=== PATIENT | female | born 1980 | race Caucasian/White ===

== ENCOUNTER 2017-01-01 11:49 | Emergency (ER) | payer OTHER ==
--- NOTE | 2017-01-01 12:20 | EDDOCDS ---
Physician Documentation [facility] Name: Peyton Eubanks Age: 36 yrs Sex: Female : 1980 Arrival Date: 01/01/2017 Time: 11:49 Bed I Private MD: Winter Diaz Abdul Disposition: 01/01/17 12:13 Discharged to Home/Self Care. Impression: Acute frontal sinusitis. - Condition is Stable. - Discharge Instructions: Sinusitis, Adult. - Prescriptions for Zithromax Z- Celestino 250 mg Oral Tablet - take 1 tablet by ORAL route as directed for 5 days Day 1- take two tablets once. Day 2, 3, 4 , 5 take one tablet once daily.; 6 tablet. - Medication Reconciliation, Local Pharmacy Hours form. - Follow up: Winter Diaz; When: 1 week; Reason: Recheck today's complaints, Continuance of care. - Problem is an ongoing problem. - Symptoms are unchanged. Historical: - Allergies: no known allergies; - Home Meds: 1. Mucinex 1,200 mg oral Ta12 twice a day - PMHx: none; - PSHx: Tonsillectomy; Cholecystectomy; ; - Social history: Smoking status: Patient uses tobacco products, heavy tobacco smoker. No barriers to communication noted, The patient speaks fluent Croatian, Speaks appropriately for age. - Family history: Not pertinent. - : The pt / caregiver states he / she is not on anticoagulants. Home medication list is obtained from the patient. - Exposure Risk Screening:: None identified. 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 0 in. (152.40 cm); 11:52 Body Mass Index 43.94 (102.06 kg, 152.40 cm) elp Signatures: Balaji Eaton,RN RN Sal Reed, CASKET UPHOLSTERER CASKET UPHOLSTERER Chapito Cameron, RN RN mlb1 MTDD
--- NOTE | 2017-01-01 12:20 | EDDOCDS ---
Nurse's Notes [facility] Name: Peyton Eubanks Age: 36 yrs Sex: Female : 1980 Arrival Date: 01/01/2017 Time: 11:49 Bed I Private MD: Winter Diaz Abdul Diagnosis: Acute frontal sinusitis Presentation: 01/01 11:53 Presenting complaint: Patient states: Head pressure and post nasal drip with cough mlb1 began yesterday. Adult Sepsis Screening: The patient does not have new or worsening altered mentation. Patient's respiratory rate is less than 22. Systolic blood pressure is greater than 100. Patient has a qSOFA score of 0- Negative Sepsis Screen. Suicide/Homicide risk assessment- the patient denies having any suicidal and/or homicidal ideations and does not present with any other emotional, behavioral or mental health complaints. Status: Patient is not a human services professional or dependent. Transition of care: patient was not received from another setting of care. 11:53 Acuity: PEYTON Level 4 mlb1 11:53 Method Of Arrival: Walkin/Carried/Asstd mlb1 Triage Assessment: 11:55 General: Appears in no apparent distress, Behavior is appropriate for age, cooperative. mlb1 Pain: Location: head Pain currently is 3 out of 10 on a pain scale. Quality of pain is described as aching. Pt Declines HIV testing. Respiratory: Reports cough that is. 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 Mucinex 1,200 mg oral Ta12 twice a day - PMHx: none; - PSHx: Tonsillectomy; Cholecystectomy; ; - Social history: Smoking status: Patient uses tobacco products, heavy tobacco smoker. No barriers to communication noted, The patient speaks fluent Polish, Speaks appropriately for age. - Family history: Not pertinent. - : The pt / caregiver states he / she is not on anticoagulants. Home medication list is obtained from the patient. - Exposure Risk Screening:: None identified. Screenin:16 Screening information is obtained from the patient. Fall risk: No risks identified. jmk Assistance ADL's: requires no assistance with activities of daily living. Abuse/DV Screen: The patient / caregiver reports he/she is: not in a situation that causes fear, pain or injury. Nutritional screening: No deficits noted. Advance Directives: Currently, there is no health care proxy. There is no active DNR order. There is no living will. There is no Power of Ceramics Teacher. Advance directive information has not previously been placed in an [facility] medical record. home support is adequate. Assessment: 12:16 General: Appears skin warm and dry color satisfactory. moist pink oral mucosa. chest jmk CTA. + nasal congestion reports increased pain with palpation of facial sinuses. Vital Signs: 11:52 BP 108 / 79; Pulse 105; Resp 20; Temp 97.3; Pulse Ox 97% ; Weight 102.06 kg; Height 5 elp ft. 0 in. (152.40 cm); 11:52 Body Mass Index 43.94 (102.06 kg, 152.40 cm) [facility] Vitals: 11:52 Log In Time: January 01, 2017 at 11:50. [facility] ED Course: 11:51 Patient visited by Rere Gilbert PCA. elp 11:51 iWnter Diaz is Private Physician. elp 11:51 Patient moved to Waiting elp 11:52 Patient visited by Rere Gilbert PCA. elp 11:53 Patient visited by Chapito Donnelly, LORIE. mlb1 11:53 Patient moved to Pre RCE elp 11:54 Triage Initiated mlb1 11:56 Patient visited by Chapito Donnelly, LORIE. mlb1 12:03 [facility] ke 12:03 Patient visited by Sal Thomas FNP. ke 12:03 Patient visited by Sal Thomas FNP. ke 12:03 Patient moved to I mlb1 12:12 Winter Diaz is Referral Physician. ke 12:16 The patient / caregiver is instructed regarding the plan of care and ED course. jmk 12:16 No IV's were initiated during this patient's visit. No procedures done that require jmk assistance. Order Results: There are currently no results for this order. Outcome: 12:13 Discharge ordered by Provider. ke 12:16 Discharge Assessment: Patient awake, alert and oriented x 3. No cognitive and/or jmk functional deficits noted. Patient verbalized understanding of disposition instructions. patient administered narcotics - no. The following High Risk Discharge criteria are identified: None. Discharged to home ambulatory. Condition: good. Discharge instructions given to patient, Instructed on discharge instructions, follow up and referral plans. medication usage, Demonstrated understanding of instructions, medications, Pt was receptive of discharge instructions/ teaching. Prescriptions given X 1. No special radiology studies were completed. Property :Personal belongings accompany Pt. 12:19 Patient left the ED. luiz Signatures: Balaji EatonRN RN Sal Reed, ON AIR HOST ON AIR HOST Chapito Cameron RN RN mlb1 Rere Gilbert, DEEPTI TATUM elp MTDD
--- NOTE | 2017-01-03 13:20 | EDDOCDS ---
Nurse's Notes [facility] Name: Peyton Eubanks Age: 36 yrs Sex: Female : 1980 Arrival Date: 01/01/2017 Time: 11:49 Bed I Private MD: Winter Diaz Abdul Diagnosis: Acute frontal sinusitis Presentation: 01/01 11:53 Presenting complaint: Patient states: Head pressure and post nasal drip with cough mlb1 began yesterday. Adult Sepsis Screening: The patient does not have new or worsening altered mentation. Patient's respiratory rate is less than 22. Systolic blood pressure is greater than 100. Patient has a qSOFA score of 0- Negative Sepsis Screen. Suicide/Homicide risk assessment- the patient denies having any suicidal and/or homicidal ideations and does not present with any other emotional, behavioral or mental health complaints. Status: Patient is not a answering service telephone operator or dependent. Transition of care: patient was not received from another setting of care. 11:53 Acuity: PEYTON Level 4 mlb1 11:53 Method Of Arrival: Walkin/Carried/Asstd mlb1 Triage Assessment: 11:55 General: Appears in no apparent distress, Behavior is appropriate for age, cooperative. mlb1 Pain: Location: head Pain currently is 3 out of 10 on a pain scale. Quality of pain is described as aching. Pt Declines HIV testing. Respiratory: Reports cough that is. 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 Mucinex 1,200 mg oral Ta12 twice a day - PMHx: none; - PSHx: Tonsillectomy; Cholecystectomy; ; - Social history: Smoking status: Patient uses tobacco products, heavy tobacco smoker. No barriers to communication noted, The patient speaks fluent Polish, Speaks appropriately for age. - Family history: Not pertinent. - : The pt / caregiver states he / she is not on anticoagulants. Home medication list is obtained from the patient. - Exposure Risk Screening:: None identified. Screenin:16 Screening information is obtained from the patient. Fall risk: No risks identified. jmk Assistance ADL's: requires no assistance with activities of daily living. Abuse/DV Screen: The patient / caregiver reports he/she is: not in a situation that causes fear, pain or injury. Nutritional screening: No deficits noted. Advance Directives: Currently, there is no health care proxy. There is no active DNR order. There is no living will. There is no Power of Business Objects Analyst. Advance directive information has not previously been placed in an [facility] medical record. home support is adequate. Assessment: 12:16 General: Appears skin warm and dry color satisfactory. moist pink oral mucosa. chest jmk CTA. + nasal congestion reports increased pain with palpation of facial sinuses. Vital Signs: 11:52 BP 108 / 79; Pulse 105; Resp 20; Temp 97.3; Pulse Ox 97% ; Weight 102.06 kg; Height 5 elp ft. 0 in. (152.40 cm); 11:52 Body Mass Index 43.94 (102.06 kg, 152.40 cm) [facility] Vitals: 11:52 Log In Time: January 01, 2017 at 11:50. [facility] ED Course: 11:51 Patient visited by Rere Gilbert PCA. elp 11:51 Winter Diaz is Private Physician. elp 11:51 Patient moved to Waiting elp 11:52 Patient visited by Rere Gilbert PCA. elp 11:53 Patient visited by Chapito Donnelly, LORIE. mlb1 11:53 Patient moved to Pre RCE elp 11:54 Triage Initiated mlb1 11:56 Patient visited by Chapito Donnelly, LORIE. mlb1 12:03 [facility] ke 12:03 Patient visited by Sal Thomas FNP. ke 12:03 Patient visited by Sal Thomas FNP. ke 12:03 Patient moved to I mlb1 12:12 Winter Diaz is Referral Physician. ke 12:16 The patient / caregiver is instructed regarding the plan of care and ED course. jmk 12:16 No IV's were initiated during this patient's visit. No procedures done that require jmk assistance. 12:59 Patient name changed from Peyton\S\M\S\Raimundo\S\ to Peyton\S\Viki\S\Raimundo. EDMS 13:06 [facility] Payment Agreement was scanned into [employer] and attached to record. 01/02 18:37 T-Sheet-- Draft Copy was scanned into [employer] and attached to record. klr Order Results: There are currently no results for this order. Outcome: 01/01 12:13 Discharge ordered by Provider. gypsy 12:16 Discharge Assessment: Patient awake, alert and oriented x 3. No cognitive and/or k functional deficits noted. Patient verbalized understanding of disposition instructions. patient administered narcotics - no. The following High Risk Discharge criteria are identified: None. Discharged to home ambulatory. Condition: good. Discharge instructions given to patient, Instructed on discharge instructions, follow up and referral plans. medication usage, Demonstrated understanding of instructions, medications, Pt was receptive of discharge instructions/ teaching. Prescriptions given X 1. No special radiology studies were completed. Property :Personal belongings accompany Pt. 12:19 Patient left the ED. luiz Signatures: Dispatcher [employer] EDMS Balaji Eaton,RN RN Malou Gao, Reg Reg Sal Live, ANESTHESIOLOGIST PHYSICIAN ANESTHESIOLOGIST PHYSICIAN Chapito Cameron RN RN mlRere Celeste, DEEPTI DIRECTOR OF LEARNING elCoby Cadet Chart Complete JAMEL
--- NOTE | 2017-01-03 13:20 | EDDOCDS ---
Physician Documentation [facility] Name: Peyton Eubanks Age: 36 yrs Sex: Female : 1980 Arrival Date: 01/01/2017 Time: 11:49 Bed I Private MD: Winter Diaz Abdul Disposition: 01/01/17 12:13 Discharged to Home/Self Care. Impression: Acute frontal sinusitis. - Condition is Stable. - Discharge Instructions: Sinusitis, Adult. - Prescriptions for Zithromax Z- Celestino 250 mg Oral Tablet - take 1 tablet by ORAL route as directed for 5 days Day 1- take two tablets once. Day 2, 3, 4 , 5 take one tablet once daily.; 6 tablet. - Medication Reconciliation, Local Pharmacy Hours form. - Follow up: Winter Diaz; When: 1 week; Reason: Recheck today's complaints, Continuance of care. - Problem is an ongoing problem. - Symptoms are unchanged. Historical: - Allergies: no known allergies; - Home Meds: 1. Mucinex 1,200 mg oral Ta12 twice a day - PMHx: none; - PSHx: Tonsillectomy; Cholecystectomy; ; - Social history: Smoking status: Patient uses tobacco products, heavy tobacco smoker. No barriers to communication noted, The patient speaks fluent Khmer, Speaks appropriately for age. - Family history: Not pertinent. - : The pt / caregiver states he / she is not on anticoagulants. Home medication list is obtained from the patient. - Exposure Risk Screening:: None identified. 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 0 in. (152.40 cm); 11:52 Body Mass Index 43.94 (102.06 kg, 152.40 cm) elp MDM: 13:06 [facility] Payment Agreement was scanned into [employer] and attached to record. 01/02 18:37 T-Sheet-- Draft Copy was scanned into [employer] and attached to record. klr Signatures: Balaji Eaton,RN RN Malou Gao, Milad Briones lgl, WELFARE ELIGIBILITY INTERVIEWER WELFARE ELIGIBILITY INTERVIEWER Chapito Cameron RN RN mlb1 Coby Parra The chart was reviewed and I authenticate all verbal orders and agree with the evaluation and treatment provided.Attachments: 01/01 13:06 [facility] Payment Agreement lg 01/02 18:37 T-Sheet-- Draft Copy klr Chart Complete MTDD
--- NOTE | 2017-01-03 13:20 | EDDOCDS ---
Physician Documentation [facility] Name: Peyton Eubanks Age: 36 yrs Sex: Female : 1980 Arrival Date: 01/01/2017 Time: 11:49 Bed I Private MD: Winter Diaz Abdul Disposition: 01/01/17 12:13 Discharged to Home/Self Care. Impression: Acute frontal sinusitis. - Condition is Stable. - Discharge Instructions: Sinusitis, Adult. - Prescriptions for Zithromax Z- Celestino 250 mg Oral Tablet - take 1 tablet by ORAL route as directed for 5 days Day 1- take two tablets once. Day 2, 3, 4 , 5 take one tablet once daily.; 6 tablet. - Medication Reconciliation, Local Pharmacy Hours form. - Follow up: Winter Diaz; When: 1 week; Reason: Recheck today's complaints, Continuance of care. - Problem is an ongoing problem. - Symptoms are unchanged. Historical: - Allergies: no known allergies; - Home Meds: 1. Mucinex 1,200 mg oral Ta12 twice a day - PMHx: none; - PSHx: Tonsillectomy; Cholecystectomy; ; - Social history: Smoking status: Patient uses tobacco products, heavy tobacco smoker. No barriers to communication noted, The patient speaks fluent Spanish, Speaks appropriately for age. - Family history: Not pertinent. - : The pt / caregiver states he / she is not on anticoagulants. Home medication list is obtained from the patient. - Exposure Risk Screening:: None identified. 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 0 in. (152.40 cm); 11:52 Body Mass Index 43.94 (102.06 kg, 152.40 cm) elp MDM: 13:06 [facility] Payment Agreement was scanned into [employer] and attached to record. 01/02 18:37 T-Sheet-- Draft Copy was scanned into [employer] and attached to record. klr Signatures: Balaji Eaton,RN RN Malou Gao, Milad Briones lgl, NURSING UNIT COORDINATOR NURSING UNIT COORDINATOR Chapito Cameron RN RN mlb1 Coby Parra The chart was reviewed and I authenticate all verbal orders and agree with the evaluation and treatment provided.Attachments: 01/01 13:06 [facility] Payment Agreement lg 01/02 18:37 T-Sheet-- Draft Copy klr Chart Complete MTDD
== END 2017-01-01 12:19 | disposition home or self-care (01) ==
LOC: M ED 11:49
DX: J01.90 Acute sinusitis, unspecified (principal); F17.210 Nicotine dependence, cigarettes, uncomplicated

== ENCOUNTER 2017-03-26 08:59 | Emergency (ER) | payer OTHER ==
[~2017-03-26] VITALS: Ht 147.3 cm; Wt 95.3 kg
[2017-03-26 08:59] VITALS: BP 135/88
[2017-03-26] MEDS ORDERED: OCUF0.3D OS (10:27)
== END 2017-03-26 10:54 | disposition home or self-care (01) ==
LOC: M ED 10:31
DX: H10.32 Unspecified acute conjunctivitis, left eye (principal); F17.200 Nicotine dependence, unspecified, uncomplicated

== ENCOUNTER 2017-11-24 08:10 | Emergency (ER) | payer OTHER | END 2017-11-24 09:34 | disposition home or self-care (01) | LOC: M ED 08:10 | DX: J04.0 Acute laryngitis (principal); B34.9 Viral infection, unspecified; F17.210 Nicotine dependence, cigarettes, uncomplicated; Z98.890 Other specified postprocedural states | CPT/HCPCS: 87880 ==

== ENCOUNTER 2018-06-12 09:59 | Emergency (ER) | payer OTHER ==
[2018-06-12 12:15] LABS: BASO # 0.1 10^3/uL (0.0-0.2); BASO % 0.6 % (0.0-1.0); HEMATOCRIT 46.4 % (36.0-47.0); HEMOGLOBIN 15.2 g/dl (12.0-15.5); IMMATURE GRANULOCYTE % 0.4 % (0-3.0); LYMPH # 2.4 10^3/uL (1.5-4.5); LYMPH % 22.3 % (24.0-44.0); MEAN CORPUSCULAR HGB CONC 32.8 g/dl (32.0-36.5); MEAN CORPUSCULAR VOLUME 88.5 fl (80.0-96.0); MONO # 0.6 10^3/uL (0.0-0.8); MONO % 5.4 % (0.0-5.0); NEUTROPHILS # 7.7 10^3/uL (1.8-7.7); NEUTROPHILS % 71.3 % (36.0-66.0); PLATELET COUNT, AUTOMATED 309 10^3/uL (150-450); RED BLOOD COUNT 5.24 10^6/uL (4.00-5.40); RED CELL DISTRIBUTION WIDTH 13.8 % (11.5-14.5); WHITE BLOOD COUNT 10.8 10^3/uL (4.0-10.0)
[2018-06-12 12:28] LABS: APPEARANCE, URINE CLOUDY (CLEAR); BACTERIA, URINE AUTO 3+ (NEGATIVE); BILIRUBIN, URINE AUTO NEGATIVE (NEGATIVE); BLOOD, URINE BLOOD 3+ (NEGATIVE); COLOR, URINE RED (YELLOW); GLUCOSE, URINE (UA) AUTO NEGATIVE (NEGATIVE); KETONE, URINE AUTO NEGATIVE (NEGATIVE); LEUKOCYTE ESTERASE, URINE AUTO NEGATIVE (NEGATIVE); MUCUS, URINE SMALL (NEGATIVE); NITRITE, URINE AUTO NEGATIVE (NEGATIVE); PROTEIN, URINE AUTO 2+ mg/dL (NEGATIVE); RBC, URINE AUTO TNTC /HPF (0-3); SPECIFIC GRAVITY URINE AUTO 1.021 (1.002-1.035); SQUAMOUS EPITHELIAL CELL UR AU 2 /HPF (0-6); UROBILINOGEN, URINE AUTO 0.2 mg/dL (0.0-2.0); WBC, URINE AUTO 54 /HPF (0-3)
[2018-06-12 12:42] LABS: ANION GAP 7 MEQ/L (8-16); BLOOD UREA NITROGEN 10 MG/DL (7-18); CALCIUM LEVEL 8.6 MG/DL (8.5-10.1); CARBON DIOXIDE LEVEL 28 MEQ/L (21-32); CHLORIDE LEVEL 106 MEQ/L (98-107); CPK CREATINE PHOSPHOKINASE 111 U/L (26-192); CREATININE FOR GFR 0.85 MG/DL (0.55-1.30); GLOMERULAR FILTRATION RATE > 60.0 (>60); GLUCOSE, FASTING 86 MG/DL (70-100); POTASSIUM SERUM 4.2 MEQ/L (3.5-5.1); SODIUM LEVEL 141 MEQ/L (136-145); TROPONIN I < 0.02 NG/ML (< 0.10)
[2018-06-12 12:48] LABS: CK-MB VALUE MASS < 1.0 NG/ML (<3.6); HCG, SERUM QUANTITATIVE < 1.0 MIU/ML
[2018-06-12 14:25] LABS: BEDSIDE GLUCOSE 82 MG/DL (70-105)
== END 2018-06-12 13:29 | disposition home or self-care (01) ==
LOC: M ED 09:59
DX: N39.0 Urinary tract infection, site not specified (principal); I49.9 Cardiac arrhythmia, unspecified; F17.200 Nicotine dependence, unspecified, uncomplicated
CPT/HCPCS: 93005

== ENCOUNTER 2021-04-22 12:43 | Inpatient (IN) | payer OTHER ==
[~2021-04-22] VITALS: Ht 152.4 cm; Wt 119.1 kg
[~2021-04-22 12:43] MED LIST: MACR100C43 PO; OCUF0.25 OS
[2021-04-22] MEDS ORDERED: LIDOCAINE 1% MDV 20ML VIAL SC ONE (15:05)
[2021-04-22] MEDS ORDERED: PERCOCET 5MG/325MG TAB PO ONE (15:20)
[2021-04-22 15:27] LABS: BASO # 0.1 10^3/uL (0.0-0.2); BASO % 0.4 % (0.0-1.0); EOS # 0.1 10^3/uL (0.0-0.5); EOS % 0.3 % (0.0-3.0); HEMATOCRIT 37.1 % (36.0-47.0); HEMOGLOBIN 11.4 g/dl (12.0-15.5); LYMPH # 2.1 10^3/uL (1.5-5.0); MEAN CORPUSCULAR HEMOGLOBIN 25.6 pg (27.0-33.0); MEAN CORPUSCULAR HGB CONC 30.7 g/dl (32.0-36.5); MEAN CORPUSCULAR VOLUME 83.4 fl (80.0-96.0); MONO % 5.1 % (2.0-8.0); NEUTROPHILS # 15.7 10^3/uL (1.5-8.5); NEUTROPHILS % 82.3 % (36.0-66.0); PLATELET COUNT, AUTOMATED 488 10^3/uL (150-450); RED BLOOD COUNT 4.45 10^6/uL (4.00-5.40); WHITE BLOOD COUNT 19.1 10^3/uL (4.0-10.0)
[2021-04-22] MEDS ORDERED: VANCOMYCIN HCL 2,000 MG in IV FLUID PLACE HOLDER 1 EA IV ONE (15:30)
[2021-04-22] MEDS ORDERED: VANCOMYCIN HCL 1,000 MG, VIAL MATE ADAPTER 1 EACH in NS 250 ML IV ONE ×2 (15:35→16:45)
[2021-04-22] MEDS ORDERED: NS 1,000 ML IV ONE (15:40)
[2021-04-22 15:46] LABS: BLOOD UREA NITROGEN 11 MG/DL (7-18); CALCIUM LEVEL 8.9 MG/DL (8.5-10.1); CARBON DIOXIDE LEVEL 26 MEQ/L (21-32); CHLORIDE LEVEL 104 MEQ/L (98-107); CREATININE FOR GFR 0.83 MG/DL (0.55-1.30); GLOMERULAR FILTRATION RATE > 60.0 (>58); GLUCOSE, FASTING 110 MG/DL (70-100); POTASSIUM SERUM 4.1 MEQ/L (3.5-5.1); SODIUM LEVEL 139 MEQ/L (136-145)
[2021-04-22] MEDS ORDERED: ISOVUE-370 76% 100ML VIAL As Ordered ONE (16:27)
--- NOTE | 2021-04-22 17:10 | REP ---
INDICATION: severe abscesses in rectal area. COMPARISON: None. TECHNIQUE: Helical scanning was acquired and 4 mm axial images are re-formatted. Coronal and sagittal MPR images were generated and reviewed. The contrast enhancement dose is 100 mL of intravenous Isovue 370. Patient was scanned in the prone position due to her inability to lay supine. FINDINGS: Preliminary digital housing management officer radiograph demonstrates an unremarkable bowel gas pattern. There are surgical clips in the right upper quadrant consistent with cholecystectomy and there are tubal ligation clamps visible bilaterally in the pelvis. The lung bases appear clear on axial CT images. The liver and the spleen are normal in size homogeneous in texture. Cholecystectomy clips are seen. No abnormality is noted in the pancreas. The left adrenal gland is enlarged. There is a low-density area along the inferior margin the adrenal gland most likely an adrenal adenoma. This measures 2.2 x 1.9 x 3.6 cm in greatest diameter. The kidneys enhance symmetrically and are morphologically intact. Small and large intestinal bowel loops are normal in the abdomen and pelvis. No retroperitoneal mass or adenopathy is observed. A no abdominal wall defect is seen. No uterine or urinary bladder abnormality is seen. Tubal ligation clamps are noted bilaterally adjacent to the ovaries. However, there is a lobulated mixed density well-defined mass lesion in the cul-de-sac. This contains macroscopic areas of fat, soft tissue density, and curvilinear peripheral calcification. Its appearance suggests a ovarian dermoid although normal ovaries are seen more anteriorly in the pelvis. It measures 6.4 cm craniocaudal by 7.3 cm right to left by 4.7 cm anterior to posterior. There is diffuse induration and inflammatory thickening in the perirectal area the perineum, bilaterally. On the right posterior to the anus, there is a 3.3 cm low-density area with incompletely defined brand which may be a developing perianal abscess. No other fluid collection is appreciated. IMPRESSION: 1. Bilateral perianal and perineal inflammatory changes. Ill-defined poorly marginated 3.3 cm low-density area in the right perianal region may be developing abscess. 2. 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 It contains fat calcium and soft tissue components. It is posterior to the uterus in the cul-de-sac. It measures 7.3 cm in greatest diameter. 3. Status post cholecystectomy and tubal ligation. Prone scanning due to patient discomfort lying supine. 4. There is a 3.6 cm low-density nodule in the left adrenal gland which is nonspecific. This may be a benign adenoma. MRI scanning of the adrenals with pre and postcontrast imaging suggested for further evaluation <Electronically signed by Errol Valdes > 04/22/21 1332
[2021-04-22] MEDS ORDERED: MIDAZOLAM INJ 2MG/2ML VIAL (J2250 PER 1MG) As Ordered ONE (18:14)
[2021-04-22] MEDS ORDERED: propofoL 200 MG/20 ML VIAL As Ordered ONE (18:15)
[2021-04-22] MEDS ORDERED: fentaNYL 100 MCG/2 ML INJECTION (J3010) As Ordered ONE ×2 (18:15→19:36)
[2021-04-22] MEDS ORDERED: dexameTHASONE 4 MG/ML 1ML VIAL (J1100 PER 1MG) As Ordered ONE (18:15)
[2021-04-22] MEDS ORDERED: LIDOCAINE 2% 100MG/5ML SDV (FOR ANES.) As Ordered ONE (18:15)
[2021-04-22] MEDS ORDERED: ONDANSETRON 4MG/2ML VIAL As Ordered ONE (18:15)
[2021-04-22] MEDS ORDERED: ACETAMINOPHEN TAB 650MG DOSE (2X325MG) PO PRN (18:30)
--- NOTE | 2021-04-22 18:45 | HPEPDOC ---
[facility] Medical History & Physical Date of Admission Apr 22, 2021 Date of Service: Apr 22, 2021 Attending Physician: MAXWELL BOTELLO DO History and Physical CHIEF COMPLAINT: Perirectal abscesses HISTORY OF PRESENT ILLNESS: And patient reports that she has had perirectal pain for the past few weeks, however it is now come to the point where it has become severely painful. Apparently she did discover a boil a few days ago, popped it, and has been draining ever since, she has tried to keep the area clean, but it just hasn't been getting any better. It is for this reason that she came to the emergency department for further evaluation. She does not have a PCP, and apparently she has not seen a doctor for at least the past 13 years or so since her . CODE STATUS: Full code PAST MEDICAL HISTORY: None PAST SURGICAL HISTORY: Tonsillectomy Cholecystectomy Tubal ligation SOCIAL HISTORY: Smokes approximately one half pack per day. Does not drink alcohol. Does not use any illicit drugs or marijuana. She apparently did try an edible cannabis last week for pain relief, but that is it. FAMILY HISTORY: Mother had "stage IV terminal cancer" but she does not know the type/etiology, but apparently this was not the cause of her , she had a major stroke. Otherwise her mother also had coronary artery disease and hypertension. She does not know her father's medical history is he is estranged REVIEW OF SYSTEMS: Constitutional: Patient denies fevers, chills, night sweats, recent weight gain/loss. HEENT: Patient denies blurred or double vision, transient visual disturbances, postnasal drip, epistaxis, sore throat, difficulty chewing or swallowing food. Cardiovascular: Patient denies chest discomfort/pain, palpitations, exertional dyspnea, orthopnea, edema of the extremities, claudication. Respiratory: Patient denies dyspnea, wheezing, cough, hemoptysis, sputum production. Gastrointestinal: Patient denies nausea, vomiting, abdominal pain, melena, hem atochezia, hematemesis, jaundice. She has rectal pain, and she has intermittent constipation, which when she treats will occasionally spur diarrhea. PHYSICAL EXAMINATION: General: Awake, alert, oriented 3. She is in no acute distress at this time. HEENT: Head normocephalic atraumatic, conjunctiva are pink, sclera are nonicteric, buccal mucosa is pink and moist with no lesions in the oropharynx. Hearing is grossly intact to conversation. Respiratory: Clear to auscultation bilaterally with no wheezes, rales, or rhonchi. Cardiovascular: Regular rate and rhythm, with no rubs, gallops, or murmur. Abdomen: She is lying prone therefore examination the abdomen cannot be performed. Examination of the perianal area does reveal a large amount of drainage, one of the larger abscesses was already lanced by the ED provider Extremities: 2+ pulses in the radial and dorsalis pedis bilaterally. No evidence of clubbing or cyanosis. IMAGING: CT abdomen and pelvis with IV contrast only IMPRESSION: 1. Bilateral perianal and perineal inflammatory changes. Ill-defined poorly marginated 3.3 cm low-density area in the right perianal region may be developing abscess. 2. 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 It contains fat calcium and soft tissue components. It is posterior to the uterus in the cul-de-sac. It measures 7.3 cm in greatest diameter. 3. Status post cholecystectomy and tubal ligation. Prone scanning due to patient discomfort lying supine. 4. There is a 3.6 cm low-density nodule in the left adrenal gland which is nonspecific. This may be a benign adenoma. 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. Dr. Burleson, General Surgeon has already been contacted by the ED provider, and they're trying to get her scheduled for an OR time either tonight or tomorrow. She is already NPO. Will continue with IV vancomycin for empiric antibiotic, wound and blood cultures have already been obtained in the ED Vital Signs Vital Signs Date Time Temp Pulse Resp B/P (MAP) Pulse Ox O2 Delivery O2 Flow Rate FiO2 04/22/21 18:42 04/22/21 17:06 99.0 98 18 96 Room Air Laboratory Data Labs 24H Laboratory Tests 2 04/22/21 15:02: Immature Granulocyte % (Auto) 0.9, Neutrophils (%) (Auto) 82.3H, Lymphocytes (%) (Auto) 11.0L, Monocytes (%) (Auto) 5.1, Eosinophils (%) (Auto) 0.3, Basophils (%) (Auto) 0.4, Neutrophils # (Auto) 15.7H, Lymphocytes # (Auto) 2.1, Monocytes # (Auto) 1.0H, Eosinophils # (Auto) 0.1, Basophils # (Auto) 0.1, Nucleated Red Blood Cells % (auto) 0.0, Anion Gap 9, Glomerular Filtration Rate > 60.0, Calcium Level 8.9, C-Reactive Protein, Quantitative 10.80H 04/22/21 15:44: Erythrocyte Sedimentation Rate 81H, Lactic Acid Level 1.0, Coronavirus (COVID- 19)(PCR) NEGATIVE CBC/BMP Laboratory Tests 04/22/21 15:02 Microbiology Microbiology 04/22/21 Blood Culture, Received Pending 04/22/21 Gram Stain, Received Pending 04/22/21 Wound Culture, Received Pending Home Medications No Active Prescriptions or Reported Meds Allergies Coded Allergies: No Known Allergies (Unverified , 04/22/21) A-FIB/CHADSVASC A-FIB History Current/History of A-Fib/PAF?: No MAXWELL BOTELLO DO Apr 22, 2021 18:44
[2021-04-22] MEDS ORDERED: BUPIVACAINE HCL 0.25% 30ML VIAL As Ordered ONE (19:25)
[2021-04-22] MEDS ORDERED: ONDANSETRON 4MG/2ML VIAL IV PRN ×2 (19:30→20:20)
[2021-04-22] MEDS ORDERED: HYDROMORPHONE HCL 0.5 MG/ 0.5 ML SYRINGE (J1170 PER 1) IV PRN (19:30)
[2021-04-22] MEDS ORDERED: LR 1,000 ML IV SCH (19:30)
[2021-04-22] MEDS ORDERED: oxyCODONE 5MG TAB PO PRN (19:30)
[2021-04-22] MEDS ORDERED: fentaNYL 100 MCG/2 ML INJECTION (J3010) IV PRN (19:30)
[2021-04-22] MEDS ORDERED: ACETAMINOPHEN 1000MG 100ML IV BTL (OFIRMEV) (J0131 PER 10MG) As Ordered ONE (19:49)
[2021-04-22 20:50] VITALS: BP 135/72
[2021-04-22] MEDS ORDERED: ENOXAPARIN 40MG/0.4ML SYRINGE (J1650 PER 10MG) SC SCH (21:00)
[2021-04-22 21:20] VITALS: BP 114/56
[2021-04-22] MEDS: SENOKOT S TAB PO SCH (21:24)
[2021-04-22] MEDS: KETOROLAC 30 MG/ML 1ML VIAL IV PRN (21:25)
[2021-04-22 22:15] VITALS: BP 112/58
[2021-04-22 23:20] VITALS: BP 112/59
[2021-04-22] MEDS: VANCOMYCIN HCL 1,000 MG, VIAL MATE ADAPTER 1 EACH in NS 250 ML IV SCH (23:54)
[2021-04-23 00:20] VITALS: BP 108/74
[2021-04-23] MEDS: KETOROLAC 30 MG/ML 1ML VIAL IV PRN ×2 (00:50→12:35)
[2021-04-23 01:22] VITALS: BP 109/70
[2021-04-23] MEDS: NORCO, ANEXSIA 5/325MG TABLET (HYDROcodone/ACETAMINOPHEN) PO PRN ×2 (02:36→08:45)
[2021-04-23 06:00] VITALS: BP 113/65
[2021-04-23 08:13] LABS: HEMATOCRIT 31.1 % (36.0-47.0); HEMOGLOBIN 9.5 g/dl (12.0-15.5); MEAN CORPUSCULAR HEMOGLOBIN 25.4 pg (27.0-33.0); MEAN CORPUSCULAR HGB CONC 30.5 g/dl (32.0-36.5); MEAN CORPUSCULAR VOLUME 83.2 fl (80.0-96.0); PLATELET COUNT, AUTOMATED 460 10^3/uL (150-450); RED BLOOD COUNT 3.74 10^6/uL (4.00-5.40); WHITE BLOOD COUNT 19.3 10^3/uL (4.0-10.0)
--- NOTE | 2021-04-23 08:22 | IPNPDOC ---
Text Note Date of Service The patient was seen on 04/23/21. NOTE No acute events overnight. She still feels better than when she came into the hospital. The pain is still present, but she is able to sit down. We had a long discussion this am about the mass. She did not remember anything that I discussed with her last night after surgery. I explained to her again that she has genital warts along with a large pelvic mass that is likely a V ulvar cancer. I also mentioned to her that I had Dr. Lord take a look while she was in the operating room to give me her opinion as well. VSSAF NAD labs - below A) 40y/o female with an infected pelvic mass that is likely a vulvar cancer. P) reg diet abx recommend looking into transfer to [facility] legal [facility] onc[facility] for further treatment. Grant Burleson DO VS,Sandor, I+O VS, Sandor, I+O Laboratory Tests 04/22/21 15:02 04/23/21 06:41 Vital Signs Date Time Temp Pulse Resp B/P (MAP) Pulse Ox O2 Delivery O2 Flow Rate FiO2 04/23/21 06:00 98.1 63 16 113/65 (81) 96 Room Air I&O- Last 24 Hours up to 6 AM 04/23/21 06:00 Intake Total 2410 ml Output Total 5 ml Balance 2405 ml MAXWELL BURLESON DO Apr 23, 2021 08:22
[2021-04-23 08:34] LABS: BLOOD UREA NITROGEN 11 MG/DL (7-18); CALCIUM LEVEL 8.5 MG/DL (8.5-10.1); CARBON DIOXIDE LEVEL 24 MEQ/L (21-32); CHLORIDE LEVEL 105 MEQ/L (98-107); CREATININE FOR GFR 0.78 MG/DL (0.55-1.30); GLOMERULAR FILTRATION RATE > 60.0 (>58); GLUCOSE, FASTING 122 MG/DL (70-100); POTASSIUM SERUM 4.4 MEQ/L (3.5-5.1); SODIUM LEVEL 137 MEQ/L (136-145)
[2021-04-23] MEDS: SENOKOT S TAB PO SCH (08:44)
[2021-04-23] MEDS: VANCOMYCIN HCL 1,000 MG, VIAL MATE ADAPTER 1 EACH in NS 250 ML IV SCH (08:44)
[2021-04-23] MEDS ORDERED: PANTOPRAZOLE 40MG TAB (PROTONIX) PO SCH (09:00)
--- NOTE | 2021-04-23 09:18 | CR ---
CONSULTATION DATE: 04/22/2021 CHIEF COMPLAINT: Perineal abscess. HISTORY OF PRESENT ILLNESS: The patient complains of perineal pain for the past three weeks. She has had intermittent infections with drainage in the area that have went away on their own, however this one she has had for about two weeks and it is not getting any better. She is having significant pains with any bowel movements as well. She finally came to the hospital for evaluation after the pain was not improving. In the Emergency Room she was diagnosed with a perineal abscess and perirectal abscess. One of the spots was drained and cultured, however due to the large area and severe pain, ended up getting a CT scan to make sure there was no necrotizing fasciitis. CT scan did show possible mass in the cul-de-sac concerning for questionable dermoid tumor, also showed some perineal inflammatory changes and questionable abscess I decided to take her to the Operating Room for better visualization and drainage of the area. PAST MEDICAL HISTORY: Negative. PAST SURGICAL HISTORY: Tonsillectomy, cholecystectomy, and tubal ligation. SOCIAL HISTORY: Smokes a half a pack a day, denies drug or alcohol usage. FAMILY HISTORY: Noncontributory. REVIEW OF SYSTEMS: Pertinent positives and negatives as stated in the HPI. ALLERGIES: None. HOME MEDICATIONS: None. PHYSICAL EXAMINATION: GENERAL: Patient is alert and oriented x3, in no acute distress. VITAL SIGNS: Temperature is 96.2, pulse is 144, respirations 18, blood pressure 135/86, pulse oximetry 96% on room air. HEENT: Pupils equally round and reactive to light and accommodation. HEART: S1 and S2, regular rate and rhythm. LUNGS: Clear to auscultation bilaterally. ABDOMEN: Soft, nontender and nondistended. EXTREMITIES: No cyanosis, clubbing or edema. PERINEAL EXAM: Deferred until the Operating Room due to severe pain at this time. LABORATORY DATA: White count 19.1, hemoglobin 11.4, platelets 488,000. Potassium 4.1, creatinine 0.83. C-reactive protein 10.8. 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 There is a 3.6 cm low density nodule in the left adrenal gland which is nonspecific. ASSESSMENT AND PLAN: Patient is a 40-year-old female with a perineal infection. Recommendation is to take her to the Operating Room for debridement. Risks and benefits of the procedure not limited to but including bleeding, infection, damage to surrounding structures, and need for further surgery, discussed in detail with the patient, informed consent was obtained. The procedure was planned. Postoperatively, she will kept in the hospital for a couple of days until her labs are improved and she should be able to be discharged home. ADDENDUM: Postoperatively, patient did have what appeared to be an infected pelvic mass as opposed to just simple abscess. She does have extensive genital warts around the perineal area. She was unaware of those when I spoke with her afterwards, she thought they were just skin tags like she has on the rest of her body. I explained to her that these were genital warts and that on the left side it appears that it has turned into a large mass, that mass is likely what has grown into her pelvis and this large necrotic mass is the cause of her infection. I am concerned also about possible rectocutaneous fistula due to this mass and that being the source of the infection. I explained all of this to her in detail, will explain it to her again in the morning when she is more alert and we will see how she does overnight with further recommendation to follow.
[2021-04-23] MEDS ORDERED: PROHANCE 279.3MG/ML 5ML VIAL As Ordered ONE (10:05)
[2021-04-23] MEDS ORDERED: PROHANCE 279.3MG/ML 15ML VIAL As Ordered ONE (10:05)
--- NOTE | 2021-04-23 11:36 | REP ---
INDICATION: Adrenal mass. MRI Adrenals with pre . COMPARISON: CT 04/22/2021. TECHNIQUE: Multiple sequences obtained in the axial coronal planes prior to and following the intravenous administration of 20 cc ProHance. FINDINGS: The patient has had a prior cholecystectomy. There is not significant intrahepatic or extrahepatic biliary dilatation. The visualized liver demonstrates no gross abnormality. Spleen and pancreas also appear unremarkable. A left adrenal nodule is again seen. It measures approximately 3.7 x 2.9 cm. It is somewhat heterogeneous in signal. There is not significant drop in signal on the out of phase imaging and diagnosis of adrenal adenoma cannot be definitely made. The kidneys are unremarkable. No adenopathy or free fluid is seen in the visualized abdomen. IMPRESSION: Left adrenal nodule 3.7 x 2.9 cm. There is not a significant drop in signal on out of phase imaging and therefore a definitive diagnosis of adrenal adenoma cannot be made. It is felt this most likely represents a lipid poor adrenal adenoma. Further evaluation may be made with dedicated CT of the adrenals with and without contrast, with postcontrast imaging obtained in the portal phase and 15 minutes post contrast injection, to evaluate adrenal washout. <Electronically signed by Adonis Lopez > 04/23/21 1547
[2021-04-23 11:46] VITALS: BP 121/53
[2021-04-23] MEDS ORDERED: NORCO, ANEXSIA 5/325MG TABLET (HYDROcodone/ACETAMINOPHEN) PO PRN ×2 (12:40)
--- NOTE | 2021-04-23 13:45 | DS.PDOC ---
Discharge Summary General Date of Admission Apr 22, 2021 at 18:27 Date of Discharge 04/23/2021 Discharge Summary PRIMARY CARE PHYSICIAN: She does not have a primary care physician ATTENDING AT TIME OF DISCHARGE: Dr. Maxwell Botello, DO DISCHARGE DIAGNOS(E)S: -Large infected pelvic mass suspected to be vulvar cancer -Incidental finding of left adrenal nodule, most likely represents a lipid poor adrenal adenoma (further evaluation may be made with dedicated CT of the adrenals with and without contrast with postcontrast imaging obtained in the portal phase and 15 minutes post contrast injection to evaluate adrenal washout) -Suspicion for rectocutaneous fistula -Leukocytosis -Normocytic anemia -Elevated platelet count -Elevated ESR and CRP HPI & HOSPITAL COURSE: The patient had been suffering from perirectal pain for the past 2-3 weeks, apparently a few days ago she discovered a boil in the perirectal area, popped in, and it has been draining ever since. She presented to the emergency room because of the pain and continuous drainage. CT scan in the emergency department showed what appeared to be perirectal abscess with incidental dermoid tumor in the pelvic cul-de-sac, as well as an incidental finding of a left adrenal mass. She was started on IV vancomycin as empiric anabiotic therapy given that she did have an elevated white count (19.1). Highest recorded temperature was 99.0 while inpatient in our facility. Vital signs have remained good, she is certainly not septic. She was brought to the OR, and instead of a perirectal abscess, and appears that she has a very large pelvic mass, suspected to be vulvar cancer that is likely extending through the entire area of the perineum, and may actually be part of what was previously presumed to be the dermoid tumor. A biopsy was obtained in the OR, and best attempt was made to flush/clean out the area, but there is suspicion for rectocutaneous fistula therefore nothing else was done. Since we do not have a gynecology/oncology service at our hospital she will be transferred to [facility] for further evaluation and management. Accepting physician is Dr. Yany Veras MD. PHYSICAL EXAMINATION ON DISCHARGE: GENERAL: Awake, alert, oriented 3. She is certainly anxious about the news given to her, but she has not in any acute distress, and is currently stable. CARDIOVASCULAR EXAMINATION: Regular rate and rhythm, with no rubs, gallops, or m urmur. RESPIRATORY EXAMINATION: Clear to auscultation bilaterally with no wheezes, rales, or rhonchi. ABDOMINAL EXAMINATION: Soft, nontender. Bowel sounds present. EXTREMITIES: No clubbing or edema noted. 2+ pulses in the radial bilaterally. DISPOSITION: Transfer to [facility] in [place], [place] DISCHARGE INSTRUCTIONS: Follow-up with Dr. Veras upon arrival to [facility]. Vital Signs/I&Os Vital Signs Date Time Temp Pulse Resp B/P (MAP) Pulse Ox O2 Delivery O2 Flow Rate FiO2 04/23/21 11:46 98.0 74 16 121/53 (75) 97 Room Air I&O- Last 24 Hours up to 6 AM0 04/23/21 06:00 Intake Total 2410 ml Output Total 5 ml Balance 2405 ml Laboratory Data Labs 24H Laboratory Tests 2 04/22/21 15:02: Immature Granulocyte % (Auto) 0.9, Neutrophils (%) (Auto) 82.3H, Lymphocytes (%) (Auto) 11.0L, Monocytes (%) (Auto) 5.1, Eosinophils (%) (Auto) 0.3, Basophils (%) (Auto) 0.4, Neutrophils # (Auto) 15.7H, Lymphocytes # (Auto) 2.1, Monocytes # (Auto) 1.0H, Eosinophils # (Auto) 0.1, Basophils # (Auto) 0.1, Nucleated Red Blood Cells % (auto) 0.0, Anion Gap 9, Glomerular Filtration Rate > 60.0, Calcium Level 8.9, C-Reactive Protein, Quantitative 10.80H 04/22/21 15:44: Erythrocyte Sedimentation Rate 81H, Lactic Acid Level 1.0, Coronavirus (COVID- 19)(PCR) NEGATIVE 04/23/21 06:41: Nucleated Red Blood Cells % (auto) 0.0, Anion Gap 8, Glomerular Filtration Rate > 60.0, Calcium Level 8.5 CBC/BMP Laboratory Tests 04/22/21 15:02 04/23/21 06:41 Microbiology Microbiology 04/22/21 Blood Culture, Received Pending 04/22/21 Blood Culture, Received Pending 04/22/21 Gram Stain - Final, Resulted 04/22/21 Wound Culture - Preliminary, Resulted Streptococcus Group G Discharge Medications No Active Prescriptions or Reported Meds Allergies Coded Allergies: No Known Allergies (Unverified , 04/22/21) MAXWELL BOTELLO 14, 2021 13:45
[2021-04-23 14:00] VITALS: BP 111/52
--- NOTE | 2021-04-23 14:49 | RO ---
OPERATIVE NOTE DATE OF OPERATION: 04/22/2021 PREOPERATIVE DIAGNOSIS: Perineal abscess POSTOPERATIVE DIAGNOSIS: Infected and necrotic perineal mass. PROCEDURE: Incision and drainage of a perineal abscess as well as drainage of portion of this infected mass, rectal examination under anesthesia and biopsy of the perineal mass. SURGEON: Adonis Burleson DO AIR BRUSH DECORATOR: None. ANESTHESIA: General. SPECIMENS: Mass biopsy. ESTIMATED BLOOD LOSS: 5 mL COMPLICATIONS: None. ANESTHESIA: General. INDICATIONS FOR PROCEDURE: The patient is a 40-year-old female who presents with a three week history of a perineal abscess that keeps returning. She claims to have had difficulty with abscesses for a while in that area that just keep coming back. She presented to the emergency room with infection. Recommendation is to take her to the operating room for drainage due to severe pain and CT finding suspicious for large abscess in the area. Risks and benefits of the procedure are not limited to but include bleeding, infection, damage to surrounding structures, need for further surgery were discussed in detail to the patient. Informed consent was obtained and procedure is planned. DESCRIPTION OF PROCEDURE: The patient was brought back to operating room 3. After sufficient sedation, she was placed up in lithotomy position. Next, a timeout was done to confirm proper patient and proper procedure. Following that, on the left anterior buttock, there was an abscess with purulent fluid draining from it. I opened that incision by about a cm, irrigated it out and then used some cautery to control bleeding. There were multiple warts around the labia on both sides. On the left side of the labia extending down around the rectal area was this large necrotic mass invading the entire area, very hard. On rectal exam, I was able to feel the mass internally. With pressure anteriorly, purulent fluid did drain out from the middle of it. I did irrigate that out as best I could. There is a high concern for a rectocutaneous fistula in that area. A couple biopsies were taken of the mass itself and sent to pathology. The rest of the area was then irrigated out really well, covered with 4x4s and mesh panties, thus ending procedure. The patient tolerated the procedure well and was sent to recovery room in stable condition.
[2021-04-23 16:07] VITALS: BP 102/52
[2021-04-23] MEDS ORDERED: VANCOMYCIN HCL 1,000 MG, VIAL MATE ADAPTER 1 EACH in NS 250 ML IV SCH (19:00)
== END 2021-04-23 16:22 | disposition short-term general hospital (02) | DRG 364 ==
LOC: M ED 12:43 → M ED INP 18:27 → M MSPAV 20:53
PROVIDERS: ADMIT Neuromusculoskeletal Medicine & OMM; ATTEND Neuromusculoskeletal Medicine & OMM
PROC: 0W9N0ZZ Drainage of Female Perineum, Open Approach (ICD-10-PCS; 2021-04-22)
PROC: 0WBN0ZX Excision of Female Perineum, Open Approach, Diagnostic (ICD-10-PCS; principal; 2021-04-22 17:39)
DX: L02.215 Cutaneous abscess of perineum (principal); C76.3 Malignant neoplasm of pelvis; D36.7 Benign neoplasm of other specified sites; K60.4 Rectal fistula; D35.02 Benign neoplasm of left adrenal gland; F17.200 Nicotine dependence, unspecified, uncomplicated; Z90.49 Acquired absence of other specified parts of digestive tract; Z20.822 Contact with and (suspected) exposure to COVID-19

== ENCOUNTER 2021-05-03 07:02 | Emergency (ER) | payer OTHER ==
[~2021-05-03] VITALS: Ht 152.4 cm; Wt 114.2 kg
[2021-05-03] MEDS ORDERED: BACTDSTA (07:10)
[2021-05-03] MEDS ORDERED: SM P325T2 (07:10)
[2021-05-03] MEDS ORDERED: NS 1,000 ML IV SCH (07:45)
[2021-05-03] MEDS ORDERED: ONDANSETRON 4MG/2ML VIAL IV ONE (07:45)
[2021-05-03 08:40] LABS: BASO # 0.1 10^3/uL (0.0-0.2); BASO % 0.5 % (0.0-1.0); HEMOGLOBIN 11.5 g/dl (12.0-15.5); LYMPH # 2.1 10^3/uL (1.5-5.0); LYMPH % 9.6 % (24.0-44.0); MEAN CORPUSCULAR HEMOGLOBIN 25.5 pg (27.0-33.0); MEAN CORPUSCULAR HGB CONC 31.1 g/dl (32.0-36.5); MONO % 4.5 % (2.0-8.0); NEUTROPHILS # 18.3 10^3/uL (1.5-8.5); NEUTROPHILS % 83.2 % (36.0-66.0); PLATELET COUNT, AUTOMATED 535 10^3/uL (150-450); RED BLOOD COUNT 4.51 10^6/uL (4.00-5.40)
[2021-05-03] MEDS ORDERED: FREEMIS42 TOP (08:53)
[2021-05-03] MEDS: MORPHINE 4 MG/ML 1ML VIAL/SYRINGE (J2270) IV PRN ×2 (09:02→12:56)
[2021-05-03] MEDS ORDERED: PIPERACILLIN/TAZOBACTAM SOD 3.375 GM in D5W MINI-BAG PLUS 50 ML IV ONE (09:15)
[2021-05-03 10:05] LABS: RSV AMPLIFICATION NEGATIVE (NEGATIVE)
[2021-05-03 10:43] LABS: CREATININE FOR GFR 1.12 MG/DL (0.55-1.30); GLOMERULAR FILTRATION RATE 56.8 (>58); POTASSIUM SERUM 4.1 MEQ/L (3.5-5.1)
[2021-05-03 12:56] VITALS: BP 125/57
== END 2021-05-03 13:01 | disposition short-term general hospital (02) ==
LOC: M ED 07:02
DX: L02.215 Cutaneous abscess of perineum (principal); D07.1 Carcinoma in situ of vulva
CPT/HCPCS: 36415; 80048; 85025; 87631; 96365; 96375; 96376; 99284; J2270; J2405; J2543

== ENCOUNTER → 2021-05-21 | Outpatient (CLI) | payer OTHER ==
[~2021-05-21] MED LIST changes: +BACTDSTA; +CIPR250T3 PO; +CIPR750T2 PO; +CLIN150C17 PO; +FENT1DIS14 TOP; +FLUC100T3 PO; +FREEMIS42 TOP; +GABA-282 PO; +LEVO500T4 PO; +LIDO3CRE14 TOP; +LIDO5OIN19 EXT; +METR-265 PO; +METR0.7533 TOP; +MICO14CR TOP; +MORP-69 PO; +ONDA-83 PO; +OXYC-1 PO; +OXYC-141 PO; +OXYC-403 PO; +OXYC-517 PO; +OXYC10TA12 PO; +SERT-141 PO; +SERT25TA21 PO; +SLOWTAB2 PO; +SM P325T2 PO; +TRIA1CR80 TOP; +ZOFR4TAB16 PO; +[UNRECOGNIZED DRUG - CODE] EXT
== END ==
LOC: M ONCR 10:41
PROVIDERS: ATTEND General Practice
DX: C51.9 Malignant neoplasm of vulva, unspecified (principal); F17.210 Nicotine dependence, cigarettes, uncomplicated; Z80.0 Family history of malignant neoplasm of digestive organs; Z92.21 Personal history of antineoplastic chemotherapy; Z98.61 Coronary angioplasty status

== ENCOUNTER → 2021-06-06 | Outpatient (CLI) | payer OTHER ==
[~2021-06-06] MED LIST changes: +HYDROmorphone HCL 2MG/ML 1ML VIAL As Ordered ONE; +LIDOCAINE 1% MDV 20ML VIAL As Ordered ONE; +MIDAZOLAM INJ 2MG/2ML VIAL (J2250 PER 1MG) As Ordered ONE; +NS 1,000 ML IV SCH; +OXYC-1; +OXYC-517; +ceFAZolin 2 GM/D5W 50 ML IV BAG (J0690 PER 500MG) As Ordered ONE; +ceFAZolin SOD 2 GM in IV 1 EA IV ONE; +diphenhydrAMINE 50MG/ML VIAL (J1200) As Ordered ONE; +fentaNYL 100 MCG/2 ML INJECTION As Ordered ONE
[2021-06-06 16:44] VITALS: BP 123/65
== END ==
LOC: M IRPRO 12:55
PROVIDERS: ATTEND Radiology Diagnostic Radiology
DX: C51.9 Malignant neoplasm of vulva, unspecified (principal)
CPT/HCPCS: 36561; 99152; 99153; C1769; C1788; C1894; J0690; J1170; J1200; J1642; J1644; J2250; J3010

== ENCOUNTER 2021-06-08 08:26 | Outpatient (RCR) | payer OTHER ==
--- NOTE | 2021-05-21 13:31 | RADONC.CN ---
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 She is seen today to facilitate continuation of her chemoradiation which was started at [facility]. Diagnosis/Treatment History Oncologic History Presented in April 2021 with a perineal mass and pain. She was assessed at [facility] and thought to have a perineal abscess she underwent EUA/I&D and biopsy on 04/23/21 which showed SCC. She had suspicion for rectocutaneous fistula. She was transferred to [place] and sent home from there on antibiotics. She then develop ed increasing pain in the rectum and presented to the [facility] ED on 05/03/21 and this time was transferred to [facility]. She was evaluated by radiation oncology and gynecologic oncology there. On MRI her mass was ~9.5 cm AP with abutment of the anal sphincter and extension to the left inferior pubic ramus. There were BL inguinal nodes and questionable external iliac nodes on the left. Started chemoradiation on 05/08/21 and received a total of 8 fractions of treatment last on 05/18/21. Along with this she received 2 doses of weekly cisplatin 05/08/21 and 05/15/21. Relevant imaging: MR Pelvis 04/26/21 FINDINGS: Uterus: Anteverted. scar noted. Endometrium unremarkable. Cervix unremarkable. Ovaries: Mixed signal intensity mass centered in the cul-de-sac, measuring approximately 8 x 5.1 x 6.1 cm. There are foci of fat within, also demonstrated on recent CT. This mass contacts the posterior aspect of the right ovary, though did appear separate from the right ovary on prior CT. The ovaries otherwise have an unremarkable appearance with small follicles noted. Susceptibility artifact in both adnexa related to tubal ligation clips. Bladder: Indwelling Mckenna catheter with associated intraluminal gas. Peritoneum: Trace free fluid. Lymph Nodes: Bilateral inguinal adenopathy. On the right, largest lymph node measures 1.3 cm short axis. On the left, largest lymph node measures 1.2 cm short axis. Additionally enlarged bilateral external iliac lymph nodes up to 1.5 cm. Subcentimeter presacral and internal iliac lymph nodes are nonspecific. Visualized Bowel: Grossly normal. Vessels: Normal. Bones: No suspicious lesions. Other Findings: Vulvar mass in the midline measures approximately 9.3 x 4.2 x 6.5 cm. The mass is likely bilateral, but there is a greater left-sided component. It extends superiorly on the left in close proximity to the left inferior pubic ramus, but without definite evidence of invasion. The mass abuts the anterior anal sphincter. IMPRESSION: 1. Vulvar mass, centered in midline, measuring approximately 9.3 x 4.2 x 6.5 cm. Mass contacts the anal sphincter and extends in close proximity to the left inferior pubic ramus without bony invasion. 2. Bilateral inguinal and external iliac adenopathy, concerning for jeanna metastases. 3. Fat-containing 8 cm mass centered in the cul-de-sac. This mass has imaging features suggesting a dermoid cyst. It contacts the right ovary and may be right ovarian in origin, however on prior CT, it appeared separate from the ovary. Its origin is not entirely certain. Otherwise unremarkable uterus and ovaries. 4. Trace pelvic free fluid. CT Thorax with Contrast Result Date: 05/03/2021 PROCEDURE INFORMATION: Exam: CT Chest With Contrast; Diagnostic Exam date and time: 05/03/21 10:32 PM Age: 40 years old Clinical indication: Shortness of breath; Additional info: Vulvar cancer - evaluate for adenopathy TECHNIQUE: Imaging protocol: Diagnostic computed tomography of the chest with contrast. Radiation optimization: All CT scans at this facility use at least one of these dose optimization techniques: automated exposure control; mA and/or kV adjustment per patient size (includes targeted exams where dose is matched to clinical indication); or iterative reconstruction. Contrast material: OMNI 300; Contrast volume: 100 ml; Contrast route: INTRAVENOUS (IV); COMPARISON: No relevant prior studies available. FINDINGS: Lungs: Unremarkable. No consolidation. No masses. Pleural spaces: Unremarkable. No pneumothorax. No pleural effusion. Heart: Unremarkable. No cardiomegaly. No pericardial effusion. Aorta: Unremarkable. No aortic aneurysm. Lymph nodes: Unremarkable. No enlarged lymph nodes. Gallbladder and bile ducts: Cholecystectomy. Adrenal glands: 3.6 x 2.9 cm left adrenal adenoma. Bones/joints: Unremarkable. No acute fracture. Soft tissues: Unremarkable. IMPRESSION: 1. 3.6 x 2.9 cm left adrenal adenoma. 2. Cholecystectomy. THIS DOCUMENT HAS BEEN ELECTRONICALLY SIGNED BY YASMIN COSTELLO MD Interval History Peyton reports pain with showering and ambulation. She is wearing an ABD pad over the draining perineal wound. Overall she says that there has been less drainage in recent days. She has no bleeding IL, or in her urine. No pain with elimination. Walking extended periods and repositioning when she lays down hurts her. She is taking 5 mg oxycodone for pain with good effect. Has had no fevers or chills since completing antibiotics. Appetite good and weight stable. Past Medical History: Obesity Past Surgical History: Tubal ligation C section Cholecystectomy Tonsillectomy Family History: Father-lung cancer Mother-cancer Social History: Current 1/2 ppd smoker ~ 20 pack year smoking history Allergies / Meds Allergies: Coded Allergies: No Known Allergies (Unverified , 04/22/21) Home Meds Active Scripts Oxycodone HCl (Oxycodone HCl) 5 Mg Tablet, 5 MG PO Q4HP PRN for pain MDD 6 Tablet(s) for 14 Days, #90 TAB Prov:LAST JUNIOR MD 05/21/21 Reported Medications Sulfamethoxazole/Trimethoprim (Sulfamethoxazole-Tmp Ds Tablet) 1 Each Tablet 05/03/21 Acetaminophen (Pain Reliever) 325 Mg Tablet 05/03/21 Review of Systems Constitutional: Reports: Fatigue; Denies: Chills, Fever, Weight Loss Eyes: Denies: Pain HEENT: Denies: Head Aches Skin: Reports: Lesions Pulmonary: Denies: Dyspnea Cardiovascular: Denies: Chest Pain Gastrointestinal: Denies: Abdominal Pain, Diarrhea, Hematochezia Genitourinary: Denies: Dysuria, Hematuria Musculoskeletal: Denies: Neck pain, Back pain Neurological: Denies: Weakness, Numbness Psych: Reports: Mood Normal General Exam: Positive: Alert, Cooperative, No Acute Distress Eye Exam: Positive: PERRLA, EOMI ENT EXAM: Positive: Atraumatic Neck Exam: Positive: Supple Chest Exam: Positive: Clear to auscultation Heart Exam: Positive: Rate Normal Female Exam: Positive: Lesions (The vulva, perineauma and anus are indurated and red. There is an area of drainage, no purulence present posterior to the vaginal forchette) Extremity Exam: Negative: Edema Skin Exam: Positive: Nl turgor and temperature Neuro Exam: Positive: Normal Gait, Normal Speech, Cranial Nerves 3-12 NL Psych Exam: Positive: Mental status NL Diagnostic and Laboratory Diagnostic Review Radiologic images, relevant labs and pathology reports were personally reviewed and discussed with Ms. Eubanks. Assessment and Plan Impression Ms. 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 She is seen today to facilitate continuation of her chemoradiation which was started at [facility]. Stage Vulvar SCC [id number] Stage JUAN C Performance Status ECOG 1 Plan We had an extensive discussion with Ms. Eubanks regarding the diagnosis at hand and available therapeutic options. She has a large perineal mass. Her pain is well-controlled with 5 mg oxycodone, so I will continue this prescription for her. 14 days supply will be sent. She is largely functional at this juncture and engaging in good self-care. I discussed continuing with the plan developed at [facility] for definitive treatment with chemoradiation. I have communicated extensively with Dr. Georges, who has provided me with the dosimetry from her tomotherapy plan. The first phase of treatment will be to 45 Gy in 25 fractions, picking up with fraction 08/04, which will be followed by a boost phase which I will accelerate slightly to make up for the lapse in treatment, I will give an additional 2.5 Gy x 8 fractions (total dose 65 Gy in 33 fractions) to the primary lesion with margin, and 1.8 x 8 fractions (total dose 59.4 Gy in 33 fractions) to the lymph nodes with margin. The nodes are not particularly large and they have no radiographic or clinical evidence of NATALYA or other concerning features. Treatment will be with VMAT in this instance and I anticipate we will be able to closely match the quality of the tomotherapy dose distributions. I will not use an external bolus as on exam Peyton has a large degree of auto-bolus of the area of interest. I discussed that she should anticipate a severe skin reaction to develop over the course of this treatment which may necessitate admission here for pain control or cytopenias. She is aware of this as her [facility] team had discussed this with her. We discussed transferring her weekly chemotherapy to our center as well. I will facilitate urgent referral and anticipate that we can continue her chemotherapy here with next week's dose. In the meantime her radiation will resume on 05/24/21. She stated that she would attempt to have her chemotherapy at [facility] for this week. We discussed the logistics of receiving radiation therapy in detail including the need for a 1-time planning session. This will occur today. After discussing the risks, benefits and alternatives to radiation therapy, Ms. Eubanks was amenable to pursuing radiotherapy. All questions were answered to the patient's satisfaction. We instructed the patient that if there were any questions,concerns or changes in clinical status in the interim to contact us. Recommendations Simulation today Continuing chemoradiation plan from [facility] as discussed above Urgent chemotherapy referral here Oxycodone 5 mg q4h PRN 14 days, 90 tab sent Billing Statement Total time of [46] minutes was spent preparing for the visit [3], obtaining HPI [4], examining the patient [2], reviewing diagnostic tests [4], discussing management options [13], coordinating care [10], and writing this note [10]. LAST JUNIOR MD May 21, 2021 13:14
[~2021-06-08 08:26] MED LIST changes: -CIPR250T3 PO; -CIPR750T2 PO; -CLIN150C17 PO; +FLUC100T PO; -FLUC100T3 PO; -GABA-282 PO; -HYDROmorphone HCL 2MG/ML 1ML VIAL As Ordered ONE; -LEVO500T4 PO; -LIDO5OIN19 EXT; -LIDOCAINE 1% MDV 20ML VIAL As Ordered ONE; -METR-265 PO; -METR0.7533 TOP; -MIDAZOLAM INJ 2MG/2ML VIAL (J2250 PER 1MG) As Ordered ONE; -MORP-69 PO; -NS 1,000 ML IV SCH; -ONDA-83 PO; -OXYC-1; -OXYC-1 PO; -OXYC-517; -OXYC10TA12 PO; -SERT-141 PO; -SERT25TA21 PO; +SM P325T2; -SM P325T2 PO; -[UNRECOGNIZED DRUG - CODE] EXT; -ceFAZolin 2 GM/D5W 50 ML IV BAG (J0690 PER 500MG) As Ordered ONE; -ceFAZolin SOD 2 GM in IV 1 EA IV ONE; -diphenhydrAMINE 50MG/ML VIAL (J1200) As Ordered ONE; -fentaNYL 100 MCG/2 ML INJECTION As Ordered ONE
== END 2021-06-09 ==
LOC: M ONCR 08:26
PROVIDERS: ATTEND General Practice
DX: C51.8 Malignant neoplasm of overlapping sites of vulva (principal); F17.200 Nicotine dependence, unspecified, uncomplicated
CPT/HCPCS: 77300; 77301; 77334; 77336; 77338; 77386; 77470; G0463

== ENCOUNTER → 2021-06-26 | Outpatient (POV) | payer OTHER ==
[~2021-06-26] VITALS: Ht 152.4 cm; Wt 113.1 kg
[2021-06-26 11:05] VITALS: BP 122/88
--- NOTE | 2021-06-28 09:07 | IRPN ---
[facility] IR Progress Note IR Progress Note DATE: Jun 26, 2021 FOLLOW-UP: Patient is status post port placement. Patient states she is doing well, no pain, discharge at site fevers or chills. Port is currently accessed and will remain accessed until Friday. ON EXAMINATION: Port site is currently in accessed status with dressings on top. No tenderness at site. IMPRESSION: Doing well status post port placement. No further follow-up scheduled unless initiated by patient and/or referring provider. Thank you for this referral Allergies Coded Allergies: No Known Allergies (Unverified , 04/22/21) VS,Fishbone, I+O VS, Fishbone, I+O Vital Signs Date Time Temp Pulse Resp B/P (MAP) Pulse Ox O2 Delivery O2 Flow Rate FiO2 06/26/21 11:05 98.0 93 20 122/88 (99) 98 Room Air JEANNE PAUL MD Jun 28, 2021 09:07
== END ==
LOC: M IRPOV 10:52
PROVIDERS: ATTEND Radiology Diagnostic Radiology
DX: Z45.2 Encounter for adjustment and management of vascular access device (principal)

== ENCOUNTER 2021-06-27 10:24 | Outpatient (RCR) | payer OTHER ==
[2021-07-04] MEDS ORDERED: FENT1DIS14 TOP (15:08)
[2021-07-19] MEDS ORDERED: FENT1DIS14 TOP (17:43)
[2021-07-19] MEDS ORDERED: OXYC-517 PO (17:43)
[2021-08-09] MEDS ORDERED: SERT25TA21 PO (08:34)
[2021-08-22] MEDS ORDERED: OXYC-517 PO (15:45)
[2021-09-21] MEDS ORDERED: OXYC-1 PO (12:11)
[2021-09-21] MEDS ORDERED: GABA-282 PO (12:11)
[2021-10-01] MEDS ORDERED: CLIN150C17 PO (11:32)
[2021-10-09] MEDS ORDERED: LEVO500T4 PO (13:59)
[2021-11-06] MEDS ORDERED: CIPR750T2 PO (11:46)
[2021-11-06] MEDS ORDERED: METR-265 PO (11:46)
[2021-11-20] MEDS ORDERED: OXYC10TA12 PO (09:23)
== END 2021-07-10 ==
LOC: M ONCR 10:24
PROVIDERS: ATTEND General Practice
DX: C51.8 Malignant neoplasm of overlapping sites of vulva (principal)
CPT/HCPCS: 77300; 77336; 77338; 77386; G0463

== ENCOUNTER → 2021-07-04 | Outpatient (CLI) | payer OTHER ==
--- NOTE | 2021-07-04 15:23 | RADENCPD ---
Date/Time of Encounter Date of Encounter: Jul 04, 2021 Time of Encounter: 15:08 Encounter Peyton came in for a skin check, 1 week post-RT. She has manageable pain on the fentanyl patch, she has used less than the allotted oxycodone for breakthrough this week. Yesterday pain was 8/10 at times, today much more manageable. She is doing domeboro soaks, which have been helpful and soothing. She saw Dr. Veras who set her up for an exam in 1 month, I think this is reasonable. On exam (anterior) she has re-epithelialization evident in areas of moist desquamation, the groins continue to slough, there is no evidence of infection or yeast. The vulva is to tender to examine. There are sloughing condyloma on the anterior superior vulva. Assessment: Healing CTCAE grade 3 radiation dermatitis Plan: Continue domeboro soaks, lidocaine cream PRN, current pain regimen. Fentanyl patch refill. No evidence for benefit of silvadene in moist RT dermati tis, therefore advised her to abstain as there is no evidence of infection and re-epithelialization is happening with current conservative management. Increase fluid/protein intake. Follow up in 1 week LAST JUNIOR MD Jul 04, 2021 15:22
== END ==
LOC: M ONCR 14:14
PROVIDERS: ATTEND General Practice
DX: C51.8 Malignant neoplasm of overlapping sites of vulva (principal); L59.8 Other specified disorders of the skin and subcutaneous tissue related to radiation

== ENCOUNTER → 2021-07-12 | Outpatient (CLI) | payer OTHER ==
--- NOTE | 2021-07-12 16:24 | RADENCPD ---
Date/Time of Encounter Date of Encounter: Jul 12, 2021 Time of Encounter: 16:22 Encounter Peyton came in for a skin check today. She has noted decreased pain, using the oxycodone less. Still using the fentanyl patch with good effect. Has developed more pruritis and sloughing of skin. On exam she has active re-epithelialization in the vulvar skin folds and groins. Still with diffuse mucositis in the distal vagina. Assessment: Improving radiation dermatitis. Continue current management. Due for internal exam on 07/31/21 @ [facility] Will continue weekly skin checks for now LAST JUNIOR MD Jul 12, 2021 16:24
== END ==
LOC: M ONCR 15:25
PROVIDERS: ATTEND General Practice
DX: C51.8 Malignant neoplasm of overlapping sites of vulva (principal); L59.8 Other specified disorders of the skin and subcutaneous tissue related to radiation

== ENCOUNTER → 2021-07-19 | Outpatient (CLI) | payer OTHER ==
--- NOTE | 2021-07-19 16:15 | RADENCPD ---
Date/Time of Encounter Date of Encounter: Jul 19, 2021 Time of Encounter: 16:07 Encounter Peyton came in for a skin check today she reports itching increased. Less pain. Using less oxycodone. On exam there is reepithelializing skin the in BL groins gluteal crease and around the mons pubis. Of note many of the condyloma on the anterior mons have shed. She is too tender for a more comprehensive pelvis exam. Assessment: Improving CTCAE grade 3 radiation dermatitis. Plan: Continue domeboro soaks Continue fentanyl patch Benadryl for itching d/c topical steroid f/u 1 week LAST JUNIOR MD Jul 19, 2021 16:15
== END ==
LOC: M ONCR 15:15
PROVIDERS: ATTEND General Practice
DX: L59.8 Other specified disorders of the skin and subcutaneous tissue related to radiation (principal); C51.8 Malignant neoplasm of overlapping sites of vulva; Z92.3 Personal history of irradiation

== ENCOUNTER → 2021-07-26 | Outpatient (CLI) | payer OTHER ==
--- NOTE | 2021-07-26 16:31 | RADENCPD ---
Date/Time of Encounter Date of Encounter: Jul 26, 2021 Time of Encounter: 16:27 Encounter Peyton came in for her weekly skin check. She complains of sciatica pain in the left leg, keeps her up at night. Oxy not helpful. Hasn't worn fentanyl patch for the last 2 days. On exam, there is still moist desquamation in the left groin, small patch. She is able to tolerate an external pelvic exam today. The inner labia are still denuded with significant mucositis, there is a small tumor deposit midline, sloughing, ~1cm. She is healing. Will wean off narcotics. D/c fentanyl. Continue oxy 5 mg QID PRN. Add ibuprofen 600 mg QID (should help with sciatica pain too). LAST JUNIOR MD Jul 26, 2021 16:31
== END ==
LOC: M ONCR 15:15
PROVIDERS: ATTEND General Practice
DX: C51.8 Malignant neoplasm of overlapping sites of vulva (principal); L59.8 Other specified disorders of the skin and subcutaneous tissue related to radiation; Z92.3 Personal history of irradiation

== ENCOUNTER → 2021-08-02 | Outpatient (CLI) | payer OTHER ==
--- NOTE | 2021-08-02 16:04 | RADENCPD ---
Date/Time of Encounter Date of Encounter: Aug 02, 2021 Time of Encounter: 15:47 Encounter Peyton came in for her weekly skin check. She is taking 20 mg oxycodone 3-4 times daily. Tolerating wean from fentanyl. Still having the left leg radicular pain which is not helped by the oxycodone, also not helped greatly by NSAIDs. She saw Dr. Veras on 07/31/21 who was concerned about the appearance of lesion on the right superior labia majora. On exam today she has further healing and reepithelialization of the skin in the groins and vulva. There is ongoing turnover of the epithelium. The dominant lesion in the right mid labia majora has regressed again compared to last week. The lesion of concern in the right superior labia majora is soft, insensate, mobile. I discussed that it is too soon to perform PET-CT as interpretation would be fraught due to the persistent inflammation. I do not believe that there is any evidence of progressive disease based on the serial exams I have been performing weekly. This does not imply that all of her disease will respond completely to treatment, but overall this is too early to tell. As she is only 1 month removed from chemoradiation, I have no objection to obtaining a pelvic MRI, which at least could reassure us that the bulkier primary lesions are regressing and that the nodes are as well. It may also resolve the source of her left leg pain, which would be helpful in its own right. I will order this study and talk to Dr. Veras tomorrow. I will see Peyton back in 1 week. I think if there is any question of persistent or refractory disease imposed by the MRI, that a biopsy would resolve the issue. I have no objection to additional systemic therapy for this disease at it is aggressive and I believe she is well enough to tolerate additional treatment even now. LAST JUNIOR MD Aug 02, 2021 16:04
== END ==
LOC: M ONCR 15:13
PROVIDERS: ATTEND General Practice
DX: C51.8 Malignant neoplasm of overlapping sites of vulva (principal); M79.605 Pain in left leg; L57.8 Other skin changes due to chronic exposure to nonionizing radiation

== ENCOUNTER → 2021-08-15 | Outpatient (CLI) | payer OTHER ==
[~2021-08-15] MED LIST changes: +PROHANCE 279.3MG/ML 15ML VIAL ONE; +SERT25TA21 PO
--- NOTE | 2021-08-15 16:26 | REP ---
INDICATION: VULVAR CA. 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 The prior examination showed 1. 9.3 x 4.2 x 6.5 cm sized vulvar mass extending to the ankle sphincter with associated pelvic adenopathy 2. 8 cm size cul-de-sac mass suspicious for a dermoid TECHNIQUE: Pre and post contrast 3T MRI of the pelvis was performed utilizing various sequences. Gadolinium utilized: 11 cc of ProHance FINDINGS: The bulk of the perineal mass seen on the prior MRI is no longer evident. There is a slight degree of thickened enhancing tissue in the vulvar region and labia. Tumor bulk which was previously seen in that region and abutting the anus is no longer evident. In addition, the adenopathy in the inguinal region seen on the prior exam has decreased. The largest node on the right which previously measured 2 x 1.3 cm today measures 1.4 x 0.8 cm and the largest node on the left which previously measured 1.9 x 1.5 cm today measures 1.5 by 0.9 cm. Pelvic sidewall adenopathy seen on the prior examination has also decreased. The large central posterior mixed signal mass containing a high degree of adipose tissue is unchanged. Once again, the marrow signal seen throughout the imaged osseous structures is within normal limits. IMPRESSION: 1. There has been significant improvement in the previously described perineal mass both vulvar and labial as described above. I have not been given history of surgical excision of this region only history of acquisition of biopsy sites. Has this patient receive radiation therapy? I have not been given that history either. 2. Improved adenopathy as described above. 3. 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 <Electronically signed by Kashmir Xavier > 08/15/21 [id number]
== END ==
LOC: M PLAIMG 09:59
PROVIDERS: ATTEND General Practice
DX: C51.8 Malignant neoplasm of overlapping sites of vulva (principal)
CPT/HCPCS: 72197; A9576

== ENCOUNTER → 2021-08-22 | Outpatient (CLI) | payer OTHER ==
[~2021-08-22] MED LIST changes: -PROHANCE 279.3MG/ML 15ML VIAL ONE
--- NOTE | 2021-08-22 15:45 | RADENCPD ---
Date/Time of Encounter Date of Encounter: Aug 22, 2021 Time of Encounter: 15:41 Encounter Review results of MRI pelvis which show considerable improvement compared to pre-treatment study from April 2021. She has on exam ongoing ulceration of the left inferomedial vulva with yellow fibrinous exudate consistent with necrotic sloughing tumor. She has a few scattered condyloma remaining, most have sloughed. Overall based on her improved MRI I am comfortable waiting the remaining month until PET-CT before proceeding with any additional therapies or diagnostics. I will refill Peyton's pain medication and see her again in 2 weeks time. In the meantime encouraged good moist wound care and hygiene. LAST JUNIOR MD Aug 22, 2021 15:45
== END ==
LOC: M ONCR 14:26
PROVIDERS: ATTEND General Practice
DX: C51.8 Malignant neoplasm of overlapping sites of vulva (principal); Z92.3 Personal history of irradiation

== ENCOUNTER → 2021-09-07 | Outpatient (CLI) | payer OTHER ==
--- NOTE | 2021-09-07 12:36 | REP ---
INDICATION: VULVAR CA. COMPARISON: 08/15/2021. TECHNIQUE: Multiple sequences obtained in the axial, coronal and sagittal planes prior to and following the intravenous administration of 10 cc ProHance. FINDINGS: The ill-defined soft tissue enhancement in the region of the perineum, in the region of the vulva and labia, is unchanged. No significantly enlarged pelvic lymph nodes are seen. In the right external iliac region there is a 9 mm lymph node. In the left external iliac region there is a 1 cm lymph node. Smaller subcentimeter inguinal lymph nodes are seen bilaterally. The previously noted mass in the cul-de-sac posterior to the uterus is unchanged, likely a dermoid. There is new mild presacral edema and fluid. No bone lesion is seen. IMPRESSION: There is new mild presacral edema and fluid. The MRI is otherwise unchanged since prior study of 08/15/2021. <Electronically signed by Adonis Lopez > 09/07/21 [id number]
== END ==
LOC: M PLARAD 09:37
PROVIDERS: ATTEND General Practice
DX: C51.8 Malignant neoplasm of overlapping sites of vulva (principal); R18.8 Other ascites

== ENCOUNTER → 2021-09-07 | Outpatient (CLI) | payer OTHER ==
--- NOTE | 2021-09-07 14:28 | REP ---
INDICATION: HIPS PAIN. COMPARISON: None TECHNIQUE: Two views bilateral FINDINGS: The joint spaces are symmetric and well maintained. There is no acute fracture, dislocation, or subluxation. The femoral heads are spherical in shape and symmetric in appearance. There is no evidence of buttressing. IMPRESSION: Within normal limits bilaterally. <Electronically signed by Kashmir Xavier > 09/07/21 [id number]
== END ==
LOC: M PLAIMG 11:38
PROVIDERS: ATTEND Internal Medicine
DX: M25.551 Pain in right hip (principal); M25.552 Pain in left hip

== ENCOUNTER → 2021-09-11 | Outpatient (CLI) | payer OTHER ==
[~2021-09-11] MED LIST changes: +GABA-282 PO; +OXYC-1 PO
--- NOTE | 2021-09-11 08:15 | RADENCPD ---
Date/Time of Encounter Date of Encounter: Sep 11, 2021 Time of Encounter: 08:08 Encounter Peyton came in for a follow up this AM. She has a palpable lesion in the right anterior vulva which is new, and was not well-resolved on recent repeat MRI pelvis. On exam it is ~2cm in the anterior labia majora firm but mobile. 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 The utility of PET-CT in this setting is to determine the presence or absence of viable tumor, and assess for the extent of salvage surgery required if it is the case there is viable tumor. Biopsy of these numerous lesions would be impractical at this time in light of her ongoing healing issues, the number of potential sites of residual disease and her own reticence to undergo a surgical procedure which may not be necessary (in the event PET-CT was negative). No single study other than PET-CT, will resolve these numerous questions. Therefore I have ordered a PET-CT for the coming weeks. LAST JUNIOR MD Sep 11, 2021 08:15
== END ==
LOC: M ONCR 10:09
PROVIDERS: ATTEND General Practice
DX: C51.8 Malignant neoplasm of overlapping sites of vulva (principal); Z92.3 Personal history of irradiation

== ENCOUNTER → 2021-10-01 | Outpatient (CLI) | payer OTHER ==
[~2021-10-01] MED LIST changes: +CLIN150C17 PO
--- NOTE | 2021-10-01 11:29 | RADENCPD ---
Date/Time of Encounter Date of Encounter: Oct 01, 2021 Time of Encounter: 11:05 Encounter Peyton complains of increased pain and purulent discharge from the left labial wound. T 99F today. No chills, objective fevers or nausea. Pain is increased, using, oxycodone 15 mg with good effect. Discussed that biopsies from EUA were negative, therefore PET-CT on 10/08/21 will be the final arbiter for chemoradiation effect. On exam her left labial ulcer is expressing purulent discharge, the wound is foul smelling, smells anaeorbic, exam is limited by her pain. Swab of the wound bed obtained and will be sent for culture. Will start empiric antibiotics clindamycin x 7 days. Will see her on 10/09/21 or sooner if she fails to improve. Will follow up wound culture. LAST JUNIOR MD Oct 01, 2021 11:29
== END ==
LOC: M ONCR 10:07
PROVIDERS: ATTEND General Practice
DX: C51.8 Malignant neoplasm of overlapping sites of vulva (principal); Z92.3 Personal history of irradiation; Z92.21 Personal history of antineoplastic chemotherapy
CPT/HCPCS: 87070; 87102; 87205; G0463

== ENCOUNTER → 2021-10-08 | Outpatient (CLI) | payer OTHER ==
[~2021-10-08] MED LIST changes: +CIPR250T3 PO; +CIPR750T2 PO; -FLUC100T PO; +FLUC100T3 PO; +LEVO500T4 PO; +LIDO5OIN19 EXT; +METR-265 PO; +METR0.7533 TOP; +MORP-69 PO; +ONDA-83 PO; +OXYC-1; +OXYC-517; +OXYC10TA12 PO; +SERT-141 PO; -SM P325T2; +SM P325T2 PO; +[UNRECOGNIZED DRUG - CODE] EXT
== END ==
LOC: M PLARAD 08:23
PROVIDERS: ATTEND General Practice
DX: C51.8 Malignant neoplasm of overlapping sites of vulva (principal); Z92.3 Personal history of irradiation; Z92.21 Personal history of antineoplastic chemotherapy
CPT/HCPCS: 78815; A9552

== ENCOUNTER → 2021-10-24 | Outpatient (CLI) | payer OTHER ==
[~2021-10-24] MED LIST changes: +FLUC100T PO; -FLUC100T3 PO; -OXYC-1; -OXYC-517; -SERT-141 PO; -[UNRECOGNIZED DRUG - CODE] EXT
== END ==
LOC: M ONCR 10:00
PROVIDERS: ATTEND General Practice
DX: C51.8 Malignant neoplasm of overlapping sites of vulva (principal); Z79.891 Long term (current) use of opiate analgesic

== ENCOUNTER → 2021-11-20 | Outpatient (CLI) | payer OTHER ==
[~2021-11-20] MED LIST changes: -CIPR250T3 PO; -LIDO5OIN19 EXT; -METR0.7533 TOP; -MORP-69 PO; -ONDA-83 PO; +SM P325T2; -SM P325T2 PO
== END ==
LOC: M ONCR 08:49
PROVIDERS: ATTEND General Practice
DX: C51.8 Malignant neoplasm of overlapping sites of vulva (principal); S31.40XD Unspecified open wound of vagina and vulva, subsequent encounter; Z20.822 Contact with and (suspected) exposure to COVID-19

== ENCOUNTER 2021-11-29 06:57 | Inpatient (IN) | payer OTHER ==
[~2021-11-29] VITALS: Ht 152.4 cm; Wt 102.5 kg
[~2021-11-29 06:57] MED LIST changes: -SM P325T2; +SM P325T2 PO
[2021-11-29] MEDS ORDERED: MORP-69 PO (07:15)
[2021-11-29] MEDS ORDERED: NS 1,000 ML IV ONE (08:10)
[2021-11-29 08:44] LABS: BASO % 0.2 % (0.0-1.0); HEMOGLOBIN 9.6 g/dl (12.0-15.5); LYMPH # 0.3 10^3/uL (1.5-5.0); LYMPH % 5.3 % (24.0-44.0); MEAN CORPUSCULAR VOLUME 80.7 fl (80.0-96.0); MONO # 0.4 10^3/uL (0.0-0.8); MONO % 7.2 % (2.0-8.0); NEUTROPHILS # 4.6 10^3/uL (1.5-8.5); NEUTROPHILS % 86.5 % (36.0-66.0); PLATELET COUNT, AUTOMATED 372 10^3/uL (150-450); RED BLOOD COUNT 3.84 10^6/uL (4.00-5.40); WHITE BLOOD COUNT 5.3 10^3/uL (4.0-10.0)
[2021-11-29 09:13] LABS: ALBUMIN 2.8 GM/DL (3.2-5.2); BILIRUBIN,DIRECT 0.1 MG/DL (0.0-0.2); BILIRUBIN,TOTAL 0.4 MG/DL (0.2-1.0); CALCIUM LEVEL 8.3 MG/DL (8.5-10.1); CREATININE FOR GFR 1.5 MG/DL (0.55-1.30); GLOMERULAR FILTRATION RATE 40.3 (>58); POTASSIUM SERUM 3.4 MEQ/L (3.5-5.1); TOTAL PROTEIN 6.9 GM/DL (6.4-8.2)
[2021-11-29] MEDS ORDERED: GABA-282 PO (10:21)
[2021-11-29] MEDS ORDERED: HOME MED LIST COMPLETE! XX SCH (10:25)
[2021-11-29] MEDS ORDERED: MAALOX 30 ML SUSP *UDC PO PRN (11:25)
[2021-11-29] MEDS ORDERED: MOM 30ML SUSPENSION UDC PO PRN (11:25)
[2021-11-29] MEDS ORDERED: ACETAMINOPHEN TAB 650MG DOSE (2X325MG) PO PRN (11:25)
[2021-11-29] MEDS ORDERED: oxyCODONE 5MG TAB PO PRN (11:25)
[2021-11-29] MEDS: cefTRIAXone SOD 1 GM in D5W MINI-BAG PLUS 50 ML IV SCH (13:00)
[2021-11-29] MEDS: MORPHINE 2 MG/ML 1ML VIAL (J2270) IV PRN ×2 (13:04→19:21)
[2021-11-29 13:54] VITALS: BP 108/54
[2021-11-29] MEDS: ONDANSETRON 4MG/2ML VIAL IV SCH ×2 (18:19→23:59)
[2021-11-29] MEDS ORDERED: POTASSIUM CHLORIDE 10MEQ SR TABLET PO ONE (19:30)
[2021-11-29 22:00] VITALS: BP 104/51
[2021-11-30] MEDS: MORPHINE 2 MG/ML 1ML VIAL (J2270) IV PRN ×6 (00:01→23:17)
[2021-11-30] MEDS: HEPARIN SOD (PORCINE) 5000UNITS/ML 1ML VIAL/SYRINGE SC SCH ×3 (00:02→21:00)
[2021-11-30] MEDS: KCL 10MEQ/100ML SWI (KRUN) 10 MEQ in IV 1 EA IV SCH ×6 (00:35→15:20)
[2021-11-30] MEDS: SODIUM CHLORIDE 0.9% INJ 10 ML SYR IV PRN ×2 (03:06→07:15)
[2021-11-30] MEDS ORDERED: ONDANSETRON 4MG/2ML VIAL IV ONE (03:10)
[2021-11-30 05:31] VITALS: BP 103/53
[2021-11-30] MEDS: ONDANSETRON 4MG/2ML VIAL IV SCH ×4 (06:58→23:16)
[2021-11-30 08:19] LABS: BASO % 0.2 % (0.0-1.0); HEMATOCRIT 28.7 % (36.0-47.0); HEMOGLOBIN 8.6 g/dl (12.0-15.5); LYMPH # 0.4 10^3/uL (1.5-5.0); LYMPH % 9.3 % (24.0-44.0); MEAN CORPUSCULAR HEMOGLOBIN 24.7 pg (27.0-33.0); MEAN CORPUSCULAR VOLUME 82.5 fl (80.0-96.0); MONO # 0.3 10^3/uL (0.0-0.8); MONO % 7.4 % (2.0-8.0); NEUTROPHILS # 3.3 10^3/uL (1.5-8.5); NEUTROPHILS % 81.9 % (36.0-66.0); PLATELET COUNT, AUTOMATED 374 10^3/uL (150-450); RED BLOOD COUNT 3.48 10^6/uL (4.00-5.40); WHITE BLOOD COUNT 4.1 10^3/uL (4.0-10.0)
[2021-11-30 08:35] LABS: ALBUMIN 2.6 GM/DL (3.2-5.2); BILIRUBIN,TOTAL 0.2 MG/DL (0.2-1.0); CALCIUM LEVEL 8.1 MG/DL (8.5-10.1); CREATININE FOR GFR 1.43 MG/DL (0.55-1.30); GLOMERULAR FILTRATION RATE 42.6 (>58); POTASSIUM SERUM 2.9 MEQ/L (3.5-5.1)
[2021-11-30] MEDS ORDERED: POTASSIUM CHLORIDE INJ 20 MEQ in NS 1,000 ML IV SCH (08:40)
[2021-11-30] MEDS ORDERED: POTASSIUM CHLORIDE 10MEQ SR TABLET PO ONE (09:30)
[2021-11-30] MEDS: NS 1,000 ML IV SCH ×3 (10:18→23:16)
[2021-11-30] MEDS ORDERED: DEXTROSE 50% 50 ML SYRINGE IV PRN (12:55)
[2021-11-30] MEDS ORDERED: GLUCAGON INJ 1MG VIAL SC PRN (12:55)
[2021-11-30] MEDS ORDERED: GLUCOSE 4GM CHEW TABLET PO PRN (12:55)
[2021-11-30 14:00] VITALS: BP 97/49
[2021-11-30] MEDS: cefTRIAXone SOD 1 GM in D5W MINI-BAG PLUS 50 ML IV SCH (14:20)
[2021-11-30] MEDS ORDERED: LIDOCAINE 4% TOPICAL SOLN 50 ML BTL TOP PRN (15:50)
[2021-11-30] MEDS ORDERED: HumaLOG INSULIN (NovoLOG) PER UNIT SC SCH ×2 (17:30→21:00)
[2021-11-30 19:08] LABS: CREATININE FOR GFR 1.41 MG/DL (0.55-1.30); GLOMERULAR FILTRATION RATE 43.3 (>58); POTASSIUM SERUM 3.5 MEQ/L (3.5-5.1)
[2021-11-30] MEDS ORDERED: LIDOCAINE 5% OINT 30GM TUBE TOP PRN (20:56)
[2021-11-30 22:00] VITALS: BP 100/51
[2021-12-01] MEDS: MORPHINE 2 MG/ML 1ML VIAL (J2270) IV PRN ×5 (02:52→22:20)
[2021-12-01 04:00] VITALS: BP 109/52
[2021-12-01] MEDS: ONDANSETRON 4MG/2ML VIAL IV SCH ×4 (06:36→23:20)
[2021-12-01 07:47] LABS: BASO % 0.3 % (0.0-1.0); HEMATOCRIT 27.8 % (36.0-47.0); HEMOGLOBIN 8.3 g/dl (12.0-15.5); LYMPH # 0.3 10^3/uL (1.5-5.0); LYMPH % 9.2 % (24.0-44.0); MEAN CORPUSCULAR HEMOGLOBIN 24.8 pg (27.0-33.0); MEAN CORPUSCULAR HGB CONC 29.9 g/dl (32.0-36.5); MONO # 0.3 10^3/uL (0.0-0.8); MONO % 7.4 % (2.0-8.0); NEUTROPHILS # 2.8 10^3/uL (1.5-8.5); NEUTROPHILS % 81.4 % (36.0-66.0); PLATELET COUNT, AUTOMATED 346 10^3/uL (150-450); RED BLOOD COUNT 3.35 10^6/uL (4.00-5.40); WHITE BLOOD COUNT 3.5 10^3/uL (4.0-10.0)
[2021-12-01] MEDS: HEPARIN SOD (PORCINE) 5000UNITS/ML 1ML VIAL/SYRINGE SC SCH ×2 (07:48→19:15)
[2021-12-01] MEDS: NS 1,000 ML IV SCH (07:49)
[2021-12-01 07:59] LABS: CALCIUM LEVEL 7.6 MG/DL (8.5-10.1); CREATININE FOR GFR 1.43 MG/DL (0.55-1.30); GLOMERULAR FILTRATION RATE 42.6 (>58); MAGNESIUM LEVEL 1.7 MG/DL (1.8-2.4); POTASSIUM SERUM 3.4 MEQ/L (3.5-5.1)
[2021-12-01] MEDS: KCL 10MEQ/100ML SWI (KRUN) 10 MEQ in IV 1 EA IV SCH ×4 (08:52→12:00)
[2021-12-01] MEDS: cefTRIAXone SOD 1 GM in D5W MINI-BAG PLUS 50 ML IV SCH (13:15)
[2021-12-01] MEDS: MAG SULF 1GM/100ML (MAG RUN) 1 GM in IV 1 EA IV SCH ×2 (14:44→15:47)
[2021-12-01 14:49] VITALS: BP 100/49
[2021-12-01] MEDS ORDERED: LORazepam 2 MG/ML VIAL IV STA (16:46)
[2021-12-01] MEDS ORDERED: HALOPERIDOL 5MG/ML VIAL (J1630 PER 1) IV ONE (17:00)
[2021-12-01 18:07] LABS: CALCIUM LEVEL 7.5 MG/DL (8.5-10.1); CREATININE FOR GFR 1.43 MG/DL (0.55-1.30); GLOMERULAR FILTRATION RATE 42.6 (>58); MAGNESIUM LEVEL 2.6 MG/DL (1.8-2.4); PERCENT SATURATION 10.1 % (13.2-45.0); POTASSIUM SERUM 3.8 MEQ/L (3.5-5.1)
[2021-12-01 21:28] VITALS: BP 97/53
[2021-12-02] MEDS: MORPHINE 2 MG/ML 1ML VIAL (J2270) IV PRN ×2 (02:59→06:36)
[2021-12-02 03:24] LABS: BASO % 0.3 % (0.0-1.0); HEMATOCRIT 26.9 % (36.0-47.0); LYMPH # 0.3 10^3/uL (1.5-5.0); LYMPH % 9.4 % (24.0-44.0); MEAN CORPUSCULAR HEMOGLOBIN 24.6 pg (27.0-33.0); MEAN CORPUSCULAR HGB CONC 29.7 g/dl (32.0-36.5); MEAN CORPUSCULAR VOLUME 82.8 fl (80.0-96.0); MONO # 0.2 10^3/uL (0.0-0.8); MONO % 7.8 % (2.0-8.0); NEUTROPHILS # 2.5 10^3/uL (1.5-8.5); NEUTROPHILS % 81.2 % (36.0-66.0); PLATELET COUNT, AUTOMATED 322 10^3/uL (150-450); RED BLOOD COUNT 3.25 10^6/uL (4.00-5.40); WHITE BLOOD COUNT 3.1 10^3/uL (4.0-10.0)
[2021-12-02 03:40] LABS: CALCIUM LEVEL 7.4 MG/DL (8.5-10.1); CREATININE FOR GFR 1.45 MG/DL (0.55-1.30); MAGNESIUM LEVEL 2.3 MG/DL (1.8-2.4)
[2021-12-02 04:30] VITALS: BP 91/52
[2021-12-02] MEDS: ONDANSETRON 4MG/2ML VIAL IV SCH ×2 (06:35→12:53)
[2021-12-02] MEDS ORDERED: DARBEPOETIN 200MCG/0.4ML *NON-DIALYSIS* SYRINGE (J0881 PER 1MCG) SC SCH (09:20)
[2021-12-02] MEDS ORDERED: ONDA-83 PO (09:46)
[2021-12-02] MEDS ORDERED: LIDO5OIN19 EXT (09:46)
[2021-12-02] MEDS ORDERED: CIPR250T3 PO (09:46)
[2021-12-02] MEDS ORDERED: METR-265 PO (09:46)
[2021-12-02] MEDS ORDERED: MORPHINE 15 MG SA TAB PO ONE (10:25)
[2021-12-03 10:56] LABS: FOLATE 12.1 NG/ML (>5.4)
[2021-12-03] MEDS ORDERED: METR0.7533 TOP (15:11)
== END 2021-12-02 13:20 | disposition home or self-care (01) | DRG 720 ==
LOC: M ED 06:57 → M ED INP 11:23 → M 4MAIN 13:30
PROVIDERS: ADMIT Family Medicine; ATTEND Family Medicine
DX: A41.9 Sepsis, unspecified organism (principal); U07.1 COVID-19; N17.9 Acute kidney failure, unspecified; E83.42 Hypomagnesemia; C51.9 Malignant neoplasm of vulva, unspecified; D63.1 Anemia in chronic kidney disease; N18.30 Chronic kidney disease, stage 3 unspecified; Z92.3 Personal history of irradiation; Z92.21 Personal history of antineoplastic chemotherapy; E87.6 Hypokalemia; C51.8 Malignant neoplasm of overlapping sites of vulva; Z79.899 Other long term (current) drug therapy; Z88.8 Allergy status to other drugs, medicaments and biological substances

== ENCOUNTER → 2022-01-01 | Outpatient (CLI) | payer OTHER ==
[~2022-01-01] MED LIST changes: +CIPR250T3 PO; -FLUC100T PO; +FLUC100T3 PO; +LIDO5OIN19 EXT; +METR0.7533 TOP; +MORP-69 PO; +ONDA-83 PO; +OXYC-1; +OXYC-517; +SERT-141 PO; +[UNRECOGNIZED DRUG - CODE] EXT
== END ==
LOC: M ONCR 15:20
PROVIDERS: ATTEND General Practice
DX: C51.8 Malignant neoplasm of overlapping sites of vulva (principal); A63.0 Anogenital (venereal) warts; N90.89 Other specified noninflammatory disorders of vulva and perineum; Z87.891 Personal history of nicotine dependence; Z88.8 Allergy status to other drugs, medicaments and biological substances; Z92.21 Personal history of antineoplastic chemotherapy; Z92.3 Personal history of irradiation

== ENCOUNTER → 2022-01-15 | Outpatient (CLI) | payer OTHER ==
[~2022-01-15] VITALS: Ht 152.4 cm; Wt 105.2 kg
[~2022-01-15] MED LIST changes: +LIDO2SOL17 TOP; +LIDOCAINE VISCOUS 2% SOLN 15ML UDC XX ONE
== END ==
LOC: M ONCR 14:43
PROVIDERS: ATTEND General Practice
DX: C51.8 Malignant neoplasm of overlapping sites of vulva (principal)

== ENCOUNTER → 2022-01-18 | Outpatient (CLI) | payer OTHER | LOC: M ONCR 14:49 | PROVIDERS: ATTEND General Practice | DX: C51.8 Malignant neoplasm of overlapping sites of vulva (principal) ==

== ENCOUNTER → 2022-01-21 | Outpatient (CLI) | payer OTHER ==
[~2022-01-21] MED LIST changes: -LIDOCAINE VISCOUS 2% SOLN 15ML UDC XX ONE
== END ==
LOC: M PLARAD 11:51
PROVIDERS: ATTEND Obstetrics & Gynecology Gynecologic Oncology
DX: C51.9 Malignant neoplasm of vulva, unspecified (principal); L59.8 Other specified disorders of the skin and subcutaneous tissue related to radiation; Y84.2 Radiological procedure and radiotherapy as the cause of abnormal reaction of the patient, or of later complication, without mention of misadventure at the time of the procedure; R59.0 Localized enlarged lymph nodes
CPT/HCPCS: 78815; A9552

== ENCOUNTER → 2022-01-22 | Outpatient (CLI) | payer OTHER ==
[~2022-01-22] MED LIST changes: +DOCU100C16 PO; -OXYC-1; -OXYC-517; +VITA500T9 PO
== END ==
LOC: M ONCR 14:48
PROVIDERS: ATTEND General Practice
DX: C51.8 Malignant neoplasm of overlapping sites of vulva (principal)

== ENCOUNTER 2022-01-25 06:39 | Inpatient (IN) | payer OTHER ==
[~2022-01-25] VITALS: Ht 152.4 cm; Wt 99.6 kg
[~2022-01-25 06:39] MED LIST changes: -DOCU100C16 PO; -VITA500T9 PO
[2022-01-25] MEDS ORDERED: ONDANSETRON 4MG/2ML VIAL IV ONE (07:35)
[2022-01-25] MEDS ORDERED: NS 1,000 ML IV ONE (07:35)
[2022-01-25 08:08] LABS: HEMATOCRIT 33.4 % (36.0-47.0); HEMOGLOBIN 10.7 g/dl (12.0-15.5); MEAN CORPUSCULAR HEMOGLOBIN 25.6 pg (27.0-33.0); MEAN CORPUSCULAR VOLUME 79.9 fl (80.0-96.0); PLATELET COUNT, AUTOMATED 316 10^3/uL (150-450); RED BLOOD COUNT 4.18 10^6/uL (4.00-5.40); WHITE BLOOD COUNT 2.2 10^3/uL (4.0-10.0)
[2022-01-25] MEDS ORDERED: MORPHINE 4 MG/ML 1ML VIAL/SYRINGE (J2270) IV PRN (08:20)
[2022-01-25 08:31] LABS: ALBUMIN 3.8 GM/DL (3.2-5.2); BILIRUBIN,DIRECT 0.2 MG/DL (0.0-0.2); BILIRUBIN,TOTAL 0.6 MG/DL (0.2-1.0); CALCIUM LEVEL 9.6 MG/DL (8.5-10.1); CK-MB VALUE MASS < 1.0 NG/ML (<3.6); CPK CREATINE PHOSPHOKINASE 36 U/L (26-192); CREATININE FOR GFR 1.55 MG/DL (0.55-1.30); GLOMERULAR FILTRATION RATE 38.8 (>58); MB/CK RELATIVE INDEX 2.78 (< OR =4); POTASSIUM SERUM 3.9 MEQ/L (3.5-5.1); TOTAL PROTEIN 8.1 GM/DL (6.4-8.2)
[2022-01-25 09:03] LABS: ANISOCYTOSIS 1+; EOSINOPHILS 1 % (0-3); LYMPHOCYTES 7 % (16-44); MONOCYTES 3 % (0-5); NEUTROPHILS 89 % (28-66); PLATELET ESTIMATE NORMAL (NORMAL)
[2022-01-25] MEDS ORDERED: ISOVUE-370 76% 100ML VIAL As Ordered ONE (09:06)
[2022-01-25 09:27] LABS: RSV AMPLIFICATION NEGATIVE (NEGATIVE)
[2022-01-25] MEDS ORDERED: DOCU100C16 PO (09:30)
[2022-01-25] MEDS ORDERED: VITA500T9 PO (10:34)
[2022-01-25] MEDS ORDERED: HOME MED LIST COMPLETE! XX SCH (10:40)
[2022-01-25 14:50] VITALS: BP 137/80
[2022-01-25] MEDS ORDERED: oxyCODONE 5MG TAB PO PRN (16:55)
[2022-01-25] MEDS ORDERED: LIDOCAINE VISCOUS 2% SOLN 15ML UDC TOP PRN (16:55)
[2022-01-25] MEDS ORDERED: LIDOCAINE 4% CREAM 5GM (LMX4) TOP PRN (17:50)
[2022-01-25] MEDS: oxyCODONE 5MG TAB PO PRN (19:32)
[2022-01-25] MEDS: ONDANSETRON 4MG/2ML VIAL IV PRN (20:23)
[2022-01-25] MEDS: SODIUM CHLORIDE 0.9% INJ 10 ML SYR IV PRN (20:24)
[2022-01-25] MEDS: ASCORBIC ACID 500 MG TAB PO SCH (21:00)
[2022-01-25] MEDS: GABAPENTIN 300 MG CAP PO SCH (21:00)
[2022-01-25 22:00] VITALS: BP 158/98
[2022-01-25] MEDS ORDERED: LOPERAMIDE 2 MG CAPLET PO ONE (22:30)
[2022-01-25] MEDS: SERTRALINE HCL 50 MG TAB PO SCH (22:36)
[2022-01-25] MEDS: MORPHINE 15 MG SA TAB PO SCH (22:38)
[2022-01-26] MEDS: ONDANSETRON 4MG/2ML VIAL IV PRN ×2 (01:10→08:36)
[2022-01-26] MEDS: SODIUM CHLORIDE 0.9% INJ 10 ML SYR IV PRN ×3 (01:11→06:09)
[2022-01-26] MEDS: PROMETHAZINE INJ 25 MG/ML VIAL (J2550) IV PRN ×2 (02:30→13:09)
[2022-01-26] MEDS: RAMELTEON 8 MG TAB (ROZEREM) PO PRN ×3 (02:31→22:11)
[2022-01-26] MEDS ORDERED: LORazepam 2 MG/ML VIAL IV ONE (05:20)
[2022-01-26 06:00] VITALS: BP 140/67
[2022-01-26 06:57] LABS: HEMATOCRIT 28.2 % (36.0-47.0); HEMOGLOBIN 9.1 g/dl (12.0-15.5); LYMPH # 0.3 10^3/uL (1.5-5.0); LYMPH % 18.1 % (24.0-44.0); MEAN CORPUSCULAR HGB CONC 32.3 g/dl (32.0-36.5); MEAN CORPUSCULAR VOLUME 80.6 fl (80.0-96.0); MONO # 0.1 10^3/uL (0.0-0.8); NEUTROPHILS % 73.2 % (36.0-66.0); PLATELET COUNT, AUTOMATED 238 10^3/uL (150-450); WHITE BLOOD COUNT 1.4 10^3/uL (4.0-10.0)
[2022-01-26 07:26] LABS: ALBUMIN 3.4 GM/DL (3.2-5.2); BILIRUBIN,TOTAL 0.3 MG/DL (0.2-1.0); CALCIUM LEVEL 8.5 MG/DL (8.5-10.1); CREATININE FOR GFR 1.44 MG/DL (0.55-1.30); GLOMERULAR FILTRATION RATE 42.3 (>58); MAGNESIUM LEVEL 1.8 MG/DL (1.8-2.4); POTASSIUM SERUM 3.1 MEQ/L (3.5-5.1)
[2022-01-26] MEDS: SODIUM CHLORIDE 0.9% INJ 10 ML SYR IV SCH (09:00)
[2022-01-26] MEDS ORDERED: POTASSIUM CHLORIDE 10MEQ SR TABLET PO ONE (09:00)
[2022-01-26] MEDS: GABAPENTIN 300 MG CAP PO SCH ×3 (09:00→22:04)
[2022-01-26] MEDS: ASCORBIC ACID 500 MG TAB PO SCH ×2 (09:00→21:00)
[2022-01-26] MEDS: MORPHINE 15 MG SA TAB PO SCH ×2 (09:00→22:04)
[2022-01-26] MEDS ORDERED: POTASSIUM CHLORIDE INJ 40 MEQ in NS 0.45% 1,000 ML IV SCH (09:50)
[2022-01-26] MEDS ORDERED: LORazepam 2 MG/ML VIAL IV PRN (11:40)
[2022-01-26] MEDS: POTASSIUM CHLORIDE INJ 40 MEQ in NS 0.45% 1,000 ML IV SCH ×2 (13:13→23:34)
[2022-01-26 14:00] VITALS: BP 120/72
[2022-01-26] MEDS: oxyCODONE 5MG TAB PO PRN (14:33)
[2022-01-26] MEDS: FILGRASTIM 480 MCG/0.8 ML SYRINGE **SC ADMINISTRATION ONLY SC SCH (17:01)
[2022-01-26 22:00] VITALS: BP 121/73
[2022-01-26] MEDS: SERTRALINE HCL 50 MG TAB PO SCH (22:03)
[2022-01-27] MEDS: LOPERAMIDE 2 MG CAPLET PO PRN ×2 (03:10→20:46)
[2022-01-27 05:58] LABS: CREATININE FOR GFR 1.25 MG/DL (0.55-1.30); GLOMERULAR FILTRATION RATE 49.8 (>58); POTASSIUM SERUM 3.9 MEQ/L (3.5-5.1)
[2022-01-27 06:00] VITALS: BP 120/61
[2022-01-27] MEDS: POTASSIUM CHLORIDE INJ 40 MEQ in NS 0.45% 1,000 ML IV SCH (08:59)
[2022-01-27] MEDS: GABAPENTIN 300 MG CAP PO SCH ×3 (09:00→20:48)
[2022-01-27] MEDS: SODIUM CHLORIDE 0.9% INJ 10 ML SYR IV SCH (09:00)
[2022-01-27] MEDS: ASCORBIC ACID 500 MG TAB PO SCH ×2 (09:00→20:48)
[2022-01-27] MEDS: MORPHINE 15 MG SA TAB PO SCH ×2 (09:00→20:48)
[2022-01-27] MEDS ORDERED: LOMOTIL 2.5MG/0.025MG TABLET PO PRN (12:35)
[2022-01-27 14:00] VITALS: BP 118/65
[2022-01-27] MEDS: FILGRASTIM 480 MCG/0.8 ML SYRINGE **SC ADMINISTRATION ONLY SC SCH (14:14)
[2022-01-27 14:59] LABS: HEMATOCRIT 28.6 % (36.0-47.0); HEMOGLOBIN 8.8 g/dl (12.0-15.5); MEAN CORPUSCULAR HEMOGLOBIN 25.7 pg (27.0-33.0); MEAN CORPUSCULAR HGB CONC 30.8 g/dl (32.0-36.5); MEAN CORPUSCULAR VOLUME 83.6 fl (80.0-96.0); PLATELET COUNT, AUTOMATED 212 10^3/uL (150-450); RED BLOOD COUNT 3.42 10^6/uL (4.00-5.40)
[2022-01-27 15:25] LABS: ANISOCYTOSIS 1+; BASOPHILS 1 % (0-1); EOSINOPHILS 5 % (0-3); LYMPHOCYTES 46 % (16-44); MONOCYTES 7 % (0-5); NEUTROPHILS 39 % (28-66)
[2022-01-27 15:26] LABS: HYPOCHROMASIA 1+; PLATELET ESTIMATE NORMAL (NORMAL)
[2022-01-27] MEDS: SERTRALINE HCL 50 MG TAB PO SCH (20:46)
[2022-01-27 22:00] VITALS: BP 145/74
[2022-01-28 05:59] LABS: CALCIUM LEVEL 7.6 MG/DL (8.5-10.1); CREATININE FOR GFR 1.13 MG/DL (0.55-1.30); GLOMERULAR FILTRATION RATE 55.9 (>58); MAGNESIUM LEVEL 1.4 MG/DL (1.8-2.4); POTASSIUM SERUM 3.6 MEQ/L (3.5-5.1)
[2022-01-28 06:00] VITALS: BP 122/76
[2022-01-28 06:02] LABS: BASO % 1.1 % (0.0-1.0); HEMATOCRIT 27.4 % (36.0-47.0); HEMOGLOBIN 8.5 g/dl (12.0-15.5); LYMPH # 0.3 10^3/uL (1.5-5.0); LYMPH % 33.3 % (24.0-44.0); MEAN CORPUSCULAR HEMOGLOBIN 26.1 pg (27.0-33.0); MONO # 0.3 10^3/uL (0.0-0.8); MONO % 28.9 % (2.0-8.0); NEUTROPHILS % 35.6 % (36.0-66.0); PLATELET COUNT, AUTOMATED 176 10^3/uL (150-450); RED BLOOD COUNT 3.26 10^6/uL (4.00-5.40)
[2022-01-28 06:08] LABS: NEUTROPHILS # 0.3 10^3/uL (1.5-8.5); WHITE BLOOD COUNT 0.9 10^3/uL (4.0-10.0)
[2022-01-28] MEDS: oxyCODONE 5MG TAB PO PRN (06:50)
[2022-01-28] MEDS: ASCORBIC ACID 500 MG TAB PO SCH ×3 (09:00→21:00)
[2022-01-28] MEDS: GABAPENTIN 300 MG CAP PO SCH ×3 (09:14→21:07)
[2022-01-28] MEDS: MAG SULF 1GM/100ML (MAG RUN) 1 GM in IV 1 EA IV SCH ×2 (09:14→11:39)
[2022-01-28] MEDS: SODIUM CHLORIDE 0.9% INJ 10 ML SYR IV SCH (09:15)
[2022-01-28] MEDS: MORPHINE 15 MG SA TAB PO SCH ×2 (09:16→21:09)
[2022-01-28] MEDS: FILGRASTIM 480 MCG/0.8 ML SYRINGE **SC ADMINISTRATION ONLY SC SCH (10:37)
[2022-01-28] MEDS: cefTRIAXone SOD 1 GM in D5W MINI-BAG PLUS 50 ML IV SCH (10:38)
[2022-01-28] MEDS: LOPERAMIDE 2 MG CAPLET PO PRN (11:39)
[2022-01-28 14:00] VITALS: BP 124/76
[2022-01-28 19:06] VITALS: BP 126/87
[2022-01-28] MEDS: SERTRALINE HCL 50 MG TAB PO SCH (21:09)
[2022-01-28] MEDS: RAMELTEON 8 MG TAB (ROZEREM) PO PRN (22:19)
[2022-01-29 06:00] VITALS: BP 116/55
[2022-01-29 06:12] LABS: HEMATOCRIT 27.9 % (36.0-47.0); HEMOGLOBIN 8.6 g/dl (12.0-15.5); MEAN CORPUSCULAR HEMOGLOBIN 25.9 pg (27.0-33.0); MEAN CORPUSCULAR HGB CONC 30.8 g/dl (32.0-36.5); PLATELET COUNT, AUTOMATED 175 10^3/uL (150-450); RED BLOOD COUNT 3.32 10^6/uL (4.00-5.40); WHITE BLOOD COUNT 5.4 10^3/uL (4.0-10.0)
[2022-01-29 07:07] LABS: CALCIUM LEVEL 7.7 MG/DL (8.5-10.1); CREATININE FOR GFR 1.26 MG/DL (0.55-1.30); GLOMERULAR FILTRATION RATE 49.3 (>58); MAGNESIUM LEVEL 1.6 MG/DL (1.8-2.4); POTASSIUM SERUM 3.3 MEQ/L (3.5-5.1)
[2022-01-29 08:04] LABS: ATYPICAL LYMPH 3 % (0-5); BASOPHILS 1 % (0-1); EOSINOPHILS 9 % (0-3); LYMPHOCYTES 14 % (16-44); METAMYELOCYTES 2 % (0-0); MONOCYTES 14 % (0-5); MYELOCYTES 5 % (0-0); NEUTROPHILS 31 % (28-66)
[2022-01-29 08:05] LABS: DOHLE BODIES 1+
[2022-01-29] MEDS ORDERED: POTASSIUM CHLORIDE 10MEQ SR TABLET PO ONE (08:05)
[2022-01-29 08:06] LABS: OVALOCYTES 1+; PLATELET ESTIMATE NORMAL (NORMAL); TEAR DROP CELLS 1+
[2022-01-29 08:07] LABS: MICROCYTOSIS 1+
[2022-01-29] MEDS: ASCORBIC ACID 500 MG TAB PO SCH (09:00)
[2022-01-29] MEDS: cefTRIAXone SOD 1 GM in D5W MINI-BAG PLUS 50 ML IV SCH (10:45)
[2022-01-29] MEDS: GABAPENTIN 300 MG CAP PO SCH (10:45)
[2022-01-29] MEDS: MORPHINE 15 MG SA TAB PO SCH (10:48)
[2022-01-29] MEDS: MAG SULF 1GM/100ML (MAG RUN) 1 GM in IV 1 EA IV SCH ×2 (11:46→12:50)
[2022-01-29] MEDS ORDERED: CEFD300CAP PO (12:43)
[2022-01-29] MEDS: KCL 10MEQ/100ML SWI (KRUN) 10 MEQ in IV 1 EA IV SCH ×2 (13:58→15:09)
[2022-01-29 14:00] VITALS: BP 112/56
[2022-01-29] MEDS: SODIUM CHLORIDE 0.9% INJ 10 ML SYR IV SCH (16:15)
[2022-01-29] MEDS ORDERED: CEFDINIR 300 MG CAP (OMNICEF) PO SCH (21:00)
== END 2022-01-29 16:48 | disposition home or self-care (01) | DRG 469 ==
LOC: M ED 06:39 → M ED INP 12:09 → ENRESERV 13:35 → M MSPAV 14:45
PROVIDERS: ADMIT Family Medicine; ATTEND Internal Medicine Nephrology
DX: N17.9 Acute kidney failure, unspecified (principal); E83.42 Hypomagnesemia; E87.6 Hypokalemia; D70.1 Agranulocytosis secondary to cancer chemotherapy; D64.81 Anemia due to antineoplastic chemotherapy; N39.0 Urinary tract infection, site not specified; G62.0 Drug-induced polyneuropathy; F41.9 Anxiety disorder, unspecified; F32.A Depression, unspecified; G25.81 Restless legs syndrome; C51.8 Malignant neoplasm of overlapping sites of vulva; T45.1X5A Adverse effect of antineoplastic and immunosuppressive drugs, initial encounter; Z90.49 Acquired absence of other specified parts of digestive tract; F17.200 Nicotine dependence, unspecified, uncomplicated; J18.9 Pneumonia, unspecified organism; R11.2 Nausea with vomiting, unspecified; B95.4 Other streptococcus as the cause of diseases classified elsewhere

== ENCOUNTER → 2022-02-01 | Outpatient (CLI) | payer OTHER ==
[~2022-02-01] MED LIST changes: +CEFD300CAP PO; +DOCU100C16 PO; +RAME8TAB2 PO; +VITA500T9 PO
== END ==
LOC: M ONCR 10:28
PROVIDERS: ATTEND General Practice
DX: C51.8 Malignant neoplasm of overlapping sites of vulva (principal)

== ENCOUNTER → 2022-03-05 | Outpatient (CLI) | payer OTHER ==
[2022-03-05 13:23] LABS: BASO % 0.7 % (0.0-1.0); EOS % 0.2 % (0.0-3.0); HEMATOCRIT 35.8 % (36.0-47.0); HEMOGLOBIN 11.2 g/dl (12.0-15.5); LYMPH # 0.6 10^3/uL (1.5-5.0); LYMPH % 9.8 % (24.0-44.0); MEAN CORPUSCULAR HEMOGLOBIN 27.5 pg (27.0-33.0); MEAN CORPUSCULAR HGB CONC 31.3 g/dl (32.0-36.5); MONO # 0.6 10^3/uL (0.0-0.8); MONO % 8.9 % (2.0-8.0); NEUTROPHILS # 4.9 10^3/uL (1.5-8.5); NEUTROPHILS % 80.1 % (36.0-66.0); PLATELET COUNT, AUTOMATED 374 10^3/uL (150-450); RED BLOOD COUNT 4.07 10^6/uL (4.00-5.40); WHITE BLOOD COUNT 6.2 10^3/uL (4.0-10.0)
[2022-03-05] MEDS: SODIUM CHLORIDE 0.9% INJ 10 ML SYR IV PRN (13:36)
[2022-03-05 13:47] LABS: ALBUMIN 3.3 GM/DL (3.2-5.2); BILIRUBIN,TOTAL 0.2 MG/DL (0.2-1.0); CALCIUM LEVEL 9.6 MG/DL (8.5-10.1); CREATININE FOR GFR 1.26 MG/DL (0.55-1.30); GLOMERULAR FILTRATION RATE 49.3 (>58); POTASSIUM SERUM 3.9 MEQ/L (3.5-5.1); TOTAL PROTEIN 7.9 GM/DL (6.4-8.2)
== END ==
LOC: M ONCR 12:33
PROVIDERS: ATTEND General Practice
DX: C51.8 Malignant neoplasm of overlapping sites of vulva (principal); K62.7 Radiation proctitis; K62.5 Hemorrhage of anus and rectum
CPT/HCPCS: 36591; 80053; 85025; G0463; J1642

== ENCOUNTER → 2022-03-15 | Outpatient (CLI) | payer OTHER ==
[~2022-03-15] MED LIST changes: +BACT800T5 PO
[2022-03-15 11:21] LABS: BASO % 0.3 % (0.0-1.0); EOS # 0.3 10^3/uL (0.0-0.5); EOS % 3.3 % (0.0-3.0); HEMATOCRIT 34.2 % (36.0-47.0); LYMPH # 0.5 10^3/uL (1.5-5.0); LYMPH % 6.9 % (24.0-44.0); MEAN CORPUSCULAR HEMOGLOBIN 27.6 pg (27.0-33.0); MEAN CORPUSCULAR HGB CONC 32.2 g/dl (32.0-36.5); MEAN CORPUSCULAR VOLUME 85.7 fl (80.0-96.0); MONO # 0.5 10^3/uL (0.0-0.8); MONO % 6.5 % (2.0-8.0); NEUTROPHILS # 6.2 10^3/uL (1.5-8.5); NEUTROPHILS % 82.7 % (36.0-66.0); PLATELET COUNT, AUTOMATED 303 10^3/uL (150-450); RED BLOOD COUNT 3.99 10^6/uL (4.00-5.40); WHITE BLOOD COUNT 7.5 10^3/uL (4.0-10.0)
[2022-03-15 11:54] LABS: FERRITIN 145 NG/ML (8-252); IRON (FE) 44 UG/DL (50-170)
[2022-03-15 11:59] LABS: BILIRUBIN,TOTAL 0.3 MG/DL (0.2-1.0); CALCIUM LEVEL 9.7 MG/DL (8.5-10.1); CREATININE FOR GFR 1.31 MG/DL (0.55-1.30); GLOMERULAR FILTRATION RATE 47.2 (>58); POTASSIUM SERUM 3.9 MEQ/L (3.5-5.1); TOTAL PROTEIN 7.8 GM/DL (6.4-8.2)
== END ==
LOC: M ONCR 10:01
PROVIDERS: ATTEND General Practice
DX: C51.8 Malignant neoplasm of overlapping sites of vulva (principal); K62.5 Hemorrhage of anus and rectum; R10.9 Unspecified abdominal pain; D64.9 Anemia, unspecified
CPT/HCPCS: 36591; 80053; 82728; 83540; 85025; 86850; 86900; 86901; G0463

== ENCOUNTER → 2022-03-19 | Outpatient (CLI) | payer OTHER | LOC: M ONCR 15:06 | PROVIDERS: ATTEND General Practice | DX: C51.8 Malignant neoplasm of overlapping sites of vulva (principal); K62.7 Radiation proctitis ==

== ENCOUNTER → 2022-03-19 | Outpatient (CLI) | payer OTHER ==
[~2022-03-19] MED LIST changes: +SODIUM CHLORIDE 0.9% INJ 10 ML SYR IV PRN
[2022-03-19 15:17] LABS: BASO % 0.5 % (0.0-1.0); EOS # 0.3 10^3/uL (0.0-0.5); EOS % 4.1 % (0.0-3.0); HEMATOCRIT 31.7 % (36.0-47.0); HEMOGLOBIN 9.9 g/dl (12.0-15.5); LYMPH # 0.6 10^3/uL (1.5-5.0); LYMPH % 10.3 % (24.0-44.0); MEAN CORPUSCULAR HEMOGLOBIN 27.3 pg (27.0-33.0); MEAN CORPUSCULAR HGB CONC 31.2 g/dl (32.0-36.5); MEAN CORPUSCULAR VOLUME 87.6 fl (80.0-96.0); MONO # 0.5 10^3/uL (0.0-0.8); MONO % 8.2 % (2.0-8.0); NEUTROPHILS # 4.7 10^3/uL (1.5-8.5); NEUTROPHILS % 76.6 % (36.0-66.0); PLATELET COUNT, AUTOMATED 316 10^3/uL (150-450); RED BLOOD COUNT 3.62 10^6/uL (4.00-5.40); WHITE BLOOD COUNT 6.1 10^3/uL (4.0-10.0)
[2022-03-19 15:51] LABS: ALBUMIN 2.9 GM/DL (3.2-5.2); BILIRUBIN,TOTAL 0.2 MG/DL (0.2-1.0); CALCIUM LEVEL 8.6 MG/DL (8.5-10.1); CREATININE FOR GFR 1.4 MG/DL (0.55-1.30); GLOMERULAR FILTRATION RATE 43.7 (>58); POTASSIUM SERUM 3.4 MEQ/L (3.5-5.1); TOTAL PROTEIN 7.4 GM/DL (6.4-8.2)
== END ==
LOC: M ONCR 14:33
PROVIDERS: ATTEND General Practice
DX: C51.8 Malignant neoplasm of overlapping sites of vulva (principal)
CPT/HCPCS: 36591; 80053; 85025; G0463; J1642

== ENCOUNTER → 2022-04-12 | Outpatient (CLI) | payer OTHER ==
[~2022-04-12] MED LIST changes: -SODIUM CHLORIDE 0.9% INJ 10 ML SYR IV PRN
== END ==
LOC: M ONCR 14:29
PROVIDERS: ATTEND General Practice
DX: Z08 Encounter for follow-up examination after completed treatment for malignant neoplasm (principal); Z88.6 Allergy status to analgesic agent; G89.3 Neoplasm related pain (acute) (chronic)

== ENCOUNTER 2022-04-25 12:17 | Inpatient (IN) | payer OTHER ==
[~2022-04-25] VITALS: Ht 144.8 cm; Wt 103.6 kg
[~2022-04-25 12:17] MED LIST changes: -CEPH500C PO; -DIPH25CA32 PO; -ONDA-84 PO; -PROC10TA5 PO; -ROZE8TAB16 PO
[2022-04-25] MEDS ORDERED: ACETAMINOPHEN 325 MG TAB PO ONE (12:55)
[2022-04-25 13:22] LABS: BASO % 0.2 % (0.0-1.0); HEMOGLOBIN 7.4 g/dl (12.0-15.5); LYMPH # 0.4 10^3/uL (1.5-5.0); LYMPH % 3.5 % (24.0-44.0); MEAN CORPUSCULAR HEMOGLOBIN 26.4 pg (27.0-33.0); MEAN CORPUSCULAR HGB CONC 30.8 g/dl (32.0-36.5); MEAN CORPUSCULAR VOLUME 85.7 fl (80.0-96.0); MONO # 0.6 10^3/uL (0.0-0.8); MONO % 4.6 % (2.0-8.0); NEUTROPHILS # 10.8 10^3/uL (1.5-8.5); NEUTROPHILS % 91.2 % (36.0-66.0); PLATELET COUNT, AUTOMATED 343 10^3/uL (150-450); WHITE BLOOD COUNT 11.9 10^3/uL (4.0-10.0)
[2022-04-25 13:48] LABS: ALBUMIN 2.5 GM/DL (3.2-5.2); ALT/SGPT 8 U/L (12-78); BILIRUBIN,DIRECT < 0.1 MG/DL (0.0-0.2); BILIRUBIN,TOTAL 0.2 MG/DL (0.2-1.0); BLOOD UREA NITROGEN 15 MG/DL (7-18); CALCIUM LEVEL 7.9 MG/DL (8.5-10.1); CARBON DIOXIDE LEVEL 26 MEQ/L (21-32); CHLORIDE LEVEL 103 MEQ/L (98-107); CREATININE FOR GFR 1.49 MG/DL (0.55-1.30); GLOMERULAR FILTRATION RATE 40.7 (>58); GLUCOSE, FASTING 104 MG/DL (70-100); LIPASE 60 U/L (73-393); POTASSIUM SERUM 3.9 MEQ/L (3.5-5.1); SODIUM LEVEL 136 MEQ/L (136-145); TOTAL PROTEIN 6.3 GM/DL (6.4-8.2)
[2022-04-25] MEDS ORDERED: ISOVUE-370 76% 100ML VIAL As Ordered ONE (14:18)
[2022-04-25] MEDS ORDERED: cefTRIAXone SOD 2 GM in D5W MINI-BAG PLUS 50 ML IV ONE (16:30)
[2022-04-25] MEDS ORDERED: NS 1,000 ML IV ONE (16:35)
[2022-04-25] MEDS ORDERED: PROC10TA5 PO (17:06)
[2022-04-25] MEDS ORDERED: DIPH25CA32 PO (17:06)
[2022-04-25] MEDS ORDERED: ROZE8TAB16 PO (17:06)
[2022-04-25] MEDS ORDERED: ONDA-84 PO (17:06)
[2022-04-25] MEDS ORDERED: HOME MED LIST COMPLETE! XX SCH (17:10)
[2022-04-25] MEDS ORDERED: VANCOMYCIN HCL 1,000 MG, VIAL MATE ADAPTER 1 EACH in NS 250 ML IV SCH (17:20)
[2022-04-25] MEDS ORDERED: LR 1,000 ML IV ONE (18:00)
[2022-04-25] MEDS ORDERED: PROCHLORPERAZINE 5MG TAB PO PRN (18:10)
[2022-04-25] MEDS ORDERED: ONDANSETRON 4MG TAB PO PRN (18:10)
[2022-04-25] MEDS ORDERED: ACETAMINOPHEN TAB 650MG DOSE (2X325MG) PO PRN (18:10)
[2022-04-25] MEDS ORDERED: MIRALAX *UNIT DOSE* 17GM PACKET PO PRN (18:45)
[2022-04-25] MEDS ORDERED: NALOXONE INJ 0.4MG/1ML VIAL (J2310 PER 1MG) IV PRN (18:50)
[2022-04-25] MEDS: LACTOBACILLUS ACIDOPHILUS CAP (BACID) PO SCH (19:47)
[2022-04-25 20:07] LABS: INR 1.02; PROTHROMBIN TIME 13.8 SECONDS (12.7-14.5)
[2022-04-25 20:31] VITALS: BP 104/52
[2022-04-25] MEDS ORDERED: PIPERACILLIN/TAZOBACTAM SOD 3.375 GM in D5W MINI-BAG PLUS 50 ML IV SCH (21:00)
[2022-04-25] MEDS ORDERED: DOCUSATE SODIUM 100MG CAPSULE PO SCH (21:00)
[2022-04-25] MEDS: FERROUS SULFATE 325MG TAB PO SCH (21:00)
[2022-04-25] MEDS ORDERED: SODIUM CHLORIDE 0.9% INJ 10 ML SYR IV PRN (21:05)
[2022-04-25] MEDS: NS 1,000 ML IV SCH (21:16)
[2022-04-25] MEDS: MORPHINE 4 MG/ML 1ML VIAL/SYRINGE IV PRN (21:16)
[2022-04-25] MEDS: ONDANSETRON 4MG/2ML VIAL IV SCH (21:46)
[2022-04-25] MEDS: RAMELTEON 8 MG TAB (ROZEREM) PO SCH (21:47)
[2022-04-25] MEDS: DOCUSATE SODIUM 100MG CAPSULE PO SCH (21:47)
[2022-04-25] MEDS: diphenhydrAMINE 25MG CAP PO SCH (21:47)
[2022-04-25] MEDS: SENNA 8.6 MG TAB (SENOKOT) PO SCH (21:47)
[2022-04-25] MEDS: SERTRALINE HCL 50 MG TAB PO SCH (21:47)
[2022-04-25] MEDS: GABAPENTIN 300 MG CAP PO SCH (21:48)
[2022-04-25] MEDS ORDERED: VANCOMYCIN HCL 1,000 MG, VIAL MATE ADAPTER 1 EACH in NS 250 ML IV ONE ×2 (22:00→23:00)
[2022-04-25 22:02] VITALS: BP 99/55
[2022-04-25 22:17] VITALS: BP 102/56
[2022-04-25 23:07] VITALS: BP 113/68
[2022-04-26] VITALS (12 sets, daily range): BP systolic 104–120; BP diastolic 47–66
[2022-04-26] MEDS: ONDANSETRON 4MG/2ML VIAL IV SCH ×6 (00:30→20:20)
[2022-04-26] MEDS: NS 1,000 ML IV SCH ×3 (01:20→17:48)
[2022-04-26] MEDS ORDERED: VANCOMYCIN HCL 1,000 MG, VIAL MATE ADAPTER 1 EACH in NS 250 ML IV ONE ×2 (05:00→06:00)
[2022-04-26] MEDS: PIPERACILLIN/TAZOBACTAM SOD 3.375 GM in D5W MINI-BAG PLUS 50 ML IV SCH ×3 (07:34→18:15)
[2022-04-26] MEDS: LACTOBACILLUS ACIDOPHILUS CAP (BACID) PO SCH ×2 (08:55→16:26)
[2022-04-26] MEDS: GABAPENTIN 300 MG CAP PO SCH ×3 (08:55→20:21)
[2022-04-26] MEDS: DOCUSATE SODIUM 100MG CAPSULE PO SCH ×2 (08:55→20:20)
[2022-04-26] MEDS: MORPHINE 4 MG/ML 1ML VIAL/SYRINGE IV PRN (08:55)
[2022-04-26] MEDS: SODIUM CHLORIDE 0.9% INJ 10 ML SYR IV SCH ×2 (08:56→12:01)
[2022-04-26] MEDS: FERROUS SULFATE 325MG TAB PO SCH ×2 (08:56→20:21)
[2022-04-26] MEDS ORDERED: ENOXAPARIN 40MG/0.4ML SYRINGE (J1650 PER 10MG) SC SCH (09:00)
[2022-04-26 13:33] LABS: HEMATOCRIT 28.2 % (36.0-47.0); MEAN CORPUSCULAR HEMOGLOBIN 26.9 pg (27.0-33.0); MEAN CORPUSCULAR HGB CONC 31.9 g/dl (32.0-36.5); MEAN CORPUSCULAR VOLUME 84.2 fl (80.0-96.0); PLATELET COUNT, AUTOMATED 304 10^3/uL (150-450); RED BLOOD COUNT 3.35 10^6/uL (4.00-5.40); WHITE BLOOD COUNT 6.8 10^3/uL (4.0-10.0)
[2022-04-26 13:56] LABS: ALBUMIN 2.2 GM/DL (3.2-5.2); BILIRUBIN,TOTAL 0.3 MG/DL (0.2-1.0); CALCIUM LEVEL 8.2 MG/DL (8.5-10.1); CREATININE FOR GFR 1.55 MG/DL (0.55-1.30); GLOMERULAR FILTRATION RATE 38.8 (>58); POTASSIUM SERUM 3.9 MEQ/L (3.5-5.1); TOTAL PROTEIN 6.4 GM/DL (6.4-8.2)
[2022-04-26] MEDS: oxyCODONE 5MG TAB PO PRN (16:27)
[2022-04-26] MEDS: VANCOMYCIN HCL 1,000 MG, VIAL MATE ADAPTER 1 EACH in NS 250 ML IV SCH (16:28)
[2022-04-26 18:03] LABS: C REACTIVE PROTEIN QUANTITATIV 11.7 MG/DL (0.00-0.30)
[2022-04-26 19:07] LABS: ERYTHROCYTE SEDIMENTATION RATE 106 mm/hr (0-20)
[2022-04-26] MEDS: SERTRALINE HCL 50 MG TAB PO SCH (20:20)
[2022-04-26] MEDS: RAMELTEON 8 MG TAB (ROZEREM) PO SCH (20:20)
[2022-04-26] MEDS: diphenhydrAMINE 25MG CAP PO SCH (20:20)
[2022-04-26] MEDS: SENNA 8.6 MG TAB (SENOKOT) PO SCH (20:21)
[2022-04-27] MEDS: PIPERACILLIN/TAZOBACTAM SOD 3.375 GM in D5W MINI-BAG PLUS 50 ML IV SCH (00:30)
[2022-04-27] MEDS: ONDANSETRON 4MG/2ML VIAL IV SCH ×6 (00:30→21:35)
[2022-04-27] MEDS ORDERED: ALTEPLASE 2MG/2ML VIAL XX ONE (05:00)
[2022-04-27] MEDS: VANCOMYCIN HCL 1,000 MG, VIAL MATE ADAPTER 1 EACH in NS 250 ML IV SCH (05:34)
[2022-04-27 06:00] VITALS: BP 100/55
[2022-04-27] MEDS: LACTOBACILLUS ACIDOPHILUS CAP (BACID) PO SCH ×2 (08:00→17:23)
[2022-04-27] MEDS: FERROUS SULFATE 325MG TAB PO SCH ×2 (09:00→21:00)
[2022-04-27] MEDS: GABAPENTIN 300 MG CAP PO SCH ×3 (09:33→21:36)
[2022-04-27] MEDS: DOCUSATE SODIUM 100MG CAPSULE PO SCH ×2 (09:33→21:35)
[2022-04-27] MEDS: oxyCODONE 5MG TAB PO PRN (09:42)
[2022-04-27] MEDS: ceFAZolin SOD 1 GM in D5W MINI-BAG PLUS 50 ML IV SCH ×2 (09:43→16:08)
[2022-04-27] MEDS: NS 1,000 ML IV SCH (13:57)
[2022-04-27 15:34] VITALS: BP 112/62
[2022-04-27 19:29] LABS: HEMATOCRIT 28.5 % (36.0-47.0); HEMOGLOBIN 8.6 g/dl (12.0-15.5); MEAN CORPUSCULAR HEMOGLOBIN 26.6 pg (27.0-33.0); MEAN CORPUSCULAR HGB CONC 30.2 g/dl (32.0-36.5); MEAN CORPUSCULAR VOLUME 88.2 fl (80.0-96.0); PLATELET COUNT, AUTOMATED 297 10^3/uL (150-450); RED BLOOD COUNT 3.23 10^6/uL (4.00-5.40); WHITE BLOOD COUNT 5.9 10^3/uL (4.0-10.0)
[2022-04-27 19:40] LABS: ALBUMIN 2.1 GM/DL (3.2-5.2); BILIRUBIN,TOTAL 0.2 MG/DL (0.2-1.0); CALCIUM LEVEL 8.1 MG/DL (8.5-10.1); CREATININE FOR GFR 1.64 MG/DL (0.55-1.30); GLOMERULAR FILTRATION RATE 36.4 (>58); POTASSIUM SERUM 4.5 MEQ/L (3.5-5.1); TOTAL PROTEIN 5.8 GM/DL (6.4-8.2)
[2022-04-27 20:48] VITALS: BP 100/51
[2022-04-27] MEDS ORDERED: diphenhydrAMINE 50MG/ML VIAL (J1200) IV ONE (21:00)
[2022-04-27] MEDS: SENNA 8.6 MG TAB (SENOKOT) PO SCH (21:35)
[2022-04-27] MEDS: RAMELTEON 8 MG TAB (ROZEREM) PO SCH (21:36)
[2022-04-27] MEDS: SERTRALINE HCL 50 MG TAB PO SCH (21:36)
[2022-04-27] MEDS: SODIUM CHLORIDE 0.9% INJ 10 ML SYR IV PRN (21:37)
[2022-04-28] MEDS: ONDANSETRON 4MG/2ML VIAL IV SCH ×6 (00:34→20:41)
[2022-04-28] MEDS: ceFAZolin SOD 1 GM in D5W MINI-BAG PLUS 50 ML IV SCH ×3 (00:35→16:17)
[2022-04-28 06:00] VITALS: BP 98/52
[2022-04-28 06:31] LABS: HEMATOCRIT 29.2 % (36.0-47.0); HEMOGLOBIN 8.9 g/dl (12.0-15.5); MEAN CORPUSCULAR HEMOGLOBIN 26.5 pg (27.0-33.0); MEAN CORPUSCULAR HGB CONC 30.5 g/dl (32.0-36.5); MEAN CORPUSCULAR VOLUME 86.9 fl (80.0-96.0); PLATELET COUNT, AUTOMATED 325 10^3/uL (150-450); RED BLOOD COUNT 3.36 10^6/uL (4.00-5.40); WHITE BLOOD COUNT 5.8 10^3/uL (4.0-10.0)
[2022-04-28 06:54] LABS: ALBUMIN 2.1 GM/DL (3.2-5.2); BILIRUBIN,TOTAL 0.2 MG/DL (0.2-1.0); C REACTIVE PROTEIN QUANTITATIV 5.71 MG/DL (0.00-0.30); CALCIUM LEVEL 8.3 MG/DL (8.5-10.1); CREATININE FOR GFR 1.54 MG/DL (0.55-1.30); GLOMERULAR FILTRATION RATE 39.1 (>58); POTASSIUM SERUM 4.2 MEQ/L (3.5-5.1); TOTAL PROTEIN 5.9 GM/DL (6.4-8.2)
[2022-04-28 07:02] LABS: ERYTHROCYTE SEDIMENTATION RATE 106 mm/hr (0-20)
[2022-04-28] MEDS: GABAPENTIN 300 MG CAP PO SCH ×3 (08:04→20:42)
[2022-04-28] MEDS: LACTOBACILLUS ACIDOPHILUS CAP (BACID) PO SCH ×2 (08:04→19:33)
[2022-04-28] MEDS: DOCUSATE SODIUM 100MG CAPSULE PO SCH ×2 (08:04→20:42)
[2022-04-28] MEDS: FERROUS SULFATE 325MG TAB PO SCH ×2 (08:05→20:43)
[2022-04-28] MEDS: SODIUM CHLORIDE 0.9% INJ 10 ML SYR IV SCH (08:05)
[2022-04-28] MEDS: SODIUM CHLORIDE 0.9% INJ 10 ML SYR IV PRN ×2 (12:46→20:43)
[2022-04-28 14:00] VITALS: BP 99/49
[2022-04-28] MEDS: MORPHINE 4 MG/ML 1ML VIAL/SYRINGE IV PRN (16:18)
[2022-04-28] MEDS: diphenhydrAMINE 25MG CAP PO SCH (20:42)
[2022-04-28] MEDS: SERTRALINE HCL 50 MG TAB PO SCH (20:42)
[2022-04-28] MEDS: SENNA 8.6 MG TAB (SENOKOT) PO SCH (20:42)
[2022-04-28] MEDS: RAMELTEON 8 MG TAB (ROZEREM) PO SCH (20:43)
[2022-04-28 22:00] VITALS: BP 116/58
[2022-04-29] MEDS: ceFAZolin SOD 1 GM in D5W MINI-BAG PLUS 50 ML IV SCH ×3 (00:40→17:11)
[2022-04-29] MEDS: ONDANSETRON 4MG/2ML VIAL IV SCH ×6 (00:40→22:28)
[2022-04-29] MEDS: MORPHINE 4 MG/ML 1ML VIAL/SYRINGE IV PRN ×4 (00:51→18:01)
[2022-04-29] MEDS: SODIUM CHLORIDE 0.9% INJ 10 ML SYR IV PRN ×5 (05:37→22:35)
[2022-04-29 05:38] VITALS: BP 98/52
[2022-04-29 06:25] LABS: HEMATOCRIT 29.6 % (36.0-47.0); HEMOGLOBIN 8.8 g/dl (12.0-15.5); MEAN CORPUSCULAR HEMOGLOBIN 26.8 pg (27.0-33.0); MEAN CORPUSCULAR HGB CONC 29.7 g/dl (32.0-36.5); MEAN CORPUSCULAR VOLUME 90.2 fl (80.0-96.0); PLATELET COUNT, AUTOMATED 324 10^3/uL (150-450); RED BLOOD COUNT 3.28 10^6/uL (4.00-5.40); WHITE BLOOD COUNT 4.6 10^3/uL (4.0-10.0)
[2022-04-29 06:53] LABS: ALBUMIN 2.3 GM/DL (3.2-5.2); ALT/SGPT 6 U/L (12-78); BILIRUBIN,TOTAL < 0.1 MG/DL (0.2-1.0); BLOOD UREA NITROGEN 22 MG/DL (7-18); CALCIUM LEVEL 7.9 MG/DL (8.5-10.1); CARBON DIOXIDE LEVEL 25 MEQ/L (21-32); CHLORIDE LEVEL 112 MEQ/L (98-107); CREATININE FOR GFR 1.56 MG/DL (0.55-1.30); GLOMERULAR FILTRATION RATE 38.6 (>58); GLUCOSE, FASTING 166 MG/DL (70-100); POTASSIUM SERUM 3.6 MEQ/L (3.5-5.1); SODIUM LEVEL 144 MEQ/L (136-145); TOTAL PROTEIN 5.9 GM/DL (6.4-8.2)
[2022-04-29] MEDS: SODIUM CHLORIDE 0.9% INJ 10 ML SYR IV SCH (09:02)
[2022-04-29] MEDS: GABAPENTIN 300 MG CAP PO SCH ×3 (09:03→22:26)
[2022-04-29] MEDS: LACTOBACILLUS ACIDOPHILUS CAP (BACID) PO SCH ×2 (09:03→17:12)
[2022-04-29] MEDS: DOCUSATE SODIUM 100MG CAPSULE PO SCH ×2 (09:03→22:26)
[2022-04-29] MEDS: FERROUS SULFATE 325MG TAB PO SCH ×2 (09:04→21:00)
[2022-04-29] MEDS: RAMELTEON 8 MG TAB (ROZEREM) PO SCH (21:00)
[2022-04-29 22:00] VITALS: BP 100/48
[2022-04-29] MEDS: SENNA 8.6 MG TAB (SENOKOT) PO SCH (22:25)
[2022-04-29] MEDS: diphenhydrAMINE 25MG CAP PO SCH (22:25)
[2022-04-29] MEDS: SERTRALINE HCL 50 MG TAB PO SCH (22:26)
[2022-04-29] MEDS: oxyCODONE 5MG TAB PO PRN (22:27)
[2022-04-30] MEDS: ceFAZolin SOD 1 GM in D5W MINI-BAG PLUS 50 ML IV SCH ×2 (00:51→08:40)
[2022-04-30] MEDS: ONDANSETRON 4MG/2ML VIAL IV SCH ×3 (00:58→08:40)
[2022-04-30 05:58] LABS: HEMATOCRIT 29.5 % (36.0-47.0); HEMOGLOBIN 8.7 g/dl (12.0-15.5); MEAN CORPUSCULAR HEMOGLOBIN 26.4 pg (27.0-33.0); MEAN CORPUSCULAR HGB CONC 29.5 g/dl (32.0-36.5); MEAN CORPUSCULAR VOLUME 89.7 fl (80.0-96.0); PLATELET COUNT, AUTOMATED 340 10^3/uL (150-450); RED BLOOD COUNT 3.29 10^6/uL (4.00-5.40)
[2022-04-30 06:00] VITALS: BP 106/60
[2022-04-30 06:34] LABS: ALBUMIN 2.2 GM/DL (3.2-5.2); ALT/SGPT 7 U/L (12-78); BILIRUBIN,TOTAL < 0.1 MG/DL (0.2-1.0); BLOOD UREA NITROGEN 24 MG/DL (7-18); CALCIUM LEVEL 8.5 MG/DL (8.5-10.1); CARBON DIOXIDE LEVEL 24 MEQ/L (21-32); CHLORIDE LEVEL 109 MEQ/L (98-107); CREATININE FOR GFR 1.64 MG/DL (0.55-1.30); GLOMERULAR FILTRATION RATE 36.4 (>58); GLUCOSE, FASTING 132 MG/DL (70-100); POTASSIUM SERUM 3.6 MEQ/L (3.5-5.1); SODIUM LEVEL 142 MEQ/L (136-145); TOTAL PROTEIN 6.6 GM/DL (6.4-8.2)
[2022-04-30] MEDS: LACTOBACILLUS ACIDOPHILUS CAP (BACID) PO SCH (08:08)
[2022-04-30] MEDS: DOCUSATE SODIUM 100MG CAPSULE PO SCH (08:08)
[2022-04-30] MEDS: FERROUS SULFATE 325MG TAB PO SCH (08:08)
[2022-04-30] MEDS: GABAPENTIN 300 MG CAP PO SCH (08:08)
[2022-04-30] MEDS: oxyCODONE 5MG TAB PO PRN (08:11)
[2022-04-30] MEDS ORDERED: CEPH500C PO (08:35)
[2022-04-30] MEDS: SODIUM CHLORIDE 0.9% INJ 10 ML SYR IV SCH (08:40)
== END 2022-04-30 10:51 | disposition home or self-care (01) | DRG 720 ==
LOC: M ED 12:17 → M ED INP 17:19 → M MSPAV 20:31
PROVIDERS: ADMIT Internal Medicine; ATTEND Family Medicine
DX: A41.9 Sepsis, unspecified organism (principal); D84.9 Immunodeficiency, unspecified; L03.314 Cellulitis of groin; G62.9 Polyneuropathy, unspecified; L03.317 Cellulitis of buttock; C51.9 Malignant neoplasm of vulva, unspecified; N39.0 Urinary tract infection, site not specified; F32.A Depression, unspecified; N18.30 Chronic kidney disease, stage 3 unspecified; D50.0 Iron deficiency anemia secondary to blood loss (chronic); K62.7 Radiation proctitis; N76.2 Acute vulvitis; G47.00 Insomnia, unspecified; N76.6 Ulceration of vulva; Z92.21 Personal history of antineoplastic chemotherapy; Z92.3 Personal history of irradiation; B95.5 Unspecified streptococcus as the cause of diseases classified elsewhere

== ENCOUNTER → 2022-04-25 | Outpatient (CLI) | payer OTHER ==
[~2022-04-25] MED LIST changes: +CEPH500C PO; +DIPH25CA32 PO; +ONDA-84 PO; +PROC10TA5 PO; +ROZE8TAB16 PO
== END ==
LOC: M ONCR 11:39
PROVIDERS: ATTEND General Practice
DX: R50.9 Fever, unspecified (principal); C51.9 Malignant neoplasm of vulva, unspecified; R10.2 Pelvic and perineal pain; L59.8 Other specified disorders of the skin and subcutaneous tissue related to radiation; R00.0 Tachycardia, unspecified

== ENCOUNTER → 2022-06-13 | Outpatient (CLI) | payer OTHER ==
[~2022-06-13] MED LIST changes: +CEPH500C PO; +COLA100C5 PO; +DIPH25CA32 PO; +LEVO1TAB39 PO; -LEVO500T4 PO; +ONDA-84 PO; +PROC10TA5 PO; +ROZE8TAB16 PO; +SENN-80 PO
== END ==
LOC: M ONCR 14:36
PROVIDERS: ATTEND General Practice
DX: Z08 Encounter for follow-up examination after completed treatment for malignant neoplasm (principal); Z85.44 Personal history of malignant neoplasm of other female genital organs; K62.7 Radiation proctitis; S31.40XA Unspecified open wound of vagina and vulva, initial encounter; R11.0 Nausea; Z87.891 Personal history of nicotine dependence; Z92.21 Personal history of antineoplastic chemotherapy; Z92.3 Personal history of irradiation; Z88.5 Allergy status to narcotic agent; Z79.899 Other long term (current) drug therapy; Z87.898 Personal history of other specified conditions

== ENCOUNTER → 2022-06-25 | Outpatient (CLI) | payer OTHER ==
[2022-06-25 11:48] LABS: BASO % 0.3 % (0.0-1.0); EOS % 0.1 % (0.0-3.0); HEMATOCRIT 35.1 % (36.0-47.0); HEMOGLOBIN 10.3 g/dl (12.0-15.5); LYMPH # 0.8 10^3/uL (1.5-5.0); LYMPH % 10.5 % (24.0-44.0); MEAN CORPUSCULAR HEMOGLOBIN 25.2 pg (27.0-33.0); MEAN CORPUSCULAR HGB CONC 29.3 g/dl (32.0-36.5); MEAN CORPUSCULAR VOLUME 85.8 fl (80.0-96.0); MONO # 0.4 10^3/uL (0.0-0.8); MONO % 5.9 % (2.0-8.0); NEUTROPHILS # 6.2 10^3/uL (1.5-8.5); NEUTROPHILS % 82.9 % (36.0-66.0); PLATELET COUNT, AUTOMATED 360 10^3/uL (150-450); RED BLOOD COUNT 4.09 10^6/uL (4.00-5.40); WHITE BLOOD COUNT 7.5 10^3/uL (4.0-10.0)
[2022-06-25 12:27] LABS: ALBUMIN 3.4 GM/DL (3.2-5.2); BILIRUBIN,TOTAL 0.3 MG/DL (0.2-1.0); CALCIUM LEVEL 9.4 MG/DL (8.5-10.1); CREATININE FOR GFR 1.6 MG/DL (0.55-1.30); GLOMERULAR FILTRATION RATE 37.5 (>58); POTASSIUM SERUM 4.3 MEQ/L (3.5-5.1); TOTAL PROTEIN 7.9 GM/DL (6.4-8.2)
== END ==
LOC: M ONCR 09:18
PROVIDERS: ATTEND General Practice
DX: C51.8 Malignant neoplasm of overlapping sites of vulva (principal); K62.7 Radiation proctitis; Z92.89 Personal history of other medical treatment
CPT/HCPCS: 80053; 85025; G0463

== ENCOUNTER → 2022-06-28 | Outpatient (CLI) | payer OTHER | LOC: M RAD 15:01 | PROVIDERS: ATTEND General Practice | DX: C51.8 Malignant neoplasm of overlapping sites of vulva (principal); R91.8 Other nonspecific abnormal finding of lung field; E27.8 Other specified disorders of adrenal gland ==

== ENCOUNTER → 2022-06-28 | Outpatient (CLI) | payer OTHER | LOC: M PLARAD 12:53 | PROVIDERS: ATTEND General Practice | DX: C51.8 Malignant neoplasm of overlapping sites of vulva (principal); R93.7 Abnormal findings on diagnostic imaging of other parts of musculoskeletal system ==

== ENCOUNTER → 2022-07-12 | Outpatient (CLI) | payer OTHER | LOC: M ONCR 14:35 | PROVIDERS: ATTEND General Practice | DX: C51.8 Malignant neoplasm of overlapping sites of vulva (principal); L59.8 Other specified disorders of the skin and subcutaneous tissue related to radiation; F41.0 Panic disorder [episodic paroxysmal anxiety]; Z92.21 Personal history of antineoplastic chemotherapy; Z92.3 Personal history of irradiation; Z88.8 Allergy status to other drugs, medicaments and biological substances; Z79.891 Long term (current) use of opiate analgesic; Z79.899 Other long term (current) drug therapy; Z87.891 Personal history of nicotine dependence ==

== ENCOUNTER → 2022-08-02 | Outpatient (CLI) | payer OTHER ==
[~2022-08-02] MED LIST changes: +CLOT1CRE56 TOP; +DOXY100T PO; +MESA50SU PR; +QUET1TAB17 PO
== END ==
LOC: M ONCR 14:30
PROVIDERS: ATTEND General Practice
DX: C51.8 Malignant neoplasm of overlapping sites of vulva (principal); K62.7 Radiation proctitis; S31.4 Open wound of vagina and vulva; N18.9 Chronic kidney disease, unspecified; Z79.891 Long term (current) use of opiate analgesic; Z79.899 Other long term (current) drug therapy; Z87.891 Personal history of nicotine dependence; Z88.5 Allergy status to narcotic agent; Z92.21 Personal history of antineoplastic chemotherapy; Z92.3 Personal history of irradiation

== ENCOUNTER 2022-08-20 02:00 | Emergency (ER) | payer OTHER ==
[~2022-08-20] VITALS: Ht 144.8 cm; Wt 100.0 kg
[~2022-08-20 02:00] MED LIST changes: +QUET50TA4 PO
[2022-08-20] MEDS ORDERED: MM S100C PO (02:17)
[2022-08-20 03:33] LABS: BASO # 0.1 10^3/uL (0.0-0.2); BASO % 0.6 % (0.0-1.0); HEMATOCRIT 40.2 % (36.0-47.0); HEMOGLOBIN 12.6 g/dl (12.0-15.5); LYMPH # 1.2 10^3/uL (1.5-5.0); LYMPH % 14.5 % (24.0-44.0); MEAN CORPUSCULAR HEMOGLOBIN 26.2 pg (27.0-33.0); MEAN CORPUSCULAR HGB CONC 31.3 g/dl (32.0-36.5); MEAN CORPUSCULAR VOLUME 83.6 fl (80.0-96.0); MONO # 0.5 10^3/uL (0.0-0.8); MONO % 5.6 % (2.0-8.0); NEUTROPHILS # 6.3 10^3/uL (1.5-8.5); NEUTROPHILS % 78.9 % (36.0-66.0); PLATELET COUNT, AUTOMATED 349 10^3/uL (150-450); RED BLOOD COUNT 4.81 10^6/uL (4.00-5.40)
[2022-08-20 03:58] LABS: ALBUMIN 3.6 GM/DL (3.2-5.2); ALT/SGPT 14 U/L (12-78); BILIRUBIN,DIRECT < 0.1 MG/DL (0.0-0.2); BILIRUBIN,TOTAL 0.2 MG/DL (0.2-1.0); BLOOD UREA NITROGEN 49 MG/DL (7-18); CALCIUM LEVEL 8.9 MG/DL (8.5-10.1); CARBON DIOXIDE LEVEL 28 MEQ/L (21-32); CHLORIDE LEVEL 105 MEQ/L (98-107); GLOMERULAR FILTRATION RATE 28.9 (>58); GLUCOSE, FASTING 99 MG/DL (70-100); LIPASE 221 U/L (73-393); POTASSIUM SERUM 4.3 MEQ/L (3.5-5.1); SODIUM LEVEL 137 MEQ/L (136-145); TOTAL PROTEIN 8.4 GM/DL (6.4-8.2)
[2022-08-20] MEDS ORDERED: NS 1,000 ML IV ONE (07:05)
[2022-08-20] MEDS ORDERED: SODIUM CHLORIDE 0.9% INJ 10 ML SYR IV PRN (07:30)
[2022-08-20] MEDS ORDERED: oxyCODONE 15 MG CR TAB PO ONE (08:20)
[2022-08-20] MEDS ORDERED: VITMTA PO (08:22)
[2022-08-20] MEDS ORDERED: SENN-80 PO (08:22)
[2022-08-20] MEDS ORDERED: SERT50TA29 PO (08:22)
[2022-08-20] MEDS ORDERED: QUET50TA4 PO (08:22)
[2022-08-20] MEDS ORDERED: CLOT1CRE27 TOP (08:22)
[2022-08-20] MEDS ORDERED: HOME MED LIST COMPLETE! XX SCH (08:25)
[2022-08-20] MEDS ORDERED: oxyCODONE 5MG TAB PO ONE (08:30)
[2022-08-20 12:12] LABS: CALCIUM LEVEL 8.5 MG/DL (8.5-10.1); CREATININE FOR GFR 1.63 MG/DL (0.55-1.30); GLOMERULAR FILTRATION RATE 36.7 (>58); POTASSIUM SERUM 4.2 MEQ/L (3.5-5.1)
[2022-08-20] MEDS ORDERED: GABA-1171 PO (12:49)
[2022-08-20 13:09] VITALS: BP 153/73
== END 2022-08-20 13:11 | disposition home or self-care (01) ==
LOC: M ED 02:00
DX: N17.9 Acute kidney failure, unspecified (principal); E86.0 Dehydration; F41.9 Anxiety disorder, unspecified; F32.9 Major depressive disorder, single episode, unspecified; F43.10 Post-traumatic stress disorder, unspecified; Z87.891 Personal history of nicotine dependence; R93.422 Abnormal radiologic findings on diagnostic imaging of left kidney; R93.41 Abnormal radiologic findings on diagnostic imaging of renal pelvis, ureter, or bladder; Z90.49 Acquired absence of other specified parts of digestive tract; Z79.899 Other long term (current) drug therapy; Z88.8 Allergy status to other drugs, medicaments and biological substances
CPT/HCPCS: 74176; 80048; 80076; 81002; 83690; 85025; 86850; 86900; 86901; 96360; 96361; 99284; J1642

== ENCOUNTER 2022-09-09 12:34 | Emergency (ER) | payer OTHER ==
[~2022-09-09] VITALS: Ht 144.8 cm; Wt 108.5 kg
[~2022-09-09 12:34] MED LIST changes: +AMOX875T2 PO; +CLOT1CRE27 TOP; +GABA-1171 PO; +METR0.7526 TOP; -METR0.7533 TOP; +MM S100C PO; +SERT50TA29 PO; +VITMTA PO
[2022-09-09 18:27] LABS: BASO % 0.4 % (0.0-1.0); HEMATOCRIT 36.2 % (36.0-47.0); HEMOGLOBIN 10.7 g/dl (12.0-15.5); LYMPH % 14.3 % (24.0-44.0); MEAN CORPUSCULAR HEMOGLOBIN 24.8 pg (27.0-33.0); MEAN CORPUSCULAR HGB CONC 29.6 g/dl (32.0-36.5); MONO # 0.4 10^3/uL (0.0-0.8); MONO % 5.3 % (2.0-8.0); NEUTROPHILS # 5.5 10^3/uL (1.5-8.5); NEUTROPHILS % 79.3 % (36.0-66.0); PLATELET COUNT, AUTOMATED 428 10^3/uL (150-450); RED BLOOD COUNT 4.31 10^6/uL (4.00-5.40); WHITE BLOOD COUNT 6.9 10^3/uL (4.0-10.0)
[2022-09-09 19:14] LABS: ALBUMIN 3.1 GM/DL (3.2-5.2); ALT/SGPT 14 U/L (12-78); BILIRUBIN,DIRECT < 0.1 MG/DL (0.0-0.2); BILIRUBIN,TOTAL 0.2 MG/DL (0.2-1.0); FREE THYROXINE INDEX 4.1 % (1.3-4.8); LIPASE 99 U/L (73-393); T UPTAKE 33 % (30-39); THYROID STIMULATING HORMONE 0.238 uIU/ML (0.358-3.740); THYROXINE (T4) 12.3 UG/DL (4.5-12.0); TOTAL PROTEIN 7.6 GM/DL (6.4-8.2)
[2022-09-09] MEDS ORDERED: QUEtiapine FUMARATE 50MG TAB PO ONE (19:50)
[2022-09-09] MEDS ORDERED: ONDANSETRON 4MG 2ML VIAL IV ONE (19:50)
[2022-09-09] MEDS ORDERED: NS 1,000 ML IV ONE (19:50)
[2022-09-09 20:07] LABS: RSV AMPLIFICATION NEGATIVE (NEGATIVE)
[2022-09-09] MEDS ORDERED: PROM25TA12 PO (21:35)
[2022-09-09] MEDS ORDERED: oxyCODONE 5MG TAB PO ONE (21:40)
[2022-09-09 21:51] VITALS: BP 128/76
[2022-09-10] MEDS ORDERED: OXYC-1 PO ×2 (09:43→16:06)
[2022-09-10] MEDS ORDERED: QUET50TA4 PO (09:43)
[2022-09-13] MEDS ORDERED: QUET100T2 PO (15:08)
[2022-09-13] MEDS ORDERED: OXYC15TA66 PO ×2 (15:09→15:15)
[2022-09-13] MEDS ORDERED: OXYC-1 PO (15:10)
== END 2022-09-09 22:10 | disposition home or self-care (01) ==
LOC: M ED 12:34
DX: R11.0 Nausea (principal); R53.83 Other fatigue; R42 Dizziness and giddiness; C51.9 Malignant neoplasm of vulva, unspecified; Z88.1 Allergy status to other antibiotic agents; Z88.8 Allergy status to other drugs, medicaments and biological substances; Z79.899 Other long term (current) drug therapy
CPT/HCPCS: 80047; 80076; 81002; 83690; 84436; 84443; 84479; 85025; 87631; 96361; 96374; 99284; J2405

== ENCOUNTER → 2022-09-13 | Outpatient (CLI) | payer OTHER ==
[~2022-09-13] MED LIST changes: +OXYC15TA66 PO; +PROM25TA12 PO; +QUET100T2 PO
== END ==
LOC: M ONCR 14:24
PROVIDERS: ATTEND General Practice
DX: C51.8 Malignant neoplasm of overlapping sites of vulva (principal); F17.210 Nicotine dependence, cigarettes, uncomplicated; F41.0 Panic disorder [episodic paroxysmal anxiety]; R10.2 Pelvic and perineal pain; R53.83 Other fatigue; R51.9 Headache, unspecified; Z92.3 Personal history of irradiation; Z88.5 Allergy status to narcotic agent; Z79.891 Long term (current) use of opiate analgesic; Z79.2 Long term (current) use of antibiotics; Z79.899 Other long term (current) drug therapy; Z92.21 Personal history of antineoplastic chemotherapy

== ENCOUNTER 2022-09-16 01:11 | Inpatient (IN) | payer OTHER ==
[~2022-09-16] VITALS: Ht 144.8 cm; Wt 109.0 kg
[2022-09-16] MEDS ORDERED: NS 1,000 ML IV SCH (02:55)
[2022-09-16] MEDS ORDERED: MORPHINE 4 MG/ML 1ML VIAL/SYRINGE IV ONE ×2 (02:55→03:25)
[2022-09-16] MEDS ORDERED: ONDANSETRON 4MG 2ML VIAL IV ONE ×2 (03:25→08:25)
[2022-09-16 03:51] LABS: BASO % 0.2 % (0.0-1.0); HEMATOCRIT 33.9 % (36.0-47.0); HEMOGLOBIN 10.8 g/dl (12.0-15.5); LYMPH # 0.6 10^3/uL (1.5-5.0); MEAN CORPUSCULAR HEMOGLOBIN 25.7 pg (27.0-33.0); MEAN CORPUSCULAR HGB CONC 31.9 g/dl (32.0-36.5); MEAN CORPUSCULAR VOLUME 80.7 fl (80.0-96.0); MONO # 0.6 10^3/uL (0.0-0.8); MONO % 4.8 % (2.0-8.0); NEUTROPHILS # 11.2 10^3/uL (1.5-8.5); NEUTROPHILS % 89.5 % (36.0-66.0); PLATELET COUNT, AUTOMATED 366 10^3/uL (150-450); WHITE BLOOD COUNT 12.5 10^3/uL (4.0-10.0)
[2022-09-16 04:01] LABS: INR 0.98; PROTHROMBIN TIME 13.2 SECONDS (12.5-14.5)
[2022-09-16 04:03] LABS: PARTIAL THROMBOPLASTIN TIME 31.3 SECONDS (24.8-34.2)
[2022-09-16 04:30] LABS: ALT/SGPT 11 U/L (12-78); AMYLASE 49 U/L (25-115); BILIRUBIN,DIRECT < 0.1 MG/DL (0.0-0.2); BILIRUBIN,TOTAL 0.3 MG/DL (0.2-1.0); BLOOD UREA NITROGEN 32 MG/DL (7-18); C REACTIVE PROTEIN QUANTITATIV 6.33 MG/DL (0.00-0.30); CALCIUM LEVEL 8.9 MG/DL (8.5-10.1); CARBON DIOXIDE LEVEL 24 MEQ/L (21-32); CHLORIDE LEVEL 105 MEQ/L (98-107); CREATININE FOR GFR 1.68 MG/DL (0.55-1.30); GLOMERULAR FILTRATION RATE 35.2 (>58); GLUCOSE, FASTING 120 MG/DL (70-100); POTASSIUM SERUM 4.5 MEQ/L (3.5-5.1); SODIUM LEVEL 136 MEQ/L (136-145); TOTAL PROTEIN 7.1 GM/DL (6.4-8.2)
[2022-09-16 04:33] LABS: APPEARANCE, URINE MANUAL CLEAR (CLEAR); COLOR, URINE MANUAL YELLOW (YELLOW)
[2022-09-16 04:34] LABS: BILIRUBIN, URINE MANUAL NEGATIVE (NEGATIVE); BLOOD URINE MANUAL NEGATIVE (NEGATIVE); GLUCOSE, URINE (UA) MANUAL NEGATIVE (NEGATIVE); KETONE, URINE MANUAL NEGATIVE (NEGATIVE); NITRITE, URINE MANUAL NEGATIVE (NEGATIVE); PROTEIN, URINE MANUAL NEGATIVE (NEGATIVE); SPECIFIC GRAVITY,URINE MANUAL 1.015 (1.002-1.035); UROBILINOGEN, URINE MANUAL NORMAL (NORMAL)
[2022-09-16 04:35] LABS: LEUKOCYTE ESTERASE, URINE MAN NEGATIVE (NEGATIVE)
[2022-09-16 04:40] LABS: CK-MB VALUE MASS < 1.0 NG/ML (<3.6); CPK CREATINE PHOSPHOKINASE 47 U/L (26-192); MB/CK RELATIVE INDEX 2.13 (< OR =4)
[2022-09-16] MEDS ORDERED: diazePAM 10MG/2ML SYRINGE (J3360 PER 5MG) IV ONE (05:05)
[2022-09-16] MEDS ORDERED: NS 1,000 ML IV ONE ×2 (05:05)
[2022-09-16] MEDS: MORPHINE 4 MG/ML 1ML VIAL/SYRINGE IV PRN ×4 (08:21→18:40)
[2022-09-16 08:24] LABS: RSV AMPLIFICATION NEGATIVE (NEGATIVE)
[2022-09-16] MEDS ORDERED: VANCOMYCIN HCL 1,500 MG in NS 250 ML IV ONE (08:25)
[2022-09-16] MEDS ORDERED: VANCOMYCIN HCL 1,000 MG, VIAL MATE ADAPTER 1 EACH in NS 250 ML IV ONE ×2 (10:00→11:00)
[2022-09-16] MEDS: HYDROMORPHONE HCL 0.5 MG/ 0.5 ML SYRINGE (J1170 PER 1) IV PRN ×4 (11:39→23:31)
[2022-09-16] MEDS ORDERED: diazePAM 10MG/2ML SYRINGE (J3360 PER 5MG) IV STA (13:49)
[2022-09-16] MEDS ORDERED: methylPREDNISolone 40MG 1ML VIAL IV ONE (17:55)
[2022-09-16] MEDS ORDERED: oxyCODONE 5MG TAB PO PRN ×2 (17:55→18:35)
[2022-09-16] MEDS ORDERED: tiZANidine 4 MG TAB PO ONE (17:55)
[2022-09-16] MEDS ORDERED: ONDANSETRON 4MG 2ML VIAL IV PRN (18:35)
[2022-09-16] MEDS ORDERED: GABAPENTIN 300 MG CAP PO ONE (18:35)
[2022-09-16 19:00] VITALS: BP 110/62
[2022-09-16 19:51] VITALS: BP 119/64
[2022-09-16 20:03] VITALS: BP 123/66
[2022-09-16] MEDS ORDERED: OXYC-403 PO (20:16)
[2022-09-16] MEDS ORDERED: OXYC-1 PO (20:16)
[2022-09-16] MEDS ORDERED: PROM25TA12 PO (20:16)
[2022-09-16] MEDS ORDERED: QUET100T2 PO (20:16)
[2022-09-16] MEDS ORDERED: GABA-282 PO (20:16)
[2022-09-16] MEDS ORDERED: HOME MED LIST COMPLETE! XX SCH (20:20)
[2022-09-16] MEDS ORDERED: tiZANidine 4 MG TAB PO SCH (21:00)
[2022-09-16] MEDS: HEPARIN SOD (PORCINE) 5000UNITS/ML 1ML VIAL/SYRINGE SC SCH (21:00)
[2022-09-16] MEDS ORDERED: oxyCODONE 20 MG CR TAB PO SCH (21:00)
[2022-09-16] MEDS: oxyCODONE 15 MG CR TAB PO SCH (21:36)
[2022-09-16] MEDS: GABAPENTIN 300 MG CAP PO SCH (21:36)
[2022-09-16] MEDS: VANCOMYCIN HCL 1,000 MG, VIAL MATE ADAPTER 1 EACH in NS 250 ML IV SCH (21:51)
[2022-09-16] MEDS: tiZANidine 4 MG TAB PO SCH (21:54)
[2022-09-16 22:03] VITALS: BP 123/66
[2022-09-16] MEDS: SODIUM CHLORIDE 0.9% INJ 10 ML SYR IV PRN (23:32)
[2022-09-17] MEDS ORDERED: UNRESOLVED CLARIFICATION ENTRY XX SCH (00:01)
[2022-09-17] MEDS: HYDROMORPHONE HCL 0.5 MG/ 0.5 ML SYRINGE (J1170 PER 1) IV PRN ×3 (04:02→22:12)
[2022-09-17] MEDS: SODIUM CHLORIDE 0.9% INJ 10 ML SYR IV PRN ×2 (04:03→08:33)
[2022-09-17] MEDS: CALCIUM CARBONATE 500 MG CHEW U/D PO PRN ×3 (04:03→23:42)
[2022-09-17] MEDS: tiZANidine 4 MG TAB PO SCH ×2 (05:54→16:37)
[2022-09-17] MEDS: VANCOMYCIN HCL 1,000 MG, VIAL MATE ADAPTER 1 EACH in NS 250 ML IV SCH (05:55)
[2022-09-17] MEDS ORDERED: methylPREDNISolone 40MG 1ML VIAL IV SCH (06:00)
[2022-09-17 06:25] VITALS: BP 131/81
[2022-09-17 07:40] LABS: BASO % 0.1 % (0.0-1.0); HEMATOCRIT 32.3 % (36.0-47.0); HEMOGLOBIN 9.6 g/dl (12.0-15.5); LYMPH # 0.4 10^3/uL (1.5-5.0); LYMPH % 2.7 % (24.0-44.0); MEAN CORPUSCULAR HGB CONC 29.7 g/dl (32.0-36.5); MEAN CORPUSCULAR VOLUME 84.1 fl (80.0-96.0); MONO # 0.4 10^3/uL (0.0-0.8); MONO % 2.8 % (2.0-8.0); NEUTROPHILS # 13.1 10^3/uL (1.5-8.5); NEUTROPHILS % 93.8 % (36.0-66.0); PLATELET COUNT, AUTOMATED 339 10^3/uL (150-450); RED BLOOD COUNT 3.84 10^6/uL (4.00-5.40)
[2022-09-17] MEDS ORDERED: cefTRIAXone SOD 2 GM in D5W MINI-BAG PLUS 50 ML IV SCH (08:00)
[2022-09-17 08:28] LABS: CALCIUM LEVEL 8.8 MG/DL (8.5-10.1); CREATININE FOR GFR 2.29 MG/DL (0.55-1.30); GLOMERULAR FILTRATION RATE 24.6 (>58); POTASSIUM SERUM 4.6 MEQ/L (3.5-5.1)
[2022-09-17] MEDS: GABAPENTIN 300 MG CAP PO SCH (08:31)
[2022-09-17] MEDS: oxyCODONE 15 MG CR TAB PO SCH ×2 (08:32→20:18)
[2022-09-17] MEDS: SODIUM CHLORIDE 0.9% INJ 10 ML SYR IV SCH (08:35)
[2022-09-17] MEDS: HEPARIN SOD (PORCINE) 5000UNITS/ML 1ML VIAL/SYRINGE SC SCH ×2 (08:35→21:00)
[2022-09-17] MEDS: cefTRIAXone SOD 2 GM in D5W MINI-BAG PLUS 50 ML IV SCH (08:48)
[2022-09-17] MEDS: MIRALAX *UNIT DOSE* 17GM PACKET PO SCH (09:00)
[2022-09-17] MEDS: NS 1,000 ML IV SCH ×2 (10:15→23:42)
[2022-09-17] MEDS: DOCUSATE SODIUM 100MG CAPSULE PO SCH ×2 (10:15→20:17)
[2022-09-17 14:49] VITALS: BP 127/66
[2022-09-17] MEDS ORDERED: oxyCODONE 5MG TAB PO PRN (18:25)
[2022-09-17] MEDS: SERTRALINE HCL 50 MG TAB PO SCH (20:17)
[2022-09-17] MEDS: QUEtiapine FUMARATE 100 MG TAB PO SCH (20:18)
[2022-09-17] MEDS ORDERED: tiZANidine 4 MG TAB PO ONE (22:10)
[2022-09-17 22:17] VITALS: BP 111/49
[2022-09-18 06:00] VITALS: BP 109/54
[2022-09-18 06:30] LABS: BASO % 0.1 % (0.0-1.0); HEMOGLOBIN 8.8 g/dl (12.0-15.5); LYMPH # 0.7 10^3/uL (1.5-5.0); LYMPH % 4.4 % (24.0-44.0); MEAN CORPUSCULAR HEMOGLOBIN 25.1 pg (27.0-33.0); MEAN CORPUSCULAR HGB CONC 29.3 g/dl (32.0-36.5); MEAN CORPUSCULAR VOLUME 85.7 fl (80.0-96.0); MONO % 6.3 % (2.0-8.0); NEUTROPHILS # 14.1 10^3/uL (1.5-8.5); NEUTROPHILS % 88.3 % (36.0-66.0); PLATELET COUNT, AUTOMATED 338 10^3/uL (150-450)
[2022-09-18 07:03] LABS: C REACTIVE PROTEIN QUANTITATIV 9.68 MG/DL (0.00-0.30); CALCIUM LEVEL 8.2 MG/DL (8.5-10.1); CREATININE FOR GFR 1.74 MG/DL (0.55-1.30); GLOMERULAR FILTRATION RATE 33.8 (>58); POTASSIUM SERUM 4.1 MEQ/L (3.5-5.1); VANCOMYCIN RANDOM 19.5 UG/ML
[2022-09-18 07:56] LABS: ERYTHROCYTE SEDIMENTATION RATE 107 mm/hr (0-20)
[2022-09-18] MEDS: SODIUM CHLORIDE 0.9% INJ 10 ML SYR IV SCH (09:00)
[2022-09-18] MEDS: MIRALAX *UNIT DOSE* 17GM PACKET PO SCH (09:00)
[2022-09-18] MEDS: HEPARIN SOD (PORCINE) 5000UNITS/ML 1ML VIAL/SYRINGE SC SCH (09:00)
[2022-09-18] MEDS: cefTRIAXone SOD 2 GM in D5W MINI-BAG PLUS 50 ML IV SCH (09:31)
[2022-09-18] MEDS: NS 1,000 ML IV SCH ×2 (09:31→21:50)
[2022-09-18] MEDS: oxyCODONE 15 MG CR TAB PO SCH ×2 (09:32→21:50)
[2022-09-18] MEDS: DOCUSATE SODIUM 100MG CAPSULE PO SCH ×2 (09:32→21:50)
[2022-09-18] MEDS: VANCOMYCIN HCL 750 MG, VIAL MATE ADAPTER 1 EACH in D5W 250 ML IV SCH (10:10)
[2022-09-18] MEDS: tiZANidine 4 MG TAB PO PRN ×2 (10:52→19:33)
[2022-09-18] MEDS: VANCOMYCIN HCL 500 MG in D5W MINI-BAG PLUS 100 ML IV SCH (12:02)
[2022-09-18] MEDS: HYDROMORPHONE HCL 0.5 MG/ 0.5 ML SYRINGE (J1170 PER 1) IV PRN ×4 (12:07→23:22)
[2022-09-18 14:00] VITALS: BP 117/54
[2022-09-18] MEDS: CLOTRIMAZOLE 1% VAG CR 45 GM PV SCH ×2 (21:00→21:51)
[2022-09-18] MEDS: SERTRALINE HCL 50 MG TAB PO SCH (21:50)
[2022-09-18] MEDS: QUEtiapine FUMARATE 100 MG TAB PO SCH (21:51)
[2022-09-18 22:00] VITALS: BP 124/67
[2022-09-19] MEDS: HYDROMORPHONE HCL 0.5 MG/ 0.5 ML SYRINGE (J1170 PER 1) IV PRN (03:03)
[2022-09-19] MEDS: tiZANidine 4 MG TAB PO PRN ×3 (03:35→20:55)
[2022-09-19 06:00] VITALS: BP 111/54
[2022-09-19 07:22] VITALS: BP 112/57
[2022-09-19] MEDS: MIRALAX *UNIT DOSE* 17GM PACKET PO SCH (09:00)
[2022-09-19] MEDS: cefTRIAXone SOD 2 GM in D5W MINI-BAG PLUS 50 ML IV SCH (09:03)
[2022-09-19 09:26] LABS: BASO % 0.4 % (0.0-1.0); HEMATOCRIT 32.7 % (36.0-47.0); HEMOGLOBIN 9.5 g/dl (12.0-15.5); LYMPH # 0.8 10^3/uL (1.5-5.0); LYMPH % 10.3 % (24.0-44.0); MEAN CORPUSCULAR HEMOGLOBIN 25.1 pg (27.0-33.0); MEAN CORPUSCULAR HGB CONC 29.1 g/dl (32.0-36.5); MEAN CORPUSCULAR VOLUME 86.5 fl (80.0-96.0); MONO # 0.7 10^3/uL (0.0-0.8); NEUTROPHILS # 5.9 10^3/uL (1.5-8.5); NEUTROPHILS % 79.5 % (36.0-66.0); PLATELET COUNT, AUTOMATED 306 10^3/uL (150-450); RED BLOOD COUNT 3.78 10^6/uL (4.00-5.40); WHITE BLOOD COUNT 7.5 10^3/uL (4.0-10.0)
[2022-09-19] MEDS: DOCUSATE SODIUM 100MG CAPSULE PO SCH ×2 (09:36→20:47)
[2022-09-19] MEDS: FERROUS SULFATE 325MG TAB PO SCH (09:39)
[2022-09-19] MEDS: oxyCODONE 15 MG CR TAB PO SCH ×2 (09:39→20:48)
[2022-09-19 10:05] LABS: C REACTIVE PROTEIN QUANTITATIV 6.34 MG/DL (0.00-0.30); CALCIUM LEVEL 8.1 MG/DL (8.5-10.1); CREATININE FOR GFR 1.69 MG/DL (0.55-1.30); POTASSIUM SERUM 4.3 MEQ/L (3.5-5.1); VANCOMYCIN LEVEL TROUGH 18.9 UG/ML (10.0-20.0)
[2022-09-19] MEDS: FLUCONAZOLE 50MG TABLET PO SCH (10:15)
[2022-09-19] MEDS: VANCOMYCIN HCL 750 MG, VIAL MATE ADAPTER 1 EACH in D5W 250 ML IV SCH (10:15)
[2022-09-19] MEDS: SODIUM CHLORIDE 0.9% INJ 10 ML SYR IV SCH (10:16)
[2022-09-19 10:33] LABS: ERYTHROCYTE SEDIMENTATION RATE 102 mm/hr (0-20)
[2022-09-19] MEDS: VANCOMYCIN HCL 500 MG in D5W MINI-BAG PLUS 100 ML IV SCH (11:16)
[2022-09-19 12:58] VITALS: BP 133/67
[2022-09-19] MEDS: oxyCODONE 5MG TAB PO PRN ×2 (15:56→21:59)
[2022-09-19 20:30] VITALS: BP 130/64
[2022-09-19] MEDS: SERTRALINE HCL 50 MG TAB PO SCH (20:47)
[2022-09-19] MEDS: QUEtiapine FUMARATE 100 MG TAB PO SCH (20:48)
[2022-09-19] MEDS: diphenhydrAMINE 50MG/ML VIAL IV PRN (21:47)
[2022-09-19] MEDS: SODIUM CHLORIDE 0.9% INJ 10 ML SYR IV PRN (21:48)
[2022-09-20] VITALS (7 sets, daily range): BP systolic 110–131; BP diastolic 51–67
[2022-09-20] MEDS: oxyCODONE 5MG TAB PO PRN ×2 (04:33→19:30)
[2022-09-20 08:07] LABS: BASO % 0.4 % (0.0-1.0); HEMATOCRIT 29.2 % (36.0-47.0); HEMOGLOBIN 8.7 g/dl (12.0-15.5); LYMPH # 0.6 10^3/uL (1.5-5.0); LYMPH % 9.2 % (24.0-44.0); MEAN CORPUSCULAR HEMOGLOBIN 24.9 pg (27.0-33.0); MEAN CORPUSCULAR HGB CONC 29.8 g/dl (32.0-36.5); MEAN CORPUSCULAR VOLUME 83.4 fl (80.0-96.0); MONO # 0.6 10^3/uL (0.0-0.8); MONO % 8.5 % (2.0-8.0); NEUTROPHILS # 5.6 10^3/uL (1.5-8.5); NEUTROPHILS % 81.2 % (36.0-66.0); PLATELET COUNT, AUTOMATED 307 10^3/uL (150-450); WHITE BLOOD COUNT 6.9 10^3/uL (4.0-10.0)
[2022-09-20 08:41] LABS: C REACTIVE PROTEIN QUANTITATIV 9.09 MG/DL (0.00-0.30); CALCIUM LEVEL 8.2 MG/DL (8.5-10.1); CREATININE FOR GFR 1.93 MG/DL (0.55-1.30); POTASSIUM SERUM 4.3 MEQ/L (3.5-5.1); VANCOMYCIN LEVEL TROUGH 22.8 UG/ML (10.0-20.0)
[2022-09-20] MEDS: cefTRIAXone SOD 2 GM in D5W MINI-BAG PLUS 50 ML IV SCH (08:56)
[2022-09-20] MEDS: DOCUSATE SODIUM 100MG CAPSULE PO SCH ×2 (08:57→21:45)
[2022-09-20] MEDS: FERROUS SULFATE 325MG TAB PO SCH (08:57)
[2022-09-20] MEDS: MIRALAX *UNIT DOSE* 17GM PACKET PO SCH (08:57)
[2022-09-20] MEDS: oxyCODONE 15 MG CR TAB PO SCH ×2 (08:57→21:45)
[2022-09-20] MEDS: SODIUM CHLORIDE 0.9% INJ 10 ML SYR IV SCH (08:58)
[2022-09-20 09:13] LABS: ERYTHROCYTE SEDIMENTATION RATE 109 mm/hr (0-20)
[2022-09-20] MEDS: diphenhydrAMINE 50MG/ML VIAL IV PRN (09:13)
[2022-09-20] MEDS: VANCOMYCIN HCL 1,000 MG, VIAL MATE ADAPTER 1 EACH in D5W 250 ML IV SCH (12:14)
[2022-09-20] MEDS: HYDROMORPHONE HCL 0.5 MG/ 0.5 ML SYRINGE (J1170 PER 1) IV PRN ×2 (12:16→15:21)
[2022-09-20] MEDS: NS 1,000 ML IV SCH (12:17)
[2022-09-20] MEDS ORDERED: ISOVUE-300 61% 50ML VIAL As Ordered ONE (17:52)
[2022-09-20] MEDS ORDERED: fentaNYL 100 MCG/2 ML INJECTION As Ordered ONE (18:17)
[2022-09-20] MEDS ORDERED: propofoL 200 MG/20 ML VIAL As Ordered ONE (18:17)
[2022-09-20] MEDS ORDERED: MIDAZOLAM INJ 2MG/2ML VIAL (J2250 PER 1MG) As Ordered ONE (18:17)
[2022-09-20] MEDS ORDERED: LIDOCAINE 2% 100MG/5ML SDV (FOR ANES.) As Ordered ONE (18:17)
[2022-09-20 18:40] LABS: CREATININE,RANDOM URINE 66.7 MG/DL
[2022-09-20] MEDS ORDERED: TRANEXAMIC ACID 100 MG/ML 10ML VIAL As Ordered ONE ×2 (18:40→19:00)
[2022-09-20] MEDS ORDERED: VANCOMYCIN 1000MG/20ML VIAL As Ordered ONE (18:40)
[2022-09-20] MEDS ORDERED: ceFAZolin 1GM VIAL (J0690 PER 500MG) As Ordered ONE (19:01)
[2022-09-20] MEDS ORDERED: ONDANSETRON 4MG 2ML VIAL IV PRN (19:20)
[2022-09-20] MEDS ORDERED: MORPHINE 2 MG/ML 1ML VIAL IV PRN (19:20)
[2022-09-20] MEDS ORDERED: oxyCODONE 5MG TAB PO PRN (19:20)
[2022-09-20] MEDS ORDERED: LR 1,000 ML IV SCH (19:20)
[2022-09-20] MEDS: fentaNYL 100 MCG/2 ML INJECTION IV PRN ×4 (19:31→20:04)
[2022-09-20] MEDS: SERTRALINE HCL 50 MG TAB PO SCH (21:45)
[2022-09-20] MEDS: QUEtiapine FUMARATE 100 MG TAB PO SCH (21:45)
[2022-09-20] MEDS: tiZANidine 4 MG TAB PO PRN (21:46)
[2022-09-21 02:00] VITALS: BP 114/60
[2022-09-21] MEDS: HYDROMORPHONE HCL 0.5 MG/ 0.5 ML SYRINGE (J1170 PER 1) IV PRN ×5 (03:24→18:16)
[2022-09-21] MEDS: NS 1,000 ML IV SCH ×2 (03:24→16:47)
[2022-09-21 05:57] VITALS: BP 115/56
[2022-09-21 07:57] LABS: BASO % 0.4 % (0.0-1.0); HEMATOCRIT 28.9 % (36.0-47.0); HEMOGLOBIN 8.4 g/dl (12.0-15.5); LYMPH # 0.6 10^3/uL (1.5-5.0); LYMPH % 10.2 % (24.0-44.0); MEAN CORPUSCULAR HEMOGLOBIN 24.6 pg (27.0-33.0); MEAN CORPUSCULAR HGB CONC 29.1 g/dl (32.0-36.5); MEAN CORPUSCULAR VOLUME 84.8 fl (80.0-96.0); MONO # 0.4 10^3/uL (0.0-0.8); MONO % 7.2 % (2.0-8.0); NEUTROPHILS # 4.6 10^3/uL (1.5-8.5); NEUTROPHILS % 81.1 % (36.0-66.0); PLATELET COUNT, AUTOMATED 299 10^3/uL (150-450); RED BLOOD COUNT 3.41 10^6/uL (4.00-5.40); WHITE BLOOD COUNT 5.7 10^3/uL (4.0-10.0)
[2022-09-21] MEDS: FERROUS SULFATE 325MG TAB PO SCH (08:33)
[2022-09-21] MEDS: DOCUSATE SODIUM 100MG CAPSULE PO SCH ×2 (08:33→20:40)
[2022-09-21] MEDS: oxyCODONE 15 MG CR TAB PO SCH ×2 (08:33→20:41)
[2022-09-21] MEDS: MIRALAX *UNIT DOSE* 17GM PACKET PO SCH (08:35)
[2022-09-21 08:37] LABS: CALCIUM LEVEL 7.7 MG/DL (8.5-10.1); CREATININE FOR GFR 1.69 MG/DL (0.55-1.30); POTASSIUM SERUM 4.3 MEQ/L (3.5-5.1)
[2022-09-21] MEDS: cefTRIAXone SOD 2 GM in D5W MINI-BAG PLUS 50 ML IV SCH (08:52)
[2022-09-21] MEDS: SODIUM CHLORIDE 0.9% INJ 10 ML SYR IV SCH (08:53)
[2022-09-21 09:13] LABS: C REACTIVE PROTEIN QUANTITATIV 12.8 MG/DL (0.00-0.30)
[2022-09-21 10:00] VITALS: BP 112/57
[2022-09-21] MEDS: VANCOMYCIN HCL 1,000 MG, VIAL MATE ADAPTER 1 EACH in D5W 250 ML IV SCH (12:19)
[2022-09-21 14:00] VITALS: BP 113/57
[2022-09-21] MEDS: QUEtiapine FUMARATE 100 MG TAB PO SCH (20:39)
[2022-09-21] MEDS: SERTRALINE HCL 50 MG TAB PO SCH (20:40)
[2022-09-21] MEDS: tiZANidine 4 MG TAB PO PRN (20:40)
[2022-09-21] MEDS: diphenhydrAMINE 50MG/ML VIAL IV PRN (20:46)
[2022-09-21 20:58] VITALS: BP 112/57
[2022-09-22] MEDS: NS 1,000 ML IV SCH ×2 (04:51→21:37)
[2022-09-22] MEDS: HYDROMORPHONE HCL 0.5 MG/ 0.5 ML SYRINGE (J1170 PER 1) IV PRN ×2 (04:52→12:02)
[2022-09-22 06:37] VITALS: BP 110/57
[2022-09-22 08:29] LABS: BASO % 0.4 % (0.0-1.0); HEMATOCRIT 30.4 % (36.0-47.0); HEMOGLOBIN 8.9 g/dl (12.0-15.5); LYMPH # 0.6 10^3/uL (1.5-5.0); LYMPH % 7.9 % (24.0-44.0); MEAN CORPUSCULAR HEMOGLOBIN 24.8 pg (27.0-33.0); MEAN CORPUSCULAR HGB CONC 29.3 g/dl (32.0-36.5); MEAN CORPUSCULAR VOLUME 84.7 fl (80.0-96.0); MONO # 0.6 10^3/uL (0.0-0.8); MONO % 7.8 % (2.0-8.0); NEUTROPHILS # 6.3 10^3/uL (1.5-8.5); PLATELET COUNT, AUTOMATED 314 10^3/uL (150-450); RED BLOOD COUNT 3.59 10^6/uL (4.00-5.40); WHITE BLOOD COUNT 7.6 10^3/uL (4.0-10.0)
[2022-09-22] MEDS: DOCUSATE SODIUM 100MG CAPSULE PO SCH ×2 (08:50→21:34)
[2022-09-22] MEDS: FERROUS SULFATE 325MG TAB PO SCH (08:50)
[2022-09-22] MEDS: FLUCONAZOLE 50MG TABLET PO SCH (08:51)
[2022-09-22] MEDS: oxyCODONE 15 MG CR TAB PO SCH ×2 (08:51→21:35)
[2022-09-22] MEDS: cefTRIAXone SOD 2 GM in D5W MINI-BAG PLUS 50 ML IV SCH (08:51)
[2022-09-22] MEDS: MIRALAX *UNIT DOSE* 17GM PACKET PO SCH ×2 (08:52→21:00)
[2022-09-22] MEDS: SODIUM CHLORIDE 0.9% INJ 10 ML SYR IV SCH (08:52)
[2022-09-22 09:23] LABS: C REACTIVE PROTEIN QUANTITATIV 11.4 MG/DL (0.00-0.30); CALCIUM LEVEL 8.2 MG/DL (8.5-10.1); CREATININE FOR GFR 2.02 MG/DL (0.55-1.30); GLOMERULAR FILTRATION RATE 28.5 (>58); POTASSIUM SERUM 4.5 MEQ/L (3.5-5.1)
[2022-09-22] MEDS ORDERED: VANCOMYCIN HCL 750 MG, VIAL MATE ADAPTER 1 EACH in D5W 250 ML IV SCH (12:00)
[2022-09-22] MEDS ORDERED: HYDROMORPHONE HCL 0.5 MG/ 0.5 ML SYRINGE (J1170 PER 1) IV PRN (12:25)
[2022-09-22] MEDS: oxyCODONE 5MG TAB PO PRN ×2 (13:30→18:19)
[2022-09-22 14:00] VITALS: BP 116/56
[2022-09-22] MEDS: tiZANidine 4 MG TAB PO PRN ×2 (18:19→21:34)
[2022-09-22 20:00] VITALS: BP 163/94
[2022-09-22] MEDS: SERTRALINE HCL 50 MG TAB PO SCH (21:34)
[2022-09-22] MEDS: QUEtiapine FUMARATE 100 MG TAB PO SCH (21:34)
[2022-09-22] MEDS: diphenhydrAMINE 50MG/ML VIAL IV PRN (21:34)
[2022-09-23 05:23] VITALS: BP 132/75
[2022-09-23 06:08] LABS: BASO % 0.5 % (0.0-1.0); HEMATOCRIT 28.6 % (36.0-47.0); HEMOGLOBIN 8.5 g/dl (12.0-15.5); LYMPH # 0.8 10^3/uL (1.5-5.0); LYMPH % 12.3 % (24.0-44.0); MEAN CORPUSCULAR HEMOGLOBIN 25.1 pg (27.0-33.0); MEAN CORPUSCULAR HGB CONC 29.7 g/dl (32.0-36.5); MEAN CORPUSCULAR VOLUME 84.4 fl (80.0-96.0); MONO # 0.5 10^3/uL (0.0-0.8); MONO % 7.8 % (2.0-8.0); NEUTROPHILS # 4.8 10^3/uL (1.5-8.5); NEUTROPHILS % 77.5 % (36.0-66.0); PLATELET COUNT, AUTOMATED 314 10^3/uL (150-450); RED BLOOD COUNT 3.39 10^6/uL (4.00-5.40); WHITE BLOOD COUNT 6.2 10^3/uL (4.0-10.0)
[2022-09-23 06:39] LABS: C REACTIVE PROTEIN QUANTITATIV 11.8 MG/DL (0.00-0.30); CALCIUM LEVEL 7.8 MG/DL (8.5-10.1); CREATININE FOR GFR 1.61 MG/DL (0.55-1.30); POTASSIUM SERUM 4.4 MEQ/L (3.5-5.1)
[2022-09-23] MEDS: FERROUS SULFATE 325MG TAB PO SCH (08:08)
[2022-09-23] MEDS: MIRALAX *UNIT DOSE* 17GM PACKET PO SCH ×2 (08:08→20:26)
[2022-09-23] MEDS: DOCUSATE SODIUM 100MG CAPSULE PO SCH ×2 (08:08→20:23)
[2022-09-23] MEDS: SODIUM CHLORIDE 0.9% INJ 10 ML SYR IV SCH (08:09)
[2022-09-23] MEDS: cefTRIAXone SOD 2 GM in D5W MINI-BAG PLUS 50 ML IV SCH (08:09)
[2022-09-23] MEDS: oxyCODONE 15 MG CR TAB PO SCH ×2 (08:12→20:24)
[2022-09-23] MEDS: SODIUM CHLORIDE 0.9% INJ 10 ML SYR IV PRN ×2 (12:50→16:06)
[2022-09-23] MEDS: oxyCODONE 5MG TAB PO PRN ×2 (12:56→17:05)
[2022-09-23 14:00] VITALS: BP 121/53
[2022-09-23] MEDS: diphenhydrAMINE 50MG/ML VIAL IV PRN (20:23)
[2022-09-23] MEDS: SERTRALINE HCL 50 MG TAB PO SCH (20:25)
[2022-09-23] MEDS: QUEtiapine FUMARATE 100 MG TAB PO SCH (20:25)
[2022-09-23] MEDS: tiZANidine 4 MG TAB PO PRN (20:25)
[2022-09-23] MEDS: HEPARIN SOD (PORCINE) 5000UNITS/ML 1ML VIAL/SYRINGE SQ SCH (20:26)
[2022-09-23] MEDS: predniSONE 20 MG TAB PO SCH (21:32)
[2022-09-23 21:43] VITALS: BP 119/52
[2022-09-24 05:22] VITALS: BP 122/73
[2022-09-24 07:31] LABS: BASO % 0.2 % (0.0-1.0); HEMOGLOBIN 8.2 g/dl (12.0-15.5); LYMPH # 0.4 10^3/uL (1.5-5.0); MEAN CORPUSCULAR HEMOGLOBIN 24.6 pg (27.0-33.0); MEAN CORPUSCULAR HGB CONC 29.3 g/dl (32.0-36.5); MEAN CORPUSCULAR VOLUME 84.1 fl (80.0-96.0); MONO # 0.3 10^3/uL (0.0-0.8); MONO % 3.3 % (2.0-8.0); NEUTROPHILS # 7.8 10^3/uL (1.5-8.5); NEUTROPHILS % 90.5 % (36.0-66.0); PLATELET COUNT, AUTOMATED 322 10^3/uL (150-450); RED BLOOD COUNT 3.33 10^6/uL (4.00-5.40); WHITE BLOOD COUNT 8.6 10^3/uL (4.0-10.0)
[2022-09-24 08:03] LABS: C REACTIVE PROTEIN QUANTITATIV 12.2 MG/DL (0.00-0.30); CALCIUM LEVEL 8.5 MG/DL (8.5-10.1); CREATININE FOR GFR 1.72 MG/DL (0.55-1.30); GLOMERULAR FILTRATION RATE 34.3 (>58); POTASSIUM SERUM 4.8 MEQ/L (3.5-5.1)
[2022-09-24] MEDS: DOCUSATE SODIUM 100MG CAPSULE PO SCH ×2 (08:59→20:27)
[2022-09-24] MEDS: tiZANidine 4 MG TAB PO PRN ×2 (08:59→20:27)
[2022-09-24] MEDS: FERROUS SULFATE 325MG TAB PO SCH (08:59)
[2022-09-24] MEDS: predniSONE 20 MG TAB PO SCH ×2 (08:59→20:27)
[2022-09-24] MEDS: HEPARIN SOD (PORCINE) 5000UNITS/ML 1ML VIAL/SYRINGE SQ SCH (09:00)
[2022-09-24] MEDS: MIRALAX *UNIT DOSE* 17GM PACKET PO SCH ×2 (09:00→20:30)
[2022-09-24] MEDS: PROCTOFOAM-HC 1% FOAM 10 GM CAN PR SCH (09:00)
[2022-09-24] MEDS: oxyCODONE 15 MG CR TAB PO SCH ×2 (09:00→20:28)
[2022-09-24] MEDS: cefTRIAXone SOD 2 GM in D5W MINI-BAG PLUS 50 ML IV SCH (09:00)
[2022-09-24] MEDS: SODIUM CHLORIDE 0.9% INJ 10 ML SYR IV SCH (09:01)
[2022-09-24] MEDS: diphenhydrAMINE 50MG/ML VIAL IV PRN ×2 (10:11→20:28)
[2022-09-24 14:15] VITALS: BP 125/64
[2022-09-24 20:00] VITALS: BP 112/58
[2022-09-24] MEDS: QUEtiapine FUMARATE 100 MG TAB PO SCH (20:27)
[2022-09-24] MEDS: SERTRALINE HCL 50 MG TAB PO SCH (20:27)
[2022-09-24] MEDS ORDERED: MESALAMINE 1,000 MG SUPP PR SCH (21:00)
[2022-09-25 05:02] VITALS: BP 113/67
[2022-09-25 06:08] LABS: BASO % 0.2 % (0.0-1.0); HEMATOCRIT 28.6 % (36.0-47.0); HEMOGLOBIN 8.4 g/dl (12.0-15.5); LYMPH # 0.6 10^3/uL (1.5-5.0); LYMPH % 5.7 % (24.0-44.0); MEAN CORPUSCULAR HEMOGLOBIN 24.7 pg (27.0-33.0); MEAN CORPUSCULAR HGB CONC 29.4 g/dl (32.0-36.5); MEAN CORPUSCULAR VOLUME 84.1 fl (80.0-96.0); MONO # 0.6 10^3/uL (0.0-0.8); MONO % 5.8 % (2.0-8.0); NEUTROPHILS # 8.5 10^3/uL (1.5-8.5); NEUTROPHILS % 87.1 % (36.0-66.0); PLATELET COUNT, AUTOMATED 373 10^3/uL (150-450); WHITE BLOOD COUNT 9.8 10^3/uL (4.0-10.0)
[2022-09-25 06:38] LABS: C REACTIVE PROTEIN QUANTITATIV 6.5 MG/DL (<1.0); CALCIUM LEVEL 8.2 MG/DL (8.5-10.1); CREATININE FOR GFR 1.58 MG/DL (0.55-1.30); GLOMERULAR FILTRATION RATE 37.8 (>58); POTASSIUM SERUM 4.8 MMOL/L (3.5-5.1)
[2022-09-25] MEDS: MIRALAX *UNIT DOSE* 17GM PACKET PO SCH (09:00)
[2022-09-25] MEDS: PROCTOFOAM-HC 1% FOAM 10 GM CAN PR SCH (09:00)
[2022-09-25] MEDS: DOCUSATE SODIUM 100MG CAPSULE PO SCH (09:11)
[2022-09-25] MEDS: FLUCONAZOLE 50MG TABLET PO SCH (09:12)
[2022-09-25] MEDS: FERROUS SULFATE 325MG TAB PO SCH (09:12)
[2022-09-25] MEDS: predniSONE 20 MG TAB PO SCH (09:12)
[2022-09-25] MEDS: oxyCODONE 15 MG CR TAB PO SCH (09:12)
[2022-09-25] MEDS: SODIUM CHLORIDE 0.9% INJ 10 ML SYR IV SCH (09:13)
[2022-09-25] MEDS ORDERED: DIPH25CA32 PO (10:17)
[2022-09-25] MEDS ORDERED: MESA50SU PR (10:17)
[2022-09-25] MEDS ORDERED: PRED20TA PO (10:17)
[2022-09-25] MEDS ORDERED: FERR1TAB8 PO (10:17)
[2022-09-25] MEDS ORDERED: OXYC-404 PO (10:17)
[2022-09-25] MEDS ORDERED: HYDR26CR PR (10:17)
[2022-09-25] MEDS ORDERED: MIRA1POW3 PO (10:17)
[2022-09-25] MEDS ORDERED: TIZA2CAP PO (10:17)
[2022-09-25] MEDS ORDERED: GABA-282 PO (10:17)
== END 2022-09-25 15:05 | disposition home or self-care (01) | DRG 48 ==
LOC: EDBD 01:11 → M ED 01:11 → M ED INP 17:54 → M MS5PR 18:50
PROVIDERS: ADMIT Internal Medicine Nephrology; ATTEND Internal Medicine
PROC: 0S993ZZ Drainage of Right Hip Joint, Percutaneous Approach (ICD-10-PCS; principal; 2022-09-20 16:00)
DX: G62.9 Polyneuropathy, unspecified (principal); K76.0 Fatty (change of) liver, not elsewhere classified; M25.551 Pain in right hip; E66.01 Morbid (severe) obesity due to excess calories; F32.A Depression, unspecified; C51.9 Malignant neoplasm of vulva, unspecified; B37.31 Acute candidiasis of vulva and vagina; N18.31 Chronic kidney disease, stage 3a; K62.7 Radiation proctitis; Z92.21 Personal history of antineoplastic chemotherapy; Z92.3 Personal history of irradiation; Z79.899 Other long term (current) drug therapy; Z88.0 Allergy status to penicillin; Z88.8 Allergy status to other drugs, medicaments and biological substances; G89.3 Neoplasm related pain (acute) (chronic); F41.9 Anxiety disorder, unspecified

== ENCOUNTER → 2022-10-18 | Outpatient (CLI) | payer OTHER ==
[~2022-10-18] MED LIST changes: +FERR1TAB8 PO; +HYDR26CR PR; +MIRA1POW3 PO; +OXYC-404 PO; +PRED20TA PO; +TIZA2CAP PO
== END ==
LOC: M ONCR 15:04
PROVIDERS: ATTEND General Practice
DX: C51.8 Malignant neoplasm of overlapping sites of vulva (principal); K62.7 Radiation proctitis; M25.551 Pain in right hip; Y84.2 Radiological procedure and radiotherapy as the cause of abnormal reaction of the patient, or of later complication, without mention of misadventure at the time of the procedure; Z79.891 Long term (current) use of opiate analgesic; Z79.899 Other long term (current) drug therapy; Z82.61 Family history of arthritis; Z87.891 Personal history of nicotine dependence; Z88.0 Allergy status to penicillin; Z88.1 Allergy status to other antibiotic agents; Z88.5 Allergy status to narcotic agent; Z92.21 Personal history of antineoplastic chemotherapy; Z92.3 Personal history of irradiation

== ENCOUNTER → 2022-11-25 | Outpatient (CLI) | payer OTHER ==
[~2022-11-25] MED LIST changes: +CARA1TAB6 PO; +DIPH-435 PO; -DIPH25CA32 PO; +PANT40TA29 PO; +PRED10TA2 PO
== END ==
LOC: M PLARAD 07:37
PROVIDERS: ATTEND General Practice
DX: C51.8 Malignant neoplasm of overlapping sites of vulva (principal)
CPT/HCPCS: 78815; A9552

== ENCOUNTER → 2022-11-26 | Outpatient (CLI) | payer OTHER | LOC: M ONCR 15:07 | PROVIDERS: ATTEND General Practice | DX: C51.8 Malignant neoplasm of overlapping sites of vulva (principal); E24.2 Drug-induced Cushing's syndrome; R52 Pain, unspecified; Z79.52 Long term (current) use of systemic steroids; Z79.891 Long term (current) use of opiate analgesic; Z79.899 Other long term (current) drug therapy; Z88.0 Allergy status to penicillin; Z88.8 Allergy status to other drugs, medicaments and biological substances; Z92.21 Personal history of antineoplastic chemotherapy; Z92.3 Personal history of irradiation ==

== ENCOUNTER 2022-12-11 07:21 | Emergency (ER) | payer OTHER ==
[~2022-12-11] VITALS: Ht 142.2 cm; Wt 128.0 kg
[~2022-12-11 07:21] MED LIST changes: +LIDO15SO4 TOP; -LIDO2SOL17 TOP
[2022-12-11 08:07] LABS: BASO % 0.4 % (0.0-1.0); EOS % 0.1 % (0.0-3.0); HEMOGLOBIN 11.9 g/dl (12.0-15.5); LYMPH % 9.6 % (24.0-44.0); MEAN CORPUSCULAR HEMOGLOBIN 25.8 pg (27.0-33.0); MEAN CORPUSCULAR HGB CONC 29.8 g/dl (32.0-36.5); MEAN CORPUSCULAR VOLUME 86.6 fl (80.0-96.0); MONO # 0.5 10^3/uL (0.0-0.8); MONO % 4.7 % (2.0-8.0); NEUTROPHILS # 8.6 10^3/uL (1.5-8.5); NEUTROPHILS % 83.9 % (36.0-66.0); PLATELET COUNT, AUTOMATED 277 10^3/uL (150-450); RED BLOOD COUNT 4.62 10^6/uL (4.00-5.40); WHITE BLOOD COUNT 10.3 10^3/uL (4.0-10.0)
[2022-12-11 08:15] LABS: INR 0.82; PROTHROMBIN TIME 11.5 SECONDS (12.5-14.5)
[2022-12-11 08:16] LABS: PARTIAL THROMBOPLASTIN TIME 27.1 SECONDS (24.8-34.2)
[2022-12-11 08:21] LABS: LIPASE 54 U/L (12-53)
[2022-12-11 08:23] LABS: ALBUMIN 3.5 G/DL (3.2-5.2); ALKALINE PHOSPHATASE 147 U/L (46-116); ALT/SGPT 19 U/L (7.0-40); AST/SGOT 17 U/L (<34); BILIRUBIN,DIRECT < 0.1 MG/DL (<0.4); BILIRUBIN,TOTAL < 0.2 MG/DL (0.3-1.2); BLOOD UREA NITROGEN 26 MG/DL (9-23); CALCIUM LEVEL 8.5 MG/DL (8.5-10.1); CARBON DIOXIDE LEVEL 25 MMOL/L (20-31); CHLORIDE LEVEL 107 MMOL/L (98-107); CREATININE FOR GFR 1.25 MG/DL (0.55-1.30); GLOMERULAR FILTRATION RATE 49.6 (>58); GLUCOSE, FASTING 144 MG/DL (60-100); POTASSIUM SERUM 4.1 MMOL/L (3.5-5.1); SODIUM LEVEL 142 MMOL/L (136-145); TOTAL PROTEIN 7.1 G/DL (5.7-8.2)
[2022-12-11] MEDS ORDERED: SODIUM CHLORIDE 0.9% INJ 10 ML SYR IV PRN (11:45)
[2022-12-11] MEDS ORDERED: NS 1,000 ML IV ONE (11:45)
[2022-12-11 14:21] VITALS: BP 137/72
== END 2022-12-11 14:23 | disposition home or self-care (01) ==
LOC: M ED 07:21
DX: K92.1 Melena (principal); Z88.1 Allergy status to other antibiotic agents; Z88.5 Allergy status to narcotic agent; F17.200 Nicotine dependence, unspecified, uncomplicated; Z79.899 Other long term (current) drug therapy

== ENCOUNTER 2022-12-27 07:21 | Emergency (ER) | payer OTHER ==
[~2022-12-27] VITALS: Ht 144.8 cm; Wt 128.0 kg
[~2022-12-27 07:21] MED LIST changes: +LEVO1TAB38 PO; +OXYC30TA72 PO
[2022-12-27] MEDS ORDERED: LIDO2SO (07:36)
[2022-12-27] MEDS ORDERED: CYCL-707 (07:36)
[2022-12-27] MEDS ORDERED: ONDA-84 (07:36)
[2022-12-27 07:58] VITALS: BP 132/74
[2022-12-27] MEDS ORDERED: NS 1,000 ML IV ONE (08:25)
[2022-12-27] MEDS ORDERED: FAMOTIDINE 20MG/2ML VIAL IVP ONE (08:25)
[2022-12-27 09:21] LABS: BASO # 0.1 10^3/uL (0.0-0.2); BASO % 0.6 % (0.0-1.0); HEMATOCRIT 38.9 % (36.0-47.0); HEMOGLOBIN 11.6 g/dl (12.0-15.5); LYMPH # 0.8 10^3/uL (1.5-5.0); MEAN CORPUSCULAR HEMOGLOBIN 25.6 pg (27.0-33.0); MEAN CORPUSCULAR HGB CONC 29.8 g/dl (32.0-36.5); MEAN CORPUSCULAR VOLUME 85.9 fl (80.0-96.0); MONO # 0.5 10^3/uL (0.0-0.8); MONO % 6.3 % (2.0-8.0); NEUTROPHILS # 6.8 10^3/uL (1.5-8.5); NEUTROPHILS % 82.3 % (36.0-66.0); PLATELET COUNT, AUTOMATED 317 10^3/uL (150-450); RED BLOOD COUNT 4.53 10^6/uL (4.00-5.40); WHITE BLOOD COUNT 8.3 10^3/uL (4.0-10.0)
[2022-12-27 09:46] LABS: LIPASE 30 U/L (12-53)
[2022-12-27 09:53] LABS: ALBUMIN 2.9 G/DL (3.2-5.2); ALKALINE PHOSPHATASE 113 U/L (46-116); ALT/SGPT 20 U/L (7.0-40); AST/SGOT 23 U/L (<34); BILIRUBIN,DIRECT < 0.1 MG/DL (<0.4); BILIRUBIN,TOTAL 0.2 MG/DL (0.3-1.2); BLOOD UREA NITROGEN 18 MG/DL (9-23); CALCIUM LEVEL 8.5 MG/DL (8.5-10.1); CARBON DIOXIDE LEVEL 29 MMOL/L (20-31); CHLORIDE LEVEL 105 MMOL/L (98-107); CREATININE FOR GFR 1.49 MG/DL (0.55-1.30); FREE T4 1.06 NG/DL (0.89-1.76); GLOMERULAR FILTRATION RATE 40.5 (>58); GLUCOSE, FASTING 139 MG/DL (60-100); POTASSIUM SERUM 4.1 MMOL/L (3.5-5.1); SODIUM LEVEL 139 MMOL/L (136-145); THYROID STIMULATING HORMONE 1.931 uIU/ML (0.55-4.78); TOTAL PROTEIN 6.6 G/DL (5.7-8.2)
[2022-12-27] MEDS ORDERED: ISOVUE-370 76% 100ML VIAL As Ordered ONE (10:06)
[2022-12-27] MEDS ORDERED: NYSTOI TOP (13:10)
[2022-12-30] MEDS ORDERED: FURO20TA2 PO (13:14)
== END 2022-12-27 13:42 | disposition home or self-care (01) ==
LOC: M ED 07:21
DX: N39.0 Urinary tract infection, site not specified (principal); B37.0 Candidal stomatitis; E27.8 Other specified disorders of adrenal gland; N85.8 Other specified noninflammatory disorders of uterus; Z79.899 Other long term (current) drug therapy; Z88.0 Allergy status to penicillin; Z88.5 Allergy status to narcotic agent
CPT/HCPCS: 74177; 76856; 80047; 80048; 80076; 81001; 83690; 83880; 84439; 84443; 85025; 87086; 93005; 96374; 99284; S0028

== ENCOUNTER → 2023-01-22 | Outpatient (CLI) | payer OTHER ==
[~2023-01-22] VITALS: Ht 144.8 cm; Wt 137.7 kg
[~2023-01-22] MED LIST changes: +CYCL-707 PO; +FAMO20TA PO; +FURO20TA2 PO; +HYDR-4468 PO; +LIDO2SOL9 TOP; +NEUR300C PO; +NYSTOI TOP; -OXYC-403 PO; -OXYC-404 PO; +OXYC-673 PO; +OXYC20TA64 PO; +SENN-83 PO; +SERT25TA85 PO; +SUCR1TAB56 PO
[2023-01-22 10:39] VITALS: BP 139/90
== END ==
LOC: M PAL 10:30
PROVIDERS: ATTEND Nurse Practitioner Adult Health
DX: C51.9 Malignant neoplasm of vulva, unspecified (principal); Z51.5 Encounter for palliative care; Z92.21 Personal history of antineoplastic chemotherapy; N90.89 Other specified noninflammatory disorders of vulva and perineum; Z92.3 Personal history of irradiation; N18.30 Chronic kidney disease, stage 3 unspecified; F32.A Depression, unspecified; F41.9 Anxiety disorder, unspecified; G89.3 Neoplasm related pain (acute) (chronic); E66.01 Morbid (severe) obesity due to excess calories; G62.9 Polyneuropathy, unspecified; K76.0 Fatty (change of) liver, not elsewhere classified; Z90.49 Acquired absence of other specified parts of digestive tract; Z80.9 Family history of malignant neoplasm, unspecified; Z79.891 Long term (current) use of opiate analgesic; Z79.899 Other long term (current) drug therapy; E27.40 Unspecified adrenocortical insufficiency; G47.30 Sleep apnea, unspecified; F43.10 Post-traumatic stress disorder, unspecified; M25.50 Pain in unspecified joint; R10.13 Epigastric pain; Z88.1 Allergy status to other antibiotic agents; Z88.8 Allergy status to other drugs, medicaments and biological substances

== ENCOUNTER → 2023-02-21 | Outpatient (CLI) | payer OTHER ==
[~2023-02-21] MED LIST changes: +LIDO15SO TOP; -LIDO15SO4 TOP; +LIDO2SOBTL TOP; -LIDO2SOL9 TOP; +SENN-186 PO; -SENN-80 PO
[2023-02-21 19:06] LABS: CREATININE,RANDOM URINE 21.4 MG/DL
[2023-02-21 19:49] LABS: PROTEIN, URINE AUTO NEGATIVE (NEGATIVE)
== END ==
LOC: M PLALAB 15:05
PROVIDERS: ATTEND Family Medicine
DX: N18.31 Chronic kidney disease, stage 3a (principal)

== ENCOUNTER → 2023-04-01 | Outpatient (CLI) | payer OTHER ==
[~2023-04-01] VITALS: Ht 142.2 cm; Wt 135.4 kg
[~2023-04-01] MED LIST changes: +INSUHUMDS SC; +LANTINJ4 SC; +NYST100085 TOP; -NYSTOI TOP; +SEMA0.257 SQ; +ZOLO100T PO
[2023-04-01 13:41] VITALS: BP 132/90
== END ==
LOC: M PAL 13:16
PROVIDERS: ATTEND Nurse Practitioner Adult Health
DX: C51.9 Malignant neoplasm of vulva, unspecified (principal); E27.40 Unspecified adrenocortical insufficiency; Z51.5 Encounter for palliative care; Z79.899 Other long term (current) drug therapy; G47.30 Sleep apnea, unspecified; Z99.81 Dependence on supplemental oxygen; G89.3 Neoplasm related pain (acute) (chronic); Z79.891 Long term (current) use of opiate analgesic; F31.9 Bipolar disorder, unspecified; F43.10 Post-traumatic stress disorder, unspecified; F41.9 Anxiety disorder, unspecified; R31.9 Hematuria, unspecified; M25.50 Pain in unspecified joint; R10.13 Epigastric pain; Z92.21 Personal history of antineoplastic chemotherapy; Z92.3 Personal history of irradiation; E11.9 Type 2 diabetes mellitus without complications; Z79.4 Long term (current) use of insulin; Z88.5 Allergy status to narcotic agent; Z88.0 Allergy status to penicillin; Z88.8 Allergy status to other drugs, medicaments and biological substances; R60.1 Generalized edema; Z87.11 Personal history of peptic ulcer disease; Z90.49 Acquired absence of other specified parts of digestive tract; Z98.51 Tubal ligation status; Z80.9 Family history of malignant neoplasm, unspecified; Z87.891 Personal history of nicotine dependence

== ENCOUNTER → 2023-04-21 | Outpatient (REF) | payer OTHER | LOC: M SFHCPLAZ 19:21 | PROVIDERS: ATTEND Family Medicine | DX: Z53.9 Procedure and treatment not carried out, unspecified reason (principal) ==

== ENCOUNTER 2023-06-03 15:17 | Inpatient (IN) | payer OTHER ==
[2023-06-03] VITALS (8 sets, daily range): BP systolic 88–136; BP diastolic 52–74; TEMP 97.9–98.5; O2SAT 94–100
[~2023-06-03] VITALS: Ht 144.8 cm; Wt 139.1 kg
[~2023-06-03 15:17] MED LIST changes: -FAMO1TAB11 PO; -NYST10OI TOP; -OXYC40TA40 PO; -TORS20TA2 PO
[2023-06-03] MEDS ORDERED: OXYC-1 PO (15:48)
[2023-06-03] MEDS ORDERED: OXYC40TA40 PO (15:51)
[2023-06-03 17:54] LABS: BASO # 0.1 10^3/uL (0.0-0.2); BASO % 0.5 % (0.0-1.0); EOS # 0.1 10^3/uL (0.0-0.5); EOS % 0.9 % (0.0-3.0); LYMPH % 9.9 % (24.0-44.0); MEAN CORPUSCULAR HEMOGLOBIN 22.6 pg (27.0-33.0); MEAN CORPUSCULAR HGB CONC 27.9 g/dl (32.0-36.5); MONO # 0.5 10^3/uL (0.0-0.8); MONO % 5.3 % (2.0-8.0); NEUTROPHILS # 7.8 10^3/uL (1.5-8.5); NEUTROPHILS % 81.2 % (36.0-66.0); PLATELET COUNT, AUTOMATED 342 10^3/uL (150-450); RED BLOOD COUNT 2.79 10^6/uL (4.00-5.40); WHITE BLOOD COUNT 9.6 10^3/uL (4.0-10.0)
[2023-06-03 17:57] LABS: HEMATOCRIT 22.6 % (36.0-47.0); HEMOGLOBIN 6.3 g/dl (12.0-15.5)
[2023-06-03 18:05] LABS: INR 0.93; PROTHROMBIN TIME 12.7 SECONDS (12.5-14.5)
[2023-06-03 18:06] LABS: PARTIAL THROMBOPLASTIN TIME 26.6 SECONDS (24.8-34.2)
[2023-06-03 18:15] LABS: CK-MB VALUE MASS 1.5 NG/ML (<3.6)
[2023-06-03 18:18] LABS: CPK CREATINE PHOSPHOKINASE 93 U/L (34-145); MB/CK RELATIVE INDEX 1.61 (< OR =4)
[2023-06-03 18:19] LABS: ALBUMIN 2.8 G/DL (3.2-5.2); ALKALINE PHOSPHATASE 106 U/L (46-116); ALT/SGPT 17 U/L (7.0-40); AST/SGOT 20 U/L (<34); BILIRUBIN,DIRECT < 0.1 MG/DL (<0.4); BILIRUBIN,TOTAL 0.2 MG/DL (0.3-1.2); BLOOD UREA NITROGEN 15 MG/DL (9-23); CARBON DIOXIDE LEVEL 27 MMOL/L (20-31); CHLORIDE LEVEL 106 MMOL/L (98-107); CREATININE FOR GFR 1.55 MG/DL (0.55-1.30); GLOMERULAR FILTRATION RATE 38.7 (>58); GLUCOSE, FASTING 82 MG/DL (60-100); SODIUM LEVEL 141 MMOL/L (136-145); THYROID STIMULATING HORMONE 0.819 uIU/ML (0.55-4.78); TOTAL PROTEIN 6.3 G/DL (5.7-8.2)
[2023-06-03 18:21] LABS: FREE T4 0.92 NG/DL (0.89-1.76)
[2023-06-03 20:18] LABS: RSV AMPLIFICATION NEGATIVE (NEGATIVE)
[2023-06-03] MEDS ORDERED: FUROSEMIDE 100MG/10ML VIAL IV ONE (20:40)
[2023-06-03] MEDS: LEVEMIR (INSULIN DETEMIR) 1 UNITS/0.01ML SC SCH (21:00)
[2023-06-03] MEDS: QUEtiapine FUMARATE 100 MG TAB PO SCH (21:00)
[2023-06-03] MEDS ORDERED: ALBUTEROL SULFATE 2.5MG/0.5ML INH NEB SOLN NEB PRN (21:10)
[2023-06-03] MEDS ORDERED: CYCL-707 PO (23:01)
[2023-06-03] MEDS ORDERED: FAMO1TAB11 PO (23:07)
[2023-06-03] MEDS ORDERED: DOCU100C16 PO (23:07)
[2023-06-03] MEDS ORDERED: NYST10OI TOP (23:07)
[2023-06-03] MEDS ORDERED: TORS20TA2 PO (23:10)
[2023-06-03] MEDS ORDERED: SERT50TA29 PO (23:11)
[2023-06-03] MEDS ORDERED: HOME MED LIST COMPLETE! XX SCH (23:15)
[2023-06-03] MEDS ORDERED: GLUCAGON INJ 1MG VIAL SC PRN (23:45)
[2023-06-03] MEDS ORDERED: GLUCOSE 4GM CHEW TABLET PO PRN (23:45)
[2023-06-03] MEDS ORDERED: DEXTROSE 50% 50ML SYRINGE IV PRN (23:45)
[2023-06-04] MEDS: HYDROCORTISONE 10 MG TAB PO SCH ×3 (00:06→22:56)
[2023-06-04] MEDS: GABAPENTIN 300 MG CAP PO SCH ×4 (00:06→22:56)
[2023-06-04 00:33] VITALS: BP 104/54; TEMP 97.9; O2SAT 100
[2023-06-04] MEDS: oxyCODONE 20MG CR TAB PO SCH ×3 (01:11→22:57)
[2023-06-04] MEDS: SERTRALINE 100 MG TAB PO SCH ×2 (01:11→22:58)
[2023-06-04 01:36] VITALS: BP 110/60; TEMP 98; O2SAT 98
[2023-06-04] MEDS: FUROSEMIDE 40MG/4ML VIAL IV SCH ×2 (04:00→10:00)
[2023-06-04 06:29] LABS: BASO % 0.5 % (0.0-1.0); HEMATOCRIT 23.5 % (36.0-47.0); LYMPH # 0.6 10^3/uL (1.5-5.0); LYMPH % 7.8 % (24.0-44.0); MEAN CORPUSCULAR HEMOGLOBIN 24.2 pg (27.0-33.0); MEAN CORPUSCULAR HGB CONC 29.8 g/dl (32.0-36.5); MEAN CORPUSCULAR VOLUME 81.3 fl (80.0-96.0); MONO # 0.6 10^3/uL (0.0-0.8); MONO % 7.3 % (2.0-8.0); NEUTROPHILS # 6.5 10^3/uL (1.5-8.5); NEUTROPHILS % 81.9 % (36.0-66.0); PLATELET COUNT, AUTOMATED 277 10^3/uL (150-450); RED BLOOD COUNT 2.89 10^6/uL (4.00-5.40)
[2023-06-04 06:41] LABS: CALCIUM LEVEL 8.1 MG/DL (8.5-10.1); CREATININE FOR GFR 1.6 MG/DL (0.55-1.30); GLOMERULAR FILTRATION RATE 37.3 (>58)
[2023-06-04] MEDS ORDERED: SODIUM CHLORIDE 0.9% INJ 10 ML SYR IV PRN (07:05)
[2023-06-04] MEDS: INSULIN LISPRO (NovoLOG) PER UNIT SC SCH ×3 (07:30→16:47)
[2023-06-04] MEDS ORDERED: NS 1,000 ML IV SCH (07:35)
[2023-06-04] MEDS: DOCUSATE SODIUM 100MG CAPSULE PO SCH (08:36)
[2023-06-04] MEDS: PANTOPRAZOLE 40MG TAB (PROTONIX) PO SCH (08:36)
[2023-06-04] MEDS: FAMOTIDINE 20 MG TAB PO SCH ×2 (08:37→22:56)
[2023-06-04] MEDS: SODIUM CHLORIDE 0.9% INJ 10 ML SYR IV SCH (08:40)
[2023-06-04] MEDS: NYSTATIN 100,000 UNITS/GM TOPICAL PWD 15GM TOP SCH ×2 (08:40→22:58)
[2023-06-04 12:17] LABS: HEMATOCRIT 24.1 % (36.0-47.0)
[2023-06-04 14:30] VITALS: BP 127/79; TEMP 97; O2SAT 99
[2023-06-04] MEDS: FUROSEMIDE 100MG/10ML VIAL IV SCH ×2 (15:41→22:56)
[2023-06-04] MEDS ORDERED: fentaNYL 100 MCG/2 ML INJECTION As Ordered ONE ×2 (20:56→21:34)
[2023-06-04] MEDS ORDERED: MIDAZOLAM INJ 2MG/2ML VIAL As Ordered ONE (20:56)
[2023-06-04] MEDS ORDERED: METOCLOPRAMIDE INJ 10MG/2ML VIAL As Ordered ONE (20:56)
[2023-06-04] MEDS ORDERED: propofoL 200 MG/20 ML VIAL As Ordered ONE (20:56)
[2023-06-04] MEDS ORDERED: ROCURONIUM BROMIDE 50MG/5ML VIAL As Ordered ONE ×2 (20:56→21:07)
[2023-06-04] MEDS ORDERED: SUGAMMADEX SODIUM 500 MG/5 ML VIAL (BRIDION) As Ordered ONE (20:56)
[2023-06-04] MEDS ORDERED: LIDOCAINE 2% 100MG/5ML SDV (FOR ANES.) As Ordered ONE (20:56)
[2023-06-04] MEDS ORDERED: ONDANSETRON 4MG 2ML VIAL As Ordered ONE (20:56)
[2023-06-04] MEDS ORDERED: SUCCINYLCHOLINE 100MG/5ML SYRINGE As Ordered ONE (20:57)
[2023-06-04] MEDS ORDERED: ceFAZolin 1GM VIAL As Ordered ONE (20:59)
[2023-06-04] MEDS ORDERED: ceFAZolin 2 GM/D5W 50 ML IV BAG As Ordered ONE (21:00)
[2023-06-04 22:48] VITALS: BP 159/88; TEMP 98.1; O2SAT 91
[2023-06-04] MEDS: QUEtiapine FUMARATE 100 MG TAB PO SCH (22:56)
[2023-06-04] MEDS: oxyCODONE 5MG TAB PO PRN (22:58)
[2023-06-04] MEDS: LEVEMIR (INSULIN DETEMIR) 1 UNITS/0.01ML SC SCH (23:17)
[2023-06-04 23:20] VITALS: BP 159/88; TEMP 97.5; O2SAT 98
[2023-06-05] VITALS (8 sets, daily range): BP systolic 112–131; BP diastolic 65–80; TEMP 97–97.9; O2SAT 95–99
[2023-06-05 05:49] LABS: BASO # 0.1 10^3/uL (0.0-0.2); BASO % 0.4 % (0.0-1.0); HEMATOCRIT 26.1 % (36.0-47.0); HEMOGLOBIN 7.8 g/dl (12.0-15.5); LYMPH # 0.5 10^3/uL (1.5-5.0); MEAN CORPUSCULAR HEMOGLOBIN 24.2 pg (27.0-33.0); MEAN CORPUSCULAR HGB CONC 29.9 g/dl (32.0-36.5); MEAN CORPUSCULAR VOLUME 81.1 fl (80.0-96.0); MONO # 0.4 10^3/uL (0.0-0.8); MONO % 3.5 % (2.0-8.0); NEUTROPHILS # 10.8 10^3/uL (1.5-8.5); NEUTROPHILS % 90.8 % (36.0-66.0); PLATELET COUNT, AUTOMATED 316 10^3/uL (150-450); RED BLOOD COUNT 3.22 10^6/uL (4.00-5.40); WHITE BLOOD COUNT 11.9 10^3/uL (4.0-10.0)
[2023-06-05 06:16] LABS: CALCIUM LEVEL 8.1 MG/DL (8.5-10.1); CREATININE FOR GFR 1.84 MG/DL (0.55-1.30); GLOMERULAR FILTRATION RATE 31.7 (>58); POTASSIUM SERUM 4.7 MMOL/L (3.5-5.1)
[2023-06-05] MEDS: INSULIN LISPRO (NovoLOG) PER UNIT SC SCH ×3 (08:35→19:13)
[2023-06-05] MEDS: FUROSEMIDE 100MG/10ML VIAL IV SCH ×3 (08:36→21:29)
[2023-06-05] MEDS: FAMOTIDINE 20 MG TAB PO SCH ×2 (08:36→21:29)
[2023-06-05] MEDS: DOCUSATE SODIUM 100MG CAPSULE PO SCH (08:36)
[2023-06-05] MEDS: GABAPENTIN 300 MG CAP PO SCH ×3 (08:37→21:28)
[2023-06-05] MEDS: PANTOPRAZOLE 40MG TAB (PROTONIX) PO SCH (08:37)
[2023-06-05] MEDS: HYDROCORTISONE 10 MG TAB PO SCH ×2 (08:37→21:28)
[2023-06-05] MEDS: oxyCODONE 20MG CR TAB PO SCH ×2 (08:38→21:28)
[2023-06-05] MEDS: SODIUM CHLORIDE 0.9% INJ 10 ML SYR IV SCH (09:18)
[2023-06-05] MEDS ORDERED: ACETAMINOPHEN TAB 650MG DOSE (2X325MG) PO PRN (11:50)
[2023-06-05] MEDS: NYSTATIN 100,000 UNITS/GM TOPICAL PWD 15GM TOP SCH ×2 (12:31→21:30)
[2023-06-05] MEDS: LIDOCAINE 5% OINT 30GM TUBE TOP SCH (15:10)
[2023-06-05] MEDS: oxyCODONE 5MG TAB PO PRN (15:11)
[2023-06-05] MEDS: SERTRALINE 100 MG TAB PO SCH (21:29)
[2023-06-05] MEDS: LEVEMIR (INSULIN DETEMIR) 1 UNITS/0.01ML SC SCH (21:29)
[2023-06-05] MEDS: QUEtiapine FUMARATE 100 MG TAB PO SCH (21:29)
[2023-06-05] MEDS: diphenhydrAMINE 50MG/ML VIAL IV PRN (21:30)
[2023-06-06] VITALS (7 sets, daily range): BP systolic 109–129; BP diastolic 64–92; TEMP 97.3–98.1; O2SAT 90–99
[2023-06-06 05:53] LABS: BASO % 0.4 % (0.0-1.0); HEMATOCRIT 23.9 % (36.0-47.0); HEMOGLOBIN 7.1 g/dl (12.0-15.5); LYMPH # 0.9 10^3/uL (1.5-5.0); LYMPH % 10.8 % (24.0-44.0); MEAN CORPUSCULAR HEMOGLOBIN 23.5 pg (27.0-33.0); MEAN CORPUSCULAR HGB CONC 29.7 g/dl (32.0-36.5); MEAN CORPUSCULAR VOLUME 79.1 fl (80.0-96.0); MONO # 0.6 10^3/uL (0.0-0.8); MONO % 7.2 % (2.0-8.0); NEUTROPHILS # 6.5 10^3/uL (1.5-8.5); NEUTROPHILS % 80.4 % (36.0-66.0); PLATELET COUNT, AUTOMATED 301 10^3/uL (150-450); RED BLOOD COUNT 3.02 10^6/uL (4.00-5.40); WHITE BLOOD COUNT 8.1 10^3/uL (4.0-10.0)
[2023-06-06 06:17] LABS: CREATININE FOR GFR 2.14 MG/DL (0.55-1.30); GLOMERULAR FILTRATION RATE 26.7 (>58); POTASSIUM SERUM 3.1 MMOL/L (3.5-5.1)
[2023-06-06 08:35] LABS: PERCENT SATURATION 4.9 % (13.2-45.0)
[2023-06-06 08:37] LABS: FERRITIN 21.6 NG/ML (7.3-270.7); FOLATE 12.9 NG/ML (>5.4)
[2023-06-06] MEDS ORDERED: POTASSIUM CHLORIDE 10MEQ SR TABLET PO ONE (09:00)
[2023-06-06] MEDS: GABAPENTIN 300 MG CAP PO SCH ×3 (09:15→21:17)
[2023-06-06] MEDS: FAMOTIDINE 20 MG TAB PO SCH (09:16)
[2023-06-06] MEDS: PANTOPRAZOLE 40MG TAB (PROTONIX) PO SCH (09:16)
[2023-06-06] MEDS: INSULIN LISPRO (NovoLOG) PER UNIT SC SCH ×3 (09:18→17:10)
[2023-06-06] MEDS: LIDOCAINE 5% OINT 30GM TUBE TOP SCH (09:19)
[2023-06-06] MEDS: NYSTATIN 100,000 UNITS/GM TOPICAL PWD 15GM TOP SCH ×2 (09:20→21:18)
[2023-06-06] MEDS: HYDROCORTISONE 10 MG TAB PO SCH ×2 (09:20→21:17)
[2023-06-06] MEDS: oxyCODONE 20MG CR TAB PO SCH ×2 (09:23→21:17)
[2023-06-06] MEDS: DOCUSATE SODIUM 100MG CAPSULE PO SCH (09:23)
[2023-06-06] MEDS: FUROSEMIDE 100MG/10ML VIAL IV SCH (09:24)
[2023-06-06] MEDS: SODIUM CHLORIDE 0.9% INJ 10 ML SYR IV SCH (09:25)
[2023-06-06] MEDS: FERROUS SULFATE 325MG TAB PO SCH (12:49)
[2023-06-06] MEDS ORDERED: ONDANSETRON 4MG TAB PO PRN (18:05)
[2023-06-06] MEDS: SERTRALINE 100 MG TAB PO SCH (21:16)
[2023-06-06] MEDS: QUEtiapine FUMARATE 100 MG TAB PO SCH (21:16)
[2023-06-06] MEDS: CYCLOBENZAPRINE 10MG TABLET PO SCH (21:16)
[2023-06-06] MEDS: LEVEMIR (INSULIN DETEMIR) 1 UNITS/0.01ML SC SCH (21:16)
[2023-06-07 06:00] VITALS: BP 117/80; TEMP 98.4; O2SAT 97
[2023-06-07 06:43] LABS: BASO % 0.4 % (0.0-1.0); HEMATOCRIT 28.3 % (36.0-47.0); HEMOGLOBIN 8.4 g/dl (12.0-15.5); LYMPH # 0.7 10^3/uL (1.5-5.0); MEAN CORPUSCULAR HEMOGLOBIN 24.6 pg (27.0-33.0); MEAN CORPUSCULAR HGB CONC 29.7 g/dl (32.0-36.5); MONO # 0.6 10^3/uL (0.0-0.8); MONO % 6.9 % (2.0-8.0); NEUTROPHILS # 6.7 10^3/uL (1.5-8.5); NEUTROPHILS % 82.5 % (36.0-66.0); PLATELET COUNT, AUTOMATED 279 10^3/uL (150-450); RED BLOOD COUNT 3.41 10^6/uL (4.00-5.40); WHITE BLOOD COUNT 8.2 10^3/uL (4.0-10.0)
[2023-06-07 07:12] LABS: CALCIUM LEVEL 7.5 MG/DL (8.5-10.1); CREATININE FOR GFR 1.93 MG/DL (0.55-1.30); POTASSIUM SERUM 3.3 MMOL/L (3.5-5.1)
[2023-06-07] MEDS ORDERED: POTASSIUM CHLORIDE 10MEQ SR TABLET PO ONE (07:25)
[2023-06-07] MEDS: HYDROCORTISONE 10 MG TAB PO SCH ×2 (08:51→20:42)
[2023-06-07] MEDS: INSULIN LISPRO (NovoLOG) PER UNIT SC SCH ×3 (08:51→17:11)
[2023-06-07] MEDS: GABAPENTIN 300 MG CAP PO SCH ×3 (08:52→20:40)
[2023-06-07] MEDS: DOCUSATE SODIUM 100MG CAPSULE PO SCH (08:52)
[2023-06-07] MEDS: FERROUS SULFATE 325MG TAB PO SCH (08:53)
[2023-06-07] MEDS: CYCLOBENZAPRINE 10MG TABLET PO SCH ×2 (08:53→20:40)
[2023-06-07] MEDS: FAMOTIDINE 20 MG TAB PO SCH (08:55)
[2023-06-07] MEDS: PANTOPRAZOLE 40MG TAB (PROTONIX) PO SCH (08:57)
[2023-06-07] MEDS: oxyCODONE 20MG CR TAB PO SCH ×2 (08:59→20:42)
[2023-06-07] MEDS: NYSTATIN 100,000 UNITS/GM TOPICAL PWD 15GM TOP SCH ×2 (09:05→20:43)
[2023-06-07] MEDS: LIDOCAINE 5% OINT 30GM TUBE TOP SCH (09:06)
[2023-06-07] MEDS: SODIUM CHLORIDE 0.9% INJ 10 ML SYR IV SCH (09:10)
[2023-06-07] MEDS: oxyCODONE 5MG TAB PO PRN (12:11)
[2023-06-07 14:00] VITALS: BP 114/75; TEMP 98.2; O2SAT 98
[2023-06-07] MEDS ORDERED: LIDOCAINE 5% OINT 30GM TUBE TOP PRN (18:05)
[2023-06-07] MEDS: diphenhydrAMINE 50MG/ML VIAL IV PRN (20:39)
[2023-06-07] MEDS: LEVEMIR (INSULIN DETEMIR) 1 UNITS/0.01ML SC SCH (20:40)
[2023-06-07] MEDS: SERTRALINE 100 MG TAB PO SCH (20:40)
[2023-06-07] MEDS: QUEtiapine FUMARATE 100 MG TAB PO SCH (20:42)
[2023-06-07 21:28] VITALS: BP 112/75; TEMP 97.7; O2SAT 97
[2023-06-08 05:51] VITALS: BP 118/77; TEMP 97.2; O2SAT 97
[2023-06-08 06:36] LABS: BASO % 0.4 % (0.0-1.0); EOS # 0.1 10^3/uL (0.0-0.5); EOS % 1.3 % (0.0-3.0); HEMATOCRIT 27.1 % (36.0-47.0); HEMOGLOBIN 8.1 g/dl (12.0-15.5); LYMPH # 0.9 10^3/uL (1.5-5.0); LYMPH % 10.2 % (24.0-44.0); MEAN CORPUSCULAR HEMOGLOBIN 24.9 pg (27.0-33.0); MEAN CORPUSCULAR HGB CONC 29.9 g/dl (32.0-36.5); MEAN CORPUSCULAR VOLUME 83.4 fl (80.0-96.0); MONO # 0.7 10^3/uL (0.0-0.8); MONO % 7.5 % (2.0-8.0); NEUTROPHILS # 7.1 10^3/uL (1.5-8.5); NEUTROPHILS % 79.5 % (36.0-66.0); PLATELET COUNT, AUTOMATED 262 10^3/uL (150-450); RED BLOOD COUNT 3.25 10^6/uL (4.00-5.40); WHITE BLOOD COUNT 8.9 10^3/uL (4.0-10.0)
[2023-06-08 06:58] LABS: CALCIUM LEVEL 7.7 MG/DL (8.5-10.1); CREATININE FOR GFR 1.68 MG/DL (0.55-1.30); GLOMERULAR FILTRATION RATE 35.2 (>58); MAGNESIUM LEVEL 1.8 MG/DL (1.8-2.4); POTASSIUM SERUM 3.5 MMOL/L (3.5-5.1)
[2023-06-08] MEDS: FERROUS SULFATE 325MG TAB PO SCH (08:45)
[2023-06-08] MEDS: INSULIN LISPRO (NovoLOG) PER UNIT SC SCH ×3 (08:45→18:42)
[2023-06-08] MEDS: PANTOPRAZOLE 40MG TAB (PROTONIX) PO SCH (08:45)
[2023-06-08] MEDS: HYDROCORTISONE 10 MG TAB PO SCH ×2 (08:45→20:33)
[2023-06-08] MEDS: DOCUSATE SODIUM 100MG CAPSULE PO SCH (08:45)
[2023-06-08] MEDS: FAMOTIDINE 20 MG TAB PO SCH (08:46)
[2023-06-08] MEDS: POTASSIUM CHLORIDE 10MEQ SR TABLET PO SCH (08:46)
[2023-06-08] MEDS: CYCLOBENZAPRINE 10MG TABLET PO SCH ×2 (08:46→20:34)
[2023-06-08] MEDS: GABAPENTIN 300 MG CAP PO SCH ×3 (08:47→20:33)
[2023-06-08] MEDS: SODIUM CHLORIDE 0.9% INJ 10 ML SYR IV SCH (08:49)
[2023-06-08] MEDS: NYSTATIN 100,000 UNITS/GM TOPICAL PWD 15GM TOP SCH ×2 (08:50→20:36)
[2023-06-08] MEDS: oxyCODONE 20MG CR TAB PO SCH ×2 (08:52→20:35)
[2023-06-08] MEDS: oxyCODONE 5MG TAB PO PRN (12:36)
[2023-06-08 14:00] VITALS: BP 128/75; TEMP 97.5; O2SAT 98
[2023-06-08] MEDS ORDERED: traMADol 50 MG TAB PO ONE (15:10)
[2023-06-08] MEDS: diphenhydrAMINE 50MG/ML VIAL IV PRN (20:33)
[2023-06-08] MEDS: SERTRALINE 100 MG TAB PO SCH (20:34)
[2023-06-08] MEDS: SENOKOT S TAB PO SCH (20:34)
[2023-06-08] MEDS: QUEtiapine FUMARATE 100 MG TAB PO SCH (20:34)
[2023-06-08] MEDS: LEVEMIR (INSULIN DETEMIR) 1 UNITS/0.01ML SC SCH (20:42)
[2023-06-09 00:23] VITALS: BP 122/69; TEMP 97.3; O2SAT 97
[2023-06-09 06:07] VITALS: BP 124/76; TEMP 97.2; O2SAT 97
[2023-06-09 06:07] LABS: BASO % 0.4 % (0.0-1.0); EOS # 0.1 10^3/uL (0.0-0.5); EOS % 1.4 % (0.0-3.0); HEMATOCRIT 28.1 % (36.0-47.0); HEMOGLOBIN 8.2 g/dl (12.0-15.5); LYMPH # 0.9 10^3/uL (1.5-5.0); LYMPH % 9.6 % (24.0-44.0); MEAN CORPUSCULAR HEMOGLOBIN 24.7 pg (27.0-33.0); MEAN CORPUSCULAR HGB CONC 29.2 g/dl (32.0-36.5); MEAN CORPUSCULAR VOLUME 84.6 fl (80.0-96.0); MONO # 0.7 10^3/uL (0.0-0.8); MONO % 7.2 % (2.0-8.0); NEUTROPHILS # 7.4 10^3/uL (1.5-8.5); NEUTROPHILS % 80.2 % (36.0-66.0); PLATELET COUNT, AUTOMATED 264 10^3/uL (150-450); RED BLOOD COUNT 3.32 10^6/uL (4.00-5.40); WHITE BLOOD COUNT 9.2 10^3/uL (4.0-10.0)
[2023-06-09 06:22] LABS: CREATININE FOR GFR 1.48 MG/DL (0.55-1.30); GLOMERULAR FILTRATION RATE 40.8 (>58); POTASSIUM SERUM 3.9 MMOL/L (3.5-5.1)
[2023-06-09] MEDS: INSULIN LISPRO (NovoLOG) PER UNIT SC SCH ×2 (09:03→12:13)
[2023-06-09] MEDS: DOCUSATE SODIUM 100MG CAPSULE PO SCH (09:04)
[2023-06-09] MEDS: FAMOTIDINE 20 MG TAB PO SCH (09:04)
[2023-06-09] MEDS: oxyCODONE 20MG CR TAB PO SCH (09:05)
[2023-06-09] MEDS: HYDROCORTISONE 10 MG TAB PO SCH (09:05)
[2023-06-09] MEDS: CYCLOBENZAPRINE 10MG TABLET PO SCH (09:06)
[2023-06-09] MEDS: SENOKOT S TAB PO SCH (09:06)
[2023-06-09] MEDS: FERROUS SULFATE 325MG TAB PO SCH (09:06)
[2023-06-09] MEDS: POTASSIUM CHLORIDE 10MEQ SR TABLET PO SCH (09:06)
[2023-06-09] MEDS: GABAPENTIN 300 MG CAP PO SCH (09:06)
[2023-06-09] MEDS: SODIUM CHLORIDE 0.9% INJ 10 ML SYR IV SCH (09:07)
[2023-06-09] MEDS: PANTOPRAZOLE 40MG TAB (PROTONIX) PO SCH (09:07)
[2023-06-09] MEDS: NYSTATIN 100,000 UNITS/GM TOPICAL PWD 15GM TOP SCH (09:08)
[2023-06-09] MEDS ORDERED: FERR1TAB8 PO (13:43)
[2023-06-09 14:00] VITALS: BP 146/72; TEMP 97.3; O2SAT 97
== END 2023-06-09 16:40 | disposition short-term general hospital (02) | DRG 441 ==
LOC: M ED 15:17 → M ED INP 20:37 → M MS5PR 21:40
PROVIDERS: ADMIT Internal Medicine Nephrology; ATTEND Family Medicine
PROC: 30233N1 Transfusion of Nonautologous Red Blood Cells into Peripheral Vein, Percutaneous Approach (ICD-10-PCS; 2023-06-03)
PROC: 0T5B8ZZ Destruction of Bladder, Via Natural or Artificial Opening Endoscopic (ICD-10-PCS; 2023-06-04)
PROC: 0TTB8ZZ Resection of Bladder, Via Natural or Artificial Opening Endoscopic (ICD-10-PCS; principal; 2023-06-04 18:00)
PROC: B246ZZZ Ultrasonography of Right and Left Heart (ICD-10-PCS; 2023-06-05)
DX: N30.41 Irradiation cystitis with hematuria (principal); I50.33 Acute on chronic diastolic (congestive) heart failure; E87.3 Alkalosis; J96.11 Chronic respiratory failure with hypoxia; Z68.45 Body mass index [BMI] 70 or greater, adult; E13.22 Other specified diabetes mellitus with diabetic chronic kidney disease; E66.2 Morbid (severe) obesity with alveolar hypoventilation; E27.3 Drug-induced adrenocortical insufficiency; E88.09 Other disorders of plasma-protein metabolism, not elsewhere classified; N18.30 Chronic kidney disease, stage 3 unspecified; K76.0 Fatty (change of) liver, not elsewhere classified; F32.A Depression, unspecified; E87.6 Hypokalemia; D62 Acute posthemorrhagic anemia; E26.9 Hyperaldosteronism, unspecified; K21.9 Gastro-esophageal reflux disease without esophagitis; F43.10 Post-traumatic stress disorder, unspecified; R53.1 Weakness; R26.81 Unsteadiness on feet; Z85.44 Personal history of malignant neoplasm of other female genital organs; Z90.49 Acquired absence of other specified parts of digestive tract; Z92.3 Personal history of irradiation; Z92.21 Personal history of antineoplastic chemotherapy; Z79.4 Long term (current) use of insulin; Z79.891 Long term (current) use of opiate analgesic; Z79.899 Other long term (current) drug therapy; Z88.0 Allergy status to penicillin; Z88.8 Allergy status to other drugs, medicaments and biological substances; Z88.5 Allergy status to narcotic agent; Z87.891 Personal history of nicotine dependence

== ENCOUNTER → 2023-06-03 | Outpatient (CLI) | payer OTHER ==
[~2023-06-03] MED LIST changes: +FAMO1TAB11 PO; +NYST10OI TOP; +OXYC40TA40 PO; +TORS20TA2 PO
[2023-06-03 14:32] LABS: BASO % 0.4 % (0.0-1.0); LYMPH # 0.8 10^3/uL (1.5-5.0); LYMPH % 8.1 % (24.0-44.0); MEAN CORPUSCULAR HEMOGLOBIN 22.6 pg (27.0-33.0); MEAN CORPUSCULAR HGB CONC 28.2 g/dl (32.0-36.5); MEAN CORPUSCULAR VOLUME 80.3 fl (80.0-96.0); MONO # 0.6 10^3/uL (0.0-0.8); MONO % 5.5 % (2.0-8.0); NEUTROPHILS # 8.7 10^3/uL (1.5-8.5); NEUTROPHILS % 83.8 % (36.0-66.0); PLATELET COUNT, AUTOMATED 340 10^3/uL (150-450); RED BLOOD COUNT 2.74 10^6/uL (4.00-5.40); WHITE BLOOD COUNT 10.4 10^3/uL (4.0-10.0)
[2023-06-03 14:43] LABS: HEMOGLOBIN 6.2 g/dl (12.0-15.5)
[2023-06-03 14:52] LABS: ALBUMIN 2.8 G/DL (3.2-5.2); BILIRUBIN,TOTAL 0.2 MG/DL (0.3-1.2); CALCIUM LEVEL 7.9 MG/DL (8.5-10.1); CREATININE FOR GFR 1.58 MG/DL (0.55-1.30); GLOMERULAR FILTRATION RATE 37.8 (>58); POTASSIUM SERUM 4.3 MMOL/L (3.5-5.1); TOTAL PROTEIN 6.2 G/DL (5.7-8.2)
== END ==
LOC: M ONCR 12:51
PROVIDERS: ATTEND General Practice
DX: C51.8 Malignant neoplasm of overlapping sites of vulva (principal); E24.2 Drug-induced Cushing's syndrome; R31.0 Gross hematuria; R60.1 Generalized edema; Z71.2 Person consulting for explanation of examination or test findings; Z79.4 Long term (current) use of insulin; Z79.891 Long term (current) use of opiate analgesic; Z79.899 Other long term (current) drug therapy; Z87.891 Personal history of nicotine dependence; Z88.1 Allergy status to other antibiotic agents; Z88.5 Allergy status to narcotic agent; Z88.8 Allergy status to other drugs, medicaments and biological substances; Z92.21 Personal history of antineoplastic chemotherapy; Z92.3 Personal history of irradiation
CPT/HCPCS: 36415; 80053; 81001; 85025; 87088; G0463

== ENCOUNTER → 2023-06-03 | Outpatient (CLI) | payer OTHER ==
[~2023-06-03] VITALS: Ht 144.8 cm; Wt 150.9 kg
[2023-06-03 13:05] VITALS: BP 120/72; TEMP 97; O2SAT 99
== END ==
LOC: M PAL 13:45
PROVIDERS: ATTEND Nurse Practitioner Adult Health
DX: C51.9 Malignant neoplasm of vulva, unspecified (principal); E27.40 Unspecified adrenocortical insufficiency; Z51.5 Encounter for palliative care; Z79.899 Other long term (current) drug therapy; G47.30 Sleep apnea, unspecified; Z99.81 Dependence on supplemental oxygen; G89.3 Neoplasm related pain (acute) (chronic); Z79.891 Long term (current) use of opiate analgesic; F31.9 Bipolar disorder, unspecified; F43.10 Post-traumatic stress disorder, unspecified; F41.9 Anxiety disorder, unspecified; R31.9 Hematuria, unspecified; M25.50 Pain in unspecified joint; R10.13 Epigastric pain; Z92.21 Personal history of antineoplastic chemotherapy; Z92.3 Personal history of irradiation; E11.9 Type 2 diabetes mellitus without complications; Z79.4 Long term (current) use of insulin; Z88.0 Allergy status to penicillin; Z88.5 Allergy status to narcotic agent; Z88.1 Allergy status to other antibiotic agents; R60.1 Generalized edema; Z87.11 Personal history of peptic ulcer disease; Z90.49 Acquired absence of other specified parts of digestive tract; Z98.51 Tubal ligation status; Z80.9 Family history of malignant neoplasm, unspecified; Z87.891 Personal history of nicotine dependence

== ENCOUNTER → 2023-07-03 | Outpatient (CLI) | payer OTHER ==
[~2023-07-03] VITALS: Ht 144.8 cm; Wt 144.8 kg
[~2023-07-03] MED LIST changes: +FAMO1TAB11 PO; +GABA-282; +NYST10OI TOP; +OXYC40TA40 PO; +TORS20TA2 PO
[2023-07-03 08:04] VITALS: BP 123/70; O2SAT 99
== END ==
LOC: M PAL 07:47
PROVIDERS: ATTEND Nurse Practitioner Adult Health
DX: C51.9 Malignant neoplasm of vulva, unspecified (principal); E27.40 Unspecified adrenocortical insufficiency; Z51.5 Encounter for palliative care; G47.30 Sleep apnea, unspecified; G89.3 Neoplasm related pain (acute) (chronic); F31.9 Bipolar disorder, unspecified; F43.10 Post-traumatic stress disorder, unspecified; F41.9 Anxiety disorder, unspecified; R31.9 Hematuria, unspecified; M25.50 Pain in unspecified joint; R10.13 Epigastric pain; R60.1 Generalized edema; E11.9 Type 2 diabetes mellitus without complications; Z79.4 Long term (current) use of insulin; Z79.891 Long term (current) use of opiate analgesic; Z79.899 Other long term (current) drug therapy; Z80.9 Family history of malignant neoplasm, unspecified; Z88.0 Allergy status to penicillin; Z88.1 Allergy status to other antibiotic agents; Z88.5 Allergy status to narcotic agent; Z87.11 Personal history of peptic ulcer disease; Z87.891 Personal history of nicotine dependence; Z90.49 Acquired absence of other specified parts of digestive tract; Z92.21 Personal history of antineoplastic chemotherapy; Z92.3 Personal history of irradiation; Z93.6 Other artificial openings of urinary tract status; Z98.51 Tubal ligation status; Z99.81 Dependence on supplemental oxygen

== ENCOUNTER → 2023-07-07 | Outpatient (CLI) | payer OTHER | LOC: M PLARAD 13:12 | PROVIDERS: ATTEND Obstetrics & Gynecology Gynecologic Oncology | DX: C51.9 Malignant neoplasm of vulva, unspecified (principal); M79.89 Other specified soft tissue disorders; L59.8 Other specified disorders of the skin and subcutaneous tissue related to radiation; Z93.6 Other artificial openings of urinary tract status | CPT/HCPCS: 78815; A9552 ==

== ENCOUNTER → 2023-09-11 | Outpatient (CLI) | payer OTHER ==
[~2023-09-11] VITALS: Ht 149.9 cm; Wt 137.2 kg
[~2023-09-11] MED LIST changes: +CLIN-250 PO; +FLUC150T9 PO; -GABA-282
[2023-09-11 14:01] VITALS: BP 126/75; O2SAT 99
[2023-09-11 15:13] LABS: APPEARANCE, URINE CLOUDY (CLEAR); BACTERIA, URINE AUTO NEGATIVE (NEGATIVE); BILIRUBIN, URINE AUTO NEGATIVE (NEGATIVE); BLOOD, URINE BLOOD 3+ (NEGATIVE); COLOR, URINE AMBER (YELLOW); GLUCOSE, URINE (UA) AUTO NEGATIVE (NEGATIVE); KETONE, URINE AUTO NEGATIVE (NEGATIVE); LEUKOCYTE ESTERASE, URINE AUTO 3+ (NEGATIVE); MUCUS, URINE SMALL (NEGATIVE); NITRITE, URINE AUTO POSITIVE (NEGATIVE); PROTEIN, URINE AUTO 3+ mg/dL (NEGATIVE); RBC, URINE AUTO TNTC /HPF (0-3); SPECIFIC GRAVITY URINE AUTO 1.024 (1.002-1.035); SQUAMOUS EPITHELIAL CELL UR AU 0 /HPF (0-6); UROBILINOGEN, URINE AUTO 0.2 mg/dL (0.0-2.0); WBC, URINE AUTO TNTC /HPF (0-3)
[2023-09-11 15:41] LABS: APPEARANCE, URINE HAZY (CLEAR); BACTERIA, URINE AUTO 1+ (NEGATIVE); BILIRUBIN, URINE AUTO NEGATIVE (NEGATIVE); BLOOD, URINE BLOOD 1+ (NEGATIVE); COLOR, URINE YELLOW (YELLOW); GLUCOSE, URINE (UA) AUTO NEGATIVE (NEGATIVE); KETONE, URINE AUTO TRACE mg/dL (NEGATIVE); LEUKOCYTE ESTERASE, URINE AUTO 3+ (NEGATIVE); MUCUS, URINE SMALL (NEGATIVE); NITRITE, URINE AUTO POSITIVE (NEGATIVE); PROTEIN, URINE AUTO 2+ mg/dL (NEGATIVE); RBC, URINE AUTO 108 /HPF (0-3); SPECIFIC GRAVITY URINE AUTO 1.023 (1.002-1.035); SQUAMOUS EPITHELIAL CELL UR AU 0 /HPF (0-6); UROBILINOGEN, URINE AUTO 0.2 mg/dL (0.0-2.0); WBC, URINE AUTO 67 /HPF (0-3)
== END ==
LOC: M PAL 13:31
PROVIDERS: ATTEND Nurse Practitioner Adult Health
DX: N30.41 Irradiation cystitis with hematuria (principal); B95.4 Other streptococcus as the cause of diseases classified elsewhere; C51.9 Malignant neoplasm of vulva, unspecified; R53.83 Other fatigue; E27.40 Unspecified adrenocortical insufficiency; Z51.5 Encounter for palliative care; G47.30 Sleep apnea, unspecified; G89.3 Neoplasm related pain (acute) (chronic); F31.9 Bipolar disorder, unspecified; F32.A Depression, unspecified; F43.10 Post-traumatic stress disorder, unspecified; M25.50 Pain in unspecified joint; L03.90 Cellulitis, unspecified; B37.32 Chronic candidiasis of vulva and vagina; R10.13 Epigastric pain; R60.9 Edema, unspecified; Z79.4 Long term (current) use of insulin; Z79.891 Long term (current) use of opiate analgesic; Z79.899 Other long term (current) drug therapy; Z88.0 Allergy status to penicillin; Z88.5 Allergy status to narcotic agent; Z88.1 Allergy status to other antibiotic agents; Z92.21 Personal history of antineoplastic chemotherapy; Z92.3 Personal history of irradiation; Z98.51 Tubal ligation status; Z90.79 Acquired absence of other genital organ(s); Z87.891 Personal history of nicotine dependence; Z80.9 Family history of malignant neoplasm, unspecified

== ENCOUNTER → 2023-09-12 | Outpatient (REF) | payer OTHER ==
[~2023-09-12] MED LIST changes: -CLIN-250 PO
== END ==
LOC: M SFHCPLAZ 15:30
PROVIDERS: ATTEND Family Medicine
DX: E09.9 Drug or chemical induced diabetes mellitus without complications (principal); Z13.220 Encounter for screening for lipoid disorders; Z11.4 Encounter for screening for human immunodeficiency virus [HIV]; Z11.59 Encounter for screening for other viral diseases; F32.A Depression, unspecified; Z53.8 Procedure and treatment not carried out for other reasons

== ENCOUNTER → 2024-04-15 | Outpatient (CLI) | payer OTHER ==
[~2024-04-15] VITALS: Ht 142.2 cm; Wt 129.0 kg
[~2024-04-15] MED LIST changes: +BUSP5TA PO; +CLIN-250 PO; +DILA4TAB13 PO; +FAMO10TA50 PO; +HYDR4TAB PO; +LIDO100S29 TOP; -LIDO15SO TOP; +LIDO15SO8 TOP; -LIDO2SOBTL TOP; -MIRA1POW3 PO; +MIRA33506 PO; +NYST100084 TOP; -NYST10OI TOP; +OXYC20TA2 PO; +[UNRECOGNIZED DRUG - OTHER] XX
[2024-04-15 13:39] VITALS: BP 148/89; O2SAT 98
== END ==
LOC: M PAL 13:31
PROVIDERS: ATTEND Nurse Practitioner Adult Health
DX: G89.3 Neoplasm related pain (acute) (chronic) (principal); G89.29 Other chronic pain; C51.9 Malignant neoplasm of vulva, unspecified; N28.9 Disorder of kidney and ureter, unspecified; E27.40 Unspecified adrenocortical insufficiency; R60.1 Generalized edema; G47.30 Sleep apnea, unspecified; R53.81 Other malaise; B37.9 Candidiasis, unspecified; F31.9 Bipolar disorder, unspecified; F32.A Depression, unspecified; F43.10 Post-traumatic stress disorder, unspecified; M25.50 Pain in unspecified joint; R10.13 Epigastric pain; Z51.5 Encounter for palliative care; Z79.4 Long term (current) use of insulin; Z79.891 Long term (current) use of opiate analgesic; Z79.899 Other long term (current) drug therapy; Z87.440 Personal history of urinary (tract) infections; Z87.891 Personal history of nicotine dependence; Z88.1 Allergy status to other antibiotic agents; Z88.5 Allergy status to narcotic agent; Z88.8 Allergy status to other drugs, medicaments and biological substances; Z90.49 Acquired absence of other specified parts of digestive tract; Z90.79 Acquired absence of other genital organ(s); Z92.21 Personal history of antineoplastic chemotherapy; Z92.3 Personal history of irradiation; Z98.51 Tubal ligation status

== ENCOUNTER 2024-05-21 07:08 | Inpatient (IN) | payer OTHER ==
[~2024-05-21] VITALS: Ht 142.2 cm; Wt 131.3 kg
[2024-05-21] MEDS: ACETAMINOPHEN TAB 650MG DOSE (2X325MG) PO ONE (09:01)
[2024-05-21] MEDS: oxyCODONE 5MG TAB PO ONE (09:28)
[2024-05-21 09:57] LABS: HEMATOCRIT 25.7 % (36.0-47.0); HEMOGLOBIN 7.5 g/dl (12.0-15.5); MEAN CORPUSCULAR HEMOGLOBIN 20.1 pg (27.0-33.0); MEAN CORPUSCULAR HGB CONC 29.2 g/dl (32.0-36.5); MEAN CORPUSCULAR VOLUME 68.9 fl (80.0-96.0); PLATELET COUNT, AUTOMATED 445 10^3/uL (150-450); RED BLOOD COUNT 3.73 10^6/uL (4.00-5.40); WHITE BLOOD COUNT 29.7 10^3/uL (4.0-10.0)
[2024-05-21 10:24] LABS: ALBUMIN 2.4 G/DL (3.2-5.2); BILIRUBIN,DIRECT 0.2 MG/DL (<0.4); BILIRUBIN,TOTAL 0.4 MG/DL (0.3-1.2); CALCIUM LEVEL 7.8 MG/DL (8.5-10.1); CREATININE FOR GFR 2.06 MG/DL (0.55-1.30); GLOMERULAR FILTRATION RATE 27.7 (>58); POTASSIUM SERUM 3.8 MMOL/L (3.5-5.1); TOTAL PROTEIN 7.1 G/DL (5.7-8.2)
[2024-05-21 10:35] LABS: PROCALCITONIN 3.46 ng/ml
[2024-05-21 10:40] LABS: EOSINOPHILS 1 % (0-3); LYMPHOCYTES 5 % (16-44); MONOCYTES 2 % (0-5); NEUTROPHILS 87 % (28-66); PLATELET ESTIMATE NORMAL (NORMAL)
[2024-05-21 10:41] LABS: ANISOCYTOSIS 3+; HYPOCHROMASIA 2+; MICROCYTOSIS 3+
[2024-05-21 10:42] LABS: POLYCHROMASIA 1+
[2024-05-21 11:05] LABS: ERYTHROCYTE SEDIMENTATION RATE 123 mm/hr (0-20)
[2024-05-21] MEDS ORDERED: VANCOMYCIN HCL IV ONE (11:10)
[2024-05-21] MEDS ORDERED: FLUID PLACE HOLDER IV ONE (11:10)
[2024-05-21] MEDS ORDERED: ACETAMINOPHEN TAB 650MG DOSE (2X325MG) PO PRN (11:40)
[2024-05-21] MEDS ORDERED: GLUCOSE 4 GM CHEW PO PRN (11:45)
[2024-05-21] MEDS ORDERED: CEFEPIME HCL 2 GM in D5W MINI-BAG PLUS 50 ML IV SCH (11:45)
[2024-05-21] MEDS ORDERED: GLUCAGON INJ 1MG VIAL SC PRN (11:45)
[2024-05-21] MEDS ORDERED: CLINDAMYCIN 600 MG in IV 1 EA IV SCH (11:45)
[2024-05-21] MEDS ORDERED: DEXTROSE 50% 50ML SYRINGE IV PRN (11:45)
[2024-05-21] MEDS ORDERED: NS 1,000 ML IV SCH (11:50)
[2024-05-21] MEDS ORDERED: HYDROMORPHONE HCL 0.5 MG/ 0.5 ML SYRINGE IV PRN ×2 (11:55)
[2024-05-21] MEDS: VANCOMYCIN HCL 1,000 MG, VIAL MATE ADAPTER 1 EACH in D5W 250 ML IV ONE ×2 (12:18→13:28)
[2024-05-21] MEDS: HYDROmorphone HCL 2MG/ML 1ML VIAL IV PRN (13:23)
[2024-05-21] MEDS: HYDROCORTISONE 100MG/2ML VIAL IV SCH (13:34)
[2024-05-21] MEDS: HEPARIN SOD (PORCINE) 5000UNITS/ML 1ML VIAL/SYRINGE SQ SCH (13:34)
[2024-05-21] MEDS: INSULIN LISPRO (NovoLOG) PER UNIT SC SCH ×2 (13:45→21:00)
[2024-05-21] MEDS: LR 1,000 ML IV ONE (15:24)
[2024-05-21] MEDS ORDERED: SENN-188 PO (15:40)
[2024-05-21] MEDS ORDERED: CVS1CRE56 TOP (15:40)
[2024-05-21] MEDS ORDERED: SERT50TA29 PO (15:40)
[2024-05-21] MEDS ORDERED: OXYC20TA2 PO (15:40)
[2024-05-21] MEDS ORDERED: PANT-23 PO (15:40)
[2024-05-21] MEDS ORDERED: NYST1POW9 TOP (15:40)
[2024-05-21] MEDS ORDERED: FAMO10TA52 PO (15:40)
[2024-05-21] MEDS ORDERED: BUSP5TA PO (15:40)
[2024-05-21] MEDS ORDERED: OXYC40TA40 PO (15:40)
[2024-05-21] MEDS ORDERED: COLA100C5 PO ×2 (15:40)
[2024-05-21] MEDS ORDERED: HOME MED LIST COMPLETE! XX SCH (15:45)
[2024-05-21 15:57] VITALS: BP 121/76; TEMP 95.8; O2SAT 94
[2024-05-21] MEDS: CLINDAMYCIN 900 MG in IV 1 EA IV SCH (16:51)
[2024-05-21] MEDS: ALTEPLASE 2MG/2ML VIAL XX ONE (18:01)
[2024-05-21] MEDS: CEFEPIME HCL 2 GM in D5W MINI-BAG PLUS 50 ML IV SCH (18:02)
[2024-05-21] MEDS: KCL 20MEQ in NS 1000ML 1,000 ML IV SCH (18:07)
[2024-05-21] MEDS: NS 1,000 ML IV SCH (18:43)
[2024-05-21 19:24] LABS: CALCIUM LEVEL 7.6 MG/DL (8.5-10.1); GLOMERULAR FILTRATION RATE 28.7 (>58); POTASSIUM SERUM 4.2 MMOL/L (3.5-5.1)
[2024-05-21 19:29] VITALS: BP 121/76; TEMP 95.8; O2SAT 94
[2024-05-21] MEDS: SENNA 8.6 MG TAB (SENOKOT) PO SCH (21:00)
[2024-05-21] MEDS ORDERED: ENOXAPARIN 40MG/0.4ML SYRINGE (J1650 PER 10MG) SC SCH (21:00)
[2024-05-21] MEDS: NYSTATIN 100,000 UNITS/GM TOPICAL PWD 15GM TOP SCH (21:20)
[2024-05-21] MEDS: HYDROMORPHONE HCL 0.5 MG/ 0.5 ML SYRINGE IV PRN (21:22)
[2024-05-21] MEDS: LEVEMIR (INSULIN DETEMIR) 1 UNITS/0.01ML SC SCH (21:23)
[2024-05-21] MEDS: busPIRone 5 MG TAB PO SCH (21:24)
[2024-05-21] MEDS: GABAPENTIN 300 MG CAP PO SCH (21:24)
[2024-05-21] MEDS: QUEtiapine FUMARATE 100 MG TAB PO SCH (21:24)
[2024-05-21] MEDS: CYCLOBENZAPRINE 10MG TABLET PO SCH (21:24)
[2024-05-21] MEDS: oxyCODONE 20MG CR TAB PO SCH (21:25)
[2024-05-21] MEDS: DOCUSATE SODIUM 100MG CAPSULE PO SCH (21:25)
[2024-05-21] MEDS: PANTOPRAZOLE 40MG TAB (PROTONIX) PO SCH (21:25)
[2024-05-21 23:15] VITALS: BP 128/75; TEMP 96.2; O2SAT 100
[2024-05-22] VITALS (14 sets, daily range): BP systolic 133–157; BP diastolic 70–92; TEMP 96.2–97.5; O2SAT 91–100
[2024-05-22 07:18] LABS: HEMATOCRIT 24.1 % (36.0-47.0); MEAN CORPUSCULAR HEMOGLOBIN 19.8 pg (27.0-33.0); MEAN CORPUSCULAR HGB CONC 28.6 g/dl (32.0-36.5); MEAN CORPUSCULAR VOLUME 69.1 fl (80.0-96.0); RED BLOOD COUNT 3.49 10^6/uL (4.00-5.40)
[2024-05-22 07:23] LABS: HEMOGLOBIN 6.9 g/dl (12.0-15.5); PLATELET COUNT, AUTOMATED 486 10^3/uL (150-450); WHITE BLOOD COUNT 31.1 10^3/uL (4.0-10.0)
[2024-05-22 07:51] LABS: PROCALCITONIN 2.22 ng/ml
[2024-05-22 07:52] LABS: BILIRUBIN,TOTAL 0.4 MG/DL (0.3-1.2); CREATININE FOR GFR 1.75 MG/DL (0.55-1.30); GLOMERULAR FILTRATION RATE 33.5 (>58); MAGNESIUM LEVEL 1.9 MG/DL (1.8-2.4); POTASSIUM SERUM 4.2 MMOL/L (3.5-5.1); TOTAL PROTEIN 6.2 G/DL (5.7-8.2)
[2024-05-22] MEDS: VANCOMYCIN HCL 1,000 MG, VIAL MATE ADAPTER 1 EACH in D5W 250 ML IV SCH (09:07)
[2024-05-22] MEDS: SERTRALINE HCL 50 MG TAB PO SCH (09:12)
[2024-05-22 15:50] LABS: HEMATOCRIT 23.2 % (36.0-47.0); MEAN CORPUSCULAR HEMOGLOBIN 19.8 pg (27.0-33.0); MEAN CORPUSCULAR HGB CONC 28.4 g/dl (32.0-36.5); MEAN CORPUSCULAR VOLUME 69.7 fl (80.0-96.0); PLATELET COUNT, AUTOMATED 485 10^3/uL (150-450); RED BLOOD COUNT 3.33 10^6/uL (4.00-5.40); WHITE BLOOD COUNT 28.1 10^3/uL (4.0-10.0)
[2024-05-22 15:53] LABS: HEMOGLOBIN 6.6 g/dl (12.0-15.5)
[2024-05-22 22:42] LABS: MEAN CORPUSCULAR HEMOGLOBIN 21.8 pg (27.0-33.0); MEAN CORPUSCULAR HGB CONC 29.6 g/dl (32.0-36.5); MEAN CORPUSCULAR VOLUME 73.6 fl (80.0-96.0); PLATELET COUNT, AUTOMATED 483 10^3/uL (150-450); RED BLOOD COUNT 3.67 10^6/uL (4.00-5.40); WHITE BLOOD COUNT 28.3 10^3/uL (4.0-10.0)
[2024-05-23] VITALS (35 sets, daily range): BP systolic 123–154; BP diastolic 62–88; PULSE 77–92; TEMP 96.2–97.8; O2SAT 97–100
[2024-05-23 05:44] LABS: HEMATOCRIT 26.6 % (36.0-47.0); MEAN CORPUSCULAR HGB CONC 30.1 g/dl (32.0-36.5); MEAN CORPUSCULAR VOLUME 73.1 fl (80.0-96.0); PLATELET COUNT, AUTOMATED 483 10^3/uL (150-450); RED BLOOD COUNT 3.64 10^6/uL (4.00-5.40); WHITE BLOOD COUNT 25.6 10^3/uL (4.0-10.0)
[2024-05-23 06:17] LABS: VANCOMYCIN LEVEL TROUGH 15.4 UG/ML (10.0-20.0)
[2024-05-23 06:18] LABS: ALBUMIN 1.9 G/DL (3.2-5.2); BILIRUBIN,TOTAL 0.3 MG/DL (0.3-1.2); CREATININE FOR GFR 1.68 MG/DL (0.55-1.30); GLOMERULAR FILTRATION RATE 35.1 (>58); POTASSIUM SERUM 4.3 MMOL/L (3.5-5.1); TOTAL PROTEIN 6.2 G/DL (5.7-8.2)
[2024-05-23] MEDS: SERTRALINE HCL 50 MG TAB PO SCH (20:24)
[2024-05-24] VITALS (11 sets, daily range): BP systolic 126–137; BP diastolic 72–79; PULSE 68; TEMP 97.2–98.2; O2SAT 98–100
[2024-05-24 05:31] LABS: BASO # 0.1 10^3/uL (0.0-0.2); BASO % 0.3 % (0.0-1.0); HEMATOCRIT 27.2 % (36.0-47.0); HEMOGLOBIN 7.8 g/dl (12.0-15.5); LYMPH # 0.8 10^3/uL (1.5-5.0); LYMPH % 3.8 % (24.0-44.0); MEAN CORPUSCULAR HEMOGLOBIN 21.4 pg (27.0-33.0); MEAN CORPUSCULAR HGB CONC 28.7 g/dl (32.0-36.5); MEAN CORPUSCULAR VOLUME 74.7 fl (80.0-96.0); MONO # 0.7 10^3/uL (0.0-0.8); MONO % 3.4 % (2.0-8.0); NEUTROPHILS # 15.4 10^3/uL (1.5-8.5); NEUTROPHILS % 77.5 % (36.0-66.0); PLATELET COUNT, AUTOMATED 500 10^3/uL (150-450); RED BLOOD COUNT 3.64 10^6/uL (4.00-5.40); WHITE BLOOD COUNT 19.8 10^3/uL (4.0-10.0)
[2024-05-24 05:56] LABS: CREATININE FOR GFR 1.53 MG/DL (0.55-1.30); GLOMERULAR FILTRATION RATE 39.1 (>58); POTASSIUM SERUM 4.3 MMOL/L (3.5-5.1)
[2024-05-24] MEDS: GABAPENTIN 300 MG CAP PO SCH (15:01)
[2024-05-25] VITALS (10 sets, daily range): BP systolic 125–176; BP diastolic 55–92; TEMP 97–98; O2SAT 93–100
[2024-05-25 08:12] LABS: HEMATOCRIT 28.6 % (36.0-47.0); HEMOGLOBIN 8.2 g/dl (12.0-15.5); MEAN CORPUSCULAR HEMOGLOBIN 21.6 pg (27.0-33.0); MEAN CORPUSCULAR HGB CONC 28.7 g/dl (32.0-36.5); MEAN CORPUSCULAR VOLUME 75.5 fl (80.0-96.0); PLATELET COUNT, AUTOMATED 501 10^3/uL (150-450); RED BLOOD COUNT 3.79 10^6/uL (4.00-5.40); WHITE BLOOD COUNT 17.5 10^3/uL (4.0-10.0)
[2024-05-25 08:36] LABS: LYMPHOCYTES 3 % (16-44); MONOCYTES 4 % (0-5); MYELOCYTES 3 % (0-0); NEUTROPHILS 74 % (28-66)
[2024-05-25 08:37] LABS: ANISOCYTOSIS 4+; HYPOCHROMASIA 2+; MICROCYTOSIS 2+; PLATELET ESTIMATE INCREASED (NORMAL)
[2024-05-25 08:38] LABS: HELMET CELLS 1+; TEAR DROP CELLS 1+
[2024-05-25 08:44] LABS: CREATININE FOR GFR 1.29 MG/DL (0.55-1.30); GLOMERULAR FILTRATION RATE 47.6 (>58); POTASSIUM SERUM 4.7 MMOL/L (3.5-5.1)
[2024-05-25] MEDS ORDERED: MIDAZOLAM INJ 2MG/2ML VIAL As Ordered ONE (11:13)
[2024-05-25] MEDS ORDERED: fentaNYL 100 MCG/2 ML INJECTION As Ordered ONE (11:13)
[2024-05-25] MEDS ORDERED: ISOVUE-300 61% 100ML VIAL As Ordered ONE (11:14)
[2024-05-25] MEDS ORDERED: LIDOCAINE 1% MDV 20ML VIAL As Ordered ONE (11:14)
[2024-05-25 12:01] LABS: VANCOMYCIN LEVEL TROUGH 14.8 UG/ML (10.0-20.0)
[2024-05-25] MEDS ORDERED: ONDANSETRON 4MG 2ML VIAL As Ordered ONE (13:02)
[2024-05-25] MEDS: NS 1,000 ML IV SCH (13:35)
[2024-05-25] MEDS: DOXYCYCLINE HYCLATE 100MG TABLET PO SCH (13:48)
[2024-05-25] MEDS: CEFDINIR 300 MG CAP (OMNICEF) PO SCH (13:48)
[2024-05-25] MEDS: LIDOCAINE 2% JELLY 6ML SYRINGE TOP ONE (13:49)
[2024-05-25] MEDS: MORPHINE 4 MG/ML 1ML VIAL IV ONE (13:58)
[2024-05-25] MEDS: HYDROMORPHONE HCL 0.5 MG/ 0.5 ML SYRINGE IV ONE ×2 (14:30→18:23)
[2024-05-25] MEDS ORDERED: PROCHLORPERAZINE 5MG TAB PO PRN (19:50)
[2024-05-25] MEDS ORDERED: LIDOCAINE 4% CREAM 5GM (LMX4) TOP PRN (20:40)
[2024-05-25] MEDS: diphenhydrAMINE 25MG CAP PO PRN (21:02)
[2024-05-25] MEDS: HYDROMORPHONE HCL 0.5 MG/ 0.5 ML SYRINGE IV PRN (22:12)
[2024-05-26] VITALS (7 sets, daily range): BP systolic 124–174; BP diastolic 63–106; TEMP 96.8–98.6; O2SAT 97–100
[2024-05-26 06:30] LABS: BASO # 0.1 10^3/uL (0.0-0.2); BASO % 0.6 % (0.0-1.0); HEMATOCRIT 28.1 % (36.0-47.0); HEMOGLOBIN 7.9 g/dl (12.0-15.5); LYMPH # 0.9 10^3/uL (1.5-5.0); LYMPH % 6.4 % (24.0-44.0); MEAN CORPUSCULAR HEMOGLOBIN 21.4 pg (27.0-33.0); MEAN CORPUSCULAR HGB CONC 28.1 g/dl (32.0-36.5); MEAN CORPUSCULAR VOLUME 76.2 fl (80.0-96.0); MONO # 0.5 10^3/uL (0.0-0.8); MONO % 3.3 % (2.0-8.0); NEUTROPHILS # 10.2 10^3/uL (1.5-8.5); PLATELET COUNT, AUTOMATED 480 10^3/uL (150-450); RED BLOOD COUNT 3.69 10^6/uL (4.00-5.40); WHITE BLOOD COUNT 14.1 10^3/uL (4.0-10.0)
[2024-05-26 06:53] LABS: CALCIUM LEVEL 7.9 MG/DL (8.5-10.1); CREATININE FOR GFR 1.26 MG/DL (0.55-1.30); GLOMERULAR FILTRATION RATE 48.9 (>58); POTASSIUM SERUM 4.4 MMOL/L (3.5-5.1)
[2024-05-26] MEDS: HYDROmorphone HCL 2MG/ML 1ML VIAL IV PRN (23:23)
[2024-05-27] VITALS (10 sets, daily range): BP systolic 138–186; BP diastolic 64–96; PULSE 83; TEMP 96.8–98.2; O2SAT 98–100
[2024-05-27 06:00] LABS: BASO # 0.1 10^3/uL (0.0-0.2); BASO % 0.5 % (0.0-1.0); HEMATOCRIT 29.4 % (36.0-47.0); HEMOGLOBIN 8.3 g/dl (12.0-15.5); LYMPH % 6.6 % (24.0-44.0); MEAN CORPUSCULAR HGB CONC 28.2 g/dl (32.0-36.5); MEAN CORPUSCULAR VOLUME 77.8 fl (80.0-96.0); MONO # 0.5 10^3/uL (0.0-0.8); MONO % 3.5 % (2.0-8.0); NEUTROPHILS # 11.2 10^3/uL (1.5-8.5); NEUTROPHILS % 74.6 % (36.0-66.0); PLATELET COUNT, AUTOMATED 501 10^3/uL (150-450); RED BLOOD COUNT 3.78 10^6/uL (4.00-5.40)
[2024-05-27 06:29] LABS: CALCIUM LEVEL 8.1 MG/DL (8.5-10.1); CREATININE FOR GFR 1.22 MG/DL (0.55-1.30); GLOMERULAR FILTRATION RATE 50.7 (>58); POTASSIUM SERUM 4.6 MMOL/L (3.5-5.1)
[2024-05-27] MEDS: ONDANSETRON 4MG 2ML VIAL IV PRN (12:06)
[2024-05-27] MEDS: FUROSEMIDE 20MG/2ML VIAL IV SCH (15:55)
[2024-05-28] MEDS ORDERED: PANTOPRAZOLE 40MG TAB (PROTONIX) As Ordered ONE (10:02)
[2024-05-28] MEDS ORDERED: INSULIN LISPRO (NovoLOG) PER UNIT As Ordered ONE (10:03)
[2024-05-28] MEDS ORDERED: SENNA 8.6 MG TAB (SENOKOT) As Ordered ONE (10:06)
[2024-05-28] MEDS ORDERED: DOCUSATE SODIUM 100MG CAPSULE As Ordered ONE (10:08)
[2024-05-28] MEDS ORDERED: GABAPENTIN 300 MG CAP As Ordered ONE (10:09)
[2024-05-28] MEDS ORDERED: FUROSEMIDE 20MG/2ML VIAL As Ordered ONE (10:10)
[2024-05-28] MEDS ORDERED: DOXYCYCLINE HYCLATE 100MG TABLET As Ordered ONE (10:11)
[2024-05-28] MEDS ORDERED: oxyCODONE 20MG CR TAB As Ordered ONE (10:16)
[2024-05-28] MEDS ORDERED: CYCLOBENZAPRINE 10MG TABLET As Ordered ONE (10:17)
[2024-05-28] MEDS ORDERED: CEFDINIR 300 MG CAP (OMNICEF) As Ordered ONE (10:18)
[2024-05-28] MEDS ORDERED: busPIRone 5 MG TAB As Ordered ONE (11:11)
[2024-05-28 12:10] VITALS: BP 114/61; TEMP 97.2; O2SAT 100
[2024-05-28 14:22] LABS: CALCIUM LEVEL 7.9 MG/DL (8.5-10.1); CREATININE FOR GFR 1.29 MG/DL (0.55-1.30); GLOMERULAR FILTRATION RATE 47.6 (>58); MAGNESIUM LEVEL 1.6 MG/DL (1.8-2.4)
[2024-05-28] MEDS: MAG SULF 1GM/100ML (MAG RUN) 1 GM in IV 1 EA IV ONE (15:35)
[2024-05-28 15:55] LABS: BASO % 0.2 % (0.0-1.0); HEMATOCRIT 29.5 % (36.0-47.0); HEMOGLOBIN 8.3 g/dl (12.0-15.5); LYMPH # 1.4 10^3/uL (1.5-5.0); LYMPH % 11.3 % (24.0-44.0); MEAN CORPUSCULAR HEMOGLOBIN 21.8 pg (27.0-33.0); MEAN CORPUSCULAR HGB CONC 28.1 g/dl (32.0-36.5); MEAN CORPUSCULAR VOLUME 77.4 fl (80.0-96.0); MONO # 0.5 10^3/uL (0.0-0.8); MONO % 3.9 % (2.0-8.0); NEUTROPHILS # 9.4 10^3/uL (1.5-8.5); PLATELET COUNT, AUTOMATED 434 10^3/uL (150-450); RED BLOOD COUNT 3.81 10^6/uL (4.00-5.40); WHITE BLOOD COUNT 12.4 10^3/uL (4.0-10.0)
[2024-05-28 16:00] VITALS: BP 116/59; TEMP 97.3; O2SAT 99
[2024-05-28] MEDS: SODIUM CHLORIDE 0.9% INJ 10 ML SYR IV PRN (17:27)
[2024-05-28 19:39] VITALS: BP 123/64; TEMP 96.9; O2SAT 97
[2024-05-28 21:12] VITALS: O2SAT 100
[2024-05-28] MEDS: HYDROCORTISONE 100MG/2ML VIAL IV SCH (22:30)
[2024-05-29 00:09] VITALS: O2SAT 96
[2024-05-29 03:07] VITALS: BP 134/64; TEMP 96.8; O2SAT 100
[2024-05-29 08:00] VITALS: BP 146/75; TEMP 97.6; O2SAT 97
[2024-05-29 08:07] LABS: HEMATOCRIT 30.7 % (36.0-47.0); HEMOGLOBIN 8.8 g/dl (12.0-15.5); MEAN CORPUSCULAR HEMOGLOBIN 21.8 pg (27.0-33.0); MEAN CORPUSCULAR HGB CONC 28.7 g/dl (32.0-36.5); PLATELET COUNT, AUTOMATED 419 10^3/uL (150-450); RED BLOOD COUNT 4.04 10^6/uL (4.00-5.40); WHITE BLOOD COUNT 10.9 10^3/uL (4.0-10.0)
[2024-05-29 08:33] LABS: CALCIUM LEVEL 8.3 MG/DL (8.5-10.1); CREATININE FOR GFR 1.25 MG/DL (0.55-1.30); GLOMERULAR FILTRATION RATE 49.3 (>58); POTASSIUM SERUM 4.2 MMOL/L (3.5-5.1)
[2024-05-29 09:02] LABS: ANISOCYTOSIS 2+; EOSINOPHILS 2 % (0-3); HYPOCHROMASIA 2+; LYMPHOCYTES 17 % (16-44); MICROCYTOSIS 1+; MONOCYTES 3 % (0-5); NEUTROPHILS 77 % (28-66); PLATELET ESTIMATE NORMAL (NORMAL); POIKILOCYTOSIS 1+; POLYCHROMASIA 1+
[2024-05-29] MEDS: MAG SULF 1GM/100ML (MAG RUN) 1 GM in IV 1 EA IV SCH (10:36)
[2024-05-29] MEDS: HYDROCORTISONE 100MG/2ML VIAL IV SCH ×2 (13:22→21:58)
[2024-05-29 15:22] VITALS: BP 122/76; TEMP 97.7; O2SAT 96
[2024-05-29 19:26] VITALS: BP 131/71; TEMP 97.7; O2SAT 100
[2024-05-29] MEDS: diphenhydrAMINE 50MG/ML VIAL IV ONE (23:00)
[2024-05-29] MEDS: CETIRIZINE (ZyrTEC) 10 MG TAB PO SCH (23:30)
[2024-05-30 04:21] VITALS: BP 104/58; TEMP 97; O2SAT 100
[2024-05-30] MEDS: ALTEPLASE 2MG/2ML VIAL XX ONE (05:01)
[2024-05-30 06:23] LABS: BASO % 0.2 % (0.0-1.0); HEMOGLOBIN 8.5 g/dl (12.0-15.5); LYMPH # 1.2 10^3/uL (1.5-5.0); MEAN CORPUSCULAR HEMOGLOBIN 22.1 pg (27.0-33.0); MEAN CORPUSCULAR HGB CONC 28.3 g/dl (32.0-36.5); MEAN CORPUSCULAR VOLUME 78.1 fl (80.0-96.0); MONO # 0.5 10^3/uL (0.0-0.8); MONO % 5.1 % (2.0-8.0); NEUTROPHILS # 7.9 10^3/uL (1.5-8.5); NEUTROPHILS % 79.7 % (36.0-66.0); PLATELET COUNT, AUTOMATED 367 10^3/uL (150-450); RED BLOOD COUNT 3.84 10^6/uL (4.00-5.40); WHITE BLOOD COUNT 9.9 10^3/uL (4.0-10.0)
[2024-05-30 06:43] LABS: C REACTIVE PROTEIN QUANTITATIV 2.3 MG/DL (<1.0)
[2024-05-30 06:44] LABS: CALCIUM LEVEL 8.2 MG/DL (8.5-10.1); CREATININE FOR GFR 1.61 MG/DL (0.55-1.30); GLOMERULAR FILTRATION RATE 36.8 (>58); POTASSIUM SERUM 4.3 MMOL/L (3.5-5.1)
[2024-05-30 12:00] VITALS: BP 126/68; TEMP 97.7; O2SAT 100
[2024-05-30 19:47] VITALS: BP 124/70; TEMP 97.9; O2SAT 98
[2024-05-30] MEDS: diphenhydrAMINE 50MG/ML VIAL IV PRN (20:04)
[2024-05-30] MEDS: HYDROCORTISONE 100MG/2ML VIAL IV SCH (20:06)
[2024-05-31 03:38] VITALS: BP 119/61; TEMP 96.8; O2SAT 99
[2024-05-31 07:15] LABS: BASO % 0.3 % (0.0-1.0); HEMATOCRIT 29.4 % (36.0-47.0); HEMOGLOBIN 8.3 g/dl (12.0-15.5); LYMPH # 1.1 10^3/uL (1.5-5.0); LYMPH % 12.6 % (24.0-44.0); MEAN CORPUSCULAR HGB CONC 28.2 g/dl (32.0-36.5); MONO # 0.5 10^3/uL (0.0-0.8); MONO % 5.9 % (2.0-8.0); NEUTROPHILS % 79.7 % (36.0-66.0); PLATELET COUNT, AUTOMATED 312 10^3/uL (150-450); RED BLOOD COUNT 3.77 10^6/uL (4.00-5.40); WHITE BLOOD COUNT 8.8 10^3/uL (4.0-10.0)
[2024-05-31 07:36] LABS: CALCIUM LEVEL 8.2 MG/DL (8.5-10.1); CREATININE FOR GFR 1.55 MG/DL (0.55-1.30); GLOMERULAR FILTRATION RATE 38.5 (>58); POTASSIUM SERUM 4.7 MMOL/L (3.5-5.1)
[2024-05-31 12:00] VITALS: BP 134/70; TEMP 98.1; O2SAT 97
[2024-05-31 20:30] VITALS: BP 131/71; TEMP 97.7; O2SAT 100
[2024-06-01 04:09] VITALS: BP 114/67; TEMP 97.7; O2SAT 98
[2024-06-01 07:51] LABS: BASO % 0.3 % (0.0-1.0); HEMOGLOBIN 8.3 g/dl (12.0-15.5); LYMPH % 11.2 % (24.0-44.0); MEAN CORPUSCULAR HEMOGLOBIN 22.4 pg (27.0-33.0); MEAN CORPUSCULAR HGB CONC 28.6 g/dl (32.0-36.5); MEAN CORPUSCULAR VOLUME 78.2 fl (80.0-96.0); MONO # 0.6 10^3/uL (0.0-0.8); MONO % 6.2 % (2.0-8.0); NEUTROPHILS # 7.4 10^3/uL (1.5-8.5); NEUTROPHILS % 81.5 % (36.0-66.0); PLATELET COUNT, AUTOMATED 282 10^3/uL (150-450); RED BLOOD COUNT 3.71 10^6/uL (4.00-5.40)
[2024-06-01 08:21] LABS: CALCIUM LEVEL 8.5 MG/DL (8.5-10.1); CREATININE FOR GFR 1.38 MG/DL (0.55-1.30); POTASSIUM SERUM 4.7 MMOL/L (3.5-5.1)
[2024-06-01] MEDS: HYDROCORTISONE 100MG/2ML VIAL IV SCH (09:00)
[2024-06-01] MEDS ORDERED: SUGAMMADEX SODIUM 500 MG/5 ML VIAL (BRIDION) As Ordered ONE (09:08)
[2024-06-01] MEDS ORDERED: propofoL 200 MG/20 ML VIAL As Ordered ONE (09:08)
[2024-06-01] MEDS ORDERED: ROCURONIUM BROMIDE 50MG/5ML VIAL As Ordered ONE (09:08)
[2024-06-01 11:55] VITALS: BP 135/79; TEMP 97.9; O2SAT 97
[2024-06-01] MEDS ORDERED: OXYC40TA40 PO (15:00)
[2024-06-01 20:00] VITALS: BP 130/70; TEMP 97.3; O2SAT 97
[2024-06-02 04:19] VITALS: BP 100/60; TEMP 97.3; O2SAT 99
[2024-06-02 06:06] LABS: BASO % 0.4 % (0.0-1.0); HEMOGLOBIN 8.1 g/dl (12.0-15.5); LYMPH # 0.8 10^3/uL (1.5-5.0); LYMPH % 11.9 % (24.0-44.0); MEAN CORPUSCULAR HEMOGLOBIN 22.1 pg (27.0-33.0); MEAN CORPUSCULAR HGB CONC 27.9 g/dl (32.0-36.5); MONO # 0.6 10^3/uL (0.0-0.8); MONO % 7.9 % (2.0-8.0); NEUTROPHILS # 5.5 10^3/uL (1.5-8.5); NEUTROPHILS % 79.1 % (36.0-66.0); PLATELET COUNT, AUTOMATED 273 10^3/uL (150-450); RED BLOOD COUNT 3.67 10^6/uL (4.00-5.40)
[2024-06-02 06:33] LABS: CALCIUM LEVEL 7.8 MG/DL (8.5-10.1); CREATININE FOR GFR 1.34 MG/DL (0.55-1.30); GLOMERULAR FILTRATION RATE 45.5 (>58); POTASSIUM SERUM 4.4 MMOL/L (3.5-5.1)
[2024-06-02] MEDS: HYDROCORTISONE 10 MG TAB PO SCH ×2 (09:00→20:47)
[2024-06-02] MEDS: SUCRALFATE 1 GM TAB PO SCH (11:20)
[2024-06-02 12:00] VITALS: BP 128/78; TEMP 97.7; O2SAT 98
[2024-06-02 20:03] VITALS: BP 108/62; TEMP 97.7; O2SAT 100
[2024-06-03 04:00] VITALS: BP 110/70; TEMP 97.5; O2SAT 97
[2024-06-03] MEDS: PERCOCET 5MG/325MG TAB PO ONE (06:00)
[2024-06-03 07:09] LABS: BASO % 0.3 % (0.0-1.0); HEMATOCRIT 28.9 % (36.0-47.0); HEMOGLOBIN 7.9 g/dl (12.0-15.5); LYMPH # 0.7 10^3/uL (1.5-5.0); LYMPH % 10.9 % (24.0-44.0); MEAN CORPUSCULAR HEMOGLOBIN 22.1 pg (27.0-33.0); MEAN CORPUSCULAR HGB CONC 27.3 g/dl (32.0-36.5); MEAN CORPUSCULAR VOLUME 80.7 fl (80.0-96.0); MONO # 0.5 10^3/uL (0.0-0.8); NEUTROPHILS # 5.2 10^3/uL (1.5-8.5); NEUTROPHILS % 80.3 % (36.0-66.0); PLATELET COUNT, AUTOMATED 255 10^3/uL (150-450); RED BLOOD COUNT 3.58 10^6/uL (4.00-5.40); WHITE BLOOD COUNT 6.5 10^3/uL (4.0-10.0)
[2024-06-03 07:52] LABS: CALCIUM LEVEL 8.5 MG/DL (8.5-10.1); CREATININE FOR GFR 1.37 MG/DL (0.55-1.30); GLOMERULAR FILTRATION RATE 44.4 (>58); POTASSIUM SERUM 4.8 MMOL/L (3.5-5.1)
[2024-06-03] MEDS: FUROSEMIDE 40MG/4ML VIAL IV SCH (11:13)
[2024-06-03 12:00] VITALS: BP 119/73; TEMP 98.1; O2SAT 95
[2024-06-03 20:00] VITALS: BP 119/72; TEMP 97.7; O2SAT 96
[2024-06-04 04:00] VITALS: BP 109/61; TEMP 97.7; O2SAT 94
[2024-06-04 05:45] LABS: BASO % 0.5 % (0.0-1.0); HEMATOCRIT 26.8 % (36.0-47.0); HEMOGLOBIN 7.6 g/dl (12.0-15.5); LYMPH # 0.9 10^3/uL (1.5-5.0); LYMPH % 13.8 % (24.0-44.0); MEAN CORPUSCULAR HEMOGLOBIN 22.6 pg (27.0-33.0); MEAN CORPUSCULAR HGB CONC 28.4 g/dl (32.0-36.5); MEAN CORPUSCULAR VOLUME 79.8 fl (80.0-96.0); MONO # 0.5 10^3/uL (0.0-0.8); MONO % 8.2 % (2.0-8.0); NEUTROPHILS # 4.9 10^3/uL (1.5-8.5); PLATELET COUNT, AUTOMATED 251 10^3/uL (150-450); RED BLOOD COUNT 3.36 10^6/uL (4.00-5.40); WHITE BLOOD COUNT 6.4 10^3/uL (4.0-10.0)
[2024-06-04 06:04] LABS: CALCIUM LEVEL 7.9 MG/DL (8.5-10.1); CREATININE FOR GFR 1.83 MG/DL (0.55-1.30); GLOMERULAR FILTRATION RATE 31.8 (>58); POTASSIUM SERUM 4.6 MMOL/L (3.5-5.1)
[2024-06-04 12:00] VITALS: BP 89/65; TEMP 97.5; O2SAT 100
[2024-06-04 19:59] VITALS: BP 93/63; TEMP 97.9; O2SAT 96
[2024-06-05 04:00] VITALS: BP 98/62; TEMP 97.5; O2SAT 96
[2024-06-05 08:24] VITALS: BP 116/67
[2024-06-05 09:28] LABS: BASO % 0.5 % (0.0-1.0); HEMATOCRIT 28.3 % (36.0-47.0); LYMPH # 0.9 10^3/uL (1.5-5.0); LYMPH % 12.9 % (24.0-44.0); MEAN CORPUSCULAR HEMOGLOBIN 22.7 pg (27.0-33.0); MEAN CORPUSCULAR HGB CONC 28.3 g/dl (32.0-36.5); MEAN CORPUSCULAR VOLUME 80.4 fl (80.0-96.0); MONO # 0.5 10^3/uL (0.0-0.8); MONO % 6.9 % (2.0-8.0); NEUTROPHILS # 5.3 10^3/uL (1.5-8.5); NEUTROPHILS % 78.9 % (36.0-66.0); PLATELET COUNT, AUTOMATED 236 10^3/uL (150-450); RED BLOOD COUNT 3.52 10^6/uL (4.00-5.40); WHITE BLOOD COUNT 6.7 10^3/uL (4.0-10.0)
[2024-06-05 10:01] LABS: CALCIUM LEVEL 8.3 MG/DL (8.5-10.1); CREATININE FOR GFR 2.51 MG/DL (0.55-1.30); GLOMERULAR FILTRATION RATE 22.1 (>58); POTASSIUM SERUM 4.2 MMOL/L (3.5-5.1)
[2024-06-05 12:11] VITALS: BP 107/87; TEMP 97.9; O2SAT 99
[2024-06-05 15:59] LABS: PERCENT SATURATION 7.5 % (13.2-45.0)
[2024-06-08] MEDS ORDERED: TORS20TA2 PO (06:47)
== END 2024-06-05 18:02 | disposition home or self-care (01) | DRG 710 ==
LOC: M ED 07:08 → M ED INP 11:37 → M PCU 13:06 → M MSPAV 05-29 15:19
PROVIDERS: ADMIT Preventive Medicine Undersea and Hyperbaric Medicine; ATTEND Hospitalist
PROC: 30233N1 Transfusion of Nonautologous Red Blood Cells into Peripheral Vein, Percutaneous Approach (ICD-10-PCS; principal; 2024-05-22)
PROC: 0T9030Z Drainage of Right Kidney with Drainage Device, Percutaneous Approach (ICD-10-PCS; 2024-05-25)
PROC: 0T9130Z Drainage of Left Kidney with Drainage Device, Percutaneous Approach (ICD-10-PCS; 2024-05-27)
DX: A41.9 Sepsis, unspecified organism (principal); E11.22 Type 2 diabetes mellitus with diabetic chronic kidney disease; N17.9 Acute kidney failure, unspecified; N13.30 Unspecified hydronephrosis; L03.115 Cellulitis of right lower limb; E27.40 Unspecified adrenocortical insufficiency; N18.32 Chronic kidney disease, stage 3b; K76.0 Fatty (change of) liver, not elsewhere classified; E66.01 Morbid (severe) obesity due to excess calories; Z68.44 Body mass index [BMI] 60.0-69.9, adult; F41.9 Anxiety disorder, unspecified; F32.A Depression, unspecified; G89.29 Other chronic pain; C51.9 Malignant neoplasm of vulva, unspecified; D64.9 Anemia, unspecified; Z92.3 Personal history of irradiation; Z87.891 Personal history of nicotine dependence; Z92.21 Personal history of antineoplastic chemotherapy; Z90.49 Acquired absence of other specified parts of digestive tract; Z79.4 Long term (current) use of insulin; Z79.891 Long term (current) use of opiate analgesic; Z79.899 Other long term (current) drug therapy; Z88.1 Allergy status to other antibiotic agents; Z88.6 Allergy status to analgesic agent; Z88.8 Allergy status to other drugs, medicaments and biological substances

== ENCOUNTER → 2024-06-15 | Outpatient (REF) | payer OTHER ==
[~2024-06-15] MED LIST changes: +CVS1CRE56 TOP; +FAMO10TA52 PO; +NYST1POW9 TOP; +PANT-23 PO; +SENN-188 PO
== END ==
LOC: M SFHCPLAZ 17:07
PROVIDERS: ATTEND Family Medicine
DX: Z86.19 Personal history of other infectious and parasitic diseases (principal); Z53.9 Procedure and treatment not carried out, unspecified reason

== ENCOUNTER → 2024-06-15 | Outpatient (CLI) | payer OTHER ==
[2024-06-15 15:30] LABS: HEMATOCRIT 32.1 % (36.0-47.0); HEMOGLOBIN 8.7 g/dl (12.0-15.5); MEAN CORPUSCULAR HEMOGLOBIN 22.4 pg (27.0-33.0); MEAN CORPUSCULAR HGB CONC 27.1 g/dl (32.0-36.5); MEAN CORPUSCULAR VOLUME 82.5 fl (80.0-96.0); PLATELET COUNT, AUTOMATED 454 10^3/uL (150-450); RED BLOOD COUNT 3.89 10^6/uL (4.00-5.40)
[2024-06-15 15:44] LABS: APPEARANCE, URINE HAZY (CLEAR); BACTERIA, URINE AUTO NEGATIVE (NEGATIVE); BILIRUBIN, URINE AUTO NEGATIVE (NEGATIVE); BLOOD, URINE BLOOD 2+ (NEGATIVE); COLOR, URINE YELLOW (YELLOW); GLUCOSE, URINE (UA) AUTO NEGATIVE (NEGATIVE); KETONE, URINE AUTO NEGATIVE (NEGATIVE); LEUKOCYTE ESTERASE, URINE AUTO 1+ (NEGATIVE); MUCUS, URINE SMALL (NEGATIVE); NITRITE, URINE AUTO NEGATIVE (NEGATIVE); PROTEIN, URINE AUTO 2+ mg/dL (NEGATIVE); RBC, URINE AUTO 83 /HPF (0-3); SPECIFIC GRAVITY URINE AUTO 1.016 (1.002-1.035); SQUAMOUS EPITHELIAL CELL UR AU 0 /HPF (0-6); WBC, URINE AUTO 10 /HPF (0-3)
[2024-06-15 15:59] LABS: ALBUMIN 2.9 G/DL (3.2-5.2); ALKALINE PHOSPHATASE 117 U/L (46-116); ALT/SGPT < 9 U/L (7.0-40); AST/SGOT 10 U/L (<34); BILIRUBIN,TOTAL 0.2 MG/DL (0.3-1.2); BLOOD UREA NITROGEN 16 MG/DL (9-23); CALCIUM LEVEL 8.3 MG/DL (8.5-10.1); CARBON DIOXIDE LEVEL 28 MMOL/L (20-31); CHLORIDE LEVEL 105 MMOL/L (98-107); CREATININE FOR GFR 1.36 MG/DL (0.55-1.30); GLOMERULAR FILTRATION RATE 44.8 (>58); GLUCOSE, FASTING 115 MG/DL (60-100); POTASSIUM SERUM 4.8 MMOL/L (3.5-5.1); SODIUM LEVEL 140 MMOL/L (136-145); TOTAL PROTEIN 7.6 G/DL (5.7-8.2)
[2024-06-15 17:46] LABS: BASOPHILS 1 % (0-1); EOSINOPHILS 2 % (0-3); LYMPHOCYTES 12 % (16-44); METAMYELOCYTES 2 % (0-0); MONOCYTES 3 % (0-5); MYELOCYTES 1 % (0-0); NEUTROPHILS 78 % (28-66)
[2024-06-15 17:47] LABS: ANISOCYTOSIS 4+
[2024-06-15 17:48] LABS: HYPOCHROMASIA 1+
[2024-06-15 17:49] LABS: PLATELET ESTIMATE INCREASED (NORMAL)
[2024-06-15 17:56] LABS: POIKILOCYTOSIS 1+
== END ==
LOC: M PLALAB 11:40
DX: Z86.19 Personal history of other infectious and parasitic diseases (principal)

== ENCOUNTER → 2024-06-24 | Outpatient (CLI) | payer OTHER ==
[~2024-06-24] MED LIST changes: +DIFI200T PO; +FLUC10TA PO; +HUMA50IN4 SC; +SENN-187 PO; -SENN-83 PO; +SERT200C PO
== END ==
LOC: M PAL 12:36
PROVIDERS: ATTEND Nurse Practitioner Adult Health
DX: G89.3 Neoplasm related pain (acute) (chronic) (principal); G89.29 Other chronic pain; C51.9 Malignant neoplasm of vulva, unspecified; N28.9 Disorder of kidney and ureter, unspecified; E27.40 Unspecified adrenocortical insufficiency; R60.1 Generalized edema; G47.30 Sleep apnea, unspecified; R53.81 Other malaise; B37.9 Candidiasis, unspecified; F10.11 Alcohol abuse, in remission; F31.9 Bipolar disorder, unspecified; F32.A Depression, unspecified; F43.10 Post-traumatic stress disorder, unspecified; K30 Functional dyspepsia; M25.50 Pain in unspecified joint; M54.50 Low back pain, unspecified; M79.605 Pain in left leg; M79.604 Pain in right leg; R06.09 Other forms of dyspnea; R10.30 Lower abdominal pain, unspecified; R53.83 Other fatigue; K62.89 Other specified diseases of anus and rectum; Z51.5 Encounter for palliative care; Z79.4 Long term (current) use of insulin; Z79.891 Long term (current) use of opiate analgesic; Z79.899 Other long term (current) drug therapy; Z80.8 Family history of malignant neoplasm of other organs or systems; Z87.440 Personal history of urinary (tract) infections; Z87.891 Personal history of nicotine dependence; Z88.1 Allergy status to other antibiotic agents; Z88.5 Allergy status to narcotic agent; Z88.8 Allergy status to other drugs, medicaments and biological substances; Z90.49 Acquired absence of other specified parts of digestive tract; Z90.79 Acquired absence of other genital organ(s); Z92.21 Personal history of antineoplastic chemotherapy; Z92.3 Personal history of irradiation; Z98.51 Tubal ligation status

== ENCOUNTER 2024-07-05 10:57 | Inpatient (IN) | payer OTHER, MEDICAID ==
[~2024-07-05] VITALS: Ht 144.8 cm; Wt 122.4 kg
[~2024-07-05 10:57] MED LIST changes: -DIFI200T PO; -FLUC10TA PO; -HUMA50IN4 SC
[2024-07-05 12:30] LABS: BASO % 0.2 % (0.0-1.0); HEMATOCRIT 35.8 % (36.0-47.0); HEMOGLOBIN 10.5 g/dl (12.0-15.5); LYMPH # 0.6 10^3/uL (1.5-5.0); LYMPH % 2.6 % (24.0-44.0); MEAN CORPUSCULAR HEMOGLOBIN 22.2 pg (27.0-33.0); MEAN CORPUSCULAR HGB CONC 29.3 g/dl (32.0-36.5); MEAN CORPUSCULAR VOLUME 75.8 fl (80.0-96.0); MONO # 0.9 10^3/uL (0.0-0.8); MONO % 3.6 % (2.0-8.0); NEUTROPHILS # 21.9 10^3/uL (1.5-8.5); NEUTROPHILS % 92.2 % (36.0-66.0); PLATELET COUNT, AUTOMATED 346 10^3/uL (150-450); RED BLOOD COUNT 4.72 10^6/uL (4.00-5.40); WHITE BLOOD COUNT 23.8 10^3/uL (4.0-10.0)
[2024-07-05] MEDS ORDERED: ISOVUE-370 76% 100ML VIAL As Ordered ONE (12:46)
[2024-07-05 12:53] LABS: ALBUMIN 2.9 G/DL (3.2-5.2); BILIRUBIN,DIRECT 0.1 MG/DL (<0.4); BILIRUBIN,TOTAL 0.4 MG/DL (0.3-1.2); TOTAL PROTEIN 7.8 G/DL (5.7-8.2)
[2024-07-05] MEDS: METOCLOPRAMIDE INJ 10MG/2ML VIAL IV ONE (13:07)
[2024-07-05] MEDS: NS 1,000 ML IV ONE (13:08)
[2024-07-05] MEDS: cefTRIAXone SOD 1 GM in D5W MINI-BAG PLUS 50 ML IV ONE (14:24)
[2024-07-05] MEDS ORDERED: HUMA50IN4 SC (15:26)
[2024-07-05] MEDS ORDERED: ZOLO100T PO (15:26)
[2024-07-05] MEDS ORDERED: FAMO1TAB11 PO (15:26)
[2024-07-05] MEDS ORDERED: HOME MED LIST COMPLETE! XX SCH (15:30)
[2024-07-05] MEDS: busPIRone 5 MG TAB PO SCH (16:12)
[2024-07-05] MEDS: CYCLOBENZAPRINE 10MG TABLET PO SCH (16:12)
[2024-07-05] MEDS ORDERED: GLUCOSE 4 GM CHEW PO PRN (16:15)
[2024-07-05] MEDS ORDERED: DEXTROSE 50% 50ML SYRINGE IV PRN (16:15)
[2024-07-05] MEDS ORDERED: GLUCAGON INJ 1MG VIAL SC PRN (16:15)
[2024-07-05] MEDS: INSULIN LISPRO (NovoLOG) PER UNIT SC SCH ×2 (16:48→21:00)
[2024-07-05 16:53] LABS: CALCIUM LEVEL 8.6 MG/DL (8.5-10.1); CREATININE FOR GFR 1.3 MG/DL (0.55-1.30); GLOMERULAR FILTRATION RATE 47.2 (>58); POTASSIUM SERUM 3.6 MMOL/L (3.5-5.1)
[2024-07-05] MEDS ORDERED: VANCOMYCIN 125MG CAPSULE PO SCH (18:00)
[2024-07-05] MEDS: ONDANSETRON 4MG 2ML VIAL IV PRN (20:21)
[2024-07-05] MEDS: NS 1,000 ML IV SCH (20:58)
[2024-07-05] MEDS: ACETAMINOPHEN TAB 650MG DOSE (2X325MG) PO PRN (20:58)
[2024-07-05 22:20] VITALS: BP 145/89; TEMP 98.1; O2SAT 99
[2024-07-05] MEDS: QUEtiapine FUMARATE 100 MG TAB PO SCH (22:36)
[2024-07-05] MEDS: SERTRALINE 100 MG TAB PO SCH (22:37)
[2024-07-05] MEDS: HYDROCORTISONE 10 MG TAB PO SCH (22:38)
[2024-07-05] MEDS: FIDAXOMICIN 200 MG TAB (DIFICID) PO SCH (22:38)
[2024-07-05] MEDS: LACTIC ACID 12% LOTION 225 GM BTL EXT SCH (22:40)
[2024-07-05] MEDS: PANTOPRAZOLE 40MG VIAL IV SCH (23:10)
[2024-07-05] MEDS: HYDROMORPHONE HCL 0.5 MG/ 0.5 ML SYRINGE IV ONE (23:29)
[2024-07-06] VITALS: O2SAT 96
[2024-07-06 04:00] VITALS: BP 150/86; TEMP 97.3; O2SAT 100
[2024-07-06] MEDS: HYDROMORPHONE HCL 0.5 MG/ 0.5 ML SYRINGE IV PRN (05:30)
[2024-07-06 06:06] LABS: HEMOGLOBIN 8.7 g/dl (12.0-15.5); MEAN CORPUSCULAR HEMOGLOBIN 22.8 pg (27.0-33.0); MEAN CORPUSCULAR VOLUME 75.9 fl (80.0-96.0); PLATELET COUNT, AUTOMATED 290 10^3/uL (150-450); RED BLOOD COUNT 3.82 10^6/uL (4.00-5.40); WHITE BLOOD COUNT 15.6 10^3/uL (4.0-10.0)
[2024-07-06 06:18] LABS: ALBUMIN 2.4 G/DL (3.2-5.2); ALKALINE PHOSPHATASE 104 U/L (46-116); ALT/SGPT < 9 U/L (7.0-40); AST/SGOT < 8 U/L (<34); BILIRUBIN,TOTAL 0.3 MG/DL (0.3-1.2); BLOOD UREA NITROGEN 16 MG/DL (9-23); CALCIUM LEVEL 7.8 MG/DL (8.5-10.1); CARBON DIOXIDE LEVEL 25 MMOL/L (20-31); CHLORIDE LEVEL 109 MMOL/L (98-107); CREATININE FOR GFR 1.21 MG/DL (0.55-1.30); GLOMERULAR FILTRATION RATE 51.2 (>58); GLUCOSE, FASTING 105 MG/DL (60-100); MAGNESIUM LEVEL 2.1 MG/DL (1.8-2.4); POTASSIUM SERUM 3.4 MMOL/L (3.5-5.1); SODIUM LEVEL 139 MMOL/L (136-145); TOTAL PROTEIN 6.3 G/DL (5.7-8.2)
[2024-07-06] MEDS: NYSTATIN 100,000 UNITS/GM TOPICAL PWD 15GM TOP SCH (08:33)
[2024-07-06] MEDS: HYDROCORTISONE 10 MG TAB PO SCH (08:33)
[2024-07-06] MEDS: CLOTRIMAZOLE 1% TOPICAL CREAM 30GM TOP PRN (08:34)
[2024-07-06] MEDS: POTASSIUM CHLORIDE 10MEQ SR TABLET PO ONE (08:34)
[2024-07-06] MEDS ORDERED: NALOXONE INJ 0.4MG/1ML VIAL IV PRN (08:55)
[2024-07-06] MEDS ORDERED: PANTOPRAZOLE 40MG VIAL IV SCH (09:00)
[2024-07-06] MEDS ORDERED: PROCHLORPERAZINE 5MG TAB PO PRN (09:00)
[2024-07-06] MEDS: GABAPENTIN 300 MG CAP PO SCH (10:22)
[2024-07-06] MEDS: oxyCODONE 20MG CR TAB PO SCH (10:32)
[2024-07-06] MEDS: KCL 40MEQ in NS 1000ML 1,000 ML IV ONE (10:33)
[2024-07-06 11:45] VITALS: BP 147/86; TEMP 97.9; O2SAT 100
[2024-07-06] MEDS: HEPARIN SOD (PORCINE) 5000UNITS/ML 1ML VIAL/SYRINGE SQ SCH (14:00)
[2024-07-06] MEDS: HYDROmorphone 4MG TABLET PO PRN (14:19)
[2024-07-06 20:20] VITALS: BP 125/66; TEMP 97.7; O2SAT 99
[2024-07-06] MEDS: FAMOTIDINE 20 MG TAB PO SCH (20:31)
[2024-07-07 04:10] VITALS: BP 139/73; TEMP 97.3; O2SAT 100
[2024-07-07 05:55] LABS: BASO % 0.4 % (0.0-1.0); EOS # 0.2 10^3/uL (0.0-0.5); EOS % 1.4 % (0.0-3.0); HEMATOCRIT 30.6 % (36.0-47.0); HEMOGLOBIN 8.6 g/dl (12.0-15.5); LYMPH # 1.1 10^3/uL (1.5-5.0); LYMPH % 10.2 % (24.0-44.0); MEAN CORPUSCULAR HEMOGLOBIN 22.2 pg (27.0-33.0); MEAN CORPUSCULAR HGB CONC 28.1 g/dl (32.0-36.5); MEAN CORPUSCULAR VOLUME 79.1 fl (80.0-96.0); MONO # 0.6 10^3/uL (0.0-0.8); NEUTROPHILS # 8.6 10^3/uL (1.5-8.5); NEUTROPHILS % 80.8 % (36.0-66.0); PLATELET COUNT, AUTOMATED 296 10^3/uL (150-450); RED BLOOD COUNT 3.87 10^6/uL (4.00-5.40); WHITE BLOOD COUNT 10.7 10^3/uL (4.0-10.0)
[2024-07-07 06:21] LABS: CALCIUM LEVEL 7.7 MG/DL (8.5-10.1); CREATININE FOR GFR 1.25 MG/DL (0.55-1.30); GLOMERULAR FILTRATION RATE 49.3 (>58)
[2024-07-07] MEDS: SODIUM CHLORIDE 0.9% INJ 10 ML SYR IV SCH (09:39)
[2024-07-07 10:15] VITALS: TEMP 97; O2SAT 98
[2024-07-07 12:00] VITALS: BP 136/79; TEMP 97.5; O2SAT 96
[2024-07-07 14:30] VITALS: BP 136/80; TEMP 97; O2SAT 95
[2024-07-07] MEDS: ALTEPLASE 2MG/2ML VIAL XX ONE (15:53)
[2024-07-07 20:01] VITALS: BP 139/80; TEMP 97.7; O2SAT 96
[2024-07-07] MEDS: DIBUCAINE 1% OINTMENT 30GM TOP PRN (22:09)
[2024-07-08] MEDS: CETIRIZINE (ZyrTEC) 10 MG TAB PO SCH (01:32)
[2024-07-08] MEDS: diphenhydrAMINE 50MG/ML VIAL IV ONE (01:32)
[2024-07-08 04:23] VITALS: BP 136/81; TEMP 97.3; O2SAT 100
[2024-07-08 08:30] LABS: BASO # 0.1 10^3/uL (0.0-0.2); BASO % 0.5 % (0.0-1.0); EOS # 0.5 10^3/uL (0.0-0.5); EOS % 5.3 % (0.0-3.0); HEMATOCRIT 30.2 % (36.0-47.0); HEMOGLOBIN 8.4 g/dl (12.0-15.5); LYMPH # 1.1 10^3/uL (1.5-5.0); LYMPH % 11.1 % (24.0-44.0); MEAN CORPUSCULAR HEMOGLOBIN 22.2 pg (27.0-33.0); MEAN CORPUSCULAR HGB CONC 27.8 g/dl (32.0-36.5); MEAN CORPUSCULAR VOLUME 79.9 fl (80.0-96.0); MONO # 0.6 10^3/uL (0.0-0.8); MONO % 6.3 % (2.0-8.0); NEUTROPHILS # 7.5 10^3/uL (1.5-8.5); NEUTROPHILS % 74.3 % (36.0-66.0); PLATELET COUNT, AUTOMATED 327 10^3/uL (150-450); RED BLOOD COUNT 3.78 10^6/uL (4.00-5.40); WHITE BLOOD COUNT 10.1 10^3/uL (4.0-10.0)
[2024-07-08] MEDS ORDERED: FLUC10TA PO (08:37)
[2024-07-08 08:43] LABS: CALCIUM LEVEL 7.7 MG/DL (8.5-10.1); CREATININE FOR GFR 1.37 MG/DL (0.55-1.30); GLOMERULAR FILTRATION RATE 44.4 (>58)
[2024-07-08] MEDS ORDERED: DIFI200T PO (10:59)
[2024-07-08 12:00] VITALS: BP 114/71; TEMP 97.5; O2SAT 98
[2024-07-08 20:00] VITALS: BP 132/88; TEMP 97.5; O2SAT 99
[2024-07-08] MEDS: SODIUM CHLORIDE 0.9% INJ 10 ML SYR IV PRN (21:15)
[2024-07-08] MEDS: diphenhydrAMINE 50MG CAP PO PRN (21:52)
[2024-07-09 04:00] VITALS: BP 124/83; TEMP 97.2; O2SAT 98
[2024-07-09 06:02] LABS: HEMATOCRIT 30.9 % (36.0-47.0); HEMOGLOBIN 8.6 g/dl (12.0-15.5); MEAN CORPUSCULAR HEMOGLOBIN 22.1 pg (27.0-33.0); MEAN CORPUSCULAR HGB CONC 27.8 g/dl (32.0-36.5); MEAN CORPUSCULAR VOLUME 79.4 fl (80.0-96.0); PLATELET COUNT, AUTOMATED 295 10^3/uL (150-450); RED BLOOD COUNT 3.89 10^6/uL (4.00-5.40); WHITE BLOOD COUNT 10.6 10^3/uL (4.0-10.0)
[2024-07-09] MEDS ORDERED: COLA100C5 PO (11:55)
[2024-07-09 12:00] VITALS: BP 140/97; TEMP 97.5; O2SAT 93
== END 2024-07-09 11:54 | disposition home or self-care (01) | DRG 248 ==
LOC: M ED 10:57 → M ED INP 15:45 → M MSPAV 21:57
PROVIDERS: ADMIT Hospitalist; ATTEND Internal Medicine
DX: A04.72 Enterocolitis due to Clostridium difficile, not specified as recurrent (principal); E11.22 Type 2 diabetes mellitus with diabetic chronic kidney disease; E27.40 Unspecified adrenocortical insufficiency; Z68.44 Body mass index [BMI] 60.0-69.9, adult; C51.9 Malignant neoplasm of vulva, unspecified; D64.9 Anemia, unspecified; N18.30 Chronic kidney disease, stage 3 unspecified; E83.42 Hypomagnesemia; E66.9 Obesity, unspecified; F32.A Depression, unspecified; I89.0 Lymphedema, not elsewhere classified; G89.4 Chronic pain syndrome; Z96.0 Presence of urogenital implants; E87.6 Hypokalemia; F41.9 Anxiety disorder, unspecified; Z87.891 Personal history of nicotine dependence; Z79.891 Long term (current) use of opiate analgesic; Z79.4 Long term (current) use of insulin; Z79.899 Other long term (current) drug therapy; Z88.1 Allergy status to other antibiotic agents; Z88.8 Allergy status to other drugs, medicaments and biological substances; Z91.048 Other nonmedicinal substance allergy status; Z92.3 Personal history of irradiation; Z92.21 Personal history of antineoplastic chemotherapy

== ENCOUNTER 2024-07-09 11:48 | Outpatient (CLI) | payer OTHER ==
[~2024-07-09] VITALS: Ht 144.8 cm; Wt 122.4 kg
[~2024-07-09 11:48] MED LIST changes: +DIFI200T PO; +FLUC10TA PO; +HUMA50IN4 SC
[2024-07-09] MEDS ORDERED: COLA100C5 PO (11:55)
[2024-07-09 12:30] VITALS: BP 140/97; O2SAT 93
[2024-07-09] MEDS: BEZLOTOXUMAB in NS 100 ML OVER 1 HR IV ONE (13:56)
[2024-07-09 14:48] VITALS: BP 141/95; O2SAT 95
[2024-07-09] MEDS: SODIUM CHLORIDE 0.9% INJ 10 ML SYR IV PRN (15:08)
[2024-07-09 15:29] VITALS: BP 139/82; O2SAT 95
== END 2024-07-09 15:39 | disposition home or self-care (01) ==
LOC: M OPCLI4PV 11:48 → M MSPAV 11:59 → M OPCLI4PV 15:39
PROVIDERS: ATTEND Internal Medicine
DX: A04.72 Enterocolitis due to Clostridium difficile, not specified as recurrent (principal); Z88.0 Allergy status to penicillin; Z88.1 Allergy status to other antibiotic agents; Z88.8 Allergy status to other drugs, medicaments and biological substances; Z91.89 Other specified personal risk factors, not elsewhere classified
CPT/HCPCS: 96365; J0565; J1642

== ENCOUNTER → 2024-07-26 | Outpatient (REF) | payer OTHER | LOC: M SFHCPLAZ 09:28 | PROVIDERS: ATTEND Internal Medicine Infectious Disease | DX: M25.551 Pain in right hip (principal); M25.552 Pain in left hip ==

== ENCOUNTER → 2024-07-29 | Outpatient (CLI) | payer OTHER | LOC: M PLALAB 07:06 | PROVIDERS: ATTEND Internal Medicine Infectious Disease | DX: M25.551 Pain in right hip (principal); M25.552 Pain in left hip ==

== ENCOUNTER → 2024-07-29 | Outpatient (CLI) | payer OTHER ==
[2024-07-29 11:53] LABS: ALBUMIN 3.1 G/DL (3.2-5.2); CREATININE FOR GFR 1.55 MG/DL (0.55-1.30); GLOMERULAR FILTRATION RATE 38.5 (>58); PHOSPHORUS LEVEL 4.4 MG/DL (2.5-4.9); POTASSIUM SERUM 4.3 MMOL/L (3.5-5.1)
== END ==
LOC: M PLALAB 07:08
PROVIDERS: ATTEND Internal Medicine Cardiovascular Disease
DX: R60.0 Localized edema (principal); R94.31 Abnormal electrocardiogram [ECG] [EKG]; R06.02 Shortness of breath; I42.2 Other hypertrophic cardiomyopathy

== ENCOUNTER → 2024-08-13 | Outpatient (REF) | payer OTHER ==
[~2024-08-13] MED LIST changes: +GABA-1172 PO; -GABA-282 PO
[2024-08-13 18:05] LABS: APPEARANCE, URINE HAZY (CLEAR); BACTERIA, URINE AUTO 1+ (NEGATIVE); BILIRUBIN, URINE AUTO NEGATIVE (NEGATIVE); BLOOD, URINE BLOOD 2+ (NEGATIVE); COLOR, URINE STRAW (YELLOW); GLUCOSE, URINE (UA) AUTO NEGATIVE (NEGATIVE); KETONE, URINE AUTO NEGATIVE (NEGATIVE); LEUKOCYTE ESTERASE, URINE AUTO 3+ (NEGATIVE); NITRITE, URINE AUTO NEGATIVE (NEGATIVE); PROTEIN, URINE AUTO NEGATIVE (NEGATIVE); RBC, URINE AUTO 6 /HPF (0-3); SPECIFIC GRAVITY URINE AUTO 1.005 (1.002-1.035); SQUAMOUS EPITHELIAL CELL UR AU 0 /HPF (0-6); UROBILINOGEN, URINE AUTO 0.2 mg/dL (0.0-2.0); WBC, URINE AUTO 36 /HPF (0-3)
[2024-08-13 18:06] LABS: APPEARANCE, URINE HAZY (CLEAR); BACTERIA, URINE AUTO 1+ (NEGATIVE); BILIRUBIN, URINE AUTO NEGATIVE (NEGATIVE); BLOOD, URINE BLOOD 3+ (NEGATIVE); COLOR, URINE YELLOW (YELLOW); GLUCOSE, URINE (UA) AUTO NEGATIVE (NEGATIVE); KETONE, URINE AUTO NEGATIVE (NEGATIVE); LEUKOCYTE ESTERASE, URINE AUTO 3+ (NEGATIVE); MUCUS, URINE SMALL (NEGATIVE); NITRITE, URINE AUTO POSITIVE (NEGATIVE); PROTEIN, URINE AUTO 1+ mg/dL (NEGATIVE); RBC, URINE AUTO 93 /HPF (0-3); SPECIFIC GRAVITY URINE AUTO 1.005 (1.002-1.035); SQUAMOUS EPITHELIAL CELL UR AU 0 /HPF (0-6); UROBILINOGEN, URINE AUTO 0.2 mg/dL (0.0-2.0); WBC, URINE AUTO 87 /HPF (0-3)
== END ==
LOC: M SMT 17:09
PROVIDERS: ATTEND Physician Assistant
DX: R10.9 Unspecified abdominal pain (principal)

== ENCOUNTER → 2024-08-16 | Outpatient (CLI) | payer OTHER | LOC: M RAD 10:21 | PROVIDERS: ATTEND Physician Assistant | DX: R10.9 Unspecified abdominal pain (principal) ==

== ENCOUNTER → 2024-08-24 | Outpatient (CLI) | payer OTHER | LOC: M PLAIMG 13:49 | PROVIDERS: ATTEND Internal Medicine Cardiovascular Disease | DX: R60.0 Localized edema (principal); I42.2 Other hypertrophic cardiomyopathy; I31.39 Other pericardial effusion (noninflammatory); I27.20 Pulmonary hypertension, unspecified; I08.3 Combined rheumatic disorders of mitral, aortic and tricuspid valves ==

== ENCOUNTER 2024-09-21 12:45 | Inpatient (IN) | payer OTHER ==
[~2024-09-21] VITALS: Ht 144.8 cm; Wt 129.2 kg
[~2024-09-21 12:45] MED LIST changes: +NYST1POW3 TOP; -NYST1POW9 TOP
[2024-09-21 15:08] LABS: VENOUS BASE EXCESS -1.2 (-2.0-2.0); VENOUS HCO3 24.6 MMOL/L (23.0-27.0); VENOUS O2 SATURATION 43.1 % (60.0-80.0); VENOUS PARTIAL PRESSURE CO2 46.1 mmHg (38.0-50.0); VENOUS PARTIAL PRESSURE O2 20.3 mmHg (30.0-50.0); VENOUS PH 7.345 UNITS (7.330-7.430); VENOUS STANDARD HCO3 22.5 MMOL/L
[2024-09-21 15:13] LABS: BASO % 0.2 % (0.0-1.0); EOS # 0.1 10^3/uL (0.0-0.5); EOS % 0.3 % (0.0-3.0); HEMATOCRIT 32.9 % (36.0-47.0); HEMOGLOBIN 9.5 g/dl (12.0-15.5); LYMPH # 0.5 10^3/uL (1.5-5.0); LYMPH % 2.5 % (24.0-44.0); MEAN CORPUSCULAR HEMOGLOBIN 21.6 pg (27.0-33.0); MEAN CORPUSCULAR HGB CONC 28.9 g/dl (32.0-36.5); MEAN CORPUSCULAR VOLUME 74.8 fl (80.0-96.0); MONO # 0.2 10^3/uL (0.0-0.8); MONO % 0.9 % (2.0-8.0); NEUTROPHILS % 95.1 % (36.0-66.0); PLATELET COUNT, AUTOMATED 254 10^3/uL (150-450); WHITE BLOOD COUNT 21.1 10^3/uL (4.0-10.0)
[2024-09-21 15:25] LABS: INR 1.17; PROTHROMBIN TIME 15.2 SECONDS (12.5-14.5)
[2024-09-21] MEDS: ACETAMINOPHEN 500 MG TAB PO ONE (15:32)
[2024-09-21] MEDS: CEFEPIME HCL 2 GM in DEXTROSE 5% (D5W) ADV/MINI-BAG 50 ML IV ONE (15:32)
[2024-09-21] MEDS: NS IV ONE (15:32)
[2024-09-21 15:35] LABS: AMORPHOUS SEDIMENT SMALL (NEGATIVE); APPEARANCE, URINE CLOUDY (CLEAR); BACTERIA, URINE AUTO 1+ (NEGATIVE); BILIRUBIN, URINE AUTO NEGATIVE (NEGATIVE); BLOOD, URINE BLOOD 2+ (NEGATIVE); COLOR, URINE AMBER (YELLOW); GLUCOSE, URINE (UA) AUTO NEGATIVE (NEGATIVE); KETONE, URINE AUTO NEGATIVE (NEGATIVE); LEUKOCYTE ESTERASE, URINE AUTO 3+ (NEGATIVE); MUCUS, URINE SMALL (NEGATIVE); NITRITE, URINE AUTO POSITIVE (NEGATIVE); PROTEIN, URINE AUTO 2+ mg/dL (NEGATIVE); RBC, URINE AUTO 13 /HPF (0-3); SPECIFIC GRAVITY URINE AUTO 1.018 (1.002-1.035); SQUAMOUS EPITHELIAL CELL UR AU 0 /HPF (0-6); UROBILINOGEN, URINE AUTO 0.2 mg/dL (0.0-2.0); WBC, URINE AUTO 2 /HPF (0-3)
[2024-09-21 15:37] LABS: C REACTIVE PROTEIN QUANTITATIV 20.1 MG/DL (<1.0)
[2024-09-21 15:39] LABS: ALBUMIN 2.7 G/DL (3.2-5.2); BILIRUBIN,DIRECT 0.1 MG/DL (<0.4); BILIRUBIN,TOTAL 0.3 MG/DL (0.3-1.2); CALCIUM LEVEL 8.1 MG/DL (8.5-10.1); CREATININE FOR GFR 1.58 MG/DL (0.55-1.30); GLOMERULAR FILTRATION RATE 37.5 (>58); POTASSIUM SERUM 3.8 MMOL/L (3.5-5.1); TOTAL PROTEIN 7.1 G/DL (5.7-8.2)
[2024-09-21 15:46] LABS: PROCALCITONIN 1.22 ng/ml
[2024-09-21] MEDS ORDERED: DOCU100C16 PO ×2 (16:28)
[2024-09-21] MEDS ORDERED: SPIR-10 PO (16:28)
[2024-09-21] MEDS ORDERED: HOME MED LIST COMPLETE! XX SCH (16:30)
[2024-09-21] MEDS ORDERED: GLUCOSE 4 GM CHEW PO PRN (17:40)
[2024-09-21] MEDS ORDERED: ACETAMINOPHEN 325 MG TAB PO PRN (17:40)
[2024-09-21] MEDS ORDERED: GLUCAGON INJ 1MG VIAL SC PRN (17:40)
[2024-09-21] MEDS ORDERED: MAALOX 30 ML SUSP *UDC PO PRN (17:40)
[2024-09-21] MEDS ORDERED: DEXTROSE 50% 50ML SYRINGE IV PRN (17:40)
[2024-09-21] MEDS ORDERED: VANCOMYCIN/WATER FOR INJ 1,000 MG in IV 1 EA IV SCH (17:40)
[2024-09-21] MEDS ORDERED: MOM 30ML SUSPENSION UDC PO PRN (17:40)
[2024-09-21] MEDS ORDERED: HYDROMORPHONE HCL 0.5 MG/ 0.5 ML SYRINGE IV PRN (18:05)
[2024-09-21 18:16] LABS: ANTI-STREPTOLYSIN O QUANT 1635.9 IU/ML (<195)
[2024-09-21] MEDS: HYDROMORPHONE HCL 0.5 MG/ 0.5 ML SYRINGE IV PRN (19:11)
[2024-09-21 20:59] VITALS: BP 128/68; TEMP 100.3; O2SAT 95
[2024-09-21 20:59] LABS: HEMATOCRIT 37.1 % (36.0-47.0); MEAN CORPUSCULAR HEMOGLOBIN 28.7 pg (27.0-33.0); MEAN CORPUSCULAR HGB CONC 32.1 g/dl (32.0-36.5); MEAN CORPUSCULAR VOLUME 89.4 fl (80.0-96.0); PLATELET COUNT, AUTOMATED 272 10^3/uL (150-450); RED BLOOD COUNT 4.15 10^6/uL (4.00-5.40); WHITE BLOOD COUNT 13.9 10^3/uL (4.0-10.0)
[2024-09-21] MEDS: LEVEMIR (INSULIN DETEMIR) 1 UNITS/0.01ML SC SCH (21:00)
[2024-09-21] MEDS: INSULIN LISPRO (NovoLOG) PER UNIT SC SCH (21:00)
[2024-09-21 21:05] LABS: HEMOGLOBIN 11.9 g/dl (12.0-15.5)
[2024-09-21] MEDS: NS 1,000 ML IV SCH (21:38)
[2024-09-21] MEDS: VANCOMYCIN 1,000 MG/200 ML IV BAG *LOAD IV SCH (21:40)
[2024-09-21] MEDS: DOCUSATE SODIUM 100MG CAPSULE PO SCH (21:41)
[2024-09-21] MEDS: SERTRALINE 100 MG TAB PO SCH (21:41)
[2024-09-21] MEDS: CYCLOBENZAPRINE 10MG TABLET PO SCH (21:41)
[2024-09-21] MEDS: FAMOTIDINE 20 MG TAB PO SCH (21:41)
[2024-09-21] MEDS: QUEtiapine FUMARATE 100 MG TAB PO SCH (21:41)
[2024-09-21] MEDS: GABAPENTIN 300 MG CAP PO SCH (21:41)
[2024-09-21] MEDS: busPIRone 5 MG TAB PO SCH (21:41)
[2024-09-21] MEDS: oxyCODONE 20MG CR TAB PO SCH (21:43)
[2024-09-21] MEDS: HEPARIN SOD (PORCINE) 5000UNITS/ML 1ML VIAL/SYRINGE SC SCH (21:44)
[2024-09-21] MEDS: HYDROCORTISONE 100MG/2ML VIAL IV SCH (21:50)
[2024-09-21] MEDS: VANCOMYCIN 125MG CAPSULE PO SCH (21:51)
[2024-09-21] MEDS: HYDROCORTISONE 10 MG TAB PO SCH (21:51)
[2024-09-22 00:17] VITALS: BP 105/59; TEMP 100.2; O2SAT 98
[2024-09-22 04:30] VITALS: BP 114/65; TEMP 98.8; O2SAT 98
[2024-09-22 06:57] LABS: BASO % 0.2 % (0.0-1.0); HEMATOCRIT 27.6 % (36.0-47.0); LYMPH # 0.5 10^3/uL (1.5-5.0); LYMPH % 2.9 % (24.0-44.0); MEAN CORPUSCULAR VOLUME 75.8 fl (80.0-96.0); MONO # 0.3 10^3/uL (0.0-0.8); MONO % 1.8 % (2.0-8.0); NEUTROPHILS % 93.8 % (36.0-66.0); PLATELET COUNT, AUTOMATED 212 10^3/uL (150-450); RED BLOOD COUNT 3.64 10^6/uL (4.00-5.40)
[2024-09-22 07:19] LABS: CALCIUM LEVEL 7.6 MG/DL (8.5-10.1); CREATININE FOR GFR 1.51 MG/DL (0.55-1.30); GLOMERULAR FILTRATION RATE 39.5 (>58); MAGNESIUM LEVEL 1.6 MG/DL (1.8-2.4); POTASSIUM SERUM 3.9 MMOL/L (3.5-5.1)
[2024-09-22 07:55] VITALS: BP 122/87; TEMP 99.9; O2SAT 99
[2024-09-22 08:01] LABS: C REACTIVE PROTEIN QUANTITATIV 27.5 MG/DL (<1.0)
[2024-09-22 08:02] LABS: VANCOMYCIN RANDOM 21.3 UG/ML
[2024-09-22] MEDS: MAG SULF 1GM/100ML (MAG RUN) 1 GM in IV 1 EA IV SCH (09:51)
[2024-09-22] MEDS: INSULIN LISPRO (NovoLOG) PER UNIT SC SCH (09:53)
[2024-09-22] MEDS: PANTOPRAZOLE 40MG TAB (PROTONIX) PO SCH (09:54)
[2024-09-22] MEDS: LACTOBACILLUS ACIDOPHILUS CAP (BACID) PO SCH (09:54)
[2024-09-22] MEDS: HYDROCORTISONE 10 MG TAB PO SCH (10:27)
[2024-09-22 12:00] VITALS: BP 110/63; TEMP 99.2; O2SAT 98
[2024-09-22] MEDS: VANCOMYCIN 1,000MG/200 ML IV BAG IV SCH (15:00)
[2024-09-22 16:00] VITALS: BP 105/64; TEMP 97.5; O2SAT 98
[2024-09-22] MEDS: SODIUM CHLORIDE 0.9% INJ 10 ML SYR IV PRN (18:23)
[2024-09-22 19:49] VITALS: BP 116/65; TEMP 97.6; O2SAT 97
[2024-09-23] VITALS (8 sets, daily range): BP systolic 104–121; BP diastolic 59–81; TEMP 96.2–98.1; O2SAT 96–100
[2024-09-23 07:47] LABS: BASO % 0.1 % (0.0-1.0); HEMATOCRIT 29.2 % (36.0-47.0); HEMOGLOBIN 8.4 g/dl (12.0-15.5); LYMPH # 0.5 10^3/uL (1.5-5.0); LYMPH % 4.2 % (24.0-44.0); MEAN CORPUSCULAR HEMOGLOBIN 21.8 pg (27.0-33.0); MEAN CORPUSCULAR HGB CONC 28.8 g/dl (32.0-36.5); MEAN CORPUSCULAR VOLUME 75.8 fl (80.0-96.0); MONO # 0.4 10^3/uL (0.0-0.8); MONO % 3.4 % (2.0-8.0); NEUTROPHILS % 91.6 % (36.0-66.0); PLATELET COUNT, AUTOMATED 236 10^3/uL (150-450); RED BLOOD COUNT 3.85 10^6/uL (4.00-5.40)
[2024-09-23 08:15] LABS: C REACTIVE PROTEIN QUANTITATIV 26.5 MG/DL (<1.0)
[2024-09-23 08:17] LABS: CALCIUM LEVEL 8.1 MG/DL (8.5-10.1); CREATININE FOR GFR 1.31 MG/DL (0.55-1.30); GLOMERULAR FILTRATION RATE 46.5 (>58); MAGNESIUM LEVEL 2.2 MG/DL (1.8-2.4); POTASSIUM SERUM 3.8 MMOL/L (3.5-5.1)
[2024-09-23] MEDS: CEPHALEXIN 500 MG CAP PO SCH (10:33)
[2024-09-23] MEDS ORDERED: CEFEPIME HCL 2 GM in DEXTROSE 5% (D5W) ADV/MINI-BAG 50 ML IV SCH (12:00)
[2024-09-23] MEDS: LACTIC ACID 12% LOTION 225 GM BTL TOP SCH (13:15)
[2024-09-23] MEDS: DOCUSATE SODIUM 100MG CAPSULE PO SCH (21:18)
[2024-09-24 06:02] VITALS: BP 104/58; TEMP 97.7; O2SAT 96
[2024-09-24 06:05] LABS: BASO % 0.3 % (0.0-1.0); EOS % 0.2 % (0.0-3.0); HEMATOCRIT 26.1 % (36.0-47.0); HEMOGLOBIN 7.4 g/dl (12.0-15.5); LYMPH # 0.8 10^3/uL (1.5-5.0); LYMPH % 12.6 % (24.0-44.0); MEAN CORPUSCULAR HEMOGLOBIN 21.6 pg (27.0-33.0); MEAN CORPUSCULAR HGB CONC 28.4 g/dl (32.0-36.5); MEAN CORPUSCULAR VOLUME 76.1 fl (80.0-96.0); MONO # 0.4 10^3/uL (0.0-0.8); MONO % 5.7 % (2.0-8.0); NEUTROPHILS # 5.3 10^3/uL (1.5-8.5); PLATELET COUNT, AUTOMATED 267 10^3/uL (150-450); RED BLOOD COUNT 3.43 10^6/uL (4.00-5.40); WHITE BLOOD COUNT 6.6 10^3/uL (4.0-10.0)
[2024-09-24 06:40] LABS: C REACTIVE PROTEIN QUANTITATIV 10.6 MG/DL (<1.0)
[2024-09-24 06:41] LABS: CALCIUM LEVEL 7.6 MG/DL (8.5-10.1); CREATININE FOR GFR 1.35 MG/DL (0.55-1.30); GLOMERULAR FILTRATION RATE 44.9 (>58); MAGNESIUM LEVEL 2.1 MG/DL (1.8-2.4); POTASSIUM SERUM 4.2 MMOL/L (3.5-5.1)
[2024-09-24 08:49] LABS: HEMOGLOBIN 7.6 g/dl (12.0-15.5)
[2024-09-24] MEDS: SPIRONOLACTONE 12.5MG PER 1/2 TABLET PO SCH (08:59)
[2024-09-24 12:00] VITALS: BP 116/62; TEMP 97.7; O2SAT 96
[2024-09-24] MEDS ORDERED: RISATAB3 PO (12:11)
[2024-09-24] MEDS ORDERED: CEPH500C PO (12:11)
[2024-09-24] MEDS: HYDROmorphone 4MG TABLET PO PRN (13:23)
[2024-09-24] MEDS ORDERED: VANC1CAP6 PO (14:18)
== END 2024-09-24 16:01 | disposition home health service (06) | DRG 720 ==
LOC: M ED 12:45 → M ED INP 17:40 → M PCU 20:55 → M MSPAV 09-23 17:51
PROVIDERS: ADMIT Internal Medicine; ATTEND Internal Medicine
DX: A41.9 Sepsis, unspecified organism (principal); J96.11 Chronic respiratory failure with hypoxia; N17.9 Acute kidney failure, unspecified; E11.22 Type 2 diabetes mellitus with diabetic chronic kidney disease; N18.30 Chronic kidney disease, stage 3 unspecified; Z99.81 Dependence on supplemental oxygen; G62.9 Polyneuropathy, unspecified; E66.01 Morbid (severe) obesity due to excess calories; E27.40 Unspecified adrenocortical insufficiency; E87.1 Hypo-osmolality and hyponatremia; Z68.44 Body mass index [BMI] 60.0-69.9, adult; K76.0 Fatty (change of) liver, not elsewhere classified; F32.A Depression, unspecified; F41.9 Anxiety disorder, unspecified; G89.29 Other chronic pain; L03.115 Cellulitis of right lower limb; L03.116 Cellulitis of left lower limb; Z96.0 Presence of urogenital implants; Z79.4 Long term (current) use of insulin; Z79.891 Long term (current) use of opiate analgesic; Z79.899 Other long term (current) drug therapy; Z88.1 Allergy status to other antibiotic agents; Z88.8 Allergy status to other drugs, medicaments and biological substances; Z91.048 Other nonmedicinal substance allergy status; C51.9 Malignant neoplasm of vulva, unspecified; Z92.3 Personal history of irradiation; Z92.21 Personal history of antineoplastic chemotherapy; Z90.49 Acquired absence of other specified parts of digestive tract; E66.813 Obesity, class 3

== ENCOUNTER → 2024-09-27 | Outpatient (CLI) | payer OTHER ==
[~2024-09-27] MED LIST changes: +CIPROFLOXACIN/D5W 400 MG/200 ML BAG As Ordered ONE; +ISOVUE-300 61% 100ML VIAL As Ordered ONE; +LIDOCAINE 1% MDV 20ML VIAL As Ordered ONE; +MIDAZOLAM INJ 2MG/2ML VIAL As Ordered ONE; +NS 1,000 ML IV SCH; +RISATAB3 PO; +SPIR-10 PO; +VANC1CAP6 PO; +fentaNYL 100 MCG/2 ML INJECTION As Ordered ONE
[2024-09-27 14:21] VITALS: TEMP 98.1
[2024-09-27] MEDS: CIPROFLOXACIN 400 MG in IV 1 EA IV ONE (14:57)
[2024-09-27 16:05] VITALS: BP 170/81; O2SAT 98
== END ==
LOC: M IRPRO 14:00
PROVIDERS: ATTEND Radiology Diagnostic Radiology
DX: A41.9 Sepsis, unspecified organism (principal); N13.30 Unspecified hydronephrosis
CPT/HCPCS: 50435; C1729; J0744; J2250; J3010; Q9967

== ENCOUNTER → 2024-09-28 | Outpatient (CLI) | payer OTHER ==
[~2024-09-28] MED LIST changes: -CIPROFLOXACIN/D5W 400 MG/200 ML BAG As Ordered ONE; -ISOVUE-300 61% 100ML VIAL As Ordered ONE; -LIDOCAINE 1% MDV 20ML VIAL As Ordered ONE; -MIDAZOLAM INJ 2MG/2ML VIAL As Ordered ONE; -NS 1,000 ML IV SCH; -fentaNYL 100 MCG/2 ML INJECTION As Ordered ONE
== END ==
LOC: M PAL 13:39
PROVIDERS: ATTEND Nurse Practitioner Adult Health
DX: G89.3 Neoplasm related pain (acute) (chronic) (principal); G89.29 Other chronic pain; C51.9 Malignant neoplasm of vulva, unspecified; N28.9 Disorder of kidney and ureter, unspecified; E27.40 Unspecified adrenocortical insufficiency; R60.1 Generalized edema; G47.30 Sleep apnea, unspecified; R53.81 Other malaise; B37.9 Candidiasis, unspecified; F10.11 Alcohol abuse, in remission; F31.9 Bipolar disorder, unspecified; F32.A Depression, unspecified; F43.10 Post-traumatic stress disorder, unspecified; R10.2 Pelvic and perineal pain; M79.604 Pain in right leg; M79.605 Pain in left leg; R10.30 Lower abdominal pain, unspecified; M54.50 Low back pain, unspecified; L03.90 Cellulitis, unspecified; K30 Functional dyspepsia; Z51.5 Encounter for palliative care; Z79.4 Long term (current) use of insulin; Z79.891 Long term (current) use of opiate analgesic; Z79.899 Other long term (current) drug therapy; Z80.8 Family history of malignant neoplasm of other organs or systems; Z87.440 Personal history of urinary (tract) infections; Z87.891 Personal history of nicotine dependence; Z88.1 Allergy status to other antibiotic agents; Z88.8 Allergy status to other drugs, medicaments and biological substances; Z90.49 Acquired absence of other specified parts of digestive tract; Z90.79 Acquired absence of other genital organ(s); Z91.048 Other nonmedicinal substance allergy status; Z92.21 Personal history of antineoplastic chemotherapy; Z92.3 Personal history of irradiation; Z98.51 Tubal ligation status

== ENCOUNTER → 2024-10-25 | Outpatient (CLI) | payer OTHER | LOC: M PLARAD 11:17 | PROVIDERS: ATTEND Obstetrics & Gynecology Gynecologic Oncology | DX: C51.9 Malignant neoplasm of vulva, unspecified (principal) | CPT/HCPCS: 78815; A9552 ==

== ENCOUNTER 2024-10-27 15:45 | Outpatient (RCR) | payer OTHER ==
[2024-10-28] MEDS ORDERED: HYDR4TAB PO (15:37)
[2024-10-29] MEDS ORDERED: QUET100T2 PO (07:45)
== END 2024-11-09 ==
LOC: M PT 15:45
PROVIDERS: ATTEND General Practice
DX: I89.0 Lymphedema, not elsewhere classified (principal)

== ENCOUNTER → 2024-11-22 | Outpatient (CLI) | payer OTHER | LOC: M SLEEP HO 10:41 | DX: G47.33 Obstructive sleep apnea (adult) (pediatric) (principal) ==

== ENCOUNTER → 2024-12-03 | Outpatient (CLI) | payer OTHER ==
[~2024-12-03] MED LIST changes: +OXYC40TA29 PO
== END ==
LOC: M ONCR 14:54
PROVIDERS: ATTEND General Practice
DX: C51.8 Malignant neoplasm of overlapping sites of vulva (principal); S31.40XA Unspecified open wound of vagina and vulva, initial encounter; B37.89 Other sites of candidiasis; Z92.21 Personal history of antineoplastic chemotherapy; Z92.3 Personal history of irradiation; Z87.891 Personal history of nicotine dependence; Z88.1 Allergy status to other antibiotic agents; Z88.8 Allergy status to other drugs, medicaments and biological substances; Z91.048 Other nonmedicinal substance allergy status; Z79.891 Long term (current) use of opiate analgesic; Z79.4 Long term (current) use of insulin; Z79.899 Other long term (current) drug therapy

== ENCOUNTER 2024-12-12 09:57 | Inpatient (IN) | payer OTHER ==
[~2024-12-12] VITALS: Ht 172.7 cm; Wt 117.5 kg
[~2024-12-12 09:57] MED LIST changes: -OXYC40TA29 PO
[2024-12-12] MEDS: NS (Normal Saline) 0.9% 1,000 ML IV SCH (10:15)
[2024-12-12] MEDS: HYDROMORPHONE HCL 0.5 MG/ 0.5 ML SYRINGE IV PRN ×3 (11:12→17:06)
[2024-12-12 11:19] LABS: BASO % 0.1 % (0.0-1.0); HEMATOCRIT 30.7 % (36.0-47.0); HEMOGLOBIN 8.9 g/dl (12.0-15.5); LYMPH # 0.5 10^3/uL (1.5-5.0); LYMPH % 3.8 % (24.0-44.0); MEAN CORPUSCULAR HEMOGLOBIN 21.8 pg (27.0-33.0); MEAN CORPUSCULAR VOLUME 75.1 fl (80.0-96.0); MONO # 0.6 10^3/uL (0.0-0.8); MONO % 4.5 % (2.0-8.0); NEUTROPHILS # 12.3 10^3/uL (1.5-8.5); NEUTROPHILS % 90.8 % (36.0-66.0); PLATELET COUNT, AUTOMATED 278 10^3/uL (150-450); RED BLOOD COUNT 4.09 10^6/uL (4.00-5.40); WHITE BLOOD COUNT 13.6 10^3/uL (4.0-10.0)
[2024-12-12 11:24] LABS: ERYTHROCYTE SEDIMENTATION RATE 128 mm/hr (0-20)
[2024-12-12 11:41] LABS: ALBUMIN 2.5 G/DL (3.2-5.2); ALKALINE PHOSPHATASE 116 U/L (35-104); ALT/SGPT < 9 U/L (7.0-40); AST/SGOT 10 U/L (<34); BILIRUBIN,DIRECT 0.2 MG/DL (<0.4); BILIRUBIN,TOTAL 0.5 MG/DL (0.3-1.2); BLOOD UREA NITROGEN 26 MG/DL (9-23); C REACTIVE PROTEIN QUANTITATIV 24.34 MG/DL (<1.0); CALCIUM LEVEL 7.9 MG/DL (8.5-10.1); CARBON DIOXIDE LEVEL 26 MMOL/L (20-31); CHLORIDE LEVEL 101 MMOL/L (98-107); CREATININE FOR GFR 1.29 MG/DL (0.55-1.30); GLOMERULAR FILTRATION RATE 47.4 (>58); GLUCOSE, FASTING 145 MG/DL (60-100); POTASSIUM SERUM 4.4 MMOL/L (3.5-5.1); SODIUM LEVEL 135 MMOL/L (136-145); TOTAL PROTEIN 7.6 G/DL (5.7-8.2)
[2024-12-12 11:52] LABS: PROCALCITONIN 0.74 ng/ml
[2024-12-12] MEDS ORDERED: ISOVUE-370 76% 100ML VIAL As Ordered ONE (12:53)
[2024-12-12] MEDS: VANCOMYCIN HCL 2,000 MG, VIAL MATE ADAPTER 1 EACH in NS 500 ML IV ONE (12:57)
[2024-12-12 15:27] LABS: KETONE, URINE AUTO RFX NEGATIVE (NEGATIVE); MUCUS, URINE RFX SMALL (NEGATIVE); NITRITE, URINE AUTO RFX NEGATIVE (NEGATIVE); RBC, URINE AUTO RFX 2 /HPF (0-3); SQUAM EPITHELIAL CELL UR AURFX 0 /HPF (0-6)
[2024-12-12 15:32] LABS: LEUKOCYTE ESTERASE UR AUTO RFX 3+ (NEGATIVE); WBC, URINE AUTO RFX 41 /HPF (0-3)
[2024-12-12] MEDS ORDERED: DEXTROSE 50% 50ML SYRINGE IV PRN (16:10)
[2024-12-12] MEDS ORDERED: GLUCOSE 4 GM CHEW PO PRN (16:10)
[2024-12-12] MEDS ORDERED: GLUCAGON INJ 1MG VIAL SC PRN (16:10)
[2024-12-12] MEDS ORDERED: ACETAMINOPHEN 325 MG TAB PO PRN (16:10)
[2024-12-12] MEDS: cefTRIAXone SOD 2 GM in DEXTROSE 5% (D5W) ADV/MINI-BAG 50 ML IV ONE (16:30)
[2024-12-12] MEDS: NS (Normal Saline) 0.9% 1,000 ML IV ONE (17:00)
[2024-12-12] MEDS: HYDROCORTISONE 100MG/2ML VIAL IV SCH (17:00)
[2024-12-12] MEDS: VANCOMYCIN 125MG CAPSULE PO SCH (17:09)
[2024-12-12] MEDS: FLUCONAZOLE 100 MG TAB PO SCH (17:09)
[2024-12-12] MEDS: INSULIN LISPRO (NovoLOG) PER UNIT SC SCH ×2 (17:30→23:48)
[2024-12-12] MEDS: LACTOBACILLUS ACIDOPHILUS CAP (BACID) PO SCH (17:39)
[2024-12-12] MEDS ORDERED: OXYC40TA29 PO (18:15)
[2024-12-12] MEDS ORDERED: HOME MED LIST COMPLETE! XX SCH (18:20)
[2024-12-13] VITALS (7 sets, daily range): BP systolic 122–143; BP diastolic 66–77; TEMP 97.3–99.7; O2SAT 100
[2024-12-13 05:08] LABS: HEMATOCRIT 27.9 % (36.0-47.0); MEAN CORPUSCULAR HEMOGLOBIN 21.6 pg (27.0-33.0); MEAN CORPUSCULAR HGB CONC 28.7 g/dl (32.0-36.5); MEAN CORPUSCULAR VOLUME 75.2 fl (80.0-96.0); PLATELET COUNT, AUTOMATED 258 10^3/uL (150-450); RED BLOOD COUNT 3.71 10^6/uL (4.00-5.40); WHITE BLOOD COUNT 9.4 10^3/uL (4.0-10.0)
[2024-12-13 05:36] LABS: BLOOD UREA NITROGEN 21 MG/DL (9-23); CALCIUM LEVEL 7.7 MG/DL (8.5-10.1); CARBON DIOXIDE LEVEL 24 MMOL/L (20-31); CHLORIDE LEVEL 112 MMOL/L (98-107); GLOMERULAR FILTRATION RATE > 60.0 (>58); GLUCOSE, FASTING 131 MG/DL (60-100); POTASSIUM SERUM 4.3 MMOL/L (3.5-5.1); SODIUM LEVEL 141 MMOL/L (136-145)
[2024-12-13] MEDS: PANTOPRAZOLE 40MG TAB (PROTONIX) PO SCH (08:14)
[2024-12-13] MEDS: ENOXAPARIN 40MG/0.4ML SYRINGE (J1650 PER 10MG) SC SCH (08:14)
[2024-12-13] MEDS: VANCOMYCIN HCL 1,000 MG, VIAL MATE ADAPTER 1 EACH in NS 250 ML IV SCH (08:41)
[2024-12-13] MEDS: TORSEMIDE 20 MG TAB PO SCH (08:42)
[2024-12-13] MEDS: GABAPENTIN 300 MG CAP PO SCH (08:42)
[2024-12-13] MEDS: CYCLOBENZAPRINE 10MG TABLET PO SCH (08:42)
[2024-12-13] MEDS: busPIRone 5 MG TAB PO SCH (08:42)
[2024-12-13] MEDS: oxyCODONE 20MG CR TAB PO SCH (08:43)
[2024-12-13 09:55] LABS: C REACTIVE PROTEIN QUANTITATIV 24.83 MG/DL (<1.0)
[2024-12-13] MEDS: cefTRIAXone SOD 2 GM in DEXTROSE 5% (D5W) ADV/MINI-BAG 50 ML IV SCH (10:43)
[2024-12-13] MEDS: HYDROCORTISONE 100MG/2ML VIAL IV SCH (13:25)
[2024-12-13] MEDS ORDERED: PROHANCE 279.3MG/ML 15ML VIAL As Ordered ONE (17:54)
[2024-12-13] MEDS ORDERED: PROHANCE 279.3MG/ML 5ML VIAL As Ordered ONE (17:54)
[2024-12-13] MEDS: SERTRALINE 100 MG TAB PO SCH (21:26)
[2024-12-13] MEDS: QUEtiapine FUMARATE 100 MG TAB PO SCH (21:26)
[2024-12-13] MEDS: PROMETHAZINE 25MG/ML 1ML VIAL IV PRN (21:26)
[2024-12-13] MEDS: FAMOTIDINE 20 MG TAB PO SCH (21:27)
[2024-12-14] VITALS (8 sets, daily range): BP systolic 107–128; BP diastolic 55–74; TEMP 97.4–98.8; O2SAT 96–100
[2024-12-14 07:19] LABS: BASO % 0.3 % (0.0-1.0); EOS # 0.2 10^3/uL (0.0-0.5); EOS % 2.8 % (0.0-3.0); HEMATOCRIT 29.4 % (36.0-47.0); HEMOGLOBIN 8.4 g/dl (12.0-15.5); LYMPH # 0.9 10^3/uL (1.5-5.0); LYMPH % 13.4 % (24.0-44.0); MEAN CORPUSCULAR HEMOGLOBIN 21.5 pg (27.0-33.0); MEAN CORPUSCULAR HGB CONC 28.6 g/dl (32.0-36.5); MEAN CORPUSCULAR VOLUME 75.4 fl (80.0-96.0); MONO # 0.5 10^3/uL (0.0-0.8); MONO % 7.4 % (2.0-8.0); NEUTROPHILS # 4.8 10^3/uL (1.5-8.5); NEUTROPHILS % 75.5 % (36.0-66.0); PLATELET COUNT, AUTOMATED 306 10^3/uL (150-450); WHITE BLOOD COUNT 6.3 10^3/uL (4.0-10.0)
[2024-12-14 07:45] LABS: C REACTIVE PROTEIN QUANTITATIV 17.64 MG/DL (<1.0); CALCIUM LEVEL 8.2 MG/DL (8.5-10.1); CREATININE FOR GFR 1.4 MG/DL (0.55-1.30); GLOMERULAR FILTRATION RATE 43.1 (>58); POTASSIUM SERUM 3.9 MMOL/L (3.5-5.1)
[2024-12-14] MEDS: VANCOMYCIN HCL 750 MG, VIAL MATE ADAPTER 1 EACH in NS 250 ML IV SCH (08:59)
[2024-12-14] MEDS ORDERED: LIDOCAINE 1% MDV 20ML VIAL As Ordered ONE (13:18)
[2024-12-14] MEDS ORDERED: fentaNYL 100 MCG/2 ML INJECTION As Ordered ONE (13:22)
[2024-12-14] MEDS ORDERED: MIDAZOLAM INJ 2MG/2ML VIAL As Ordered ONE (13:23)
[2024-12-14 15:01] LABS: SOURCE, BODY FLUID RT HIP; SYNOVIAL FLUID COLOR YELLOW (COLORLESS)
[2024-12-14] MEDS: HYDROCORTISONE 100MG/2ML VIAL IV SCH (17:23)
[2024-12-14] MEDS: diphenhydrAMINE 50MG/ML VIAL IV ONE (21:10)
[2024-12-15] VITALS (7 sets, daily range): BP systolic 108–135; BP diastolic 59–82; TEMP 96.5–98.9; O2SAT 96–100
[2024-12-15 07:53] LABS: BASO % 0.5 % (0.0-1.0); EOS % 0.1 % (0.0-3.0); HEMATOCRIT 29.6 % (36.0-47.0); HEMOGLOBIN 8.3 g/dl (12.0-15.5); LYMPH % 13.2 % (24.0-44.0); MEAN CORPUSCULAR HEMOGLOBIN 20.9 pg (27.0-33.0); MEAN CORPUSCULAR VOLUME 74.4 fl (80.0-96.0); MONO # 0.5 10^3/uL (0.0-0.8); MONO % 6.5 % (2.0-8.0); NEUTROPHILS % 78.8 % (36.0-66.0); PLATELET COUNT, AUTOMATED 313 10^3/uL (150-450); RED BLOOD COUNT 3.98 10^6/uL (4.00-5.40); WHITE BLOOD COUNT 7.6 10^3/uL (4.0-10.0)
[2024-12-15 08:24] LABS: C REACTIVE PROTEIN QUANTITATIV 9.18 MG/DL (<1.0); CREATININE FOR GFR 1.66 MG/DL (0.55-1.30); GLOMERULAR FILTRATION RATE 35.4 (>58); POTASSIUM SERUM 3.6 MMOL/L (3.5-5.1)
[2024-12-15] MEDS: LACTIC ACID 12% LOTION 225 GM BTL TOP SCH (10:43)
[2024-12-15] MEDS: POTASSIUM CHLORIDE 10MEQ SR TABLET PO ONE (12:13)
[2024-12-15] MEDS: HYDROCORTISONE 10 MG TAB PO ONE (17:07)
[2024-12-15] MEDS ORDERED: diphenhydrAMINE 25MG CAP PO PRN (17:35)
[2024-12-16 00:11] VITALS: BP 118/56; TEMP 98.3; O2SAT 100
[2024-12-16 04:13] VITALS: BP 135/75; TEMP 97.5; O2SAT 100
[2024-12-16 07:03] LABS: BASO % 0.6 % (0.0-1.0); HEMATOCRIT 29.2 % (36.0-47.0); HEMOGLOBIN 8.2 g/dl (12.0-15.5); LYMPH # 1.2 10^3/uL (1.5-5.0); LYMPH % 18.6 % (24.0-44.0); MEAN CORPUSCULAR HEMOGLOBIN 21.4 pg (27.0-33.0); MEAN CORPUSCULAR HGB CONC 28.1 g/dl (32.0-36.5); MEAN CORPUSCULAR VOLUME 76.2 fl (80.0-96.0); MONO # 0.5 10^3/uL (0.0-0.8); MONO % 7.3 % (2.0-8.0); NEUTROPHILS # 4.6 10^3/uL (1.5-8.5); NEUTROPHILS % 72.2 % (36.0-66.0); PLATELET COUNT, AUTOMATED 332 10^3/uL (150-450); RED BLOOD COUNT 3.83 10^6/uL (4.00-5.40); WHITE BLOOD COUNT 6.3 10^3/uL (4.0-10.0)
[2024-12-16 07:25] LABS: VANCOMYCIN LEVEL TROUGH 10.8 UG/ML (10.0-20.0)
[2024-12-16 07:26] LABS: C REACTIVE PROTEIN QUANTITATIV 4.77 MG/DL (<1.0)
[2024-12-16 07:29] LABS: CREATININE FOR GFR 1.63 MG/DL (0.55-1.30); GLOMERULAR FILTRATION RATE 36.2 (>58); POTASSIUM SERUM 4.1 MMOL/L (3.5-5.1)
[2024-12-16 08:00] VITALS: BP 127/58; TEMP 97.6; O2SAT 100
[2024-12-16] MEDS: VANCOMYCIN HCL 1,000 MG, VIAL MATE ADAPTER 1 EACH in NS 250 ML IV SCH (08:10)
[2024-12-16] MEDS: HYDROCORTISONE 10 MG TAB PO SCH ×2 (10:08→20:47)
[2024-12-16 11:50] VITALS: BP 133/72; TEMP 97.7; O2SAT 98
[2024-12-16 15:38] VITALS: BP 119/77; TEMP 97.6; O2SAT 99
[2024-12-16] MEDS ORDERED: LevoFLOXacin 500 MG TABLET PO SCH (18:00)
[2024-12-16] MEDS: LevoFLOXacin 750 MG TABLET PO SCH (18:18)
[2024-12-16 20:00] VITALS: BP 139/63; TEMP 97.9; O2SAT 100
[2024-12-16] MEDS: HYDROMORPHONE HCL 0.5 MG/ 0.5 ML SYRINGE IV PRN (20:41)
[2024-12-16] MEDS: diphenhydrAMINE 50MG/ML VIAL IV PRN (20:45)
[2024-12-17] VITALS (9 sets, daily range): BP systolic 126–148; BP diastolic 70–85; TEMP 97–98; O2SAT 94–100
[2024-12-17 09:14] LABS: BASO % 0.4 % (0.0-1.0); HEMATOCRIT 31.6 % (36.0-47.0); HEMOGLOBIN 8.5 g/dl (12.0-15.5); LYMPH % 14.6 % (24.0-44.0); MEAN CORPUSCULAR HEMOGLOBIN 21.3 pg (27.0-33.0); MEAN CORPUSCULAR HGB CONC 26.9 g/dl (32.0-36.5); MEAN CORPUSCULAR VOLUME 79.2 fl (80.0-96.0); MONO # 0.4 10^3/uL (0.0-0.8); MONO % 5.7 % (2.0-8.0); NEUTROPHILS # 5.3 10^3/uL (1.5-8.5); PLATELET COUNT, AUTOMATED 325 10^3/uL (150-450); RED BLOOD COUNT 3.99 10^6/uL (4.00-5.40); WHITE BLOOD COUNT 6.9 10^3/uL (4.0-10.0)
[2024-12-17] MEDS ORDERED: CEFA500C2 PO (12:31)
[2024-12-17] MEDS ORDERED: RISATAB3 PO (12:31)
[2024-12-17] MEDS ORDERED: LEVO75TAB PO (12:31)
[2024-12-17] MEDS ORDERED: AMMO12LO TOP (12:31)
[2024-12-17] MEDS ORDERED: ISOVUE-300 61% 100ML VIAL As Ordered ONE (13:24)
[2024-12-17] MEDS: NS (Normal Saline) 0.9% 1,000 ML IV SCH (14:55)
== END 2024-12-17 16:40 | disposition home or self-care (01) | DRG 720 ==
LOC: EDBD 09:57 → M ED 09:57 → EEVIPCON 15:51 → M ED INP 15:51 → M PCU 12-13 01:19
PROVIDERS: ADMIT Internal Medicine; ATTEND Internal Medicine
PROC: 0S993ZX Drainage of Right Hip Joint, Percutaneous Approach, Diagnostic (ICD-10-PCS; principal; 2024-12-14 15:30)
PROC: 0T25X0Z Change Drainage Device in Kidney, External Approach (ICD-10-PCS; 2024-12-17)
DX: A41.9 Sepsis, unspecified organism (principal); B37.89 Other sites of candidiasis; J96.11 Chronic respiratory failure with hypoxia; E11.22 Type 2 diabetes mellitus with diabetic chronic kidney disease; Z99.81 Dependence on supplemental oxygen; N30.40 Irradiation cystitis without hematuria; E27.40 Unspecified adrenocortical insufficiency; E66.2 Morbid (severe) obesity with alveolar hypoventilation; T83.518A Infection and inflammatory reaction due to other urinary catheter, initial encounter; Z93.6 Other artificial openings of urinary tract status; N18.30 Chronic kidney disease, stage 3 unspecified; K21.9 Gastro-esophageal reflux disease without esophagitis; M25.551 Pain in right hip; F17.210 Nicotine dependence, cigarettes, uncomplicated; Z90.49 Acquired absence of other specified parts of digestive tract; C51.9 Malignant neoplasm of vulva, unspecified; F32.A Depression, unspecified; G89.29 Other chronic pain; G89.3 Neoplasm related pain (acute) (chronic); I89.0 Lymphedema, not elsewhere classified; L03.115 Cellulitis of right lower limb; N13.9 Obstructive and reflux uropathy, unspecified; Z92.3 Personal history of irradiation; Z92.21 Personal history of antineoplastic chemotherapy; Z79.4 Long term (current) use of insulin; Z79.891 Long term (current) use of opiate analgesic; Z79.899 Other long term (current) drug therapy; Z88.1 Allergy status to other antibiotic agents; Z88.8 Allergy status to other drugs, medicaments and biological substances; Z91.048 Other nonmedicinal substance allergy status

== ENCOUNTER → 2025-01-06 | Outpatient (CLI) | payer OTHER ==
[~2025-01-06] MED LIST changes: +AMMO12LO TOP; +CEFA500C2 PO; +CLOT15CR4 TOP; -CVS1CRE56 TOP; +LEVO75TAB PO; +OXYC40TA29 PO
== END ==
LOC: M ONCR 13:15
PROVIDERS: ATTEND General Practice
DX: C51.8 Malignant neoplasm of overlapping sites of vulva (principal); R15.9 Full incontinence of feces; Z93.6 Other artificial openings of urinary tract status; Z92.21 Personal history of antineoplastic chemotherapy; Z92.3 Personal history of irradiation; Z87.891 Personal history of nicotine dependence; Z88.1 Allergy status to other antibiotic agents; Z88.8 Allergy status to other drugs, medicaments and biological substances; Z91.048 Other nonmedicinal substance allergy status; Z79.4 Long term (current) use of insulin; Z79.899 Other long term (current) drug therapy

== ENCOUNTER 2025-01-27 18:14 | Inpatient (IN) | payer OTHER ==
[~2025-01-27] VITALS: Ht 144.8 cm; Wt 132.0 kg
[2025-01-27] MEDS ORDERED: HYDROMORPHONE HCL 0.5 MG/ 0.5 ML SYRINGE IV PRN (20:00)
[2025-01-27] MEDS ORDERED: VANCOMYCIN HCL 1,500 MG in IV FLUID PLACE HOLDER 1 EA IV ONE (20:00)
[2025-01-27 20:02] LABS: BASO % 0.1 % (0.0-1.0); HEMATOCRIT 28.7 % (36.0-47.0); HEMOGLOBIN 8.4 g/dl (12.0-15.5); LYMPH # 0.5 10^3/uL (1.5-5.0); LYMPH % 3.6 % (24.0-44.0); MEAN CORPUSCULAR HEMOGLOBIN 21.9 pg (27.0-33.0); MEAN CORPUSCULAR HGB CONC 29.3 g/dl (32.0-36.5); MEAN CORPUSCULAR VOLUME 74.9 fl (80.0-96.0); MONO # 0.5 10^3/uL (0.0-0.8); MONO % 3.9 % (2.0-8.0); NEUTROPHILS # 12.5 10^3/uL (1.5-8.5); NEUTROPHILS % 91.3 % (36.0-66.0); PLATELET COUNT, AUTOMATED 218 10^3/uL (150-450); RED BLOOD COUNT 3.83 10^6/uL (4.00-5.40); WHITE BLOOD COUNT 13.7 10^3/uL (4.0-10.0)
[2025-01-27 20:07] LABS: VENOUS BASE EXCESS -2.8 (-2.0-2.0); VENOUS HCO3 21.8 MMOL/L (23.0-27.0); VENOUS PARTIAL PRESSURE O2 55.8 mmHg (30.0-50.0); VENOUS PH 7.388 UNITS (7.330-7.430); VENOUS TOTAL CO2 22.9 MMOL/L (24.0-28.0)
[2025-01-27 20:15] LABS: INR 1.09; PARTIAL THROMBOPLASTIN TIME 28.3 SECONDS (24.8-34.2); PROTHROMBIN TIME 14.4 SECONDS (12.5-14.5)
[2025-01-27] MEDS: NS (Normal Saline) 0.9% 1,000 ML IV ONE ×2 (20:29→23:50)
[2025-01-27] MEDS: ACETAMINOPHEN *IV* 1,000 MG in IV 1 EA IV ONE (20:29)
[2025-01-27] MEDS: fentaNYL 100 MCG/2 ML INJECTION IV PRN (20:32)
[2025-01-27] MEDS: CEFEPIME HCL 2 GM in DEXTROSE 5% (D5W) ADV/MINI-BAG 50 ML IV ONE (20:35)
[2025-01-27 20:38] LABS: ALBUMIN 2.4 G/DL (3.2-5.2); BILIRUBIN,DIRECT 0.1 MG/DL (<0.4); BILIRUBIN,TOTAL 0.4 MG/DL (0.3-1.2); CALCIUM LEVEL 7.6 MG/DL (8.5-10.1); CREATININE FOR GFR 1.53 MG/DL (0.55-1.30); GLOMERULAR FILTRATION RATE 38.9 (>58); POTASSIUM SERUM 3.8 MMOL/L (3.5-5.1)
[2025-01-27 20:40] LABS: APPEARANCE, URINE CLOUDY (CLEAR); BACTERIA, URINE AUTO 2+ (NEGATIVE); BILIRUBIN, URINE AUTO NEGATIVE (NEGATIVE); BLOOD, URINE BLOOD 1+ (NEGATIVE); COLOR, URINE AMBER (YELLOW); GLUCOSE, URINE (UA) AUTO NEGATIVE (NEGATIVE); KETONE, URINE AUTO NEGATIVE (NEGATIVE); LEUKOCYTE ESTERASE, URINE AUTO 3+ (NEGATIVE); MUCUS, URINE SMALL (NEGATIVE); NITRITE, URINE AUTO NEGATIVE (NEGATIVE); PROTEIN, URINE AUTO 3+ mg/dL (NEGATIVE); RBC, URINE AUTO 8 /HPF (0-3); SPECIFIC GRAVITY URINE AUTO 1.016 (1.002-1.035); SQUAMOUS EPITHELIAL CELL UR AU 0 /HPF (0-6); UROBILINOGEN, URINE AUTO 0.2 mg/dL (0.0-2.0); WBC, URINE AUTO 107 /HPF (0-3); YEAST LIKE CELL URINE AUTO LARGE
[2025-01-27] MEDS: NS 500 ML IV ONE (20:40)
[2025-01-27 20:45] LABS: PROCALCITONIN 0.56 ng/ml
[2025-01-27 20:51] LABS: C REACTIVE PROTEIN QUANTITATIV 25.35 MG/DL (<1.0)
[2025-01-27] MEDS: VANCOMYCIN HCL 1,500 MG, VIAL MATE ADAPTER 1 EACH in NS 500 ML IV ONE (21:47)
[2025-01-27] MEDS ORDERED: DOXY100C3 PO (22:49)
[2025-01-27] MEDS ORDERED: HOME MED LIST COMPLETE! XX SCH (22:50)
[2025-01-27] MEDS ORDERED: DEXTROSE 50% 50ML SYRINGE IV PRN (23:50)
[2025-01-27] MEDS ORDERED: GLUCOSE 4 GM CHEW PO PRN (23:50)
[2025-01-27] MEDS ORDERED: ACETAMINOPHEN 325 MG TAB PO PRN (23:50)
[2025-01-27] MEDS ORDERED: VANCOMYCIN HCL 0 MG in IV FLUID PLACE HOLDER 1 EA IV SCH (23:50)
[2025-01-27] MEDS ORDERED: GLUCAGON INJ 1MG VIAL SC PRN (23:50)
[2025-01-28] VITALS (8 sets, daily range): BP systolic 104–126; BP diastolic 55–67; TEMP 96.9–98.1; O2SAT 95–100
[2025-01-28] MEDS: NS (Normal Saline) 0.9% 1,000 ML IV SCH (00:42)
[2025-01-28] MEDS: FLUCONAZOLE 50MG TABLET PO SCH (01:18)
[2025-01-28] MEDS: HYDROmorphone 4MG TABLET PO PRN ×2 (02:17→15:16)
[2025-01-28] MEDS: cefTRIAXone SOD 2 GM in DEXTROSE 5% (D5W) ADV/MINI-BAG 50 ML IV SCH (04:29)
[2025-01-28] MEDS: HEPARIN SOD (PORCINE) 5000UNITS/ML 1ML VIAL/SYRINGE SC SCH (05:13)
[2025-01-28] MEDS ORDERED: VANCOMYCIN HCL 1,250 MG, VIAL MATE ADAPTER 1 EACH in NS 250 ML IV SCH ×2 (08:00→14:00)
[2025-01-28] MEDS: INSULIN LISPRO (NovoLOG) PER UNIT SC SCH ×2 (08:00→21:00)
[2025-01-28 08:03] LABS: HEMATOCRIT 25.3 % (36.0-47.0); HEMOGLOBIN 7.1 g/dl (12.0-15.5); MEAN CORPUSCULAR HEMOGLOBIN 21.1 pg (27.0-33.0); MEAN CORPUSCULAR HGB CONC 28.1 g/dl (32.0-36.5); MEAN CORPUSCULAR VOLUME 75.1 fl (80.0-96.0); PLATELET COUNT, AUTOMATED 199 10^3/uL (150-450); RED BLOOD COUNT 3.37 10^6/uL (4.00-5.40); WHITE BLOOD COUNT 7.6 10^3/uL (4.0-10.0)
[2025-01-28 08:29] LABS: C REACTIVE PROTEIN QUANTITATIV 24.62 MG/DL (<1.0); PERCENT SATURATION 2.7 % (13.2-45.0)
[2025-01-28 08:40] LABS: ALBUMIN 1.9 G/DL (3.2-5.2); BILIRUBIN,TOTAL 0.2 MG/DL (0.3-1.2); CALCIUM LEVEL 7.4 MG/DL (8.5-10.1); CREATININE FOR GFR 1.56 MG/DL (0.55-1.30); FERRITIN 211.7 NG/ML (7.3-270.7); FOLATE 10.59 NG/ML (>5.4); POTASSIUM SERUM 3.9 MMOL/L (3.5-5.1); TOTAL PROTEIN 5.9 G/DL (5.7-8.2)
[2025-01-28] MEDS: PANTOPRAZOLE 40MG TAB (PROTONIX) PO SCH (09:19)
[2025-01-28] MEDS: GABAPENTIN 300 MG CAP PO SCH (09:19)
[2025-01-28] MEDS: HYDROCORTISONE 10 MG TAB PO SCH ×2 (09:19→21:24)
[2025-01-28] MEDS: busPIRone 5 MG TAB PO SCH (09:20)
[2025-01-28] MEDS: CYCLOBENZAPRINE 10MG TABLET PO SCH (09:20)
[2025-01-28] MEDS: SPIRONOLACTONE 12.5MG PER 1/2 TABLET PO SCH (09:21)
[2025-01-28 09:47] LABS: MAGNESIUM LEVEL 1.6 MG/DL (1.8-2.4)
[2025-01-28] MEDS ORDERED: NALOXONE INJ 0.4MG/1ML VIAL IV PRN (10:55)
[2025-01-28] MEDS: MAG SULF 1GM/100ML (MAG RUN) 1 GM in IV 1 EA IV SCH (11:09)
[2025-01-28] MEDS: oxyCODONE 20MG CR TAB PO SCH (12:17)
[2025-01-28] MEDS: VANCOMYCIN HCL 1,000 MG, VIAL MATE ADAPTER 1 EACH in NS 250 ML IV SCH (15:07)
[2025-01-28] MEDS: ACETAMINOPHEN *IV* 1,000 MG in IV 1 EA IV ONE (17:07)
[2025-01-28] MEDS: QUEtiapine FUMARATE 100 MG TAB PO SCH (21:23)
[2025-01-28] MEDS: SERTRALINE 100 MG TAB PO SCH (21:23)
[2025-01-28] MEDS: MAGNESIUM OXIDE 400MG TAB (MAG-OX) PO SCH (21:24)
[2025-01-28] MEDS: FLUCONAZOLE 100 MG TAB PO SCH (21:24)
[2025-01-28] MEDS: FAMOTIDINE 20 MG TAB PO SCH (21:24)
[2025-01-28] MEDS: diphenhydrAMINE 25MG CAP PO ONE (22:45)
[2025-01-29 03:41] VITALS: BP 106/59; TEMP 97.6; O2SAT 100
[2025-01-29] MEDS: SODIUM CHLORIDE 0.9% INJ 10 ML SYR IV PRN (06:07)
[2025-01-29 06:17] LABS: HEMATOCRIT 27.6 % (36.0-47.0); HEMOGLOBIN 7.7 g/dl (12.0-15.5); MEAN CORPUSCULAR HEMOGLOBIN 21.7 pg (27.0-33.0); MEAN CORPUSCULAR HGB CONC 27.9 g/dl (32.0-36.5); MEAN CORPUSCULAR VOLUME 77.7 fl (80.0-96.0); PLATELET COUNT, AUTOMATED 236 10^3/uL (150-450); RED BLOOD COUNT 3.55 10^6/uL (4.00-5.40); WHITE BLOOD COUNT 5.9 10^3/uL (4.0-10.0)
[2025-01-29 06:45] LABS: ALKALINE PHOSPHATASE 132 U/L (35-104); ALT/SGPT 10 U/L (7.0-40); AST/SGOT < 8 U/L (<34); BILIRUBIN,TOTAL < 0.2 MG/DL (0.3-1.2); BLOOD UREA NITROGEN 18 MG/DL (9-23); CALCIUM LEVEL 8.5 MG/DL (8.5-10.1); CARBON DIOXIDE LEVEL 25 MMOL/L (20-31); CHLORIDE LEVEL 109 MMOL/L (98-107); CREATININE FOR GFR 1.43 MG/DL (0.55-1.30); GLOMERULAR FILTRATION RATE 42.1 (>58); GLUCOSE, FASTING 139 MG/DL (60-100); MAGNESIUM LEVEL 2.3 MG/DL (1.8-2.4); POTASSIUM SERUM 4.4 MMOL/L (3.5-5.1); SODIUM LEVEL 143 MMOL/L (136-145); TOTAL PROTEIN 6.4 G/DL (5.7-8.2)
[2025-01-29 08:06] VITALS: BP 113/58; TEMP 97.2; O2SAT 100
[2025-01-29] MEDS: SODIUM CHLORIDE 0.9% INJ 10 ML SYR IV SCH (08:17)
[2025-01-29 08:41] LABS: C REACTIVE PROTEIN QUANTITATIV 19.93 MG/DL (<1.0)
[2025-01-29] MEDS: NYSTATIN 100,000 UNITS/GM TOPICAL PWD 15GM TOP SCH (09:00)
[2025-01-29 12:00] VITALS: BP 129/62; TEMP 97.4; O2SAT 100
[2025-01-29 16:21] VITALS: BP 133/91; TEMP 97; O2SAT 99
[2025-01-29 20:40] VITALS: BP 139/68; TEMP 97.3; O2SAT 99
[2025-01-29] MEDS: PROCHLORPERAZINE 5MG TAB PO PRN (20:57)
[2025-01-29] MEDS: diphenhydrAMINE 25MG CAP PO ONE (22:06)
[2025-01-30] VITALS (7 sets, daily range): BP systolic 104–135; BP diastolic 46–81; TEMP 97–97.8; O2SAT 95–100
[2025-01-30 06:17] LABS: HEMATOCRIT 27.6 % (36.0-47.0); HEMOGLOBIN 7.4 g/dl (12.0-15.5); MEAN CORPUSCULAR HGB CONC 26.8 g/dl (32.0-36.5); MEAN CORPUSCULAR VOLUME 78.4 fl (80.0-96.0); PLATELET COUNT, AUTOMATED 271 10^3/uL (150-450); RED BLOOD COUNT 3.52 10^6/uL (4.00-5.40); WHITE BLOOD COUNT 6.2 10^3/uL (4.0-10.0)
[2025-01-30 06:41] LABS: ALBUMIN 2.1 G/DL (3.2-5.2); ALKALINE PHOSPHATASE 127 U/L (35-104); ALT/SGPT < 9 U/L (7.0-40); AST/SGOT 9 U/L (<34); BILIRUBIN,TOTAL < 0.2 MG/DL (0.3-1.2); BLOOD UREA NITROGEN 21 MG/DL (9-23); CALCIUM LEVEL 7.8 MG/DL (8.5-10.1); CARBON DIOXIDE LEVEL 24 MMOL/L (20-31); CHLORIDE LEVEL 110 MMOL/L (98-107); CREATININE FOR GFR 1.46 MG/DL (0.55-1.30); GLOMERULAR FILTRATION RATE 41.1 (>58); GLUCOSE, FASTING 166 MG/DL (60-100); SODIUM LEVEL 140 MMOL/L (136-145); TOTAL PROTEIN 6.7 G/DL (5.7-8.2)
[2025-01-30] MEDS: SENNA 8.6 MG TAB (SENOKOT) PO SCH (11:35)
[2025-01-30] MEDS: HYDROmorphone 4MG TABLET PO PRN (11:35)
[2025-01-30] MEDS: diphenhydrAMINE 25MG CAP PO SCH (21:43)
[2025-01-31 03:54] VITALS: BP 105/61; TEMP 97.8; O2SAT 99
[2025-01-31 04:20] VITALS: O2SAT 97
[2025-01-31 06:40] LABS: HEMATOCRIT 26.9 % (36.0-47.0); HEMOGLOBIN 7.4 g/dl (12.0-15.5); MEAN CORPUSCULAR HEMOGLOBIN 21.6 pg (27.0-33.0); MEAN CORPUSCULAR HGB CONC 27.5 g/dl (32.0-36.5); MEAN CORPUSCULAR VOLUME 78.4 fl (80.0-96.0); PLATELET COUNT, AUTOMATED 298 10^3/uL (150-450); RED BLOOD COUNT 3.43 10^6/uL (4.00-5.40); WHITE BLOOD COUNT 6.2 10^3/uL (4.0-10.0)
[2025-01-31 07:11] LABS: ALBUMIN 2.1 G/DL (3.2-5.2); ALKALINE PHOSPHATASE 122 U/L (35-104); ALT/SGPT < 9 U/L (7.0-40); AST/SGOT 8 U/L (<34); BILIRUBIN,TOTAL < 0.2 MG/DL (0.3-1.2); BLOOD UREA NITROGEN 21 MG/DL (9-23); CALCIUM LEVEL 7.7 MG/DL (8.5-10.1); CARBON DIOXIDE LEVEL 26 MMOL/L (20-31); CHLORIDE LEVEL 111 MMOL/L (98-107); CREATININE FOR GFR 1.41 MG/DL (0.55-1.30); GLOMERULAR FILTRATION RATE 42.7 (>58); GLUCOSE, FASTING 126 MG/DL (60-100); POTASSIUM SERUM 5.1 MMOL/L (3.5-5.1); SODIUM LEVEL 143 MMOL/L (136-145); TOTAL PROTEIN 6.4 G/DL (5.7-8.2)
[2025-01-31 07:33] LABS: C REACTIVE PROTEIN QUANTITATIV 4.39 MG/DL (<1.0)
[2025-01-31 12:00] VITALS: BP 124/71; TEMP 97.9; O2SAT 95
[2025-01-31] MEDS: LACTIC ACID 12% LOTION 225 GM BTL TOP SCH (16:00)
[2025-01-31 20:19] VITALS: BP 122/69; TEMP 97.5; O2SAT 95
[2025-01-31] MEDS: OLANZapine ORAL DISINTEGRATING TAB 5MG PO SCH (20:43)
[2025-01-31] MEDS: oxyCODONE 20MG CR TAB PO SCH (20:44)
[2025-01-31] MEDS: SENNA 8.6 MG TAB (SENOKOT) PO SCH (20:44)
[2025-01-31] MEDS: diphenhydrAMINE 50MG/ML VIAL IV PRN (20:48)
[2025-02-01 00:10] VITALS: TEMP 98.9
[2025-02-01 01:11] LABS: BASO % 0.3 % (0.0-1.0); EOS % 0.1 % (0.0-3.0); HEMATOCRIT 27.2 % (36.0-47.0); HEMOGLOBIN 7.7 g/dl (12.0-15.5); LYMPH # 1.1 10^3/uL (1.5-5.0); LYMPH % 12.5 % (24.0-44.0); MEAN CORPUSCULAR HEMOGLOBIN 21.7 pg (27.0-33.0); MEAN CORPUSCULAR HGB CONC 28.3 g/dl (32.0-36.5); MEAN CORPUSCULAR VOLUME 76.6 fl (80.0-96.0); MONO # 0.5 10^3/uL (0.0-0.8); MONO % 5.9 % (2.0-8.0); NEUTROPHILS # 6.7 10^3/uL (1.5-8.5); PLATELET COUNT, AUTOMATED 326 10^3/uL (150-450); RED BLOOD COUNT 3.55 10^6/uL (4.00-5.40); WHITE BLOOD COUNT 8.6 10^3/uL (4.0-10.0)
[2025-02-01 01:22] LABS: ERYTHROCYTE SEDIMENTATION RATE > 130 mm/hr (0-20)
[2025-02-01 01:31] LABS: MAGNESIUM LEVEL 1.9 MG/DL (1.8-2.4)
[2025-02-01 01:33] LABS: C REACTIVE PROTEIN QUANTITATIV 3.14 MG/DL (<1.0)
[2025-02-01 03:23] VITALS: BP 116/87; TEMP 97.2; O2SAT 94
[2025-02-01 06:40] LABS: HEMATOCRIT 27.4 % (36.0-47.0); HEMOGLOBIN 7.6 g/dl (12.0-15.5); MEAN CORPUSCULAR HEMOGLOBIN 21.5 pg (27.0-33.0); MEAN CORPUSCULAR HGB CONC 27.7 g/dl (32.0-36.5); MEAN CORPUSCULAR VOLUME 77.6 fl (80.0-96.0); PLATELET COUNT, AUTOMATED 328 10^3/uL (150-450); RED BLOOD COUNT 3.53 10^6/uL (4.00-5.40); WHITE BLOOD COUNT 8.1 10^3/uL (4.0-10.0)
[2025-02-01 07:19] LABS: ALBUMIN 2.3 G/DL (3.2-5.2); ALKALINE PHOSPHATASE 120 U/L (35-104); ALT/SGPT < 9 U/L (7.0-40); AST/SGOT < 8 U/L (<34); BILIRUBIN,TOTAL < 0.2 MG/DL (0.3-1.2); BLOOD UREA NITROGEN 22 MG/DL (9-23); CALCIUM LEVEL 7.9 MG/DL (8.5-10.1); CARBON DIOXIDE LEVEL 27 MMOL/L (20-31); CHLORIDE LEVEL 111 MMOL/L (98-107); GLOMERULAR FILTRATION RATE 43.1 (>58); GLUCOSE, FASTING 121 MG/DL (60-100); SODIUM LEVEL 142 MMOL/L (136-145); TOTAL PROTEIN 6.8 G/DL (5.7-8.2)
[2025-02-01] MEDS: FUROSEMIDE 40MG/4ML VIAL IV SCH (09:10)
[2025-02-01 09:11] LABS: C REACTIVE PROTEIN QUANTITATIV 2.84 MG/DL (<1.0)
[2025-02-01 12:00] VITALS: BP 108/64; TEMP 97.8; O2SAT 96
[2025-02-01 20:20] VITALS: BP 109/71; TEMP 97.7; O2SAT 97
[2025-02-01] MEDS: diphenhydrAMINE 50MG/ML VIAL IV SCH (21:12)
[2025-02-01] MEDS: HYDROMORPHONE HCL 0.5 MG/ 0.5 ML SYRINGE IV PRN (23:28)
[2025-02-02 04:40] VITALS: BP 113/70; TEMP 97.5; O2SAT 94
[2025-02-02] MEDS: FERRIC CARBOXYMALTOSE INJ 750 MG, VIAL MATE ADAPTER 1 EACH in NS 100 ML IV ONE (06:15)
[2025-02-02] MEDS: MIRALAX *UNIT DOSE* 17GM PACKET PO SCH (09:00)
[2025-02-02 09:41] VITALS: BP 118/58
[2025-02-02] MEDS: FUROSEMIDE 40MG/4ML VIAL IV SCH (10:27)
[2025-02-02 10:55] LABS: HEMATOCRIT 32.8 % (36.0-47.0); HEMOGLOBIN 9.1 g/dl (12.0-15.5); MEAN CORPUSCULAR HEMOGLOBIN 21.5 pg (27.0-33.0); MEAN CORPUSCULAR HGB CONC 27.7 g/dl (32.0-36.5); MEAN CORPUSCULAR VOLUME 77.4 fl (80.0-96.0); PLATELET COUNT, AUTOMATED 410 10^3/uL (150-450); RED BLOOD COUNT 4.24 10^6/uL (4.00-5.40); WHITE BLOOD COUNT 10.3 10^3/uL (4.0-10.0)
[2025-02-02 11:21] LABS: CALCIUM LEVEL 8.3 MG/DL (8.5-10.1); CREATININE FOR GFR 1.7 MG/DL (0.55-1.30); GLOMERULAR FILTRATION RATE 34.4 (>58)
[2025-02-02 11:42] LABS: ATYPICAL LYMPH 1 % (0-5); EOSINOPHILS 6 % (0-3); LYMPHOCYTES 20 % (16-44); MONOCYTES 2 % (0-5); MYELOCYTES 2 % (0-0); NEUTROPHILS 67 % (28-66)
[2025-02-02 11:43] LABS: PLATELET ESTIMATE INCREASED (NORMAL)
[2025-02-02 11:45] LABS: PLATELET CLUMPS MODERATE AMT
[2025-02-02 11:47] LABS: ANISOCYTOSIS 2+
[2025-02-02 11:48] LABS: HYPOCHROMASIA 1+
[2025-02-02 11:49] LABS: MICROCYTOSIS 1+
[2025-02-02 12:00] VITALS: BP 113/59; TEMP 98.1; O2SAT 99
[2025-02-02] MEDS: LIDOCAINE 5% (LIDODERM) PATCH TD SCH (13:05)
[2025-02-02] MEDS: HYDROMORPHONE HCL 0.5 MG/ 0.5 ML SYRINGE IV PRN (14:48)
[2025-02-02 19:46] VITALS: BP 112/76; TEMP 97.6; O2SAT 100
[2025-02-02] MEDS: QUEtiapine FUMARATE 50MG TAB PO SCH (20:47)
[2025-02-03 05:27] VITALS: BP 127/83; TEMP 97.5; O2SAT 97
[2025-02-03 06:39] LABS: ALBUMIN 2.6 G/DL (3.2-5.2); ALKALINE PHOSPHATASE 127 U/L (35-104); ALT/SGPT < 9 U/L (7.0-40); AST/SGOT < 8 U/L (<34); BILIRUBIN,TOTAL < 0.2 MG/DL (0.3-1.2); BLOOD UREA NITROGEN 29 MG/DL (9-23); CALCIUM LEVEL 8.4 MG/DL (8.5-10.1); CARBON DIOXIDE LEVEL 36 MMOL/L (20-31); CHLORIDE LEVEL 101 MMOL/L (98-107); CREATININE FOR GFR 1.79 MG/DL (0.55-1.30); GLOMERULAR FILTRATION RATE 32.5 (>58); GLUCOSE, FASTING 135 MG/DL (60-100); MAGNESIUM LEVEL 1.8 MG/DL (1.8-2.4); POTASSIUM SERUM 4.5 MMOL/L (3.5-5.1); SODIUM LEVEL 142 MMOL/L (136-145); TOTAL PROTEIN 7.5 G/DL (5.7-8.2)
[2025-02-03 08:55] VITALS: BP 111/67
[2025-02-03] MEDS ORDERED: OXYC40TA29 PO (10:20)
[2025-02-03] MEDS ORDERED: CEFA500C2 PO (11:46)
[2025-02-03] MEDS ORDERED: FURO40TA2 PO (11:46)
[2025-02-03] MEDS ORDERED: QUET100T2 PO (11:46)
[2025-02-03] MEDS ORDERED: NARC1SPR NARES (12:24)
[2025-02-04] MEDS ORDERED: FUROSEMIDE 40 MG TAB PO SCH (09:00)
[2025-02-04] MEDS ORDERED: TORSEMIDE 20 MG TAB PO SCH (09:00)
== END 2025-02-03 14:29 | disposition home health service (06) | DRG 720 ==
LOC: M ED 18:14 → M ED INP 23:46 → M PCU 01-28 01:35 → M MSPAV 01-30 16:24
PROVIDERS: ADMIT Student in an Organized Health Care Education/Training Program; ATTEND Student in an Organized Health Care Education/Training Program
PROC: B246ZZZ Ultrasonography of Right and Left Heart (ICD-10-PCS; principal; 2025-01-28)
DX: A41.9 Sepsis, unspecified organism (principal); E11.22 Type 2 diabetes mellitus with diabetic chronic kidney disease; E11.42 Type 2 diabetes mellitus with diabetic polyneuropathy; N17.9 Acute kidney failure, unspecified; E87.70 Fluid overload, unspecified; B37.32 Chronic candidiasis of vulva and vagina; N18.31 Chronic kidney disease, stage 3a; E27.40 Unspecified adrenocortical insufficiency; N82.3 Fistula of vagina to large intestine; E66.2 Morbid (severe) obesity with alveolar hypoventilation; Z68.44 Body mass index [BMI] 60.0-69.9, adult; E88.09 Other disorders of plasma-protein metabolism, not elsewhere classified; F39 Unspecified mood [affective] disorder; K21.9 Gastro-esophageal reflux disease without esophagitis; G89.29 Other chronic pain; L30.4 Erythema intertrigo; Z92.3 Personal history of irradiation; Z92.21 Personal history of antineoplastic chemotherapy; D50.9 Iron deficiency anemia, unspecified; R31.9 Hematuria, unspecified; R01.1 Cardiac murmur, unspecified; C51.9 Malignant neoplasm of vulva, unspecified; I89.0 Lymphedema, not elsewhere classified; Z79.891 Long term (current) use of opiate analgesic; Z79.2 Long term (current) use of antibiotics; Z79.899 Other long term (current) drug therapy; Z88.1 Allergy status to other antibiotic agents; Z88.8 Allergy status to other drugs, medicaments and biological substances; Z91.048 Other nonmedicinal substance allergy status; L03.115 Cellulitis of right lower limb; L03.116 Cellulitis of left lower limb; Z90.49 Acquired absence of other specified parts of digestive tract; I34.0 Nonrheumatic mitral (valve) insufficiency; M25.559 Pain in unspecified hip

== ENCOUNTER → 2025-02-07 | Outpatient (CLI) | payer OTHER ==
[~2025-02-07] MED LIST changes: +DOXY100C3 PO; +FURO40TA2 PO; +NARC1SPR NARES; +PROHANCE 279.3MG/ML 15ML VIAL As Ordered ONE
== END ==
LOC: M RAD 12:22
PROVIDERS: ATTEND General Practice
DX: C51.8 Malignant neoplasm of overlapping sites of vulva (principal); Z90.710 Acquired absence of both cervix and uterus
CPT/HCPCS: 72197; A9576

== ENCOUNTER → 2025-02-07 | Outpatient (CLI) | payer OTHER ==
[~2025-02-07] VITALS: Ht 144.8 cm; Wt 128.4 kg
[~2025-02-07] MED LIST changes: -PROHANCE 279.3MG/ML 15ML VIAL As Ordered ONE
[2025-02-07 14:48] VITALS: BP 120/75; O2SAT 97
== END ==
LOC: M PAL 14:24
PROVIDERS: ATTEND Physician Assistant
DX: Z51.5 Encounter for palliative care (principal); C51.9 Malignant neoplasm of vulva, unspecified; Z92.21 Personal history of antineoplastic chemotherapy; Z92.3 Personal history of irradiation; N82.3 Fistula of vagina to large intestine; Z79.891 Long term (current) use of opiate analgesic; Z90.79 Acquired absence of other genital organ(s); K59.00 Constipation, unspecified; Z88.1 Allergy status to other antibiotic agents; Z91.048 Other nonmedicinal substance allergy status; Z88.8 Allergy status to other drugs, medicaments and biological substances; Z79.899 Other long term (current) drug therapy

== ENCOUNTER → 2025-02-16 | Outpatient (CLI) | payer OTHER ==
[2025-02-16 13:33] LABS: HEMATOCRIT 37.5 % (36.0-47.0); HEMOGLOBIN 10.4 g/dl (12.0-15.5); MEAN CORPUSCULAR HEMOGLOBIN 22.9 pg (27.0-33.0); MEAN CORPUSCULAR HGB CONC 27.7 g/dl (32.0-36.5); MEAN CORPUSCULAR VOLUME 82.4 fl (80.0-96.0); PLATELET COUNT, AUTOMATED 252 10^3/uL (150-450); RED BLOOD COUNT 4.55 10^6/uL (4.00-5.40); WHITE BLOOD COUNT 10.6 10^3/uL (4.0-10.0)
[2025-02-16 13:45] LABS: CALCIUM LEVEL 8.6 MG/DL (8.5-10.1); CREATININE FOR GFR 1.35 MG/DL (0.55-1.30); GLOMERULAR FILTRATION RATE 49.1 (>58); POTASSIUM SERUM 4.8 MMOL/L (3.5-5.1)
[2025-02-16 14:09] LABS: HEMOGLOBIN A1c 5.8 % (4.0-6.0)
== END ==
LOC: M PLALAB 10:46
PROVIDERS: ATTEND Student in an Organized Health Care Education/Training Program
DX: Z01.818 Encounter for other preprocedural examination (principal); N18.31 Chronic kidney disease, stage 3a; E11.69 Type 2 diabetes mellitus with other specified complication; E11.22 Type 2 diabetes mellitus with diabetic chronic kidney disease

== ENCOUNTER 2025-02-18 16:26 | Inpatient (IN) | payer OTHER ==
[~2025-02-18] VITALS: Ht 144.8 cm; Wt 137.4 kg
[2025-02-18] MEDS: ACETAMINOPHEN 325 MG TAB PO ONE (18:06)
[2025-02-18 19:19] LABS: VENOUS BASE EXCESS 1.8 (-2.0-2.0); VENOUS HCO3 27.5 MMOL/L (23.0-27.0); VENOUS O2 SATURATION 96.9 % (60.0-80.0); VENOUS PARTIAL PRESSURE CO2 47.8 mmHg (38.0-50.0); VENOUS PARTIAL PRESSURE O2 91.9 mmHg (30.0-50.0); VENOUS PH 7.377 UNITS (7.330-7.430); VENOUS STANDARD HCO3 26.1 MMOL/L; VENOUS TOTAL CO2 28.9 MMOL/L (24.0-28.0)
[2025-02-18 19:27] LABS: BASO % 0.3 % (0.0-1.0); HEMATOCRIT 32.4 % (36.0-47.0); HEMOGLOBIN 9.5 g/dl (12.0-15.5); LYMPH # 0.9 10^3/uL (1.5-5.0); LYMPH % 9.1 % (24.0-44.0); MEAN CORPUSCULAR HEMOGLOBIN 23.6 pg (27.0-33.0); MEAN CORPUSCULAR HGB CONC 29.3 g/dl (32.0-36.5); MEAN CORPUSCULAR VOLUME 80.4 fl (80.0-96.0); MONO # 0.5 10^3/uL (0.0-0.8); MONO % 5.3 % (2.0-8.0); NEUTROPHILS # 7.9 10^3/uL (1.5-8.5); NEUTROPHILS % 84.4 % (36.0-66.0); PLATELET COUNT, AUTOMATED 214 10^3/uL (150-450); RED BLOOD COUNT 4.03 10^6/uL (4.00-5.40); WHITE BLOOD COUNT 9.4 10^3/uL (4.0-10.0)
[2025-02-18] MEDS: NS 500 ML IV ONE (19:28)
[2025-02-18 19:33] LABS: KETONE, URINE AUTO RFX NEGATIVE (NEGATIVE); MUCUS, URINE RFX SMALL (NEGATIVE); NITRITE, URINE AUTO RFX NEGATIVE (NEGATIVE); RBC, URINE AUTO RFX 1 /HPF (0-3); SQUAM EPITHELIAL CELL UR AURFX 0 /HPF (0-6); YEAST LIKE CELL URINE AUTO RFX LARGE
[2025-02-18 19:37] LABS: LEUKOCYTE ESTERASE UR AUTO RFX 3+ (NEGATIVE); WBC, URINE AUTO RFX 18 /HPF (0-3)
[2025-02-18 19:40] LABS: KETONE, URINE AUTO RFX NEGATIVE (NEGATIVE); MUCUS, URINE RFX SMALL (NEGATIVE); NITRITE, URINE AUTO RFX NEGATIVE (NEGATIVE); RBC, URINE AUTO RFX 2 /HPF (0-3); SQUAM EPITHELIAL CELL UR AURFX 0 /HPF (0-6); YEAST LIKE CELL URINE AUTO RFX MODERATE
[2025-02-18 19:41] LABS: INR 0.99; LEUKOCYTE ESTERASE UR AUTO RFX 3+ (NEGATIVE); PARTIAL THROMBOPLASTIN TIME 29.7 SECONDS (24.8-34.2); PROTHROMBIN TIME 13.4 SECONDS (12.5-14.5); WBC, URINE AUTO RFX 28 /HPF (0-3)
[2025-02-18 19:46] LABS: C REACTIVE PROTEIN QUANTITATIV 7.43 MG/DL (<1.0)
[2025-02-18 19:47] LABS: AMYLASE 50 U/L (30-118)
[2025-02-18 20:00] LABS: PROCALCITONIN 0.24 ng/ml
[2025-02-18 20:03] LABS: ALBUMIN 2.5 G/DL (3.2-5.2); ALKALINE PHOSPHATASE 113 U/L (35-104); ALT/SGPT 14 U/L (7.0-40); AST/SGOT 29 U/L (<34); BILIRUBIN,DIRECT < 0.1 MG/DL (<0.4); BILIRUBIN,TOTAL 0.2 MG/DL (0.3-1.2); BLOOD UREA NITROGEN 18 MG/DL (9-23); CALCIUM LEVEL 7.5 MG/DL (8.5-10.1); CARBON DIOXIDE LEVEL 28 MMOL/L (20-31); CHLORIDE LEVEL 106 MMOL/L (98-107); CK-MB VALUE MASS < 1.0 NG/ML (<3.6); CPK CREATINE PHOSPHOKINASE 60 U/L (34-145); CREATININE FOR GFR 1.29 MG/DL (0.55-1.30); GLOMERULAR FILTRATION RATE 51.8 (>58); GLUCOSE, FASTING 123 MG/DL (60-100); MB/CK RELATIVE INDEX 1.66 (< OR =4); POTASSIUM SERUM 4.5 MMOL/L (3.5-5.1); SODIUM LEVEL 138 MMOL/L (136-145); TOTAL PROTEIN 6.8 G/DL (5.7-8.2)
[2025-02-18] MEDS ORDERED: VANCOMYCIN HCL 1,500 MG in IV FLUID PLACE HOLDER 1 EA IV ONE (20:45)
[2025-02-18] MEDS: VANCOMYCIN HCL 1,500 MG, VIAL MATE ADAPTER 1 EACH in NS 500 ML IV ONE (20:59)
[2025-02-18] MEDS ORDERED: CEFA5SUS PO (22:05)
[2025-02-18] MEDS ORDERED: QUET200T2 PO (22:05)
[2025-02-18] MEDS ORDERED: OXYC40TA29 PO (22:05)
[2025-02-18] MEDS ORDERED: HUMA50IN4 INJ (22:14)
[2025-02-18] MEDS ORDERED: SENN-186 PO (22:14)
[2025-02-18] MEDS ORDERED: INSULANT SC (22:14)
[2025-02-18] MEDS ORDERED: NYST10006 TOP (22:14)
[2025-02-18] MEDS ORDERED: AMMO12LO TOP (22:14)
[2025-02-18] MEDS ORDERED: BENA25CA4 PO (22:14)
[2025-02-18] MEDS ORDERED: HOME MED LIST COMPLETE! XX SCH (22:15)
[2025-02-18] MEDS ORDERED: ACETAMINOPHEN 325 MG TAB PO PRN (22:35)
[2025-02-18] MEDS: NS (Normal Saline) 0.9% 1,000 ML IV ONE (22:46)
[2025-02-18] MEDS: cefTRIAXone SOD 2 GM in DEXTROSE 5% (D5W) ADV/MINI-BAG 50 ML IV SCH (23:00)
[2025-02-18 23:25] VITALS: BP 108/59; TEMP 97.2; O2SAT 94
[2025-02-18 23:43] VITALS: BP 108/58; TEMP 97.6; O2SAT 96
[2025-02-19] VITALS (9 sets, daily range): BP systolic 105–117; BP diastolic 56–67; TEMP 97–97.9; O2SAT 99–100
[2025-02-19] MEDS ORDERED: SENNA 8.6 MG TAB (SENOKOT) PO PRN (00:05)
[2025-02-19] MEDS ORDERED: ONDANSETRON 4MG TAB PO PRN (00:05)
[2025-02-19] MEDS: oxyCODONE 20MG CR TAB PO SCH (01:42)
[2025-02-19] MEDS: HYDROmorphone 4MG TABLET PO PRN (03:35)
[2025-02-19] MEDS ORDERED: DEXTROSE 50% 50ML SYRINGE IV PRN (03:45)
[2025-02-19] MEDS ORDERED: GLUCAGON INJ 1MG VIAL SC PRN (03:45)
[2025-02-19] MEDS ORDERED: GLUCOSE 4 GM CHEW PO PRN (03:45)
[2025-02-19] MEDS: HEPARIN SOD (PORCINE) 5000UNITS/ML 1ML VIAL/SYRINGE SC SCH (05:38)
[2025-02-19] MEDS: INSULIN LISPRO (NovoLOG) PER UNIT SC SCH ×2 (07:30→21:00)
[2025-02-19 07:59] LABS: HEMATOCRIT 31.6 % (36.0-47.0); MEAN CORPUSCULAR HEMOGLOBIN 23.4 pg (27.0-33.0); MEAN CORPUSCULAR HGB CONC 28.5 g/dl (32.0-36.5); MEAN CORPUSCULAR VOLUME 82.3 fl (80.0-96.0); PLATELET COUNT, AUTOMATED 200 10^3/uL (150-450); RED BLOOD COUNT 3.84 10^6/uL (4.00-5.40); WHITE BLOOD COUNT 6.2 10^3/uL (4.0-10.0)
[2025-02-19 08:16] LABS: C REACTIVE PROTEIN QUANTITATIV 8.09 MG/DL (<1.0)
[2025-02-19 08:21] LABS: ATYPICAL LYMPH 3 % (0-5); BASOPHILS 2 % (0-1); EOSINOPHILS 6 % (0-3); LYMPHOCYTES 14 % (16-44); NEUTROPHILS 75 % (28-66)
[2025-02-19 08:23] LABS: HYPOCHROMASIA 2+
[2025-02-19 08:24] LABS: ANISOCYTOSIS 2+; PLATELET ESTIMATE NORMAL (NORMAL)
[2025-02-19 08:31] LABS: ANTI-STREPTOLYSIN O QUANT 1894.1 IU/ML (<195); CALCIUM LEVEL 7.6 MG/DL (8.5-10.1); CREATININE FOR GFR 1.3 MG/DL (0.55-1.30); GLOMERULAR FILTRATION RATE 51.4 (>58); POTASSIUM SERUM 4.3 MMOL/L (3.5-5.1)
[2025-02-19] MEDS: TORSEMIDE 20 MG TAB PO SCH (08:37)
[2025-02-19] MEDS: HYDROCORTISONE 10 MG TAB PO SCH ×2 (08:38→21:59)
[2025-02-19] MEDS: FLUCONAZOLE 100 MG TAB PO SCH (08:38)
[2025-02-19] MEDS: PANTOPRAZOLE 40MG TAB (PROTONIX) PO SCH (08:38)
[2025-02-19] MEDS: GABAPENTIN 300 MG CAP PO SCH (08:38)
[2025-02-19] MEDS: CYCLOBENZAPRINE 10MG TABLET PO SCH (08:39)
[2025-02-19] MEDS: SPIRONOLACTONE 12.5MG PER 1/2 TABLET PO SCH (08:39)
[2025-02-19] MEDS: busPIRone 5 MG TAB PO SCH (08:39)
[2025-02-19] MEDS: LACTIC ACID 12% LOTION 225 GM BTL TOP SCH (09:00)
[2025-02-19] MEDS: NYSTATIN 100,000 UNITS/GM TOPICAL PWD 15GM TOP SCH (09:42)
[2025-02-19] MEDS: PIPERACILLIN/TAZOBACTAM SOD 3.375 GM in DEXTROSE 5% (D5W) ADV/MINI-BAG 50 ML IV SCH (11:03)
[2025-02-19] MEDS: VANCOMYCIN HCL 1,000 MG, VIAL MATE ADAPTER 1 EACH in NS 250 ML IV SCH (12:16)
[2025-02-19] MEDS ORDERED: NALOXONE INJ 0.4MG/1ML VIAL IV PRN (13:05)
[2025-02-19] MEDS: HYDROmorphone HCL 2MG/ML 1ML VIAL IV PRN (13:34)
[2025-02-19] MEDS: SERTRALINE 100 MG TAB PO SCH (21:57)
[2025-02-19] MEDS: FAMOTIDINE 20 MG TAB PO SCH (21:59)
[2025-02-19] MEDS: QUEtiapine FUMARATE 200 MG TAB PO SCH (21:59)
[2025-02-19] MEDS: diphenhydrAMINE 25MG CAP PO SCH (21:59)
[2025-02-20] VITALS (24 sets, daily range): BP systolic 107–119; BP diastolic 54–78; TEMP 96.2–98; O2SAT 98–100
[2025-02-20 06:53] LABS: BASO % 0.4 % (0.0-1.0); EOS # 0.2 10^3/uL (0.0-0.5); EOS % 3.7 % (0.0-3.0); HEMATOCRIT 30.7 % (36.0-47.0); HEMOGLOBIN 8.7 g/dl (12.0-15.5); LYMPH # 0.8 10^3/uL (1.5-5.0); LYMPH % 14.1 % (24.0-44.0); MEAN CORPUSCULAR HEMOGLOBIN 23.5 pg (27.0-33.0); MEAN CORPUSCULAR HGB CONC 28.3 g/dl (32.0-36.5); MONO # 0.4 10^3/uL (0.0-0.8); MONO % 7.1 % (2.0-8.0); NEUTROPHILS # 4.1 10^3/uL (1.5-8.5); NEUTROPHILS % 73.6 % (36.0-66.0); PLATELET COUNT, AUTOMATED 204 10^3/uL (150-450); WHITE BLOOD COUNT 5.6 10^3/uL (4.0-10.0)
[2025-02-20 07:12] LABS: CALCIUM LEVEL 7.3 MG/DL (8.5-10.1); CREATININE FOR GFR 1.39 MG/DL (0.55-1.30); GLOMERULAR FILTRATION RATE 47.4 (>58); POTASSIUM SERUM 4.4 MMOL/L (3.5-5.1)
[2025-02-20] MEDS: diphenhydrAMINE 50MG/ML VIAL IV SCH (22:03)
[2025-02-21] VITALS (13 sets, daily range): BP systolic 107–134; BP diastolic 54–93; TEMP 97.8–98.2; O2SAT 94–100
[2025-02-21 06:10] LABS: BASO % 0.6 % (0.0-1.0); EOS # 0.5 10^3/uL (0.0-0.5); EOS % 8.4 % (0.0-3.0); HEMATOCRIT 31.6 % (36.0-47.0); LYMPH % 15.2 % (24.0-44.0); MEAN CORPUSCULAR HEMOGLOBIN 23.6 pg (27.0-33.0); MEAN CORPUSCULAR HGB CONC 28.5 g/dl (32.0-36.5); MEAN CORPUSCULAR VOLUME 82.7 fl (80.0-96.0); MONO # 0.5 10^3/uL (0.0-0.8); MONO % 8.2 % (2.0-8.0); NEUTROPHILS # 4.3 10^3/uL (1.5-8.5); NEUTROPHILS % 66.4 % (36.0-66.0); PLATELET COUNT, AUTOMATED 257 10^3/uL (150-450); RED BLOOD COUNT 3.82 10^6/uL (4.00-5.40); WHITE BLOOD COUNT 6.4 10^3/uL (4.0-10.0)
[2025-02-21 06:21] LABS: CALCIUM LEVEL 7.7 MG/DL (8.5-10.1); CREATININE FOR GFR 1.73 MG/DL (0.55-1.30); GLOMERULAR FILTRATION RATE 36.5 (>58); POTASSIUM SERUM 4.7 MMOL/L (3.5-5.1)
[2025-02-21 18:38] LABS: PROCALCITONIN 0.11 ng/ml
[2025-02-21] MEDS: CEPHALEXIN 500 MG CAP PO SCH (21:05)
[2025-02-22] VITALS (12 sets, daily range): BP systolic 109–145; BP diastolic 53–70; TEMP 97.1–97.9; O2SAT 97–100
[2025-02-22 06:26] LABS: BASO % 0.7 % (0.0-1.0); HEMATOCRIT 30.9 % (36.0-47.0); HEMOGLOBIN 8.9 g/dl (12.0-15.5); LYMPH # 1.1 10^3/uL (1.5-5.0); LYMPH % 17.9 % (24.0-44.0); MEAN CORPUSCULAR HEMOGLOBIN 24.3 pg (27.0-33.0); MEAN CORPUSCULAR HGB CONC 28.8 g/dl (32.0-36.5); MEAN CORPUSCULAR VOLUME 84.4 fl (80.0-96.0); MONO # 0.5 10^3/uL (0.0-0.8); MONO % 8.2 % (2.0-8.0); NEUTROPHILS # 4.2 10^3/uL (1.5-8.5); NEUTROPHILS % 72.2 % (36.0-66.0); PLATELET COUNT, AUTOMATED 247 10^3/uL (150-450); RED BLOOD COUNT 3.66 10^6/uL (4.00-5.40); WHITE BLOOD COUNT 5.9 10^3/uL (4.0-10.0)
[2025-02-22 06:50] LABS: ALBUMIN 2.5 G/DL (3.2-5.2); CALCIUM LEVEL 7.6 MG/DL (8.5-10.1); CREATININE FOR GFR 1.63 MG/DL (0.55-1.30); GLOMERULAR FILTRATION RATE 39.2 (>58); MAGNESIUM LEVEL 1.9 MG/DL (1.8-2.4); PHOSPHORUS LEVEL 4.4 MG/DL (2.5-4.9); POTASSIUM SERUM 4.5 MMOL/L (3.5-5.1)
[2025-02-22 06:57] LABS: FERRITIN 142.7 NG/ML (7.3-270.7); TOTAL 25(OH) VITAMIN D 9.4 NG/ML (20.0-100.0)
[2025-02-22 10:38] LABS: C REACTIVE PROTEIN QUANTITATIV 1.71 MG/DL (<1.0)
[2025-02-22] MEDS ORDERED: FLUC-1 PO (10:39)
[2025-02-22] MEDS ORDERED: CEFA5SUS PO (10:58)
[2025-02-22] MEDS: FERRIC CARBOXYMALTOSE INJ 750 MG, VIAL MATE ADAPTER 1 EACH in NS 100 ML IV ONE (11:19)
[2025-02-22] MEDS: VITAMIN D 1,000 INTERNATIONAL UNITS TABLET PO SCH (11:20)
[2025-02-22] MEDS ORDERED: VITA200012 PO (12:57)
== END 2025-02-22 14:56 | disposition home or self-care (01) | DRG 720 ==
LOC: M ED 16:26 → M ED INP 22:11 → M PCU 23:16
PROVIDERS: ADMIT Family Medicine; ATTEND Family Medicine
DX: A41.9 Sepsis, unspecified organism (principal); E87.3 Alkalosis; N17.9 Acute kidney failure, unspecified; I13.0 Hypertensive heart and chronic kidney disease with heart failure and stage 1 through stage 4 chronic kidney disease, or unspecified chronic kidney disease; I50.32 Chronic diastolic (congestive) heart failure; N18.32 Chronic kidney disease, stage 3b; E11.22 Type 2 diabetes mellitus with diabetic chronic kidney disease; E27.40 Unspecified adrenocortical insufficiency; N82.3 Fistula of vagina to large intestine; E66.2 Morbid (severe) obesity with alveolar hypoventilation; Z68.44 Body mass index [BMI] 60.0-69.9, adult; K21.9 Gastro-esophageal reflux disease without esophagitis; K25.9 Gastric ulcer, unspecified as acute or chronic, without hemorrhage or perforation; I89.0 Lymphedema, not elsewhere classified; R10.2 Pelvic and perineal pain; G89.29 Other chronic pain; F17.210 Nicotine dependence, cigarettes, uncomplicated; L03.116 Cellulitis of left lower limb; D63.8 Anemia in other chronic diseases classified elsewhere; N39.0 Urinary tract infection, site not specified; N13.9 Obstructive and reflux uropathy, unspecified; F43.10 Post-traumatic stress disorder, unspecified; F32.9 Major depressive disorder, single episode, unspecified; F41.1 Generalized anxiety disorder; Z92.3 Personal history of irradiation; Z92.21 Personal history of antineoplastic chemotherapy; Z79.891 Long term (current) use of opiate analgesic; Z79.899 Other long term (current) drug therapy; Z88.1 Allergy status to other antibiotic agents; Z88.8 Allergy status to other drugs, medicaments and biological substances; Z91.048 Other nonmedicinal substance allergy status; Z85.44 Personal history of malignant neoplasm of other female genital organs; L30.4 Erythema intertrigo

== ENCOUNTER 2025-05-10 22:15 | Inpatient (IN) | payer OTHER ==
[~2025-05-10] VITALS: Ht 142.2 cm; Wt 132.7 kg
[~2025-05-10 22:15] MED LIST changes: +BENA25CA4 PO; +CEFA5SUS PO; +D3 S1CAP PO; +FLUC-1 PO; +HUMA50IN4 INJ; +INSULANT SC; +NYST10006 TOP; +OXYC30TA PO; +QUET200T2 PO; +VITA200012 PO
[2025-05-11 03:34] LABS: BASO # 0.1 10^3/uL (0.0-0.2); BASO % 0.5 % (0.0-1.0); EOS # 0.3 10^3/uL (0.0-0.5); EOS % 2.3 % (0.0-3.0); LYMPH # 0.9 10^3/uL (1.5-5.0); LYMPH % 8.2 % (24.0-44.0); MONO # 0.7 10^3/uL (0.0-0.8); MONO % 5.9 % (2.0-8.0); NEUTROPHILS # 9.1 10^3/uL (1.5-8.5); NEUTROPHILS % 81.7 % (36.0-66.0); PLATELET COUNT, AUTOMATED 223 10^3/uL (150-450)
[2025-05-11] MEDS ORDERED: HYDROMORPHONE HCL 0.5 MG/0.5 ML SYRINGE IV PRN ×3 (03:40→12:55)
[2025-05-11 03:52] LABS: C REACTIVE PROTEIN QUANTITATIV 6.08 MG/DL (<1.0)
[2025-05-11 03:53] LABS: ALT/SGPT 9 U/L (7.0-40); AST/SGOT 12 U/L (<34); CALCIUM LEVEL 8.0 MG/DL (8.5-10.1); CARBON DIOXIDE LEVEL 27 MMOL/L (20-31); CHLORIDE LEVEL 104 MMOL/L (98-107); CREATININE FOR GFR 1.46 MG/DL (0.55-1.30); GLOMERULAR FILTRATION RATE 44.7 (>58); POTASSIUM SERUM 3.8 MMOL/L (3.5-5.1); SODIUM LEVEL 141 MMOL/L (136-145)
[2025-05-11] MEDS: HYDROMORPHONE HCL 0.5 MG/0.5 ML SYRINGE IV PRN ×3 (03:58→16:21)
[2025-05-11] MEDS ORDERED: VANCOMYCIN HCL 1,000 MG in IV FLUID PLACE HOLDER 1 EA IV ONE (04:15)
[2025-05-11] MEDS: NS (Normal Saline) 0.9% 1,000 ML IV ONE (04:48)
[2025-05-11] MEDS: VANCOMYCIN HCL 1,500 MG, VIAL MATE ADAPTER 1 EACH in NS 500 ML IV ONE (04:49)
[2025-05-11] MEDS ORDERED: PIPERACILLIN/TAZOBACTAM SOD 3.375 GM in DEXTROSE 5% (D5W) ADV/MINI-BAG 50 ML IV SCH (08:25)
[2025-05-11] MEDS ORDERED: VANCOMYCIN HCL 1,500 MG in IV FLUID PLACE HOLDER 1 EA IV SCH (08:25)
[2025-05-11] MEDS ORDERED: ACETAMINOPHEN 325 MG TAB PO PRN (08:25)
[2025-05-11] MEDS ORDERED: DEXTROSE 50% 50 ML SYRINGE IV PRN (08:45)
[2025-05-11] MEDS ORDERED: GLUCAGON INJ 1 MG VIAL SC PRN (08:45)
[2025-05-11] MEDS ORDERED: GLUCOSE 4 GM CHEW PO PRN (08:45)
[2025-05-11] MEDS ORDERED: OXYC40TA40 PO (08:51)
[2025-05-11] MEDS ORDERED: FAMO20TA PO (08:51)
[2025-05-11] MEDS ORDERED: D200CAP3 PO (08:51)
[2025-05-11] MEDS ORDERED: OXYC30TA PO (08:51)
[2025-05-11] MEDS ORDERED: NARC1SPR (08:51)
[2025-05-11] MEDS ORDERED: HOME MED LIST COMPLETE! XX SCH (08:55)
[2025-05-11] MEDS: PIPERACILLIN/TAZOBACTAM SOD 3.375 GM in DEXTROSE 5% (D5W) ADV/MINI-BAG 50 ML IV SCH (09:15)
[2025-05-11] MEDS: INSULIN LISPRO (NovoLOG) PER UNIT SC SCH ×2 (12:00→21:00)
[2025-05-11] MEDS: oxyCODONE 20MG CR TAB PO SCH ×2 (13:38→21:56)
[2025-05-11] MEDS: PANTOPRAZOLE 40MG TAB PO SCH (13:38)
[2025-05-11 16:00] VITALS: TEMP 98; O2SAT 98
[2025-05-11] MEDS: LanTUS (INSULIN GLARGINE INJ) 1 UNITS/0.01 ML SC SCH (16:09)
[2025-05-11] MEDS: GABAPENTIN 300 MG CAP PO SCH (16:21)
[2025-05-11] MEDS: CYCLOBENZAPRINE 10 MG TABLET PO SCH (16:21)
[2025-05-11] MEDS: busPIRone 5 MG TAB PO SCH (16:22)
[2025-05-11 19:43] VITALS: BP 121/73; TEMP 97; O2SAT 97
[2025-05-11] MEDS: HEPARIN SOD 5000 UNITS/ML 1 ML VIAL/SYRINGE SQ SCH (21:00)
[2025-05-11] MEDS: VANCOMYCIN HCL 500 MG in DEXTROSE 5% (D5W) MINI-BAG PLU 100 ML IV SCH (21:01)
[2025-05-11] MEDS: DOCUSATE SODIUM 100 MG CAPSULE PO SCH (21:02)
[2025-05-11] MEDS: SERTRALINE 100 MG TAB PO SCH (21:02)
[2025-05-11] MEDS: HYDROCORTISONE 10 MG TAB PO SCH (21:02)
[2025-05-11] MEDS: FAMOTIDINE 20 MG TAB PO SCH (21:03)
[2025-05-12] VITALS (19 sets, daily range): BP systolic 104–121; BP diastolic 58–76; TEMP 96.8–98; O2SAT 95–99
[2025-05-12] MEDS: SODIUM CHLORIDE 0.9% INJ 10 ML SYR IV SCH (09:00)
[2025-05-12] MEDS: HEPARIN LOCK FLUSH 100 UNITS/ML 3 ML SYRINGE IV SCH (09:00)
[2025-05-12] MEDS: HYDROCORTISONE 10 MG TAB PO SCH (09:31)
[2025-05-12 09:52] LABS: BASO # 0.0 10^3/uL (0.0-0.2); BASO % 0.5 % (0.0-1.0); EOS # 0.0 10^3/uL (0.0-0.5); EOS % 0.0 % (0.0-3.0); LYMPH # 0.8 10^3/uL (1.5-5.0); LYMPH % 12.7 % (24.0-44.0); MONO # 0.5 10^3/uL (0.0-0.8); MONO % 7.9 % (2.0-8.0); NEUTROPHILS # 5.0 10^3/uL (1.5-8.5); NEUTROPHILS % 77.4 % (36.0-66.0); PLATELET COUNT, AUTOMATED 227 10^3/uL (150-450)
[2025-05-12 10:11] LABS: VANCOMYCIN LEVEL TROUGH 13.4 UG/ML (10.0-20.0)
[2025-05-12 10:12] LABS: CALCIUM LEVEL 7.9 MG/DL (8.5-10.1); CARBON DIOXIDE LEVEL 29.0 MMOL/L (20-31); CHLORIDE LEVEL 107.0 MMOL/L (98-107); CREATININE FOR GFR 1.36 MG/DL (0.55-1.30); GLOMERULAR FILTRATION RATE 48.7 (>58); POTASSIUM SERUM 4.1 MMOL/L (3.5-5.1); SODIUM LEVEL 144.0 MMOL/L (136-145)
[2025-05-12] MEDS ORDERED: VANCOMYCIN HCL 500 MG in DEXTROSE 5% (D5W) MINI-BAG PLU 100 ML IV SCH (11:00)
[2025-05-12] MEDS: VANCOMYCIN HCL 1,000 MG, VIAL MATE ADAPTER 1 EACH in NS 250 ML IV SCH (13:46)
[2025-05-12] MEDS: LACTIC ACID 12% LOTION 225 GM BTL EXT SCH (15:30)
[2025-05-12] MEDS: ALTEPLASE 2 MG/2 ML VIAL IV PRN (15:33)
[2025-05-12] MEDS: oxyCODONE 20MG CR TAB PO SCH (17:22)
[2025-05-12] MEDS: HEPARIN LOCK FLUSH 100 UNITS/ML 3 ML SYRINGE IV PRN (17:35)
[2025-05-12] MEDS: SODIUM CHLORIDE 0.9% INJ 10 ML SYR IV PRN (17:37)
[2025-05-12] MEDS: NYSTATIN 100,000 UNITS/GM TOPICAL PWD 15GM TOP SCH (20:46)
[2025-05-12] MEDS: LanTUS (INSULIN GLARGINE INJ) 1 UNITS/0.01 ML SC SCH (20:59)
[2025-05-13] VITALS (20 sets, daily range): BP systolic 106–145; BP diastolic 56–84; TEMP 97–98.1; O2SAT 94–100
[2025-05-13 07:39] LABS: BASO # 0.0 10^3/uL (0.0-0.2); BASO % 0.5 % (0.0-1.0); EOS # 0.0 10^3/uL (0.0-0.5); EOS % 0.2 % (0.0-3.0); LYMPH # 0.9 10^3/uL (1.5-5.0); LYMPH % 14.1 % (24.0-44.0); MONO # 0.6 10^3/uL (0.0-0.8); MONO % 8.8 % (2.0-8.0); NEUTROPHILS # 4.7 10^3/uL (1.5-8.5); NEUTROPHILS % 74.8 % (36.0-66.0); PLATELET COUNT, AUTOMATED 243 10^3/uL (150-450)
[2025-05-13 07:55] LABS: CALCIUM LEVEL 7.6 MG/DL (8.5-10.1); CARBON DIOXIDE LEVEL 29.0 MMOL/L (20-31); CHLORIDE LEVEL 110.0 MMOL/L (98-107); CREATININE FOR GFR 1.57 MG/DL (0.55-1.30); GLOMERULAR FILTRATION RATE 41.0 (>58); POTASSIUM SERUM 4.4 MMOL/L (3.5-5.1); SODIUM LEVEL 147.0 MMOL/L (136-145)
[2025-05-14 04:00] VITALS: BP 98/60; TEMP 97.3; O2SAT 98
[2025-05-14 05:58] LABS: BASO # 0.0 10^3/uL (0.0-0.2); BASO % 0.4 % (0.0-1.0); EOS # 0.0 10^3/uL (0.0-0.5); EOS % 0.1 % (0.0-3.0); LYMPH # 1.0 10^3/uL (1.5-5.0); LYMPH % 13.2 % (24.0-44.0); MONO # 0.5 10^3/uL (0.0-0.8); MONO % 7.1 % (2.0-8.0); NEUTROPHILS # 5.6 10^3/uL (1.5-8.5); NEUTROPHILS % 78.1 % (36.0-66.0); PLATELET COUNT, AUTOMATED 278 10^3/uL (150-450)
[2025-05-14 06:20] LABS: CALCIUM LEVEL 7.9 MG/DL (8.5-10.1); CARBON DIOXIDE LEVEL 28.0 MMOL/L (20-31); CHLORIDE LEVEL 109.0 MMOL/L (98-107); CREATININE FOR GFR 1.49 MG/DL (0.55-1.30); GLOMERULAR FILTRATION RATE 43.6 (>58); POTASSIUM SERUM 4.7 MMOL/L (3.5-5.1); SODIUM LEVEL 143.0 MMOL/L (136-145)
[2025-05-14 10:24] VITALS: BP 105/74; TEMP 97.5; O2SAT 98
[2025-05-14] MEDS ORDERED: DOXY-440 PO (10:57)
[2025-05-14] MEDS ORDERED: CEFD1CAP9 PO (10:57)
== END 2025-05-14 12:50 | disposition home or self-care (01) | DRG 383 ==
LOC: M ED 22:15 → M ED INP 05-11 08:24 → M PCU 05-11 15:47 → M MS5PR 05-13 22:15
PROVIDERS: ADMIT Internal Medicine Nephrology; ATTEND Internal Medicine Nephrology
DX: L03.116 Cellulitis of left lower limb (principal); E11.22 Type 2 diabetes mellitus with diabetic chronic kidney disease; N18.30 Chronic kidney disease, stage 3 unspecified; E66.01 Morbid (severe) obesity due to excess calories; E27.40 Unspecified adrenocortical insufficiency; Z68.44 Body mass index [BMI] 60.0-69.9, adult; G47.33 Obstructive sleep apnea (adult) (pediatric); I12.9 Hypertensive chronic kidney disease with stage 1 through stage 4 chronic kidney disease, or unspecified chronic kidney disease; R26.89 Other abnormalities of gait and mobility; K21.9 Gastro-esophageal reflux disease without esophagitis; D64.9 Anemia, unspecified; F43.10 Post-traumatic stress disorder, unspecified; F32.A Depression, unspecified; Z90.49 Acquired absence of other specified parts of digestive tract; N82.3 Fistula of vagina to large intestine; Z87.891 Personal history of nicotine dependence; Z92.3 Personal history of irradiation; Z85.44 Personal history of malignant neoplasm of other female genital organs; Z92.21 Personal history of antineoplastic chemotherapy; Z96.0 Presence of urogenital implants; F41.9 Anxiety disorder, unspecified; L03.115 Cellulitis of right lower limb; Z79.891 Long term (current) use of opiate analgesic; Z79.899 Other long term (current) drug therapy; Z88.1 Allergy status to other antibiotic agents; Z88.8 Allergy status to other drugs, medicaments and biological substances; Z91.048 Other nonmedicinal substance allergy status

== ENCOUNTER 2025-06-20 16:18 | Inpatient (IN) | payer OTHER ==
[~2025-06-20] VITALS: Ht 144.8 cm; Wt 141.2 kg
[~2025-06-20 16:18] MED LIST changes: +CEFD1CAP9 PO; +D200CAP3 PO; +DOXY-440 PO; +NARC1SPR; +SLOW1TAB3 PO; -SLOWTAB2 PO
[2025-06-20] MEDS: MORPHINE 4 MG/ML 1 ML VIAL IV ONE (20:00)
[2025-06-20 20:12] LABS: BASO # 0.0 10^3/uL (0.0-0.2); BASO % 0.5 % (0.0-1.0); EOS # 0.0 10^3/uL (0.0-0.5); EOS % 0.0 % (0.0-3.0); LYMPH # 1.0 10^3/uL (1.5-5.0); LYMPH % 11.1 % (24.0-44.0); MONO # 0.5 10^3/uL (0.0-0.8); MONO % 5.3 % (2.0-8.0); NEUTROPHILS # 7.1 10^3/uL (1.5-8.5); NEUTROPHILS % 82.3 % (36.0-66.0); PLATELET COUNT, AUTOMATED 191 10^3/uL (150-450)
[2025-06-20 20:36] LABS: KETONE, URINE AUTO RFX NEGATIVE (NEGATIVE); LEUKOCYTE ESTERASE UR AUTO RFX 3+ (NEGATIVE); NITRITE, URINE AUTO RFX NEGATIVE (NEGATIVE); RBC, URINE AUTO RFX 5 /HPF (0-3); SQUAM EPITHELIAL CELL UR AURFX 0 /HPF (0-6); WBC, URINE AUTO RFX 45 /HPF (0-3); YEAST LIKE CELL URINE AUTO RFX LARGE
[2025-06-20 20:39] LABS: CALCIUM LEVEL 8.2 MG/DL (8.5-10.1); CARBON DIOXIDE LEVEL 27 MMOL/L (20-31); CHLORIDE LEVEL 107 MMOL/L (98-107); CREATININE FOR GFR 1.33 MG/DL (0.55-1.30); GLOMERULAR FILTRATION RATE 50.0 (>58); POTASSIUM SERUM 3.8 MMOL/L (3.5-5.1); SODIUM LEVEL 144 MMOL/L (136-145)
[2025-06-20 21:14] LABS: ERYTHROCYTE SEDIMENTATION RATE 77 mm/hr (0-20)
[2025-06-20 21:22] LABS: C REACTIVE PROTEIN QUANTITATIV 2.87 MG/DL (<1.0)
[2025-06-20] MEDS ORDERED: ISOVUE-370 76% 100 ML VIAL As Ordered ONE (21:38)
[2025-06-20 21:50] LABS: ALT/SGPT 13 U/L (7.0-40); AST/SGOT 15 U/L (<34)
[2025-06-20] MEDS ORDERED: HOME MED LIST COMPLETE! XX SCH (22:55)
[2025-06-20] MEDS ORDERED: GLUCAGON INJ 1 MG VIAL SC PRN (23:55)
[2025-06-20] MEDS ORDERED: DEXTROSE 50% 50 ML SYRINGE IV PRN (23:55)
[2025-06-20] MEDS ORDERED: GLUCOSE 4 GM CHEW PO PRN (23:55)
[2025-06-20] MEDS ORDERED: NALOXONE 2 MG/2 ML SYRINGE IV PRN (23:55)
[2025-06-21] MEDS: VANCOMYCIN HCL 2,000 MG, VIAL MATE ADAPTER 1 EACH in NS 500 ML IV ONE (00:52)
[2025-06-21] MEDS: GABAPENTIN 300 MG CAP PO SCH (00:56)
[2025-06-21] MEDS: HYDROMORPHONE HCL 0.5 MG/0.5 ML SYRINGE IV PRN (01:17)
[2025-06-21] MEDS: diphenhydrAMINE 50 MG/ML VIAL IV PRN (01:24)
[2025-06-21] MEDS: PIPERACILLIN/TAZOBACTAM SOD 4.5 GM in DEXTROSE 5% (D5W) ADV/MINI-BAG 50 ML IV SCH (02:53)
[2025-06-21] MEDS: LR 250 ML IV SCH (04:22)
[2025-06-21 07:09] LABS: PLATELET COUNT, AUTOMATED 163 10^3/uL (150-450)
[2025-06-21] MEDS: INSULIN LISPRO (NovoLOG) PER UNIT SC SCH ×2 (07:30→21:00)
[2025-06-21 07:34] LABS: C REACTIVE PROTEIN QUANTITATIV 2.82 MG/DL (<1.0)
[2025-06-21 07:40] LABS: ALT/SGPT 9.0 U/L (7.0-40); AST/SGOT 13.0 U/L (<34); CALCIUM LEVEL 7.9 MG/DL (8.5-10.1); CARBON DIOXIDE LEVEL 28.0 MMOL/L (20-31); CHLORIDE LEVEL 108.0 MMOL/L (98-107); CREATININE FOR GFR 1.38 MG/DL (0.55-1.30); GLOMERULAR FILTRATION RATE 47.8 (>58); POTASSIUM SERUM 4.0 MMOL/L (3.5-5.1); SODIUM LEVEL 144.0 MMOL/L (136-145)
[2025-06-21] MEDS: LanTUS (INSULIN GLARGINE INJ) 1 UNITS/0.01 ML SC SCH (09:00)
[2025-06-21] MEDS ORDERED: HYDROMORPHONE HCL 0.5 MG/0.5 ML SYRINGE IV PRN (09:20)
[2025-06-21] MEDS ORDERED: diphenhydrAMINE 50 MG/ML VIAL IV PRN (09:25)
[2025-06-21] MEDS: busPIRone 5 MG TAB PO SCH (09:29)
[2025-06-21] MEDS: HYDROCORTISONE 10 MG TAB PO SCH (09:29)
[2025-06-21] MEDS: PANTOPRAZOLE 40MG TAB PO SCH (09:29)
[2025-06-21] MEDS: CYCLOBENZAPRINE 10 MG TABLET PO SCH (09:29)
[2025-06-21] MEDS: DOCUSATE SODIUM 100 MG CAPSULE PO SCH ×2 (09:29→12:39)
[2025-06-21] MEDS: SPIRONOLACTONE 12.5MG PER 1/2 TABLET PO SCH (09:31)
[2025-06-21] MEDS: HEPARIN SOD 5000 UNITS/ML 1 ML VIAL/SYRINGE SC SCH (09:32)
[2025-06-21] MEDS: oxyCODONE 20MG CR TAB PO SCH (09:55)
[2025-06-21] MEDS: HYDROmorphone HCL 2 MG/ML 1 ML VIAL IV PRN (12:40)
[2025-06-21] MEDS: diphenhydrAMINE 50 MG/ML VIAL IV SCH (22:02)
[2025-06-21] MEDS: VANCOMYCIN HCL 1,000 MG, VIAL MATE ADAPTER 1 EACH in NS 250 ML IV SCH (22:03)
[2025-06-21] MEDS: SERTRALINE 100 MG TAB PO SCH (22:03)
[2025-06-21] MEDS: FAMOTIDINE 20 MG TAB PO SCH (22:03)
[2025-06-22] MEDS: HYDROCORTISONE 10 MG TAB PO SCH (00:57)
[2025-06-22 09:16] LABS: C REACTIVE PROTEIN QUANTITATIV 2.71 MG/DL (<1.0)
[2025-06-22 09:18] LABS: ALT/SGPT 10.0 U/L (7.0-40); AST/SGOT 13.0 U/L (<34); CALCIUM LEVEL 8.1 MG/DL (8.5-10.1); CARBON DIOXIDE LEVEL 32.0 MMOL/L (20-31); CHLORIDE LEVEL 106.0 MMOL/L (98-107); CREATININE FOR GFR 1.39 MG/DL (0.55-1.30); GLOMERULAR FILTRATION RATE 47.4 (>58); POTASSIUM SERUM 4.3 MMOL/L (3.5-5.1); SODIUM LEVEL 144.0 MMOL/L (136-145)
[2025-06-22 17:42] VITALS: BP 129/87; TEMP 98.3; O2SAT 98
[2025-06-22 19:13] VITALS: BP 129/63; TEMP 97.8; O2SAT 94
[2025-06-22 20:00] VITALS: O2SAT 98
[2025-06-22 21:00] VITALS: O2SAT 95
[2025-06-22 22:00] VITALS: O2SAT 95
[2025-06-22 23:00] VITALS: O2SAT 95
[2025-06-23] VITALS (27 sets, daily range): BP systolic 129–141; BP diastolic 64–76; TEMP 96.8–99; O2SAT 94–100
[2025-06-23 06:24] LABS: ALT/SGPT 10.0 U/L (7.0-40); AST/SGOT 12.0 U/L (<34); C REACTIVE PROTEIN QUANTITATIV 2.66 MG/DL (<1.0); CALCIUM LEVEL 7.8 MG/DL (8.5-10.1); CARBON DIOXIDE LEVEL 32.0 MMOL/L (20-31); CHLORIDE LEVEL 104.0 MMOL/L (98-107); CREATININE FOR GFR 1.5 MG/DL (0.55-1.30); GLOMERULAR FILTRATION RATE 43.3 (>58); POTASSIUM SERUM 4.6 MMOL/L (3.5-5.1); SODIUM LEVEL 143.0 MMOL/L (136-145)
[2025-06-23] MEDS ORDERED: PILL CUTTER 1 EACH XX PRN (18:50)
[2025-06-23] MEDS ORDERED: diazePAM 2 MG TAB PO PRN (21:00)
[2025-06-23] MEDS: diphenhydrAMINE 50 MG/ML VIAL IV PRN (21:36)
[2025-06-24] VITALS (15 sets, daily range): BP systolic 120–137; BP diastolic 57–77; TEMP 97–98.2; O2SAT 95–100
[2025-06-24 06:03] LABS: C REACTIVE PROTEIN QUANTITATIV 2.01 MG/DL (<1.0)
[2025-06-24 06:08] LABS: ALT/SGPT < 9 U/L (7.0-40); AST/SGOT 11 U/L (<34); CALCIUM LEVEL 7.6 MG/DL (8.5-10.1); CARBON DIOXIDE LEVEL 32 MMOL/L (20-31); CHLORIDE LEVEL 108 MMOL/L (98-107); CREATININE FOR GFR 1.39 MG/DL (0.55-1.30); GLOMERULAR FILTRATION RATE 47.4 (>58); POTASSIUM SERUM 4.7 MMOL/L (3.5-5.1); SODIUM LEVEL 146 MMOL/L (136-145)
[2025-06-24] MEDS: LACTIC ACID 12% LOTION 225 GM BTL EXT SCH (08:42)
[2025-06-24] MEDS: VANCOMYCIN HCL 1,250 MG, VIAL MATE ADAPTER 1 EACH in NS 250 ML IV SCH (22:13)
[2025-06-25] VITALS (24 sets, daily range): BP systolic 117–136; BP diastolic 58–75; TEMP 97.2–97.8; O2SAT 91–100
[2025-06-25 05:10] LABS: C REACTIVE PROTEIN QUANTITATIV 1.67 MG/DL (<1.0)
[2025-06-25 05:11] LABS: ALT/SGPT 10 U/L (7.0-40); AST/SGOT 12 U/L (<34); CALCIUM LEVEL 8.0 MG/DL (8.5-10.1); CARBON DIOXIDE LEVEL 28 MMOL/L (20-31); CHLORIDE LEVEL 106 MMOL/L (98-107); CREATININE FOR GFR 1.40 MG/DL (0.55-1.30); GLOMERULAR FILTRATION RATE 47.0 (>58); MAGNESIUM LEVEL 1.8 MG/DL (1.8-2.4); POTASSIUM SERUM 4.3 MMOL/L (3.5-5.1); SODIUM LEVEL 144 MMOL/L (136-145)
[2025-06-25] MEDS: FUROSEMIDE 40 MG/4 ML VIAL IV ONE (11:13)
[2025-06-25] MEDS: SODIUM CHLORIDE 0.9% INJ 10 ML SYR IV PRN (11:14)
[2025-06-25] MEDS: HEPARIN LOCK FLUSH 100 UNITS/ML 3 ML SYRINGE IV PRN (11:14)
[2025-06-25] MEDS: VANCOMYCIN HCL 750 MG, VIAL MATE ADAPTER 1 EACH in NS 250 ML IV ONE (20:40)
[2025-06-25] MEDS: LanTUS (INSULIN GLARGINE INJ) 1 UNITS/0.01 ML SC SCH (20:44)
[2025-06-26] VITALS (14 sets, daily range): BP systolic 122–149; BP diastolic 60–77; TEMP 96.8–98.6; O2SAT 94–100
[2025-06-26 05:58] LABS: PLATELET COUNT, AUTOMATED 190 10^3/uL (150-450)
[2025-06-26 06:26] LABS: C REACTIVE PROTEIN QUANTITATIV 1.6 MG/DL (<1.0); VANCOMYCIN RANDOM 20.7 UG/ML
[2025-06-26 06:27] LABS: ALT/SGPT 12.0 U/L (7.0-40); AST/SGOT 13.0 U/L (<34); CALCIUM LEVEL 7.7 MG/DL (8.5-10.1); CARBON DIOXIDE LEVEL 31.0 MMOL/L (20-31); CHLORIDE LEVEL 102.0 MMOL/L (98-107); CREATININE FOR GFR 1.63 MG/DL (0.55-1.30); GLOMERULAR FILTRATION RATE 39.2 (>58); POTASSIUM SERUM 4.2 MMOL/L (3.5-5.1); SODIUM LEVEL 143.0 MMOL/L (136-145)
[2025-06-26] MEDS: VANCOMYCIN HCL 1,250 MG, VIAL MATE ADAPTER 1 EACH in NS 250 ML IV SCH (09:24)
[2025-06-26] MEDS: SODIUM CHLORIDE 0.9% INJ 10 ML SYR IV SCH (09:30)
[2025-06-26] MEDS: HEPARIN LOCK FLUSH 100 UNITS/ML 3 ML SYRINGE IV SCH (12:00)
[2025-06-26] MEDS: MIRALAX *UNIT DOSE* 17 GM PACKET PO SCH (17:00)
[2025-06-26] MEDS: ONDANSETRON 4MG 2ML VIAL IV PRN (23:26)
[2025-06-27] VITALS (12 sets, daily range): BP systolic 121–133; BP diastolic 61–77; TEMP 97.5–98.3; O2SAT 94–100
[2025-06-27 05:29] LABS: PLATELET COUNT, AUTOMATED 186 10^3/uL (150-450)
[2025-06-27 05:57] LABS: C REACTIVE PROTEIN QUANTITATIV 1.87 MG/DL (<1.0)
[2025-06-27 05:58] LABS: ALT/SGPT 11.0 U/L (7.0-40); AST/SGOT 13.0 U/L (<34); CALCIUM LEVEL 7.4 MG/DL (8.5-10.1); CARBON DIOXIDE LEVEL 31.0 MMOL/L (20-31); CHLORIDE LEVEL 104.0 MMOL/L (98-107); CREATININE FOR GFR 1.59 MG/DL (0.55-1.30); GLOMERULAR FILTRATION RATE 40.3 (>58); POTASSIUM SERUM 4.5 MMOL/L (3.5-5.1); SODIUM LEVEL 144.0 MMOL/L (136-145)
[2025-06-27] MEDS: MINOCYCLINE 50 MG CAP PO SCH (08:33)
[2025-06-27] MEDS ORDERED: MINO100C4 PO (11:47)
[2025-06-28] MEDS ORDERED: FAMO20TA PO (09:13)
== END 2025-06-27 15:01 | disposition home or self-care (01) | DRG 385 ==
LOC: M ED 16:18 → M ED INP 06-21 00:17 → EEVIPCON 06-21 00:17 → M PCU 06-22 17:39
PROVIDERS: ADMIT Student in an Organized Health Care Education/Training Program; ATTEND Student in an Organized Health Care Education/Training Program
DX: I89.0 Lymphedema, not elsewhere classified (principal); E11.22 Type 2 diabetes mellitus with diabetic chronic kidney disease; I50.32 Chronic diastolic (congestive) heart failure; E27.40 Unspecified adrenocortical insufficiency; L03.115 Cellulitis of right lower limb; E11.42 Type 2 diabetes mellitus with diabetic polyneuropathy; Z68.44 Body mass index [BMI] 60.0-69.9, adult; N82.4 Other female intestinal-genital tract fistulae; Z93.6 Other artificial openings of urinary tract status; L03.116 Cellulitis of left lower limb; N18.30 Chronic kidney disease, stage 3 unspecified; C51.9 Malignant neoplasm of vulva, unspecified; D63.8 Anemia in other chronic diseases classified elsewhere; E66.9 Obesity, unspecified; G47.33 Obstructive sleep apnea (adult) (pediatric); K21.9 Gastro-esophageal reflux disease without esophagitis; F43.10 Post-traumatic stress disorder, unspecified; F32.A Depression, unspecified; G89.29 Other chronic pain; N39.0 Urinary tract infection, site not specified; N13.9 Obstructive and reflux uropathy, unspecified; G89.3 Neoplasm related pain (acute) (chronic); F41.1 Generalized anxiety disorder; K59.00 Constipation, unspecified; Z79.84 Long term (current) use of oral hypoglycemic drugs; Z79.2 Long term (current) use of antibiotics; Z79.891 Long term (current) use of opiate analgesic; Z79.899 Other long term (current) drug therapy; Z88.1 Allergy status to other antibiotic agents; Z88.8 Allergy status to other drugs, medicaments and biological substances; Z91.048 Other nonmedicinal substance allergy status; Z92.3 Personal history of irradiation; Z92.21 Personal history of antineoplastic chemotherapy; Z93.3 Colostomy status; Z90.49 Acquired absence of other specified parts of digestive tract

== ENCOUNTER → 2025-07-08 | Outpatient (CLI) | payer OTHER ==
[~2025-07-08] MED LIST changes: +METH-1164 PO; +MINO100C4 PO
== END ==
LOC: M ONCR 14:28
PROVIDERS: ATTEND General Practice
DX: Z08 Encounter for follow-up examination after completed treatment for malignant neoplasm (principal); Z85.44 Personal history of malignant neoplasm of other female genital organs; Z79.899 Other long term (current) drug therapy; Z87.891 Personal history of nicotine dependence; Z88.1 Allergy status to other antibiotic agents; Z88.8 Allergy status to other drugs, medicaments and biological substances; Z91.048 Other nonmedicinal substance allergy status; Z92.21 Personal history of antineoplastic chemotherapy; Z92.3 Personal history of irradiation; Z93.3 Colostomy status

== ENCOUNTER → 2025-08-01 | Outpatient (CLI) | payer OTHER | LOC: M PLARAD 08:32 | PROVIDERS: ATTEND General Practice | DX: C51.8 Malignant neoplasm of overlapping sites of vulva (principal) | CPT/HCPCS: 78815; A9552 ==

== ENCOUNTER → 2025-08-12 | Outpatient (CLI) | payer OTHER ==
[~2025-08-12] MED LIST changes: +CEPH750C PO; +OXYC60TA8 PO
== END ==
LOC: M ONCR 13:55
PROVIDERS: ATTEND General Practice
DX: C51.8 Malignant neoplasm of overlapping sites of vulva (principal); L03.116 Cellulitis of left lower limb; N76.2 Acute vulvitis; Z87.891 Personal history of nicotine dependence; Z92.21 Personal history of antineoplastic chemotherapy; Z92.3 Personal history of irradiation; Z88.1 Allergy status to other antibiotic agents; Z88.8 Allergy status to other drugs, medicaments and biological substances; Z91.048 Other nonmedicinal substance allergy status; Z79.891 Long term (current) use of opiate analgesic; Z79.2 Long term (current) use of antibiotics; Z79.4 Long term (current) use of insulin; Z79.899 Other long term (current) drug therapy

== ENCOUNTER 2025-08-24 15:58 | Inpatient (IN) | payer OTHER ==
[~2025-08-24] VITALS: Ht 144.8 cm; Wt 136.2 kg
[2025-08-24 17:06] LABS: BASO # 0.0 10^3/uL (0.0-0.2); BASO % 0.2 % (0.0-1.0); EOS # 0.0 10^3/uL (0.0-0.5); EOS % 0.0 % (0.0-3.0); LYMPH # 1.0 10^3/uL (1.5-5.0); LYMPH % 6.0 % (24.0-44.0); MONO # 0.4 10^3/uL (0.0-0.8); MONO % 2.5 % (2.0-8.0); NEUTROPHILS # 15.4 10^3/uL (1.5-8.5); NEUTROPHILS % 90.8 % (36.0-66.0); PLATELET COUNT, AUTOMATED 211 10^3/uL (150-450)
[2025-08-24 17:12] LABS: ERYTHROCYTE SEDIMENTATION RATE > 130 mm/hr (0-20)
[2025-08-24 17:29] LABS: ALT/SGPT 12 U/L (7.0-40); AST/SGOT 15 U/L (<34); C REACTIVE PROTEIN QUANTITATIV 6.97 MG/DL (<1.0); CALCIUM LEVEL 7.9 MG/DL (8.5-10.1); CARBON DIOXIDE LEVEL 24 MMOL/L (20-31); CHLORIDE LEVEL 103 MMOL/L (98-107); CREATININE FOR GFR 1.38 MG/DL (0.55-1.30); GLOMERULAR FILTRATION RATE 47.8 (>58); POTASSIUM SERUM 4.1 MMOL/L (3.5-5.1); SODIUM LEVEL 138 MMOL/L (136-145)
[2025-08-24] MEDS ORDERED: ISOVUE-370 76% 100 ML VIAL As Ordered ONE (18:07)
[2025-08-24] MEDS: ACETAMINOPHEN 325 MG TAB PO ONE (18:55)
[2025-08-24] MEDS: PIPERACILLIN/TAZOBACTAM SOD 4.5 GM in DEXTROSE 5% (D5W) ADV/MINI-BAG 50 ML IV ONE (18:55)
[2025-08-24] MEDS: NS (Normal Saline) 0.9% 1,000 ML IV ONE ×2 (18:55→19:30)
[2025-08-24] MEDS ORDERED: METF-838 PO (20:06)
[2025-08-24] MEDS ORDERED: CLOT15CR4 TOP (20:08)
[2025-08-24] MEDS ORDERED: HOME MED LIST COMPLETE! XX SCH (20:10)
[2025-08-24] MEDS: VANCOMYCIN HCL 1,000 MG, VIAL MATE ADAPTER 1 EACH in NS 250 ML IV ONE ×2 (20:13→22:33)
[2025-08-24] MEDS ORDERED: GLUCAGON INJ 1 MG VIAL SC PRN (21:00)
[2025-08-24] MEDS ORDERED: DEXTROSE 50% 50 ML SYRINGE IV PRN (21:00)
[2025-08-24] MEDS ORDERED: GLUCOSE 4 GM CHEW PO PRN (21:00)
[2025-08-24] MEDS: INSULIN LISPRO (NovoLOG) PER UNIT SC SCH (21:00)
[2025-08-24] MEDS: MORPHINE 2 MG/ML 1 ML VIAL IV ONE (21:03)
[2025-08-24 22:20] VITALS: BP 119/56; TEMP 101.8; O2SAT 99
[2025-08-24] MEDS: ACETAMINOPHEN 500 MG TAB PO PRN (22:32)
[2025-08-24] MEDS: LR 1,000 ML IV SCH (22:33)
[2025-08-25] MEDS: CEFEPIME HCL 2 GM in DEXTROSE 5% (D5W) ADV/MINI-BAG 50 ML IV SCH (00:11)
[2025-08-25] MEDS: MORPHINE 4 MG/ML 1 ML VIAL IV ONE (00:12)
[2025-08-25 00:43] VITALS: BP 105/54; TEMP 99.8; O2SAT 98
[2025-08-25] MEDS: ONDANSETRON 4MG 2ML VIAL IV ONE (01:10)
[2025-08-25 04:06] VITALS: BP 122/57; TEMP 98.5; O2SAT 100
[2025-08-25 05:45] LABS: BASO # 0.0 10^3/uL (0.0-0.2); BASO % 0.1 % (0.0-1.0); EOS # 0.0 10^3/uL (0.0-0.5); EOS % 0.0 % (0.0-3.0); LYMPH # 0.6 10^3/uL (1.5-5.0); LYMPH % 6.1 % (24.0-44.0); MONO # 0.4 10^3/uL (0.0-0.8); MONO % 4.1 % (2.0-8.0); NEUTROPHILS # 9.2 10^3/uL (1.5-8.5); NEUTROPHILS % 89.2 % (36.0-66.0); PLATELET COUNT, AUTOMATED 167 10^3/uL (150-450)
[2025-08-25] MEDS: MORPHINE 4 MG/ML 1 ML VIAL IV PRN (06:30)
[2025-08-25 06:38] LABS: ALT/SGPT 19.0 U/L (7.0-40); AST/SGOT 30.0 U/L (<34); CALCIUM LEVEL 7.7 MG/DL (8.5-10.1); CARBON DIOXIDE LEVEL 27.0 MMOL/L (20-31); CHLORIDE LEVEL 106.0 MMOL/L (98-107); CREATININE FOR GFR 1.58 MG/DL (0.55-1.30); GLOMERULAR FILTRATION RATE 40.6 (>58); MAGNESIUM LEVEL 1.7 MG/DL (1.8-2.4); POTASSIUM SERUM 4.3 MMOL/L (3.5-5.1); SODIUM LEVEL 143.0 MMOL/L (136-145)
[2025-08-25] MEDS: INSULIN LISPRO (NovoLOG) PER UNIT SC SCH (07:30)
[2025-08-25 07:43] VITALS: BP 117/55; TEMP 96.7; O2SAT 100
[2025-08-25 08:26] LABS: ANTI-STREPTOLYSIN O QUANT 969.6 IU/ML (<195)
[2025-08-25 08:29] LABS: C REACTIVE PROTEIN QUANTITATIV 12.68 MG/DL (<1.0)
[2025-08-25] MEDS: MAG SULF 1GM/100ML (MAG RUN) 1 GM in IV 1 EA IV ONE (08:45)
[2025-08-25] MEDS: PANTOPRAZOLE 40MG VIAL IV SCH (08:45)
[2025-08-25] MEDS: metroNIDAZOLE 500 MG in IV 1 EA IV SCH (08:46)
[2025-08-25] MEDS: HEPARIN SOD 5000 UNITS/ML 1 ML VIAL/SYRINGE SC SCH ×2 (08:46→13:45)
[2025-08-25] MEDS: DOCUSATE SODIUM 100 MG CAPSULE PO SCH (09:00)
[2025-08-25] MEDS: GABAPENTIN 300 MG CAP PO SCH (09:53)
[2025-08-25] MEDS: oxyCODONE 20MG CR TAB PO SCH (09:53)
[2025-08-25] MEDS: busPIRone 5 MG TAB PO SCH (09:53)
[2025-08-25 10:05] LABS: ESTIMATED AVERAGE GLUCOSE 151.0 MG/DL (60-110)
[2025-08-25] MEDS: HYDROCORTISONE 10 MG TAB PO SCH ×2 (10:08→21:06)
[2025-08-25] MEDS: HYDROMORPHONE HCL 0.5 MG/0.5 ML SYRINGE IV PRN (11:21)
[2025-08-25] MEDS ORDERED: DOCUSATE SODIUM 100 MG CAPSULE PO SCH (12:00)
[2025-08-25 13:14] VITALS: BP 104/53; TEMP 97.9; O2SAT 98
[2025-08-25] MEDS ORDERED: PILL CUTTER 1 EACH XX ONE (13:38)
[2025-08-25] MEDS: ACETAMINOPHEN 500 MG TAB PO SCH (13:45)
[2025-08-25] MEDS: SPIRONOLACTONE 25 MG TAB PO SCH (13:46)
[2025-08-25] MEDS: HEPARIN LOCK FLUSH 100 UNITS/ML 3 ML SYRINGE IV SCH (14:12)
[2025-08-25] MEDS: ONDANSETRON 4MG 2ML VIAL IV PRN (14:12)
[2025-08-25] MEDS: SODIUM CHLORIDE 0.9% INJ 10 ML SYR IV SCH (14:13)
[2025-08-25] MEDS: VANCOMYCIN HCL 1,250 MG, VIAL MATE ADAPTER 1 EACH in NS 250 ML IV SCH (15:06)
[2025-08-25] MEDS ORDERED: diphenhydrAMINE 50 MG/ML VIAL IM PRN (15:50)
[2025-08-25 16:00] VITALS: BP 101/54; TEMP 96.6; O2SAT 99
[2025-08-25] MEDS: FLUCONAZOLE 100 MG TAB PO SCH (18:51)
[2025-08-25 19:56] VITALS: BP 102/59; TEMP 97.1; O2SAT 96
[2025-08-25] MEDS: SERTRALINE 100 MG TAB PO SCH (21:07)
[2025-08-25] MEDS: FAMOTIDINE 20 MG TAB PO SCH (21:08)
[2025-08-25] MEDS: diphenhydrAMINE 50 MG/ML VIAL IV PRN (22:52)
[2025-08-26] VITALS (7 sets, daily range): BP systolic 104–117; BP diastolic 53–72; TEMP 96.8–98.6; O2SAT 96–99
[2025-08-26 05:24] LABS: BASO # 0.0 10^3/uL (0.0-0.2); BASO % 0.5 % (0.0-1.0); EOS # 0.0 10^3/uL (0.0-0.5); EOS % 0.0 % (0.0-3.0); LYMPH # 0.7 10^3/uL (1.5-5.0); LYMPH % 12.0 % (24.0-44.0); MONO # 0.4 10^3/uL (0.0-0.8); MONO % 6.1 % (2.0-8.0); NEUTROPHILS # 4.9 10^3/uL (1.5-8.5); NEUTROPHILS % 80.9 % (36.0-66.0); PLATELET COUNT, AUTOMATED 177 10^3/uL (150-450)
[2025-08-26 05:53] LABS: ALT/SGPT 17.0 U/L (7.0-40); AST/SGOT 18.0 U/L (<34); CALCIUM LEVEL 7.7 MG/DL (8.5-10.1); CARBON DIOXIDE LEVEL 29.0 MMOL/L (20-31); CHLORIDE LEVEL 106.0 MMOL/L (98-107); CREATININE FOR GFR 1.49 MG/DL (0.55-1.30); GLOMERULAR FILTRATION RATE 43.6 (>58); MAGNESIUM LEVEL 2.1 MG/DL (1.8-2.4); POTASSIUM SERUM 4.7 MMOL/L (3.5-5.1); SODIUM LEVEL 142.0 MMOL/L (136-145)
[2025-08-26 06:29] LABS: C REACTIVE PROTEIN QUANTITATIV 17.71 MG/DL (<1.0)
[2025-08-26] MEDS: PANTOPRAZOLE 40MG TAB PO SCH (09:22)
[2025-08-26] MEDS: TORSEMIDE 20 MG TAB PO SCH (09:24)
[2025-08-26] MEDS: HEPARIN SOD 5000 UNITS/ML 1 ML VIAL/SYRINGE SC SCH (14:39)
[2025-08-26] MEDS ORDERED: HYDROmorphone HCL 2 MG/ML 1 ML VIAL IV PRN (22:15)
[2025-08-27] VITALS (19 sets, daily range): BP systolic 123–151; BP diastolic 55–76; TEMP 96.9–98.9; O2SAT 94–100
[2025-08-27] MEDS: HYDROmorphone HCL 2 MG/ML 1 ML VIAL IV PRN (05:19)
[2025-08-27 06:05] LABS: BASO # 0.0 10^3/uL (0.0-0.2); BASO % 0.3 % (0.0-1.0); EOS # 0.2 10^3/uL (0.0-0.5); EOS % 3.5 % (0.0-3.0); LYMPH # 0.7 10^3/uL (1.5-5.0); LYMPH % 10.3 % (24.0-44.0); MONO # 0.4 10^3/uL (0.0-0.8); MONO % 5.2 % (2.0-8.0); NEUTROPHILS # 5.5 10^3/uL (1.5-8.5); NEUTROPHILS % 80.1 % (36.0-66.0); PLATELET COUNT, AUTOMATED 196 10^3/uL (150-450)
[2025-08-27 06:22] LABS: ALT/SGPT 14 U/L (7.0-40); AST/SGOT 13 U/L (<34); CALCIUM LEVEL 7.8 MG/DL (8.5-10.1); CARBON DIOXIDE LEVEL 30 MMOL/L (20-31); CHLORIDE LEVEL 104 MMOL/L (98-107); CREATININE FOR GFR 1.82 MG/DL (0.55-1.30); GLOMERULAR FILTRATION RATE 34.3 (>58); MAGNESIUM LEVEL 1.8 MG/DL (1.8-2.4); POTASSIUM SERUM 4.2 MMOL/L (3.5-5.1); SODIUM LEVEL 143 MMOL/L (136-145)
[2025-08-27] MEDS: CEFPODOXIME PROXETIL 200 MG TABLET PO SCH (10:19)
[2025-08-27] MEDS: NYSTATIN 100,000 UNITS/GM TOPICAL PWD 15 GM TOP PRN (17:12)
[2025-08-28] VITALS (19 sets, daily range): BP systolic 118–144; BP diastolic 65–85; TEMP 97.2–99.3; O2SAT 97–100
[2025-08-28 05:52] LABS: BASO # 0.0 10^3/uL (0.0-0.2); BASO % 0.4 % (0.0-1.0); EOS # 0.0 10^3/uL (0.0-0.5); EOS % 0.0 % (0.0-3.0); LYMPH # 0.7 10^3/uL (1.5-5.0); LYMPH % 14.4 % (24.0-44.0); MONO # 0.3 10^3/uL (0.0-0.8); MONO % 6.6 % (2.0-8.0); NEUTROPHILS # 4.0 10^3/uL (1.5-8.5); NEUTROPHILS % 78.4 % (36.0-66.0); PLATELET COUNT, AUTOMATED 207 10^3/uL (150-450)
[2025-08-28 06:16] LABS: C REACTIVE PROTEIN QUANTITATIV 5.33 MG/DL (<1.0)
[2025-08-28 06:17] LABS: ALT/SGPT 11 U/L (7.0-40); AST/SGOT 14 U/L (<34); CALCIUM LEVEL 8.0 MG/DL (8.5-10.1); CARBON DIOXIDE LEVEL 33 MMOL/L (20-31); CHLORIDE LEVEL 104 MMOL/L (98-107); CREATININE FOR GFR 1.80 MG/DL (0.55-1.30); GLOMERULAR FILTRATION RATE 34.8 (>58); MAGNESIUM LEVEL 1.9 MG/DL (1.8-2.4); POTASSIUM SERUM 4.7 MMOL/L (3.5-5.1); SODIUM LEVEL 142 MMOL/L (136-145)
[2025-08-28 08:31] LABS: CK-MB VALUE MASS < 1.0 NG/ML (<3.6)
[2025-08-28 08:32] LABS: CPK CREATINE PHOSPHOKINASE 41 U/L (34-145)
[2025-08-28] MEDS: LIDOCAINE 5% PATCH TD SCH (10:45)
[2025-08-28] MEDS: HEPARIN LOCK FLUSH 100 UNITS/ML 3 ML SYRINGE IV PRN (20:34)
[2025-08-28] MEDS: SODIUM CHLORIDE 0.9% INJ 10 ML SYR IV PRN (20:34)
[2025-08-29 04:54] VITALS: BP 102/63; TEMP 97.9; O2SAT 97
[2025-08-29 07:08] LABS: BASO # 0.0 10^3/uL (0.0-0.2); BASO % 0.4 % (0.0-1.0); EOS # 0.0 10^3/uL (0.0-0.5); EOS % 0.0 % (0.0-3.0); LYMPH # 1.0 10^3/uL (1.5-5.0); LYMPH % 18.9 % (24.0-44.0); MONO # 0.4 10^3/uL (0.0-0.8); MONO % 7.0 % (2.0-8.0); NEUTROPHILS # 3.9 10^3/uL (1.5-8.5); NEUTROPHILS % 73.3 % (36.0-66.0); PLATELET COUNT, AUTOMATED 186 10^3/uL (150-450)
[2025-08-29 07:41] LABS: C REACTIVE PROTEIN QUANTITATIV 3.64 MG/DL (<1.0)
[2025-08-29 07:48] LABS: ALT/SGPT 10 U/L (7.0-40); AST/SGOT 13 U/L (<34); CALCIUM LEVEL 7.8 MG/DL (8.5-10.1); CARBON DIOXIDE LEVEL 31 MMOL/L (20-31); CHLORIDE LEVEL 104 MMOL/L (98-107); CREATININE FOR GFR 1.52 MG/DL (0.55-1.30); GLOMERULAR FILTRATION RATE 42.6 (>58); MAGNESIUM LEVEL 1.7 MG/DL (1.8-2.4); POTASSIUM SERUM 4.1 MMOL/L (3.5-5.1); SODIUM LEVEL 143 MMOL/L (136-145)
[2025-08-29] MEDS ORDERED: CEFP200T PO (09:55)
[2025-08-29] MEDS: MAG SULF 1GM/100ML (MAG RUN) 1 GM in IV 1 EA IV SCH (10:28)
[2025-08-29 10:33] VITALS: BP 135/76
[2025-08-29] MEDS: FLUCONAZOLE 100 MG TAB PO ONE (10:40)
[2025-08-29 12:00] VITALS: BP 132/74; TEMP 97.9; O2SAT 97
[2025-09-10] MEDS ORDERED: CEFPODOXIME PROXETIL 200 MG TABLET PO SCH (09:00)
== END 2025-08-29 13:19 | disposition home health service (06) | DRG 720 ==
LOC: M ED 15:58 → M ED INP 20:52 → M PCU 22:15 → M MSPAV 08-28 11:40
PROVIDERS: ADMIT Student in an Organized Health Care Education/Training Program; ATTEND Internal Medicine
DX: A41.9 Sepsis, unspecified organism (principal); J96.11 Chronic respiratory failure with hypoxia; E11.22 Type 2 diabetes mellitus with diabetic chronic kidney disease; E11.42 Type 2 diabetes mellitus with diabetic polyneuropathy; I13.0 Hypertensive heart and chronic kidney disease with heart failure and stage 1 through stage 4 chronic kidney disease, or unspecified chronic kidney disease; E27.40 Unspecified adrenocortical insufficiency; C51.9 Malignant neoplasm of vulva, unspecified; D64.9 Anemia, unspecified; I50.32 Chronic diastolic (congestive) heart failure; E66.01 Morbid (severe) obesity due to excess calories; Z68.44 Body mass index [BMI] 60.0-69.9, adult; L03.315 Cellulitis of perineum; N18.30 Chronic kidney disease, stage 3 unspecified; G47.33 Obstructive sleep apnea (adult) (pediatric); K21.9 Gastro-esophageal reflux disease without esophagitis; F43.10 Post-traumatic stress disorder, unspecified; F32.A Depression, unspecified; G89.29 Other chronic pain; I89.0 Lymphedema, not elsewhere classified; Z93.3 Colostomy status; Z90.49 Acquired absence of other specified parts of digestive tract; F17.210 Nicotine dependence, cigarettes, uncomplicated; F41.1 Generalized anxiety disorder; Z79.84 Long term (current) use of oral hypoglycemic drugs; Z79.891 Long term (current) use of opiate analgesic; Z79.899 Other long term (current) drug therapy; Z88.0 Allergy status to penicillin; Z88.8 Allergy status to other drugs, medicaments and biological substances; Z91.048 Other nonmedicinal substance allergy status; L03.115 Cellulitis of right lower limb; L03.116 Cellulitis of left lower limb; N76.2 Acute vulvitis; N76.6 Ulceration of vulva; E26.9 Hyperaldosteronism, unspecified

== ENCOUNTER → 2025-09-06 | Outpatient (CLI) | payer OTHER ==
[~2025-09-06] VITALS: Ht 157.5 cm; Wt 132.4 kg
[~2025-09-06] MED LIST changes: +CEFP200T PO; +METF-838 PO; +TIRZ2.5P SQ
[2025-09-06 14:38] VITALS: BP 142/84; O2SAT 98
== END ==
LOC: M PAL 14:09
PROVIDERS: ATTEND Physician Assistant
DX: Z51.5 Encounter for palliative care (principal); C51.9 Malignant neoplasm of vulva, unspecified; Z92.21 Personal history of antineoplastic chemotherapy; Z92.3 Personal history of irradiation; N82.2 Fistula of vagina to small intestine; Z79.891 Long term (current) use of opiate analgesic; Z88.1 Allergy status to other antibiotic agents; Z88.0 Allergy status to penicillin; Z91.048 Other nonmedicinal substance allergy status; Z88.6 Allergy status to analgesic agent; Z79.899 Other long term (current) drug therapy; Z79.52 Long term (current) use of systemic steroids; Z79.84 Long term (current) use of oral hypoglycemic drugs

== ENCOUNTER → 2025-09-06 | Outpatient (CLI) | payer OTHER ==
[~2025-09-06] MED LIST changes: -SM P325T2 PO; +[UNRECOGNIZED DRUG - CODE] PO
== END ==
LOC: M ONCR 14:07
PROVIDERS: ATTEND General Practice
DX: C51.8 Malignant neoplasm of overlapping sites of vulva (principal); N82.3 Fistula of vagina to large intestine; E66.1 Drug-induced obesity; Z68.43 Body mass index [BMI] 50.0-59.9, adult; Z92.21 Personal history of antineoplastic chemotherapy; Z92.3 Personal history of irradiation; Z87.891 Personal history of nicotine dependence; Z88.0 Allergy status to penicillin; Z88.1 Allergy status to other antibiotic agents; Z88.8 Allergy status to other drugs, medicaments and biological substances; Z91.048 Other nonmedicinal substance allergy status; Z79.84 Long term (current) use of oral hypoglycemic drugs; Z79.899 Other long term (current) drug therapy; Z93.3 Colostomy status; Z93.6 Other artificial openings of urinary tract status

== ENCOUNTER → 2025-09-29 | Outpatient (CLI) | payer OTHER ==
[~2025-09-29] MED LIST changes: +LIDOCAINE 1% MDV 20 ML VIAL SC ONE
[2025-09-29 13:40] VITALS: TEMP 96.9
[2025-09-29 14:45] VITALS: BP 180/98; O2SAT 100
[2025-09-29] MEDS: ISOVUE-300 61% 100 ML VIAL IV ONE (15:29)
== END ==
LOC: M IRPRO 13:21
PROVIDERS: ATTEND Nurse Practitioner Family
DX: N13.5 Crossing vessel and stricture of ureter without hydronephrosis (principal)
CPT/HCPCS: 50435; C1729; Q9967

== ENCOUNTER 2025-10-08 18:50 | Inpatient (IN) | payer OTHER ==
[~2025-10-08] VITALS: Ht 144.8 cm; Wt 137.9 kg
[~2025-10-08 18:50] MED LIST changes: -BACTDSTA; -LIDOCAINE 1% MDV 20 ML VIAL SC ONE; -OXYC20TA64 PO; +OXYC20TA66 PO; -OXYC40TA40 PO; +OXYC40TA41 PO; +SULF-8
[2025-10-08 19:34] LABS: VENOUS BASE EXCESS 1.2 (-2.0-2.0); VENOUS HCO3 27.5 MMOL/L (23.0-27.0); VENOUS O2 SATURATION 57.9 % (60.0-80.0); VENOUS PARTIAL PRESSURE CO2 50.1 mmHg (38.0-50.0); VENOUS PARTIAL PRESSURE O2 26.7 mmHg (30.0-50.0); VENOUS PH 7.357 UNITS (7.330-7.430); VENOUS STANDARD HCO3 24.7 MMOL/L; VENOUS TOTAL CO2 29.0 MMOL/L (24.0-28.0)
[2025-10-08 19:39] LABS: BASO # 0.0 10^3/uL (0.0-0.2); BASO % 0.2 % (0.0-1.0); EOS # 0.0 10^3/uL (0.0-0.5); EOS % 0.0 % (0.0-3.0); LYMPH # 0.5 10^3/uL (1.5-5.0); LYMPH % 4.1 % (24.0-44.0); MONO # 0.3 10^3/uL (0.0-0.8); MONO % 2.0 % (2.0-8.0); NEUTROPHILS # 11.8 10^3/uL (1.5-8.5); NEUTROPHILS % 93.0 % (36.0-66.0); PLATELET COUNT, AUTOMATED 195 10^3/uL (150-450)
[2025-10-08] MEDS: NS (Normal Saline) 0.9% 2,000 ML in IV 1 EA IV STA (19:43)
[2025-10-08] MEDS: VANCOMYCIN HCL 1,000 MG, VIAL MATE ADAPTER 1 EACH in NS 250 ML IV ONE (19:43)
[2025-10-08] MEDS: ACETAMINOPHEN *IV* 1,000 MG in IV 1 EA IV ONE (19:45)
[2025-10-08 19:47] LABS: KETONE, URINE AUTO RFX NEGATIVE (NEGATIVE); MUCUS, URINE RFX SMALL (NEGATIVE); RBC, URINE AUTO RFX 24 /HPF (0-3); SQUAM EPITHELIAL CELL UR AURFX 0 /HPF (0-6); YEAST LIKE CELL URINE AUTO RFX SMALL
[2025-10-08 19:49] LABS: KETONE, URINE AUTO RFX NEGATIVE (NEGATIVE); LEUKOCYTE ESTERASE UR AUTO RFX 2+ (NEGATIVE); MUCUS, URINE RFX SMALL (NEGATIVE); NITRITE, URINE AUTO RFX POSITIVE (NEGATIVE); RBC, URINE AUTO RFX 17 /HPF (0-3); SQUAM EPITHELIAL CELL UR AURFX 0 /HPF (0-6); WBC, URINE AUTO RFX 10 /HPF (0-3); WBC, URINE AUTO RFX 14 /HPF (0-3); YEAST LIKE CELL URINE AUTO RFX SMALL
[2025-10-08 19:50] LABS: LEUKOCYTE ESTERASE UR AUTO RFX 2+ (NEGATIVE); NITRITE, URINE AUTO RFX POSITIVE (NEGATIVE)
[2025-10-08 20:08] LABS: CK-MB VALUE MASS < 1.0 NG/ML (<3.6)
[2025-10-08 20:11] LABS: ALT/SGPT 61 U/L (7.0-40); AST/SGOT 123 U/L (<34); CALCIUM LEVEL 7.9 MG/DL (8.5-10.1); CARBON DIOXIDE LEVEL 27 MMOL/L (20-31); CHLORIDE LEVEL 100 MMOL/L (98-107); CREATININE FOR GFR 1.44 MG/DL (0.55-1.30); GLOMERULAR FILTRATION RATE 45.1 (>58); POTASSIUM SERUM 3.9 MMOL/L (3.5-5.1); SODIUM LEVEL 137 MMOL/L (136-145)
[2025-10-08 20:18] LABS: CPK CREATINE PHOSPHOKINASE 52 U/L (34-145)
[2025-10-08] MEDS ORDERED: ISOVUE-370 76% 100 ML VIAL As Ordered ONE (20:38)
[2025-10-08] MEDS: MEROPENEM 2 GM, VIAL MATE ADAPTER 1 EACH in NS 100 ML IV ONE (20:47)
[2025-10-08] MEDS ORDERED: KETOROLAC 30 MG/ML 1 ML VIAL As Ordered ONE (22:30)
[2025-10-08] MEDS: KETOROLAC 30 MG/ML 1 ML VIAL IV ONE (22:35)
[2025-10-09] VITALS (13 sets, daily range): BP systolic 105–189; BP diastolic 54–86; TEMP 97.9–104; O2SAT 96–100
[2025-10-09] MEDS ORDERED: GLUCAGON INJ 1 MG VIAL SC PRN (00:30)
[2025-10-09] MEDS ORDERED: GLUCOSE 4 GM CHEW PO PRN (00:30)
[2025-10-09] MEDS ORDERED: DEXTROSE 50% 50 ML SYRINGE IV PRN (00:30)
[2025-10-09 01:30] LABS: INR 1.02
[2025-10-09] MEDS ORDERED: HOME MED LIST COMPLETE! XX SCH (03:25)
[2025-10-09] MEDS: VANCOMYCIN HCL 750 MG, VIAL MATE ADAPTER 1 EACH in NS 250 ML IV ONE (04:33)
[2025-10-09 04:54] LABS: BASO # 0.0 10^3/uL (0.0-0.2); BASO % 0.3 % (0.0-1.0); EOS # 0.0 10^3/uL (0.0-0.5); EOS % 0.0 % (0.0-3.0); LYMPH # 0.5 10^3/uL (1.5-5.0); LYMPH % 4.0 % (24.0-44.0); MONO # 0.4 10^3/uL (0.0-0.8); MONO % 3.3 % (2.0-8.0); NEUTROPHILS # 10.4 10^3/uL (1.5-8.5); NEUTROPHILS % 91.7 % (36.0-66.0); PLATELET COUNT, AUTOMATED 179 10^3/uL (150-450)
[2025-10-09] MEDS: MAG SULF 1GM/100ML (MAG RUN) 1 GM in IV 1 EA IV SCH (05:21)
[2025-10-09 05:22] LABS: ALT/SGPT 62.0 U/L (7.0-40); AST/SGOT 97.0 U/L (<34); CALCIUM LEVEL 7.1 MG/DL (8.5-10.1); CARBON DIOXIDE LEVEL 26.0 MMOL/L (20-31); CHLORIDE LEVEL 100.0 MMOL/L (98-107); CREATININE FOR GFR 1.53 MG/DL (0.55-1.30); GLOMERULAR FILTRATION RATE 42.0 (>58); POTASSIUM SERUM 4.4 MMOL/L (3.5-5.1); SODIUM LEVEL 135.0 MMOL/L (136-145)
[2025-10-09] MEDS: MEROPENEM 2 GM, VIAL MATE ADAPTER 1 EACH in NS 100 ML IV SCH (05:52)
[2025-10-09] MEDS: INSULIN LISPRO (NovoLOG) PER UNIT SC SCH ×2 (07:37→20:18)
[2025-10-09] MEDS: HEPARIN SOD 5000 UNITS/ML 1 ML VIAL/SYRINGE SC SCH (08:02)
[2025-10-09] MEDS ORDERED: CLOTRIMAZOLE 1% TOPICAL CREAM 30 GM TOP PRN (11:50)
[2025-10-09] MEDS: oxyCODONE 15MG CR TAB PO SCH (12:19)
[2025-10-09] MEDS ORDERED: NALOXONE INJ 0.4 MG/1 ML VIAL IV PRN (13:05)
[2025-10-09] MEDS: VANCOMYCIN HCL 1,500 MG, VIAL MATE ADAPTER 1 EACH in NS 500 ML IV SCH (13:58)
[2025-10-09] MEDS: busPIRone 5 MG TAB PO SCH (17:02)
[2025-10-09] MEDS: GABAPENTIN 300 MG CAP PO SCH (17:02)
[2025-10-09] MEDS: HYDROCORTISONE 10 MG TAB PO SCH (20:28)
[2025-10-09] MEDS: FAMOTIDINE 20 MG TAB PO SCH (20:28)
[2025-10-10 00:10] VITALS: BP 141/65; TEMP 100.4; O2SAT 100
[2025-10-10 04:00] VITALS: BP 129/64; TEMP 99.1; O2SAT 98
[2025-10-10 05:01] LABS: BASO # 0.0 10^3/uL (0.0-0.2); BASO % 0.3 % (0.0-1.0); EOS # 0.0 10^3/uL (0.0-0.5); EOS % 0.0 % (0.0-3.0); LYMPH # 0.4 10^3/uL (1.5-5.0); LYMPH % 4.9 % (24.0-44.0); MONO # 0.3 10^3/uL (0.0-0.8); MONO % 3.9 % (2.0-8.0); NEUTROPHILS # 6.8 10^3/uL (1.5-8.5); NEUTROPHILS % 90.1 % (36.0-66.0); PLATELET COUNT, AUTOMATED 155 10^3/uL (150-450)
[2025-10-10 05:38] LABS: ALT/SGPT 57.0 U/L (7.0-40); AST/SGOT 72.0 U/L (<34); CALCIUM LEVEL 7.5 MG/DL (8.5-10.1); CARBON DIOXIDE LEVEL 26.0 MMOL/L (20-31); CHLORIDE LEVEL 103.0 MMOL/L (98-107); CREATININE FOR GFR 1.41 MG/DL (0.55-1.30); GLOMERULAR FILTRATION RATE 46.3 (>58); MAGNESIUM LEVEL 2.1 MG/DL (1.8-2.4); POTASSIUM SERUM 4.3 MMOL/L (3.5-5.1); SODIUM LEVEL 138.0 MMOL/L (136-145)
[2025-10-10 08:00] VITALS: BP 123/58; TEMP 98.1; O2SAT 97
[2025-10-10] MEDS: HYDROCORTISONE 10 MG TAB PO SCH (08:02)
[2025-10-10] MEDS: PANTOPRAZOLE 40MG TAB PO SCH (08:03)
[2025-10-10] MEDS: ALTEPLASE 2 MG/2 ML VIAL XX ONE (11:23)
[2025-10-10 12:00] VITALS: BP 130/63; TEMP 99.6; O2SAT 97
[2025-10-10] MEDS: oxyCODONE 20MG CR TAB PO ONE (12:34)
[2025-10-10] MEDS: ONDANSETRON 4MG/2ML VIAL IV PRN (13:50)
[2025-10-10] MEDS: HYDROMORPHONE HCL 0.5 MG/0.5 ML SYRINGE IV PRN (15:14)
[2025-10-10 16:00] VITALS: BP 118/61; TEMP 98.4; O2SAT 97
[2025-10-10 19:27] LABS: ANTI-STREPTOLYSIN O QUANT 991.0 IU/ML (<195)
[2025-10-10 20:00] VITALS: BP 119/59; TEMP 99; O2SAT 97
[2025-10-10] MEDS: SERTRALINE 100 MG TAB PO SCH (20:58)
[2025-10-10] MEDS: oxyCODONE 20MG CR TAB PO SCH (20:59)
[2025-10-11] VITALS (8 sets, daily range): BP systolic 122–137; BP diastolic 60–74; TEMP 97.4–99.8; O2SAT 88–97
[2025-10-11 05:19] LABS: BASO # 0.0 10^3/uL (0.0-0.2); BASO % 0.5 % (0.0-1.0); EOS # 0.0 10^3/uL (0.0-0.5); EOS % 0.2 % (0.0-3.0); LYMPH # 0.6 10^3/uL (1.5-5.0); LYMPH % 8.8 % (24.0-44.0); MONO # 0.4 10^3/uL (0.0-0.8); MONO % 6.8 % (2.0-8.0); NEUTROPHILS # 5.4 10^3/uL (1.5-8.5); NEUTROPHILS % 82.9 % (36.0-66.0); PLATELET COUNT, AUTOMATED 170 10^3/uL (150-450)
[2025-10-11 05:43] LABS: ALT/SGPT 44.0 U/L (7.0-40); AST/SGOT 47.0 U/L (<34); CALCIUM LEVEL 7.3 MG/DL (8.5-10.1); CARBON DIOXIDE LEVEL 27.0 MMOL/L (20-31); CHLORIDE LEVEL 105.0 MMOL/L (98-107); CREATININE FOR GFR 1.38 MG/DL (0.55-1.30); GLOMERULAR FILTRATION RATE 47.5 (>58); MAGNESIUM LEVEL 2.0 MG/DL (1.8-2.4); POTASSIUM SERUM 4.0 MMOL/L (3.5-5.1); SODIUM LEVEL 139.0 MMOL/L (136-145)
[2025-10-11] MEDS: VANCOMYCIN HCL 1,250 MG, VIAL MATE ADAPTER 1 EACH in NS 250 ML IV SCH (14:04)
[2025-10-11] MEDS: diphenhydrAMINE 50 MG/ML VIAL IV PRN (20:46)
[2025-10-12] VITALS (7 sets, daily range): BP systolic 138–149; BP diastolic 63–84; TEMP 97.4–98.2; O2SAT 95–99
[2025-10-12 06:17] LABS: BASO # 0.0 10^3/uL (0.0-0.2); BASO % 0.5 % (0.0-1.0); EOS # 0.1 10^3/uL (0.0-0.5); EOS % 1.2 % (0.0-3.0); LYMPH # 1.0 10^3/uL (1.5-5.0); LYMPH % 16.0 % (24.0-44.0); MONO # 0.5 10^3/uL (0.0-0.8); MONO % 7.6 % (2.0-8.0); NEUTROPHILS # 4.4 10^3/uL (1.5-8.5); NEUTROPHILS % 73.9 % (36.0-66.0); PLATELET COUNT, AUTOMATED 178 10^3/uL (150-450)
[2025-10-12 06:47] LABS: ALT/SGPT 35.0 U/L (7.0-40); AST/SGOT 35.0 U/L (<34); CALCIUM LEVEL 7.6 MG/DL (8.5-10.1); CARBON DIOXIDE LEVEL 28.0 MMOL/L (20-31); CHLORIDE LEVEL 107.0 MMOL/L (98-107); CREATININE FOR GFR 1.42 MG/DL (0.55-1.30); GLOMERULAR FILTRATION RATE 45.9 (>58); MAGNESIUM LEVEL 2.0 MG/DL (1.8-2.4); POTASSIUM SERUM 4.5 MMOL/L (3.5-5.1); SODIUM LEVEL 141.0 MMOL/L (136-145)
[2025-10-12 11:21] LABS: C REACTIVE PROTEIN QUANTITATIV 7.76 MG/DL (<1.0)
[2025-10-12] MEDS: VANCOMYCIN HCL 1,000 MG, VIAL MATE ADAPTER 1 EACH in NS 250 ML IV SCH (14:45)
[2025-10-12] MEDS: NYSTATIN 100,000 UNITS/GM TOPICAL PWD 15 GM TOP PRN (16:02)
[2025-10-13] VITALS: BP 151/70; TEMP 98.5; O2SAT 99
[2025-10-13 05:54] VITALS: BP 125/68; TEMP 98; O2SAT 98
[2025-10-13 06:49] LABS: BASO # 0.0 10^3/uL (0.0-0.2); BASO % 0.5 % (0.0-1.0); EOS # 1.2 10^3/uL (0.0-0.5); EOS % 19.1 % (0.0-3.0); LYMPH # 1.0 10^3/uL (1.5-5.0); LYMPH % 15.9 % (24.0-44.0); MONO # 0.5 10^3/uL (0.0-0.8); MONO % 7.2 % (2.0-8.0); NEUTROPHILS # 3.6 10^3/uL (1.5-8.5); NEUTROPHILS % 55.4 % (36.0-66.0); PLATELET COUNT, AUTOMATED 195 10^3/uL (150-450)
[2025-10-13 06:50] LABS: ALT/SGPT 29.0 U/L (7.0-40); AST/SGOT 28.0 U/L (<34); CALCIUM LEVEL 7.9 MG/DL (8.5-10.1); CARBON DIOXIDE LEVEL 30.0 MMOL/L (20-31); CHLORIDE LEVEL 105.0 MMOL/L (98-107); CREATININE FOR GFR 1.34 MG/DL (0.55-1.30); GLOMERULAR FILTRATION RATE 49.2 (>58); MAGNESIUM LEVEL 1.8 MG/DL (1.8-2.4); POTASSIUM SERUM 4.5 MMOL/L (3.5-5.1); SODIUM LEVEL 141.0 MMOL/L (136-145)
[2025-10-13 08:09] VITALS: BP 178/76; TEMP 98.4
[2025-10-13 10:05] VITALS: BP 151/73; O2SAT 99
[2025-10-13 10:06] VITALS: BP 151/73; TEMP 98; O2SAT 98
[2025-10-13] MEDS ORDERED: CEFP200T PO (11:12)
== END 2025-10-13 12:58 | disposition home or self-care (01) | DRG 720 ==
LOC: M ED 18:50 → M ED INP 23:54 → M ICU 10-09 00:59
PROVIDERS: ADMIT Internal Medicine; ATTEND Internal Medicine
DX: A41.9 Sepsis, unspecified organism (principal); I50.32 Chronic diastolic (congestive) heart failure; E11.22 Type 2 diabetes mellitus with diabetic chronic kidney disease; E66.01 Morbid (severe) obesity due to excess calories; L03.315 Cellulitis of perineum; Z68.44 Body mass index [BMI] 60.0-69.9, adult; Z93.6 Other artificial openings of urinary tract status; N18.30 Chronic kidney disease, stage 3 unspecified; K76.0 Fatty (change of) liver, not elsewhere classified; G47.33 Obstructive sleep apnea (adult) (pediatric); Z96.0 Presence of urogenital implants; N39.0 Urinary tract infection, site not specified; K21.9 Gastro-esophageal reflux disease without esophagitis; D63.8 Anemia in other chronic diseases classified elsewhere; I89.0 Lymphedema, not elsewhere classified; F43.10 Post-traumatic stress disorder, unspecified; F32.A Depression, unspecified; E26.9 Hyperaldosteronism, unspecified; G89.29 Other chronic pain; Z90.49 Acquired absence of other specified parts of digestive tract; L03.115 Cellulitis of right lower limb; R74.01 Elevation of levels of liver transaminase levels; L30.4 Erythema intertrigo; Z79.891 Long term (current) use of opiate analgesic; Z79.899 Other long term (current) drug therapy; Z88.0 Allergy status to penicillin; Z88.1 Allergy status to other antibiotic agents; Z88.8 Allergy status to other drugs, medicaments and biological substances; Z91.048 Other nonmedicinal substance allergy status; Z93.3 Colostomy status; Z85.44 Personal history of malignant neoplasm of other female genital organs; Z92.21 Personal history of antineoplastic chemotherapy; Z92.3 Personal history of irradiation